=== PATIENT | male | born 1970 | race Caucasian/White ===

== ENCOUNTER 2023-01-28 07:36 | Outpatient (OUT) | payer OTHER, SELFPAY ==
[2023-01-28 09:05] LABS: Calcium 9.2 mg/dL (8.5-10.1); Carbon Dioxide 28.3 mmol/L (21.0-32.0); Chloride 101 mmol/L (98-107); Estimated GFR (African America >60 (>=60); Estimated GFR (Non-African Ame >60 (>=60); Phosphorus 2.7 mg/dL (2.6-4.7); Sodium 140 mmol/L (136-145); Uric Acid 5.1 mg/dL (3.5-7.2)
[2023-01-28 14:03] LABS: Calcium Urine Random >30.0 mg/dL (5.1-21.0); Creatinine Urine Random 153.11 mg/dL (20.00-300.00); Sodium Urine Random 110 mmol/L (30-90)
[2023-01-28 14:25] LABS: Sodium 24 Hour Urine 572 mmol/24h (40-220); Total Volume 24 Hour Urine 5200 mL/24hr
[2023-01-29 09:14] LABS: Uric Acid, Urine 25.2 mg/dL (Not Estab.); Uric Acid,Urine 24hr 302.4 mg/24 hr (197.2-1078.7)
[2023-01-29 11:09] LABS: PTH, Intact 18 pg/mL (15-65)
[2023-01-29 12:12] LABS: Magnesium, U 11.1 mg/dL (Not Estab.); Magnesium,Urine 24hr 133.2 mg/24 hr (12.0-293.0); Phosphorus, Urine 85.2 mg/dL (Not Estab.); Phosphorus,Urine 24h 1022 mg/24 hr (390-1425)
[2023-01-31 00:06] LABS: Citric Acid, U, 24hr 547 mg/24 hr (320-1240); Citric Acid, Urine 456 mg/L (Undefined); Oxalates, Urine 11 mg/L (Undefined); Oxalates, Urine 24hr 13 mg/24 hr (7-44)
== END 2023-01-28 07:37 | disposition home or self-care (01) ==
LOC: LAB 07:36
PROVIDERS: PCP Internal Medicine; Visit Provider Urology
DX: N20.0 Calculus of kidney (principal)
CPT/HCPCS: 36415; 82310; 82340; 82374; 82435; 82507; 82565; 82570; 83735; 83945; 83970; 84100; 84105; 84295; 84300; 84520; 84550; 84560

== ENCOUNTER 2023-03-31 07:43 | Outpatient (OUT) | payer OTHER, SELFPAY ==
[2023-03-31 08:27] LABS: Anion Gap 12.7; Carbon Dioxide 31.9 mmol/L (21.0-32.0); Chloride 99 mmol/L (98-107); Potassium 3.6 mmol/L (3.5-5.1); Sodium 140 mmol/L (136-145)
== END 2023-03-31 07:44 | disposition home or self-care (01) ==
LOC: LAB 07:45
PROVIDERS: PCP Internal Medicine; Visit Provider Urology
DX: C61 Malignant neoplasm of prostate (principal); Z87.442 Personal history of urinary calculi
CPT/HCPCS: 36415; 80051; 84153

== ENCOUNTER 2023-08-19 07:26 | Outpatient (OUT) | payer OTHER, SELFPAY ==
--- OUTSIDE RECORDS SUMMARY | 2023-08-19 07:30 | XMS_ITS | CCD ---
Author Organization [facility] Care Team Providers Care Animal Rehabilitator Name Role Phone IVAN SUAZO Primary Care Physician Ivan Suazo Unavailable KWAME, DR PUGH Primary Care Unavailable TIMMIS, DR CARMICHAEL Admitting Unavailable TIMMIS, DR CARMICHAEL Attending Unavailable TIMMIS, DR CARMICHAEL Consulting Unavailable AGUBOSIM, JOSE ALBERTO Consulting Unavailable BALL, DR PUGH Primary Care Unavailable BALL, DR PUGH Admitting Unavailable BALL, DR PUGH Attending Unavailable BALL, DR PUGH Consulting Unavailable BALL, DR PUGH Primary Care Unavailable ZACK, RACHEL Admitting Unavailable ZACK, RACHEL Attending Unavailable ZIEBER, DR PREETHI Rainey Consulting Unavailable ZACK, RACHEL Consulting Unavailable BARNES, Sridhar Rainey Attending Unavailable BARNES, Sridhar Rainey Attending Unavailable BARNES, Sridhar Rainey Attending Unavailable BARNES, Sridhar Rainey Referring Unavailable BARNES, Sridhar Rainey Admitting Unavailable BARNES, Sridhar Rainey Attending Unavailable BARNES, Sridhar Rainey Attending Unavailable Allergies Allergy Classification Reported Allergen(s) Allergy Type Date of Onset Reaction(s) Facility (10 sources) Penicillin; Translations: [penicillin] Drug Allergy Weal (disorder) [facility] (1 source) patient allergy list reviewed by nurse or physicia Propensity to adverse reactions 07-03-19 Comment:Done [facility] Other (1 source) Substance with penicillin structure and antibacterial mechanism of action (substance) Drug allergy Unknown [facility] Other Medications Current Medications Medication Drug Class(es) Dates Sig (Normalized) Sig (Original) amLODIPine 5 mg oral tablet (8 sources) Dihydropyridine Calcium Channel Vipin Start: 03-05-20 21 take 1 tablet by mouth once daily amLODIPine 5 mg Tab 5 mg = 1 tab(s), Oral, Daily Start Date: 03/05/21 Status: Ordered ciprofloxacin 500 mg oral tablet (1 source) Quinolone Antimicrobial Start: 01-13-20 End: 01-20-20 Cipro 500 mg Tab 500 mg = 1 tab(s), Oral, BID, start 3 days prior to procedure, X 7 day(s), # 14 tab(s), Refills(s) 0, Pharmacy: [facility]/pharmacy #[id number], 170, cm, 01/12/23 15:44:00 EDT, Height/Length Dosing, 83.5, kg, 01/12/23 15:44:00 EDT, Weight Dosing Start Date: 01/12/23 Stop Date: 01/19/23 Status: Ordered diazePAM 10 mg oral tablet (2 sources) Benzodiazepine Start: 01-13-20 take 1 tablet by mouth once as needed for anxiety Valium 10 mg Tab 10 mg = 1 tab(s), Oral, Once, PRN for anxiety, # 1 tab(s), Refills(s) 0, [id number] 170, cm, 01/12/23 15:44:00 EDT, Height/Length Dosing, 83.5, kg, 01/12/23 15:44:00 EDT, Weight Dosing Start Date: 01/12/23 Status: Ordered hydroCHLOROthiazide 12.5 mg oral tablet (1 source) Thiazide Diuretic Start: 02-11-20 take 1 tablet by mouth once daily hydrochlorothiazide 12.5 mg Tab 12.5 mg = 1 tab(s), Oral, Daily, # 90 tab(s), Refills(s) 3, [id number], 170, cm, 02/10/23 8:51:00 EDT, Height/Length Dosing, 83.5, kg, 01/12/23 15:44:00 EDT, Weight Dosing Start Date: 02/10/23 Status: Ordered Prosta-genix (2 sources) Start: 01-13-20 Prosta-genix Prosta-genix, Daily Start Date: 01/12/23 Status: Ordered tamsulosin hydrochloride 0.4 mg oral capsule (3 sources) alpha-Adrenergic Vipin Start: 11-13-19 take 1 capsule by mouth once daily Flomax 0.4 mg Cap 0.4 mg = 1 cap(s), Oral, Daily, # 30 cap(s), Refills(s) 11, [id number], 170, cm, 09/10/21 8:47:00 EDT, Height/Length Dosing, 83.3, kg, 09/10/21 8:47:00 EDT, Weight Dosing Start Date: 11/12/21 Status: Ordered Start: 03-25-2021 take 1 capsule by [facility] twice daily Flomax 0.4 mg Cap 0.4 mg = 1 cap(s), Oral, BID, # 60 cap(s), Refills(s) 2, [id number], 170, cm, 03/05/21 9:37:00 EDT, Height/Length Dosing, 81.2, kg, 03/05/21 9:37:00 EDT, Weight Dosing Start Date: 03/25/21 Status: Ordered {20 (nirmatrelvir 150 MG Oral Tablet) / 10 (ritonavir 100 MG Oral Tablet) } Pack [Paxlovid 5-Day] (2 sources) Start: 09-15-2022 take 3 tablets by mouth every twelve hours Paxlovid (300/100) 20 x 150 MG & 10 x 100MG 3 tablets Orally Twice a day for 5 days September, Active Problems Active Problems Problem Classification Problem Date Documented Da te Episodic/Chronic Allergic reactions (2 sources) Inflammatory dermatosis; Translations: [Dermatitis, unspecified] Onset: 02-26-2017 Episodic Calculus of urinary tract (7 sources) History of calculus of kidney; Translations: [Personal history of urinary calculi] Onset: 04-30-2022 Episodic Cancer of prostate (2 sources) Malignant tumor of prostate; Translations: [Malignant neoplasm of prostate] Chronic Chronic obstructive pulmonary disease and bronchiectasis (1 source) Bronchitis, not specified as acute or chronic Episodic Diseases of mouth; excluding dental (7 sources) Abscess of lip; Translations: [Diseases of lips] Onset: 10-15-2021 Episodic Essential hypertension (7 sources) Essential hypertension; Translations: [Essential (primary) hypertension] Onset: 10-17-2021 Chronic Hyperplasia of prostate (20 sources) Benign prostatic hypertrophy without outflow obstruction; Translations: [Benign prostatic hyperplasia without lower urinary tract symptoms] Onset: 09-10-2021 Chronic Other circulatory disease (6 sources) Elevated blood-pressure reading without diagnosis of hypertension; Translations: [Elevated blood-pressure reading, without diagnosis of hypertension] 09-13-2020 Episodic Other connective tissue disease (3 sources) Tendinitis of right rotator cuff; Translations: [Other shoulder lesions, right shoulder] Episodic Other connective tissue disease (1 source) Mass of shoulder region; Translations: [Other shoulder lesions, right shoulder] Episodic Other nutritional; endocrine; and metabolic disorders (6 sources) Simple obesity ; Translations: [Other obesity due to excess calories] 09-13-2020 Chronic Other nutritional; endocrine; and metabolic disorders (1 source) Body mass index 30+ - obesity; Translations: [Body mass index 30.0-30.9, adult] Onset: 07-03-2017 Chronic Other nutritional; endocrine; and metabolic disorders (1 source) Overweight Episodic Other nutritional; endocrine; and metabolic disorders (1 source) Overweight; Translations: [Overweight] Episodic Other screening for suspected conditions (not mental disorders or infectious disease) (13 sources) Raised prostate specific antigen; Translations: [Elevated prostate specific antigen [PSA]] Onset: 09-10-2021 Episodic Spondylosis; intervertebral disc disorders; other back problems (2 sources) Low back pain; Translations: [Low back pain, unspecified] Onset: 07-19-2018 Episodic Unclassified (4 sources) Asymptomatic microscopic hematuria 04-30-2022 Past or Other Problems Problem Classification Problem Date Documented Da te Episodic/Chronic Conditions associated with dizziness or vertigo (1 source) Benign paroxysmal positional vertigo; Translations: [Benign paroxysmal vertigo, unspecified ear] Onset: 01-14-2013 Episodic Genitourinary symptoms and ill-defined conditions (6 sources) Microscopic hematuria; Translations: [Asymptomatic microscopic hematuria] Onset: 04-30-2022 Episodic Other aftercare (1 source) Other terminal clerk (current) drug therapy; Translations: [OTH [facility] CURRENT DRUG THERAPY] Onset: 10-17-2021 Episodic Other inflammatory condition of skin (1 source) Pruritic rash; Translations: [Other prurigo] Onset: 11-07-2016 Episodic Residual codes; unclassified (1 source) Pain, unspecified; Translations: [PAIN UNSPECIFIED] Onset: 10-17-2021 Episodic Unclassified (3 sources) Acute bilateral low back pain without sciatica; Translations: [Acute bilateral low back pain without sciatica] Viral infection (1 source) Viral wart, unspecified; Translations: [VIRAL WART UNSPECIFIED] Onset: 10-17-2021 Episodic Viral infection (1 source) COVID-19 Results Test Name Value Interpretation Reference Range Facility RAD - MRI Reporton RAD - MRI Report [id number] #1.00TIFF [facility] Insurance Correspondenceon 0 06-12-2023 Insurance Correspondence [id number] 3#1.00TIFF [facility] Pre-Certification Formon Pre-Certification Form [id number]# 1.00TIFF [facility] Reminderson 06-10-2023 Reminders - From: Heather Mckeon To: EU - Recalls Barnes; Sent: 01/12/2023 17:16:54 EDT Show up: 05/18/2023 17:16:00 EST Subject: MRI of prostate w/wo Due Date/Time: 06/08/2023 17:16:00 EST Reminder/Recall Pt needs MRI of prostate with and without in Jun 2023 precert sent to [facility] to get auth approval.[facility] Lab Reportson 04-02-2023 Lab Reports [id number] #1.00TIFF [facility] Patient Educationon 02-21-20 23 Patient Education Oncology Prostate Cancer The prostate is a small gland that produces fluid that makes up semen (seminal fluid). It is located below the bladder in men, in front of the rectum. Prostate cancer is the abnormal growth of cells in the prostate gland. What are the causes? The exact cause of this condition is not known. What increases the risk? You are more likely to develop this condition if: ? You are 65 years of age or older. ? You have a family history of prostate cancer. ? You have a family history of breast and ovarian cancer. ? You have genes that are passed from parent to child (inherited), such as BRCA1 and BRCA2. ? You have Madden syndrome. men and men of descent are diagnosed with prostate cancer at higher rates than other men. The reasons for this are not well understood and are likely due to a combination of genetic and environmental factors. What are the signs or symptoms? Symptoms of this condition include: ? Problems with urination. This may include: ? A weak or interrupted flow of urine. ? Trouble starting or stopping urination. ? Trouble emptying the bladder all the way. ? The need to urinate more often, especially at night. ? Blood in urine or semen. ? Persistent pain or discomfort in the lower back, lower abdomen, or hips. ? Trouble getting an erection. ? Weakness or numbness in the legs or feet. How is this diagnosed? This condition can be diagnosed with: ? A digital rectal exam. For this exam, a health care provider inserts a gloved finger into the rectum to feel the prostate gland. ? A blood test called a prostate-specific antigen (PSA) test. ? A procedure in which a sample of tissue is taken from the prostate and checked under a microscope (prostate biopsy). ? An imaging test called transrectal ultrasonography. Once the condition is diagnosed, tests will be done to determine how far the cancer has spread. This is called staging the cancer. Staging may involve imaging tests, such as a bone scan, CT scan, PET scan, or MRI. Stages of prostate cancer The stages of prostate cancer are as follows: ? Stage 1 (I). At this stage, the cancer is found in the prostate only. The cancer is not visible on imaging tests, and it is usually found by accident, such as during prostate surgery. ? Stage 2 (II). At this stage, the cancer is more advanced than it is in stage 1, but the cancer has not spread outside the prostate. ? Stage 3 (III). At this stage, the cancer has spread beyond the outer layer of the prostate to nearby tissues. The cancer may be found in the seminal vesicles, which are near the bladder and the prostate. ? Stage 4 (IV). At this stage, the cancer has spread to other parts of the body, such as the lymph nodes, bones, bladder, rectum, liver, or lungs. Prostate cancer grading Prostate cancer is also graded according to how the cancer cells look under a microscope. This is called the Pam score and the total score can range from 6?10, indicating how likely it is that the cancer will spread (metastasize) to other parts of the body. The higher the score, the greater the likelihood that the cancer will spread. ? Pam 6 or lower: This indicates that the cancer cells look similar to normal prostate cells (well differentiated). ? [place] 7: This indicates that the cancer cells look somewhat similar to normal prostate cells (moderately differentiated). ? [place] 8, 9, or 10: This indicates that the cancer cells look very different than normal prostate cells (poorly differentiated). How is this treated? Treatment for this condition depends on several factors, including the stage of the cancer, your age, personal preferences, and your overall health. Talk with your health care provider about treatment options that are recommended for you. Common treatments include: ? Observation for early stage prostate cancer (active surveillance). This involves having exams, blood tests, and in some cases, more biopsies. For some men, this is the only treatment needed. ? Surgery. Types of surgeries include: ? Open surgery (radical prostatectomy). In this surgery, a larger incision is made to remove the prostate. ? A laparoscopic radical prostatectomy. This is a surgery to remove the prostate and lymph nodes through several small incisions. It is often referred to as a minimally invasive surgery. ? A robotic radical prostatectomy. This is laparoscopic surgery to remove the prostate and lymph nodes with the help of robotic arms that are controlled by the surgeon. ? Cryoablation. This is surgery to freeze and destroy cancer cells. ? Radiation treatment. Types of radiation treatment include: ? External beam radiation. This type aims beams of radiation from outside the body at the prostate to destroy cancerous cells. ? Brachytherapy. This type uses radioactive needles, seeds, wires, or tubes that are implanted into the prostate gland. Like external be (more content not included)... Normal [facility] Urology Office/Clinic Noteon 02-20-2023 Urology Office/Clinic Note Chief Complaint elevated PSA HPI Staff S/P TRUS/Bx done 02/10/23 Pt is here today to review pathology report. DX: BPH w/Elevated PSA & Hx of Kidney Stones 24hr Urine & Metabolic panel 01/28/23 Dysuria: no Incomplete bladder emptying: no Hematuria: no Frequency: no Urgency: no Nocturia: 1-2x Stream: no straining little weaker than before Leaking: no Post void dripping: no Wearing pads/ Depends: no Urge incontinence: no Stress incontinence: no Incontinence without Sensory Awareness: no Abdominal pain: no Flank pain: no Sexual complaints: no History of Present Illness Tests reviewed: reviewed pathology report, metabolic panel I have reviewed the previous health record information and history for this patient from Dr. Barnes. I have reviewed and verified the staff HPI to be accurate for this encounter. Review of Systems PHQ Score Initial Depression Screen Score: 0 ROS - Provider Constitutional: denies weight loss, denies hot flashes. Eyes: denies eye problems. Gastrointestinal: denies nausea, denies vomiting. Cardiovascular: denies chest pain or angina. Integumentary: no dryness Musculoskeletal: denies musculoskeletal symptoms. ENMT: denies otolaryngeal symptoms. Respiratory: no shortness of breath. Heme/Lymph: denies easy bleeding tendency, denies easy bruising tendency. Psychiatric: no confusion, no anxiety. Genitourinary: See HPI. Physical Exam Vitals & Measurements HR: 82(Peripheral) RR: 16 BP: 134/83 HT: 67 in HT: 170 cm WT: 83.5 kg WT: 183.7 lb BMI: 28.89 General Appearance: alert, no distress, well nourished, well developed male. Genitourinary: normal scrotum, normal testes, normal urethra, normal epididymis, normal vas deferens/spermatic cord. Flank Pain: none. Bladder: nonpalpable. Assessment/Plan 1. Prostate cancer (C61: Malignant neoplasm of prostate) ACTIVE SURVEILLANCE. S/p TRUS/bx 10/08/[address] Thomson - [facility] in 1 core. S/p TRUS/bx 02/10/23 - GS 6 (3+3) in 2 cores, 3% core involved in right base and 2% involved in right lateral base. The pathology report was reviewed with the patient in detail today. The report confirms evidence of malignancy. This was discussed with the patient and all questions were answered in terms the patient could understand completely, along with the implications. Discussed results were mild and do not require treatment at this time. Pt understands cancer can progress, requiring further evaluation for treatment. Will monitor PSA every 6 months and regularly check AIDE. The patient understands and agrees with this plan. PSA 08/02/20 - 5.79 08/27/20 - 5.5 and 15.3% 08/12/21 - 5.7 and 14.2% 04/30/22 - 5.0 08/16/22 - 8.54 Denies any known family hx of prostate ca. Discussed most recent PSA level will now be baseline for monitoring levels. Pt understands a significant increase in PSA level would harbor a repeat biopsy or MRI. Follow up with PSA and AIDE in 6 months or sooner if needed. All questions/concerns were discussed. Pt to call the office if he encounters any issues prior. Pt acknowledges understanding. 2. History of kidney stones (Z87.442: Personal history of urinary calculi) Pt states that he does have a personal history of kidney stones and he last passed one in 2020. Has passed 3 in his lifetime. KUB 04/30/22 - negative for stones. 24hr urine 01/28/23 - high Na, Ca, Cr levels. 5200 mL/24hr. Discussed 24hr urine will need rechecked in 1 year for calcium excretion. Taking HCTZ 12.5mg qd. Will check electrolyte levels in March. 3. BPH with elevated PSA (N40.0: Benign prostatic hyperplasia without lower urinary tract symptoms) Pt took Tamsulosin 0.4mg QD in the past but stopped due to SE of stuffy head. UA today shows moderate blood (postop). Follow-up With When Contact Information DERECK JACOBS, CHRISTAL [place] In 6 months [facility] [address] [place] [address] [phone] Additional Instructions: PSA and AIDE Patient Education Prostate Cancer I, Parris Morales, personally scribed for Dr. Barnes on 02/20/2023 12:14:52. . Documentation recorded by the milaibParris vega, accurately reflects the services(s) I performed and decisions made by me. Authenticated by Dr. Barnes on 02/20/2023 12:17:24. Problem List/Past Medical History Ongoing Asymptomatic microscopic hematuria BPH associated with nocturia BPH with elevated PSA BPH with urinary obstruction Elevated BP without diagnosis of hypertension Elevated PSA Exogenous obesity History of kidney stones Hypertension Prostate cancer Historical No qualifying data Procedure/Surgical History Transrectal biopsy of prostate using ultrasound (US) guidance (02/10/2023), Transrectal biopsy of prostate (10/08/2020), Eye, Lip, Vasectomy. Medications amLODIPine 5 mg Tab, 5 mg= 1 tab(s), Oral, Daily hydrochlorothiazide 12.5 mg Tab, 12.5 mg= 1 tab(s), Oral, Daily, 3 refills Pros (more content not included)... Normal [facility] Comment on above: Result Comment: Elec tronically Signed By: Sridhar BARNES MD\.br\Date and Time Signed: 02/20/23 12:17 EDT\.br\Electronically Co-Signed By: Parris Morales\.br\Date and Time Co-Signed: 02/20/23 12:15 EDT IntraOperative Documentson 1 IntraOperative Documents [id number]#1.00CD:127 Normal [facility] Prostate Histology ([facility]) on 02-18-2023 Prostate Histology Diagnosis Info Invalid Interpretation Code [facility] Comment on above: Order Comment: 1 BIT E PER AREA Result Comment: A:Pr ostate,Left Lateral Base:Needle Biopsy Interpretation - - Benign prostatic tissue. MicroScopic Description - B:Prostate,Left Lateral Mid:Needle Biopsy Interpretation - - Benign prostatic tissue. MicroScopic Description - C:Prostate,Left Lateral Hope:Needle Biopsy Interpretation - - Benign prostatic tissue. MicroScopic Description - D:Prostate,Left Base:Needle Biopsy Interpretation - - Benign prostatic tissue. MicroScopic Description - E:Prostate,Left Mid:Needle Biopsy Interpretation - - Benign prostatic tissue. MicroScopic Description - F:Prostate,Left Hope:Needle Biopsy Interpretation - - Benign prostatic tissue (see comment). MicroScopic Description - G:Prostate,Right Base:Needle Biopsy Interpretation - - Acinar adenocarcinoma of prostate; [place] score 6(3+3); Tumor measures 0.04 cm in length; 3% of the core involved by tumor; 1 of 2 cores involved (see comment). MicroScopic Description - H:Prostate,Right Mid:Needle Biopsy Interpretation - - Benign prostatic tissue. MicroScopic Description - I:Prostate,Right Hope:Needle Biopsy Interpretation - - Benign prostatic tissue. MicroScopic Description - J:Prostate,Right Lateral Base:Needle Biopsy Interpretation - - Acinar adenocarcinoma of prostate; [place] score 6(3+3); Tumor measures 0.04 cm in length; 2% of the core involved by tumor; 1 of 1 core involved (see comment). MicroScopic Description - K:Prostate,Right Lateral Mid:Needle Biopsy Interpretation - - Benign prostatic tissue. MicroScopic Description - L:Prostate,Right Lateral Hope:Needle Biopsy Interpretation - - Benign prostatic tissue. MicroScopic Description - Gross Description Site ID:A color sanchez-white fixative Formalin cores 1 units cm Site ID:B color sanchez-white fixative Formalin cores 1 units cm Site ID:C color sanchez-white fixative Formalin cores 1 units cm stringy Site ID:D color sanchez-white fixative Formalin cores 1 units cm Site ID:E color sanchez-white fixative Formalin cores 1 units cm Site ID:F color sanchez-white fixative Formalin cores 1 units cm Site ID:G color sanchez-white fixative Formalin cores 2 units cm Site ID:H color sanchez-white fixative Formalin cores 1 units cm Site ID:I color sanchez-white fixative Formalin cores 1 units cm Site ID:J color sanchez-white fixative Formalin cores 1 units cm Site ID:K color sanchez-white fixative Formalin cores 1 units cm Site ID:L color sanchez-white fixative Formalin cores 1 units cm Highest grade group: Pam score 3+3=6, grade group 1. Highest percentage of core involvement: 3% Cribriform pattern 4: Absent F, G and J: Immunostain HMW cytokeratins /p63/ P504S (PIN4 immunostain) reviewed, supporting the rendered diagnosis. This Grade Group system was recently endorsed by both the International Society of Urological Pathology (ISUP, 2015) and the World Health Organization (WHO). The use of one or more reagents in the above tests is regulated as an analytic specific reagent (ASR). The performance characteristics were determined by the [employer], [employer]. They have not been cleared by the US Food and Drug Administration. The FDA has determined that such clearance or approval is not necessary. Appropriate positive and negative controls are performed and are acceptable. Electronically signed by : on: 02/18/2023 11:20:58 Performed By: #### 1 [id number] ####[facility] [id number] [place] [address] Consent for Procedure/Surger [facility] 02-10-2023 Consent for Procedure/Surgery [id number] #1.00CD:127 [facility] Consent for Treatmenton 09-2 Consent for Treatment [id number] #1.00CD:127 [facility] IntraOperative Documentson 0 02-10-2023 IntraOperative Documents [id number] #1.00CD:127 [facility] Main OR Intraoperative Recor don 02-10-2023 Main OR Intraoperative Record IntraOp Document Type FTURO Summary Primary Physician: Sridhar BARNES MD Finalized Date/Time: 02/10/23 10:02:01 Pt. Name: REY JARA Redd ConwayB./Sex: 1970 Male Med Rec #: [id number] Physician: Sridhar BARNES MD Financial #: [id number] Pt. Type: O Room/Bed: / Admit/Disch: 02/10/23 08:04:02 - Institution: Case Times FTURO Entry 1 Patient Times In Room 02/10/23 09:29:00 Out Room 02/10/23 10:01:00 Procedure Times Start 02/10/23 09:36:00 Stop 02/10/23 09:51:00 Anesthesia Times Last Modified By: Mounika Ramírez RN 02/10/23 10:01:48 Case Attendance FTURO Entry 1 Entry 2 Entry 3 Case Attendee Sridhar BARNES MD, Jessica D Barbee RN, Kimberly Y Role Performed Surgeon - Primary Scrub - Primary Television Cable Installer - Primary Time In 02/10/23 09:29:00 02/10/23 09:29:00 02/10/23 09:29:00 Time Out 02/10/23 10:01:00 02/10/23 10:01:00 02/10/23 10:01:00 Procedure PROSTATE TRANSRECTAL PROSTATE TRANSRECTAL PROSTATE TRANSRECTAL ULTRASOUND WITH BIO(.) ULTRASOUND WITH BIO(.) ULTRASOUND WITH BIO(.) Comments Last Modified By: Darrell CACERES, Mounika Ramírez RN, Mounika Hughes RN 02/10/23 10:01:50 02/10/23 10:01:50 02/10/23 10:01:50 Surgical Procedures FTURO Entry 1 Procedure Description Procedure PROSTATE TRANSRECTAL Modifiers . ULTRASOUND WITH BIOPSY Surgeon Description PROSTATE TRANSRECTAL ULTRASOUND WITH BIOPSY Primary Procedure Yes Primary Surgeon Sridhar BARNES MD Start 02/10/23 09:36:00 Stop 02/10/23 09:51:00 Anesthesia Type Local Surgical Service Urology Wound Class 2 - Clean-Contaminated Last Modified By: Mounika Ramírez RN 02/10/23 09:53:18 General Case Data FTURO Pre-Care Text: Classifies surgical wound, implements aseptic technique, initiates traffic control Entry 1 Case Information OR URO 1 FT Case Level None Wound Class 2 - Clean-Contaminated Specialty Urology Preop Diagnosis ELEVATED PSA Postop Same As Preop Yes Postop Diagnosis ELEVATED PSA Outcomes Met? Yes Last Modified By: Mounika Ramírez RN 02/10/23 09:35:38 Post-Care Text: The patient is free from signs and symptoms of infection EU IntraOp - FTURO Pre-Care Text: Implements protective measures prior to operative or invasive procedure, confirms identity before the operative or invasive procedure, verifies operative procedure, surgical site, and laterality Entry 1 EU Perioperative Protocols Procedure(s) PROSTATE TRANSRECTAL Patient Identity Birthday, ID Band ULTRASOUND WITH BIO(.) Verified (select at Check, Patient least 2): Participation Consents / H and P HandP, Surgery/Procedure Operative Site N/A Verified Consent Marking Verified Surgical Site Yes Laterality Verified Yes Verified Procedure Verified Yes Correct Patient Yes Position Verified Availability Equipment, Medication Time Out Sridhar BARNES MD, Verified (If Participants Doreen Anders Barbee Applicable) Mounika CACERES Time Out Complete 02/10/23 09:34:00 Allergies Reviewed? Yes Allergies Reviewed Self/Patient With Body Position Lateral, right side up Prep Area NONE Prep Agents None Skin. Condition Dry, Warm, Unable to Description UNABLE TO VISUALIZE DUE Visualize TO PATIENT PARTIALLY CLOTHED Additional Tissue Specimens Comment PROSTATE TISSUE X 12 Specimens Collected SPECIMENS Vitals - EU Blood Pressure 130/80 Pulse 84 bpm Respirations 18 br/min SPO2 95 % EBL 0 IandO - EU Total Intake 0 mL Total Output 0 mL Outcomes Met? Yes Last Modified By: Mounika Ramírez RN 02/10/23 09:52:38 Post-Care Text: The patient is free from signs and symptoms of injury caused by extraneous objects Sign Out FTURO Entry 1 Before Patient Leaves OR Nurse verbally Yes Nurse verbally Yes confirms with the confirms with the team the name of team that the procedure(s) instrument, sponge, recorded and needle counts are correct (or N/A) Nurse verbally Yes Nurse verbally Yes confirms with the confirms with the team how the team whether there specimen is labeled are any equipment (including patient problems to be name), if applicable addressed Sign Out Complete 02/10/23 09:51:00 Last Modified By: Mounika Ramírez RN 02/10/23 09:53:14 Case Comments Finalized By: Mounika Ramírez RN Document Signatures Signed By: Mounika Ramírez RN 02/10/23 10:02 Normal [facility] Main OR Preoperative Recordo n 02-10-2023 Main OR Preoperative Record Holding Area Document Type FTURO Summary Primary Physician: Sridhar BARNES MD Finalized Date/Time: 02/10/23 09:31:04 Pt. Name: MAREK REY Palomino./Sex: 1970 Male Med Rec #: [id number] Physician: Sridhar BARNES MD Financial #: [id number] Pt. Type: O Room/Bed: / Admit/Disch: 02/10/23 08:04:02 - Institution: Case Times Holding FTURO Pre-Care Text: Verifies consent for planned procedure, identifies individual values and wishes concerning care, includes family members in perioperative teaching Secures patient's records' belongings, and valuables, maintains patient's dignity and privacy, and maintains patient confidentiality Entry 1 In Holding 02/10/23 08:46:00 Outcomes Met? Yes Last Modified By: Ivonne Elizalde LPN 02/10/23 08:46:16 Post-Care Text: The patient participates in decisions affecting his or her perioperative plan of care The patient's right to privacy is maintained Surgery Checklist FTURO Entry 1 Patient Birthday, ID Band Procedure Surgical Consent, With Identification: Check, Patient Verification: Patient Participation NPO after Midnight: n/a Date/Time: 02/10/23 08:46:00 Personal Items: Cataract Lens Implant, Personal Items lens implant right eye, Glasses Comment: glasses Complaints of Pain: No Skin Integrity Intact, Malcolm, Warm, & Dry Vitals - EU Blood Pressure 130/80 Pulse 84 bpm Respirations 18 br/min SPO2 95 % RN Reviewed Yes Last Modified By: Mounika Ramírez RN 02/10/23 09:31:03 General Comments: Temp 97.9 Finalized By: Mounika Ramírez RN Document Signatures Signed By: Ivonne Elizalde LPN 02/10/23 08:50 Mounika Ramírez RN 02/10/23 09:31 Normal [facility] Operative Reporton Operative Report Patient: REY JARA Age: 52 years Sex: Male : 1970 Associated Diagnoses: None Author: Sridhar BARNES MD Procedure Operative Information Details: Date/ Time: 02/10/2023 09:54:00. Pre-Op Dx: Elevated PSA - R97.20. Post-Op Dx: Same. Anesthesia Type: Local, Periprostatic Nerve Block. Procedure: Transrectal Ultrasound and Transrectal Ultrasound-Guided Biopsy of the Prostate. Complications: None. Risks/Benefits/Infor med Consent: Surgical risks, benefits, details of the procedure have been explained to the patient, Full informed consent has been obtained. Intraoperative Information Prepped: The patient was brought to the office suite, placed in the modified left lateral Brewer position, The patient was draped appropriately, 80 mg Gentamicin IM injection administered. Procedure: Then 2% Xylocaine jelly was used for intrarectal anesthesia, After waiting several minutes, a well lubricated ultrasound probe was introduced per rectum, The prostate was carefully evaluated in the AP and Sagittal views. Volume: 53 CC. Specimens Removed: A total of 12 biopsies were taken, 6 from each side, and sent to pathology. Devices Implanted: None. Postoperative Information Discharge: The patient tolerated the procedure well and was discharged home in satisfactory condition, The patient was instructed to (Finish antibiotics, Avoid strenuous activity, Go to the emergency room for gross bleeding, fever, or chills). Radiology Report Procedure: Transrectal Ultrasound of the Prostate, Transrectal US guided needle biopsy of the prostate. Narrative: Ultrasound probe is introduced and performed in the longitudinal and transverse plains, The gland measures (53 MM Length, 54 MM Width, 35 MM Depth, with a calculated volume of 53 CC), The prostatic capsule and seminal vesicles appear to be within normal limits, The peripheral zone demonstrates No abnormalities, Rest of the prostate demonstrates No abnormalities, Ultrasound guidance was then utilized to obtain 12 biopsies, These were sent to pathology for evaluation. Normal [facility] Comment on above: Result Comment: Elec tronically Signed By: DERECK JACOBS, Sridhar Vera.lupe\Date and Time Signed: 02/10/23 09:55 EDT Outpatient Surgery Discharge Instructionon 02-10-2023 Outpatient Surgery Discharge Instruction [id number] #1.00CD:127 Normal [facility] Patient Educationon 02-11-20 Patient Education Custom Transrectal Ultrasound of the Prostate with US guided biopsy ? Even though there are no visible incisions, multiple prostate biopsies have been taken through the rectum and you need to follow some instructions to minimize the risks of bleeding. ? You may see some blood in your urine and stool for up to 1 week (and blood in the semen for several months) ? Diet -You may resume your normal diet, but you may want to avoid alcohol, carbonated drinks, caffeine, and spicy foods, which may increase the irritation from the surgery. -Drink plenty of water to keep the urine clear. ? Activity -You should limit any physical activity for about 48 hours -No heavy lifting or straining (10 pound limit) -No driving a car and limit long car rides for 2 days -No strenuous exercise -No sexual intercourse until this is discussed with your doctor ? Bowels -Try to keep your bowel movements soft to minimize straining to have a bowel movement. -You may use a stool softener or over the counter laxative if needed -Difficult bowel movement may lead to straining and bleeding from the prostate ? Medications -You may resume your home medications unless instructed otherwise -Hold aspirin, ibuprofen, Coumadin (warfarin) and other blood thinners for about two days or until there is no active bleeding unless otherwise instructed -Finish the antibiotic which you have already started ? Things to watch for which would require an Emergency Room visit or call 911: (this is not a complete list) -Persistent or heavy bleeding or blood clots from the rectum or in the urine -Inability to urinate -Fever over 101.5 degrees Fahrenheit, with or without chills -Severe drug reactions with itching, hives or rash -Tenderness or swelling of the calves, chest pain, or shortness of breath ? Please call the office to arrange for your post-operative appointment in 1-2 weeks [phone] or [phone] Normal [facility] Prostate Histology ([facility]) on 02-10-2023 PH Method of Extraction Needle Biopsy Normal [facility] Comment on above: Order Comment: 1 BIT E PER AREA Performed By: #### 1 [id number] ####[facility] [address] [place] [address] PH Number of Jars 2 Invalid Interpretation Code [facility] Comment on above: Order Comment: 1 BIT E PER AREA Performed By: #### 1 [id number] ####[facility] [address] [place] [address] PH Specimen 1 L Base Prostate Normal [facility] Comment on above: Order Comment: 1 BIT E PER AREA Performed By: #### 1 [id number] ####[facility] [address] [place] [address] PH Specimen 10 R Lat Bse Prost Normal [facility] Comment on above: Order Comment: 1 BIT E PER AREA Performed By: #### 1 [id number] ####[facility] [address] [place] [address] PH Specimen 11 R Lat Mid Prost Normal [facility] Comment on above: Order Comment: 1 BIT E PER AREA Performed By: #### 1 [id number] ####[facility] [address] [place] [address] PH Specimen 12 R Lat Apx Prost Normal [facility] Comment on above: Order Comment: 1 BIT E PER AREA Performed By: #### 1 [id number] ####[facility] [address] [place] [address] PH Specimen 2 L Mid Prostate Normal [facility] Comment on above: Order Comment: 1 BIT E PER AREA Performed By: #### 1 [id number] ####[facility] [address] [place] [address] PH Specimen 3 L Apx Prostate Normal [facility] Comment on above: Order Comment: 1 BIT E PER AREA Performed By: #### 1 [id number] ####[facility] [address] [place] [address] PH Specimen 4 L Lat Mid Prost Normal [facility] Comment on above: Order Comment: 1 BIT E PER AREA Performed By: #### 1 [id number] ####[facility] [address] [place] [address] PH Specimen 5 L Lat Bse Prost Normal [facility] Comment on above: Order Comment: 1 BIT E PER AREA Performed By: #### 1 [id number] ####[facility] [address] [place] [address] PH Specimen 6 L Lat Apx Prost Normal [facility] Comment on above: Order Comment: 1 BIT E PER AREA Performed By: #### 1 [id number] ####[facility] [address] [place] [address] PH Specimen 7 R Base Prostate Normal [facility] Comment on above: Order Comment: 1 BIT E PER AREA Performed By: #### 1 [id number] ####[facility] [address] [place] [address] PH Specimen 8 R Mid Prostate Normal [facility] Comment on above: Order Comment: 1 BIT E PER AREA Performed By: #### 1 [id number] ####[facility] [address] [place] [address] PH Specimen 9 R Apx Prostate Normal [facility] Comment on above: Order Comment: 1 BIT E PER AREA Performed By: #### 1 [id number] ####[facility] [address] [place] [address] PH Type of Service Technical Only Normal [facility] Comment on above: Order Comment: 1 BIT E PER AREA Performed By: #### 1 [id number] ####[facility] [address] [place] [address] Lab Reportson 02-03-2023 Lab Reports [id number]# 1.00CD:127 Normal [facility] Lab Reportson 01-29-2023 Lab Reports [id number] #1.00CD:127 [facility] Lab Reports [id number]# 1.00CD:127 [facility] Lab Reportson 01-28-2023 Lab Reports [id number] #1.00CD:127 [facility] Ambulatory Visit Summaryon 0 01-12-2023 Ambulatory Visit Summary TORITOAZIZAREY :1970 Visit Date:01/12/2023 Ambulatory Visit Instructions Your Diagnosis BPH with elevated PSA History of kidney stones Tests Performed Urnls Dip Stick Auto w/o Microscopy POC 93482 Your Care Team Attending Physician - DERECK JACOBS, Sridhar Rainey Primary Care Physician - IVAN SUAZO DO This Is Your Medications List ciprofloxacin (Cipro 500 mg Tab) Contact prescribing physician if questions or concerns Non-Formulary Medication (Prosta-genix) amlodipine (amLODIPine 5 mg Tab) [Image Removed: STOP]Stop taking these medications tamsulosin (Flomax 0.4 mg Cap) Procedures Performed Transrectal biopsy of prostate (10/08/2020), Eye, Lip, Vasectomy. Discharge Vitals Blood Pressure 132/80 Height 170 cm Height 67 in Weight 83.5 kg Weight 183.7 lb BMI 28.89 What to do next Scheduled Follow-Up Appointments Thursday 9:15 AM EDT With: DERECK JACOBS, Sridhar Rainey Where: [facility] Patient Educationon 01-13-20 Patient Education Oncology Transrectal Ultrasound-Guided Prostate Biopsy, Care After The following information offers guidance on how to care for yourself after your procedure. Your health care provider may also give you more specific instructions. If you have problems or questions, contact your health care provider. What can I expect after the procedure? After the procedure, it is common to have: ? Pain and discomfort near your rectum, especially while sitting. ? Malcolm-colored urine due to small amounts of blood in your urine. ? A burning feeling while urinating. ? Blood in your stool (feces) or bleeding from your rectum. ? Blood in your semen. Follow these instructions at home: Medicines ? Take femt-vqz-nnjstto and prescription medicines only as told by your health care provider. ? If you were given a sedative during your procedure, it can affect you for several hours. Do not drive or operate machinery until your health care provider says that it is safe. ? If you were prescribed an antibiotic medicine, take it as told by your health care provider. Do not stop using the antibiotic even if you start to feel better. Activity ? Return to your normal activities as told by your health care provider. Ask your health care provider what activities are safe for you. ? Ask your health care provider when it is okay for you to resume sexual activity. ? You may have to avoid lifting. Ask your health care provider how much you can safely lift. General instructions ? Drink enough fluid to keep your urine pale yellow. ? Watch your urine, stool, and semen for new or increased bleeding. ? Keep all follow-up visits. This is important. Contact a health care provider if: ? You have any of the following: ? Blood clots in your urine or stool. ? Blood in your urine more than 2 weeks after the procedure. ? Blood in your semen more than 2 months after the procedure. ? New or increased bleeding in your urine, stool, or semen. ? Severe pain in your abdomen. ? Your urine smells bad or unusual. ? You have trouble urinating. ? Your lower abdomen feels firm. ? You have problems getting an erection. ? You have nausea or you vomit. Get help right away if: ? You have a fever or chills. This could be a sign of infection. ? You have bright red urine. ? You have severe pain that does not get better with medicine. ? You cannot urinate. Summary ? After this procedure, it is common to have pain and discomfort around your rectum, especially while sitting. ? You may have blood in your urine and stool after the procedure. ? It is common to have blood in your semen after this procedure. ? Get help right away if you have a fever or chills. This could be a sign of infection. This information is not intended to replace advice given to you by your health care provider. Make sure you discuss any questions you have with your health care provider. Document Revised: 10/28/2021 Document Reviewed: 10/28/2021 [employer] Patient Education ? 2022 [place]. Transrectal Ultrasound-Guided Prostate Biopsy A transrectal ultrasound-guided prostate biopsy is a procedure to remove samples of prostate tissue for testing. The prostate is a walnut-sized gland that is located below the bladder and in front of the rectum. During this procedure, a small device (probe) is lubricated and put inside the rectum. The probe sends out sound waves that make a picture of the prostate and surrounding tissues (transrectal ultrasound). The images are used to help guide the process of removing the samples. The samples are taken to a lab to be checked for prostate cancer. This procedure is usually done to evaluate the prostate gland of men who have raised (elevated) levels of prostate-specific antigen (PSA), which can be a sign of prostate cancer or prostate enlargement related to aging (benign prostatic hyperplasia, or BPH). Tell a health care provider about: ? Any allergies you have. ? All medicines you are taking, including vitamins, herbs, eye drops, creams, and srla-aqo-ppjvmhn medicines. ? Any problems you or family members have had with anesthetic medicines. ? Any bleeding problems you have. ? Any surgeries you have had. ? Any medical conditions you have. ? Any prostate infections you have had. What are the risks? Generally, this is a safe procedure. However, problems may occur, including: ? Prostate infection. ? Bleeding from the rectum. ? Blood in the urine. ? Allergic reactions to medicines. ? Damage to surrounding structures such as blood vessels, organs, or muscles. ? Difficulty passing urine. ? Nerve damage. This is usually temporary. What happens before the procedure? Medicines Ask your health care provider about: ? Changing or stopping your regular medicines. This is especially important if you are taking diabetes medicines or blood thinners. ? Taking medicines such as aspirin (more content not included)... Normal [facility] Urology Office/Clinic Noteon 01-12-2023 Urology Office/Clinic Note Chief Complaint 6m PSA HPI Staff 6m PSA (last seen in our office by LINH-Previously seen by CLEMENTINA) DX: Microscopic Hematuria, BPH & Hx of Kidney Stones. *Tamsulosin 0.4mg increased to BID at time of last encounter. Pt called our office 07/08/22 c/o stuffy head since increasing dosage. Pt advised to take Flonase. (Since he stated the increased dose was improving urinary symptoms). Pt took Flonase for 2wks. No difference. Pt stopped Flonase & Flomax all together. Has been taking OTC Prosta-genix. NEG KUB 04/30/23 PSA drawn IO at time of last encounter 04/30/22- 5.0 Current PSA 08/16/22- 8.54 S/P NITO TRUS/Bx by CLEMENTINA 10/08/20. Denies pain/burning & visible blood. Occasionally 1x/night (only with alcohol consumption). Denies frequency during day. Weaker stream. Unsteady. Attributes to age. No difference with/without Flomax. Supplement has helped some. Denies symptoms of Kidney Stone. History of Present Illness Tests reviewed: reviewed UA, PSA, KUB I have reviewed the previous health record information and history for this patient from Dr. Barnes. I have reviewed and verified the staff HPI to be accurate for this encounter. There have been no associated fever, chills, flank pain, or blood in the urine. Denies any urinary infections since last encounter. Review of Systems PHQ Score Initial Depression Screen Score: 0 ROS - Provider Constitutional: denies weight loss, denies hot flashes. Eyes: denies eye problems. Gastrointestinal: denies nausea, denies vomiting. Cardiovascular: denies chest pain or angina. Integumentary: no dryness Musculoskeletal: denies musculoskeletal symptoms. ENMT: denies otolaryngeal symptoms. Respiratory: no shortness of breath. Heme/Lymph: denies easy bleeding tendency, denies easy bruising tendency. Psychiatric: no confusion, no anxiety. Genitourinary: See HPI. Physical Exam Vitals & Measurements BP: 132/80 HT: 67 in HT: 170 cm WT: 83.5 kg WT: 183.7 lb BMI: 28.89 General Appearance: alert, no distress, well nourished, well developed male. Genitourinary: normal scrotum, normal testes, normal urethra, normal epididymis, normal vas deferens/spermatic cord. Flank Pain: none. Bladder: nonpalpable. Assessment/Plan Former Dr. Thomson pt. 1. BPH with elevated PSA (N40.0: Benign prostatic hyperplasia without lower urinary tract symptoms) Neg TRUS BX 10/08/20 [1] PSA 08/02/20 - 5.79 08/27/20 - 5.5 and 15.3% 08/12/21 - 5.7 and 14.2% 04/30/22 - 5.0 08/16/22 - 8.54 Denies any known family hx of prostate ca. He has an elevated PSA, which could indicate prostate cancer, prostate infection, prostate inflammation without infection, prostate manipulation, or benign prostate enlargement (BPH). The importance of the rate of PSA rise has also been discussed. The options for management have been discussed, including prostate biopsy versus close monitoring of the PSA over time. Pt took Tamsulosin 0.4mg QD in the past but stopped due to SE of stuffy head. UA today negative for blood and infection. Denies prostatitis sxs. discussed getting mri of prostate... decided to wait on this for now. Will schedule TRUS of Prostate with Biopsy. The procedural risks, benefits, details, and treatment alternatives have been discussed with the patient. These include minimal to severe bleeding, infection, blood in the semen, inability to urinate, and severe infection requiring hospitalization and IV antibiotics, among others. Full informed consent has been obtained. Will order Local anesthesia. Pt to get prostate MRI in 6 months. 2. History of kidney stones (Z87.442: Personal history of urinary calculi) Pt states that he does have a personal history of kidney stones and he last passed one in 2020. has passed 3 in his lifetime. [2] Most recent KUB 04/30/22 - negative for stones. Pt to complete 24hr urine and metabolic work-up. Follow-up With When Contact Information DERECK JACOBS, Sridhar Rainey, URL [facility] [address], [place] [address]- [phone] Additional Instructions: stone work-up sched TRUS/bx Patient Education Transrectal Ultrasound-Guided Prostate Biopsy, Care After Transrectal Ultrasound-Guided Prostate Biopsy I, Parris Morales, personally scribed for Dr. Barnes on 01/12/2023 16:46:58. . Documentation recorded by the scribe, Parris Morales, accurately reflects the services(s) I performed and decisions made by me. Authenticated by Dr. Barnes on 01/12/2023 16:49:33. Problem List/Past Medical History Ongoing Asymptomatic microscopic hematuria BPH associated with nocturia BPH with elevated PSA BPH with urinary obstruction Elevated BP without diagnosis of hypertension Elevated PSA Exogenous obesity History of kidney stones Historical No qualifying data Procedure/Surgical History Transrectal biopsy of prostate (10/08/2020), Eye, Lip, Vasectomy. Medications amLODIPine 5 mg Tab, 5 mg= 1 tab(s), Oral, Daily (more content not included)... Normal [facility] Comment on above: Result Comment: Elec tronically Signed By: Sridhar BARNES MD\.br\Date and Time Signed: 01/12/23 16:49 EDT\.br\Electronically Co-Signed By: Parris Morales.br\Date and Time Co-Signed: 01/12/23 16:47 EDT [facility] 09-10-2022 Lab Reports [id number] #1.00CD:127 PSA back up. neg bx 2020. has appt w [facility] 11/17/22. Normal [facility] CBC AUTO DIFFon 08-16-2022 BASO # 0.0 103/ul Normal 0.0-0.1 [facility] Comment on above: Performed By: #### C BC #### [facility] [address] [address] [address] Art Napoles Basophils/100 WBC (Bld) 0.8 % Normal 0.2-2.0 [facility] Comment on above: Performed By: #### C BC #### [facility] [address] [place] [address] Dr. Art Napoles EO # 0.1 103/ul Normal 0.0-0.7 [facility] Comment on above: Performed By: #### C BC #### [facility] [address] [place] [address] Dr. Art Napoles Eosinophils/100 WBC (Bld) 1.6 % Normal 0.9-7.0 [facility] Comment on above: Performed By: #### C BC #### [facility] [address] [place] [address] Dr. Art Napoles Erythrocyte distribution width (RBC) [Ratio] 12.3 % Normal 11.0-15.0 [facility] Comment on above: Performed By: #### C BC #### [facility] [address] [place] [address] Dr. Art Napoles Hematocrit (Bld) [Volume fraction] 48.7 % Normal 42.0-54.0 [facility] Comment on above: Performed By: #### C BC #### [facility] [address] [place] [address] Dr. Art Napoles Hemoglobin (Bld) [Mass/Vol] 16.3 g/dL Normal 14.0-18.0 [facility] Comment on above: Performed By: #### C BC #### [facility] [address] [place] [address] Dr. Art Napoles IG # 0.01 10e3/ul Normal 0.00-0.03 [facility] Comment on above: Performed By: #### C BC #### [facility] [address] [place] [address] Dr. Art Napoles IG % 0.2 % Normal 0.0-0.5 [facility] Comment on above: Performed By: #### C BC #### [facility] [address] [place] [address] Dr. Art Napoles LYMPH # 1.7 103/ul Normal 1.2-3.8 [facility] Comment on above: Performed By: #### C BC #### [facility] [address] [place] [address] Dr. Art Napoles Lymphocytes/100 WBC (Bld) 33.0 % Normal 20.5-60.0 [facility] Comment on above: Performed By: #### C BC #### [facility] [address] [place] [address] Dr. Art Napoles MANUAL DIFF REQ NO Normal [facility] Comment on above: Performed By: #### C BC #### [facility] [address] [place] [address] Dr. Art Napoles MCH (RBC) [Entitic mass] 29.9 pg Normal 25.9-34.0 [facility] Comment on above: Performed By: #### C BC #### [facility] [address] [place] [address] Dr. Art Napoles MCHC (RBC) [Mass/Vol] 33.5 g/dL Normal 29.9-35.2 [facility] Comment on above: Performed By: #### C BC #### [facility] [address] [place] [address] Dr. Art Napoles MCV (RBC) [Entitic vol] 89.4 fL Normal 80.0-94.0 [facility] Comment on above: Performed By: #### C BC #### [facility] [address] [place] [address] Dr. Art Napoles MONO # 0.5 103/ul Normal 0.3-0.8 [facility] Comment on above: Performed By: #### C BC #### [facility] [address] [place] [address] Dr. Art Napoles Monocytes/100 WBC (Bld) 9.0 % Normal 1.7-12.0 [facility] Comment on above: Performed By: #### C BC #### [facility] [address] [place] [address] Dr. Art Napoles NEUT # 2.8 103/ul Normal 1.4-6.5 [facility] Comment on above: Performed By: #### C BC #### [facility] [address] [place] [address] Dr. Art Napoles Neutrophils/100 WBC (Bld) 55.4 % Normal 43.0-75.0 [facility] Comment on above: Performed By: #### C BC #### [facility] [address] [address] [address] Art Napoles Platelet mean volume (Bld) [Entitic vol] 9.4 fL Critically low 9.5-13.5 [facility] Comment on above: Performed By: #### C BC #### [facility] [address] [address] [address] Art Napoles PLT 219 103/ul Normal 150-450 [facility] Comment on above: Performed By: #### C BC #### [facility] [address] [address] [address] Art Napoles RBC 5.45 106/ul Normal 4.70-6.10 [facility] Comment on above: Performed By: #### C BC #### [facility] [address] [place] [address] Dr. Art Napoles WBC 5.1 103/ul Normal 4.0-11.0 [facility] Comment on above: Performed By: #### C BC #### [facility] [address] [place] [address] Dr. Art Napoles GLYCOHEMOGLOBIN A1Con 2022 ADA RECOMMENDATION SEE BELOW Normal [facility] Comment on above: Result Comment: ADA RECOMMENDED LIMIT 4.0 - 6.0 ADA THERAPEUTIC TARGET < 7.0 ACTION SUGGESTED > 7.0 Performed By: #### A 1C #### [facility] [address] [place] [address] Dr. Art Napoles Glucose [Mass/Vol] 91 mg/dL Normal [facility] Comment on above: Performed By: #### A 1C #### [facility] [address] [place] [address] Dr. Art Napoles HbA1c (Bld) [Mass fraction] 4.8 % Normal 4.5-6.2 [facility] Comment on above: Performed By: #### A 1C #### [facility] [address] [place] [address] Dr. Art Napoles LIPID PROFILEon 08-16-2022 CHOL-HDL RATIO NORM SEE BELOW Normal [facility] Comment on above: Result Comment: 3.3 - 4.4 LOW RISK 4.4 - 7.1 AVERAGE RISK 7.1 - 11.0 MODERATE RISK >11.0 HIGH RISK Performed By: #### L IPID, CMP #### [facility] [address] [place] [address] Dr. Art Napoles Cholesterol [Mass/Vol] 129 mg/dL Normal <=200 [facility] Comment on above: Performed By: #### L IPID, CMP #### [facility] [address] [place] [address] Dr. Art Napoles Cholesterol in HDL [Mass/Vol] 49 mg/dL Normal 40-60 [facility] Comment on above: Performed By: #### L IPID, CMP #### [facility] [address] [place] [address] Dr. Art Napoles Cholesterol in LDL [Mass/Vol] 54.0 mg/dL Normal [facility] Comment on above: Performed By: #### L IPID, CMP #### [facility] [address] [place] [address] Dr. Art Napoles Cholesterol.total/Cho lesterol in HDL [Mass ratio] 2.6 {ratio} Normal [facility] Comment on above: Performed By: #### L IPID, CMP #### [facility] [address] [place] [address] Dr. Art Napoles HDL NORMAL > or = 60 mg/dl - LOW CARDIOVASCULAR RISK <40 mg/dl - HIGH CARDIOVASCULAR RISK Normal [facility] Comment on above: Performed By: #### L IPID, CMP #### [facility] [address] [place] [address] Dr. Art Napoles LDL CALC NORMAL SEE BELOW Normal [facility] Comment on above: Result Comment: <100 mg/dl OPTIMAL 100 - 129 mg/dl NEAR OR ABOVE OPTIMAL 130 - 159 mg/dl BORDERLINE HIGH 160 - 189 mg/dl HIGH >190 mg/dl VERY HIGH Performed By: #### L IPID, CMP #### [facility] [address] [place] [address] Dr. Art Napoles Triglyceride [Mass/Vol] 130 mg/dL Normal <=150 [facility] Comment on above: Performed By: #### L IPID, CMP #### [facility] [address] [address] [address] Art Napoles VLDL CALC 26.0 mg/dL Normal [facility] Comment on above: Performed By: #### L IPID, CMP #### [facility] [address] [address] [address] Art Napoles PROF 14(COMP METB)on 023 Albumin [Mass/Vol] 4.4 g/dL Normal 3.4-5.0 [facility] Comment on above: Performed By: #### L IPID, CMP #### [facility] [address] [place] [address] Dr. Art Napoles Albumin/Globulin [Mass ratio] 1.5 {ratio} Normal [facility] Comment on above: Performed By: #### L IPID, CMP #### [facility] [address] [place] [address] Dr. Art Napoles ALP [Catalytic activity/Vol] 69 U/L Normal 46-116 [facility] Comment on above: Performed By: #### L IPID, CMP #### [facility] [address] [place] [address] Dr. Art Napoles ALT [Catalytic activity/Vol] 45 U/L Normal 16-63 [facility] Comment on above: Performed By: #### L IPID, CMP #### [facility] [address] [place] [address] Dr. Art Napoles Anion gap [Moles/Vol] 11.0 mmol/L Normal [facility] Comment on above: Performed By: #### L IPID, CMP #### [facility] [address] [place] [address] Dr. Art Napoles AST [Catalytic activity/Vol] 24 U/L Normal 15-37 [facility] Comment on above: Performed By: #### L IPID, CMP #### [facility] [address] [place] [address] Dr. Art Napoles Bilirubin [Mass/Vol] 0.5 mg/dL Normal 0.2-1.0 [facility] Comment on above: Performed By: #### L IPID, CMP #### [facility] [address] [address] [address] Art Napoles Calcium [Mass/Vol] 9.3 mg/dL Normal 8.5-10.[address] [facility] Comment on above: Performed By: #### L IPID, CMP #### [facility] [address] [address] [address] Art Napoles Chloride [Moles/Vol] 103 mmol/L Normal 98-107 [facility] Comment on above: Performed By: #### L IPID, CMP #### [facility] [address] [place] [address] Dr. Art Napoles CO2 [Moles/Vol] 29.9 mmol/L Normal 21.0-32.0 [facility] Comment on above: Performed By: #### L IPID, CMP #### [facility] [address] [place] [address] Dr. Art Napoles Creatinine [Mass/Vol] 0.81 mg/dL Normal 0.70-1.30 [facility] Comment on above: Performed By: #### L IPID, CMP #### [facility] [address] [place] [address] Dr. Art Napoles EGFR-AF PARAGUAYAN >60 Normal >=60 [facility] Comment on above: Performed By: #### L IPID, CMP #### [facility] [address] [place] [address] Dr. Art Napoles EGFR-NON AF PARAGUAYAN >60 Normal >=60 [facility] Comment on above: Performed By: #### L IPID, CMP #### [facility] [address] [place] [address] Dr. Art Napoles Globulin (S) [Mass/Vol] 2.9 g/dL Normal [facility] Comment on above: Performed By: #### L IPID, CMP #### [facility] [address] [place] [address] Dr. Art Napoles Glucose [Mass/Vol] 97 mg/dL Normal 74-[address] [facility] Comment on above: Performed By: #### L IPID, CMP #### [facility] [address] [address] [address] Art Napoles Potassium [Moles/Vol] 3.9 mmol/L Normal 3.5-5.1 [facility] Comment on above: Performed By: #### L IPID, CMP #### [facility] [address] [place] [address] Dr. Art Napoles Protein [Mass/Vol] 7.3 g/dL Normal 6.4-8.[address] [facility] Comment on above: Performed By: #### L IPID, CMP #### [facility] [address] [address] [address] Art Napoles Sodium [Moles/Vol] 140 mmol/L Normal 136-145 [facility] Comment on above: Performed By: #### L IPID, CMP #### [facility] [address] [place] [address] Dr. Art Napoles Urea nitrogen [Mass/Vol] 11.0 mg/dL Normal 7.0-18.0 [facility] Comment on above: Performed By: #### L IPID, CMP #### [facility] [address] [place] [address] Dr. Art Napoles Urea nitrogen/Creatinine [Mass ratio] 13.6 mg/mg Normal [facility] Comment on above: Performed By: #### L IPID, CMP #### [facility] [address] [place] [address] Dr. Art Napoles XR KUB 1 VIEWon 05-02-2022 XR KUB 1 VIEW EXAMINATION: XR KUB 1 VIEW HISTORY: Microscopic hematuria , kidney stone COMPARISON: No relevant comparison available. FINDINGS: KIDNEY/URETER - RIGHT: No visible renal or ureteral calcifications. KIDNEY/URETER - LEFT: No visible renal or ureteral calcifications. PELVIS: No visible ureteral stones. Left pelvic phleboliths. BOWEL: No abnormal dilation or deviation. BONES: No acute abnormality. OTHER: Negative. No abnormal gaseous collections. IMPRESSION: 1. No visible urinary tract calculi. Electronically authenticated by: PREETHI GALARZA Date: 2022-05-02 07:17 Normal [facility] CHEMISTRYOrdered By: SYSTEM SYSTEM on 04-30-2022 Prostate specific Ag [Mass/Vol] 5.0 ng/mL High 0.1 - 3.5 ng/mL [facility] Remisol Vital Signs Date Time Vital Sign Value Performing Clinician Facility 01-12-2023 15:42-0400 Blood Pressure Location Sridhar BARNES [facility] 01-12-2023 15:42-0400 Diastolic blood pressure 80 mm[Hg] Sridhar BARNES [facility] 01-12-2023 15:42-0400 Systolic blood pressure 132 mm[Hg] Sridhar BARNES [facility] 09-15-2022 10:30-0400 Body height 170.18 cm Ivan Plastio Other [facility] Other 09-15-2022 10:30-0400 Body mass index (BMI) [Ratio] 28.72 kg/m2 Ivan Ball Other [facility] Other 09-15-2022 10:30-0400 Body temperature 97.3 [degF] Ivan Ball Other [facility] Other 09-15-2022 10:30-0400 Body weight 83.19 kg Ivan Ball Other [facility] Other 09-15-2022 10:30-0400 Diastolic blood pressure 81 mm[Hg] Ivan Ball Other [facility] Other 09-15-2022 10:30-0400 SaO2% (BldA) [Mass fraction] 93 % Ivan Ball Other [facility] Other 09-15-2022 10:30-0400 Systolic blood pressure 125 mm[Hg] Ivan Ball Other [facility] Other 08-21-2022 11:00-0400 Body height 170.18 cm Ivan Ball Other [facility] Other 08-21-2022 11:00-0400 Body mass index (BMI) [Ratio] 28.66 kg/m2 Ivan Ball Other [facility] Other 08-21-2022 11:00-0400 Body weight 83.01 kg Ivan Ball Other [facility] Other 08-21-2022 11:00-0400 Diastolic blood pressure 80 mm[Hg] Ivan Ball Other [facility] Other 08-21-2022 11:00-0400 Respiratory rate 12 /min Ivan Ball Other [facility] Other 08-21-2022 11:00-0400 Systolic blood pressure 147 mm[Hg] Ivan Ball Other [facility] Other 04-30-2022 15:02-0500 Blood Pressure Location RACHEL ZACK [facility] 04-30-2022 15:02-0500 Diastolic blood pressure 89 mm[Hg] RACHEL ZACK [facility] 04-30-2022 15:02-0500 Heart rate 81 /min RACHEL ZACK [facility] 04-30-2022 15:02-0500 Systolic blood pressure 140 mm[Hg] RACHEL ZACK [facility] 09-10-2021 08:29-0400 Blood Pressure Location Zev Thomsno Jr. [facility] 09-10-2021 08:29-0400 Diastolic blood pressure 86 mm[Hg] Zev Thomson Jr. [facility] 09-10-2021 08:29-0400 Heart rate 77 /min Zev Thomson Jr. [facility] 09-10-2021 08:29-0400 Respiratory rate 16 /min Zev Thomson Jr. [facility] 09-10-2021 08:29-0400 Systolic blood pressure 137 mm[Hg] Zev Thomson Jr. [facility] Encounters Encounter Date Encounter Type Care Provider Facility Start: 08-28-2023 ambulatory Sridhar BARNES [facility]ili [facility] Start: 08-21-2023 ambulatory Sridhar BARNES Facili [facility] Start: 02-20-2023 End: 02-21-2023 ambulatory Sridhar BARNES Facility:[facility] Start: 02-18-2023 End: 02-18-2023 ambulatory Ivan Suazo Other [facility] Other Start: 02-18-2023 Telephone encounter Ivan Suazo [facility] Start: 02-10-2023 End: 02-11-2023 ambulatory Sridhar BARNES Facility:[facility] Start: 02-10-2023 End: 02-10-2023 Patient encounter procedure Sridhar BARNES [facility] Start: 01-12-2023 End: 01-13-2023 ambulatory Sridhar BARNES Facility:[facility] [place] Start: 01-12-2023 End: 01-12-2023 Patient encounter procedure Sridhar BARNES [facility] Start: 09-15-2022 End: 09-15-2022 ambulatory Ivan Suazo Other [facility] Other Start: 09-15-2022 Office outpatient vi sit 15 minutes Ivan Suazo [facility] Start: 08-22-2022 Encounter for genera l adult medical examination without abnormal findings DR IVAN SUAZO [facility] Start: 08-21-2022 End: 08-21-2022 ambulatory Ivan Suazo Other [facility] Other Start: 08-21-2022 Encounter for genera l adult medical examination without abnormal findings Ivan Suazo [facility] Start: 08-21-2022 Periodic preventive med est patient 40-64yrs Ivan Suazo [facility] Start: 08-16-2022 End: 08-17-[address] IVAN SUAZO Facility:[facility] Start: 08-16-2022 End: 08-17-2022 Encounter for general adult medical examination without abnormal findings DR IVAN SUAZO Facility:[facility] Start: 04-30-2022 End: 05-01-[address] IVAN SUAZO Facility:[facility] Start: 04-30-2022 End: 04-30-2022 Lab Drop off RACHEL DIXON [facility] Start: 04-30-2022 End: 04-30-2022 Patient encounter procedure RACHEL DIXON [facility] Start: 10-15-2021 End: 10-15-[address] IVAN SUAZO Facility:[facility] Start: 09-10-2021 End: 09-10-2021 Patient encounter procedure Zev Thomson Jr. [facility] Start: 08-14-2021 Adult health examination Ivan Suazo Other [facility] Other Procedures Date Procedure Procedure Detail Performing Clinician Start: 08-16-[address] KOBE SUAZO Comment on above: Performed By: #### [facility] #### [facility] [address] [place] [address] Dr. Art Napoles Start: 10-08-2020 Transrectal biopsy o f prostate Zev Thomson Jr. Start: 11-07-2016 General examination of patient Ivan Suazo Other Depression screening Jaylene Suazo Other Lip structure (body structure) Sridhar BARNES Structure of eye pro per (body structure) Sridhar BARNES Vasectomy Zev Ashford Immunizations Immunization Date Immunization Notes Care Provider Fa [facility] 02-13-2022 influenza virus vaccine, unspecified formulation Sridhar BARNES [facility] 04-26-2021 SARS-CoV-2 (COVID-19 ) mRNA-1273 vaccine Sridhar BARNES [facility] 03-22-2021 influenza virus vaccine, unspecified formulation Sridhar BARNES [facility] 10-12-2020 SARS-CoV-2 (COVID-19 ) mRNA-1273 vaccine Sridhar BARNES [facility] 09-02-2020 SARS-CoV-2 (COVID-19 ) mRNA BNT-162b2 vax Zev Thomson Jr. [facility] 2020 SARS-CoV-2 (COVID-19 ) mRNA BNT-162b2 gaudencio Brothers Berto Hernandez [facility] Payers Date Payer Category Payer Unknown [id number] 2.16.84 [id number] 1971 Unknown [id number] 2.16.84 [id number] 1971 Unknown [id number] 2.16.84 [id number] 1971 Unknown [id number] 2.16.8 [id number] 1971 Unknown [id number] 2.16.8 [id number] 1971 Unknown [id number] 2.16.8 [id number] 1971 Unknown [id number] 2.16.8 [id number] 1971 Unknown [id number] 2.16.8 [id number] 1959 Unknown [id number] 2.16.8 [id number] Social History Date Type Detail Facility Start: 09-10-2021 End: 01-12-2023 Tobacco smoking status Never smoked tobacco (finding) [facility] Sex Assigned At Male [facility] Tobacco smoking status Never [facility] Functional Status Date Assessment Result Facility 02-10-2023 Functional Status N/A [facility] 01-12-2023 Functional Status N/A [facility] 04-30-2022 Functional Status N/A [facility] Clinical Notes 09-15-2020 to 02-18-2023 Note Date & Type Note Facility 02-18-2023 Evaluation note Encounter Date Diagnosis Assessment Notes Feb, Prostate cancer (ICD-10 - C61) Pam 3+3 (6) grp 1 [facility] Other 09-26-2023 Note [id number]#1.00CD:127[facility] 02-10-2023 Hospital Discharge instructions Patient Education 02/10/2023 09:52:55 [facility] - Transrectal Ultrasound of the Prostate with US guided biopsy Discharge Instructions (CUSTOM) Transrectal Ultrasound of the Prostate with US guided biopsy Even though there are no visible incisions, multiple prostate biopsies have been taken through the rectum and you need to follow some instructions to minimize the risks of bleeding. You may see some blood in your urine and stool for up to 1 week (and blood in the semen for severalmonths) Diet -You may resume your normal diet, but you may want to avoid alcohol, carbonated drinks, caffeine, and spicy foods, which may increase the irritation from the surgery. -Drink plenty of water to keep the urine clear. Activity -You should limit any physical activity for about 48 hours -No heavy lifting or straining (10 pound limit) -No driving a car and limit long car rides for 2 days -No strenuous exercise -No sexual intercourse until this is discussed with your doctor Bowels -Try to keep your bowel movements soft to minimize straining to have a bowel movement. -You may use a stool softener or over the counter laxative if needed -Difficult bowel movement may lead to straining and bleeding from the prostate Medications -You may resume your home medications unless instructed otherwise -Hold aspirin, ibuprofen, Coumadin (warfarin) and other blood thinners for about two days or until there is no active bleeding unless otherwise instructed -Finish the antibiotic which you have already started Things to watch for which would require an Emergency Room visit or call 911: (this is not a complete list) -Persistent or heavy bleeding or blood clots from the rectum or in the urine -Inability to urinate -Fever over 101.5 degrees Fahrenheit, with or without chills -Severe drug reactions with itching, hives or rash -Tenderness or swelling of the calves, chest pain, or shortness of breath Please call the office to arrange for your post-operative appointment in 1-2 weeks [phone] or [phone] Follow Up Care 01/12/2023 17:22:40 With:Sridhar BARNES Address: [facility] [address] [place] [address]- Business (1) When: Unknown Comments:Keep scheduled appointment. Patient is to get electrolyte blood draw done in 2 months. [facility]08-28-2023 Hospital Discharge instructions Patient Education 01/12/2023 16:46:10 Transrectal Ultrasound-Guided Prostate Biopsy, Care After Transrectal Ultrasound-Guided Prostate Biopsy, Care After The following information offers guidance on how to care for yourself after your procedure. Your health care provider may also give you more specific instructions. If you have problems or questions, contact your health care provider. What can I expect after the procedure? After the procedure, it is common to have: Pain and discomfort near your rectum, especially while sitting. Malcolm-colored urine due to small amounts of blood in your urine. A burning feeling while urinating. Blood in your stool (feces) or bleeding from your rectum. Blood in your semen. Follow these instructions at home: Medicines Take lxfz-cln-elfvmnh and prescription medicines only as told by your health care provider. If you were given a sedative during your procedure, it can affect you for several hours. Do not drive or operate machinery until your health care provider says that it is safe. If you were prescribed an antibiotic medicine, take it as told by your health care provider. Do notstop using the antibiotic even if you start to feel better. Activity Return to your normal activities as told by your health care provider. Ask your health care provider what activities are safe for you. Ask your health care provider when it is okay for you to resume sexual activity. You may have to avoid lifting. Ask your health care provider how much you can safely lift. General instructions Drink enough fluid to keep your urine pale yellow. Watch your urine, stool, and semen for new or increased bleeding. Keep all follow-up visits. This is important. Contact a health care provider if: You have any of the following: ?Blood clots in your urine or stool. ?Blood in your urine more than 2 weeks after the procedure. ?Blood in your semen more than 2 months after the procedure. ?New or increased bleeding in your urine, stool, or semen. ?Severe pain in your abdomen. Your urine smells bad or unusual. You have trouble urinating. Your lower abdomen feels firm. You have problems getting an erection. You have nausea or you vomit. Get help right away if: You have a fever or chills. This could be a sign of infection. You have bright red urine. You have severe pain that does not get better with medicine. You cannot urinate. Summary After this procedure, it is common to have pain and discomfort around your rectum, especially whilesitting. You may have blood in your urine and stool after the procedure. It is common to have blood in your semen after this procedure. Get help right away if you have a fever or chills. This could be a sign of infection. This information is not intended to replace advice given to you by your health care provider. Make sure you discuss any questions you have with your health care provider. Document Revised: 10/28/2021 Document Reviewed: 10/28/2021 [employer] Patient Education 2022 [place]. 01/12/2023 16:39:54 Transrectal Ultrasound-Guided Prostate Biopsy Transrectal Ultrasound-Guided Prostate Biopsy A transrectal ultrasound-guided prostate biopsy is a procedure to remove samples of prostate tissuefor testing. The prostate is a walnut-sized gland that is located below the bladder and in front ofthe rectum. During this procedure, a small device (probe) is lubricated and put inside the rectum. The probe sends out sound waves that make a picture of the prostate and surrounding tissues (transrectal ultrasound). The images are used to help guide the process of removing the samples. The samplesare taken to a lab to be checked for prostate cancer. This procedure is usually done to evaluate the prostate gland of men who have raised (elevated) levels of prostate-specific antigen (PSA), which can be a sign of prostate cancer or prostate enlargement related to aging (benign prostatic hyperplasia, or BPH). Tell a health care provider about: Any allergies you have. All medicines you are taking, including vitamins, herbs, eye drops, creams, and ghmy-kwb-ibewelk medicines. Any problems you or family members have had with anesthetic medicines. Any bleeding problems you have. Any surgeries you have had. Any medical conditions you have. Any prostate infections you have had. What are the risks? Generally, this is a safe procedure. However, problems may occur, including: Prostate infection. Bleeding from the rectum. Blood in the urine. Allergic reactions to medicines. Damage to surrounding structures such as blood vessels, organs, or muscles. Difficulty passing urine. Nerve damage. This is usually temporary. What happens before the procedure? Medicines Ask your health care provider about: Changing or stopping your regular medicines. This is especially important if you are taking diabetes medicines or blood thinners. Taking medicines such as aspirin and ibuprofen. These medicines can thin your blood. Do not take these medicines unless your health care provider tells you to take them. Taking jkab-lpg-vexgzoa medicines, vitamins, herbs, and supplements. General instructions Follow instructions from your health care provider about eating and drinking. In most instances, you will not need to stop eating and drinking completely before the procedure. You will be given an enema. During an enema, a liquid is injected into your rectum to clear out waste. You may have a blood or urine sample taken. Ask your health care provider what steps will be taken to help prevent infection. These steps may include: ?Washing skin with a germ-killing soap. ?Taking antibiotic medicine. If you will be going home right after the procedure, plan to have a responsible adult: ?Take you home from the hospital or clinic. You will not be allowed to drive. ?Care for you for the time you are told. What happens during the procedure? An IV will be inserted into one of your veins. You will be given one or both of the following: ?A medicine to help you relax (sedative). ?A medicine to numb the area (local anesthetic). You will be placed on your left side, and your knees will be bent toward your chest. A probe with lubricated gel will be placed into your rectum, and images will be taken of your prostate and surrounding structures. Numbing medicine will be injected into your prostate. A biopsy needle will be inserted through your rectum or perineum and guided to your prostate using the ultrasound images. Prostate tissue samples will be removed, and the needle and probe will then be removed. The biopsy samples will be sent to a lab to be tested. The procedure may vary among health care providers and hospitals. What happens after the procedure? Your blood pressure, heart rate, breathing rate, and blood oxygen level will be monitored until youleave the hospital or clinic. You may have some discomfort in the rectal area. You will be given pain medicine as needed. If you were given a sedative during the procedure, it can affect you for several hours. Do not drive or operate machinery until your health care provider says that it is safe. It is up to you to get the results of your procedure. Ask your health care provider, or the department that is doing the procedure, when your results will be ready. Keep all follow-up visits. This is important. Summary A transrectal ultrasound-guided biopsy removes samples of tissue from your prostate using ultrasound-guided sound waves to help guide the process. This procedure is usually done to evaluate the prostate gland of men who have raised (elevated) levels of prostate-specific antigen (PSA), which can be a sign of prostate cancer or prostate enlargement related to aging. After your procedure, you may feel some discomfort in the rectal area. Plan to have a responsible adult take you home from the hospital or clinic, and follow up with yourhealth care provider for your results. This information is not intended to replace advice given to you by your health care provider. Make sure you discuss any questions you have with your health care provider. Document Revised: 10/28/2021 Document Reviewed: 10/28/2021 [employer] Patient Education 2022 [place]. Follow Up Care 04/30/2022 15:31:40 With:DERECK JACOBS, Sridhar Rainey, URL Address: [facility] [address] , [place] [address]- [phone] When: Unknown Comments:stone work-upsched TRUS/bx [facility] 05-01-2023 Evaluation note* Encounter Date Diagnosis Assessment Notes Treatment Notes Treatment Clinical Notes September, COVID-19 (ICD-10 - U07.1) Self isolate at home. - Cannot work - avoid contact with others - avoid pets - wipe counters, door knobs if touched - if can't avoid leaving home, must wear mask to protect others - need to stay isolated for 10 days from onset of symptoms or contact with COVID positive individual - to discontinue isolation must be 5 days AND must be without fever for 24 hours AND symptoms must be improving. Always wear a mask in public places for total of 10 days September, Bronchitis, not specified as acute or chronic (ICD-10 - J40) Instructed to use Robitussin or Mucinex for cough, saline or Flonase NS for congestion, Tylenol for pain and fever. [facility] Other 04-06-2023 Evaluation note* Encounter Date Diagnosis Assessment Notes Treatment Notes Treatment Clinical Notes Aug, Wellness examination (ICD-10 - Z00.00) Healthy diet and exercise. Reviewed age-appropriate preventive testing recommended. Aug, Nocturia (ICD-10 - R35.1) Trial of Flomax w/ ADR - stopped and taking supplements w/ satisfactory results Aug, Benign prostatic hyperplasia with lower urinary tract symptoms (ICD-10 - N40.1) Symptoms tolerable, yearly PSA Aug, Elevated PSA (ICD-10 - R97.20) f/u Urology Discussed MRI and repeat targeted bx. Will forward PSA to Urology Aug, Primary hypertension (ICD-10 - I10) This patient is instructed to consume a healthy, low-fat, low-salt diet. They are also encouraged to continue exercise to achieve/maintain a normal BMI. Aug, Overweight (ICD-10 - E66.3) This patient has been instructed on a low-fat, high-fiber diet. They are instructed to reduce calories, portion sizes and snacks. It is recommended that they exercise for 30 minutes, 3-5 times weekly. Aug, Screening PSA (prostate specific antigen) (ICD-10 - Z12.5) [facility] Other 12-14-2022 Hospital Discharge instructions Patient Education 04/30/2022 15:02:52 Transurethral Resection of the Prostate Transurethral Resection of the Prostate Transurethral resection of the prostate (TURP) is the removal (resection) of part of the gland thatproduces semen (prostate gland). This procedure is done to treat benign prostatic hyperplasia (BPH). BPH is an abnormal, noncancerous (benign) increase in the number of cells that make up the prostate tissue. BPH causes the prostate to get bigger. The enlarged prostate can push against or block thetube that drains urine from the bladder out of the body (urethra). BPH can affect normal urine flowby causing bladder infections, difficulty controlling bladder function, and difficulty emptying thebladder. The goal of TURP is to remove enough prostate tissue to allow for a normal flow of urine. The procedure will allow you to empty your bladder more completely when you urinate so that you can urinate less often. In a transurethral resection, a thin telescope with a light, a tiny camera, and an electric cuttingedge (resectoscope) is passed through the urethra and into the prostate. The opening of the urethrais at the end of the penis. Tell a health care provider about: Any allergies you have. All medicines you are taking, including vitamins, herbs, eye drops, creams, and dttz-ign-zzlelnz medicines. Any problems you or family members have had with anesthetic medicines. Any blood disorders you have. Any surgeries you have had. Any medical conditions you have. Any prostate infections you have had. What are the risks? Generally, this is a safe procedure. However, problems may occur, including: Infection. Bleeding. Allergic reactions to medicines. Damage to other structures or organs, such as: ?The urethra. ?The bladder. ?Muscles that surround the prostate. Difficulty getting an erection. Inability to control when you urinate (incontinence). Scarring, which may cause problems with urine flow. What happens before the procedure? Medicines Ask your health care provider about: Changing or stopping your regular medicines. This is especially important if you are taking diabetes medicines or blood thinners. Taking medicines such as aspirin and ibuprofen. These medicines can thin your blood. Do not take these medicines unless your health care provider tells you to take them. Taking kqen-pst-tfaqkey medicines, vitamins, herbs, and supplements. Eating and drinking Follow instructions from your health care provider about eating and drinking, which may include: 8 hours before the procedure stop eating heavy meals or foods, such as meat, fried foods, or fatty foods. 6 hours before the procedure stop eating light meals or foods, such as toast or cereal. 6 hours before the procedure stop drinking milk or drinks that contain milk. 2 hours before the procedure stop drinking clear liquids. Staying hydrated Follow instructions from your health care provider about hydration, which may include: Up to 2 hours before the procedure you may continue to drink clear liquids, such as water, clear fruit juice, black coffee, and plain tea. General instructions You may have a physical exam. You may have a blood or urine sample taken. Ask your health care provider what steps will be taken to help prevent infection. These may include: ?Washing skin with a germ-killing soap. ?Taking antibiotic medicine. Plan to have someone take you home from the hospital or clinic. You may not be able to drive for upto 10 days after your procedure. Plan to have a responsible adult care for you for at least 24 hours after you leave the hospital orclinic. This is important. What happens during the procedure? An IV will be inserted into one of your veins. You will be given one or more of the following: ?A medicine to help you relax (sedative). ?A medicine to make you fall asleep (general anesthetic). ?A medicine that is injected into your spine to numb the area below and slightly above the injection site (spinal anesthetic). Your legs will be placed in foot rests (stirrups) so that your legs are apart and your knees are bent. The resectoscope will be passed through your urethra to your prostate. Parts of your prostate will be resected using the cutting edge of the resectoscope. The resectoscope will be removed. A small, thin tube (catheter) will be passed through your urethra and into your bladder. The catheter will drain urine into a bag outside of your body. ?Fluid may be passed through the catheter to keep the catheter open. The procedure may vary among health care providers and hospitals. What happens after the procedure? Your blood pressure, heart rate, breathing rate, and blood oxygen level will be monitored until youleave the hospital or clinic. You may continue to receive fluids and medicines through an IV. You may have some pain. Pain medicine will be available to help you. You will have a catheter draining your urine. ?You may have blood in your urine. Your catheter may be kept in until your urine is clear. ?Your urinary drainage will be monitored. If necessary, your bladder may be rinsed out (irrigated) through your catheter. You will be encouraged to walk around as soon as possible. You may have to wear compression stockings. These stockings help prevent blood clots and reduce swelling in your legs. Do not drive for 24 hours if you were given a sedative during your procedure. Summary Transurethral resection of the prostate (TURP) is the removal (resection) of part of the gland thatproduces semen (prostate gland). The goal of this procedure is to remove enough prostate tissue to allow for a normal flow of urine. Follow instructions from your health care provider about taking medicines and about eating and drinking before the procedure. This information is not intended to replace advice given to you by your health care provider. Make sure you discuss any questions you have with your health care provider. Document Released: 05/04/2006 Document Revised: 08/24/2019 Document Reviewed: 02/02/2019 [employer] Patient Education 2020 [place]. Follow Up Care 09/10/2021 09:12:34 With:ZACK PONCE, RACHEL Vega, URL Address: [address] [place] [address] [phone] When:10/29/2022 [facility] 05-31-2022 NoteOPERATIVE NOTE OPERATION DATE: 10/15/2021 PRIMARY CARE PHYSICIAN: Dr. Suazo SURGEON: Charley Escobedo M.D. PREOPERATIVE DIAGNOSIS: Right lower lip lesion POSTOPERATIVE DIAGNOSIS: Right lower lip lesion. PROCEDURE: Removal of right lower lip lesion. ANESTHESIA: Lidocaine 1% with 1:100:000 epinephrine. INDICATIONS: This 51-year-old man presented with a granulomatous lesion of the right lower lip. FINDINGS: A 3 mm exophytic granulomatous lesion of the right lower lip. PROCEDURE: Patient identified in the holding area and taken back to the OR where he was placed in the supine position. Lidocaine 1% with 1:100,000 epinephrine was infiltrated around the patient's lip lesion and, after waiting adequate time for hemostasis the lip was prepped with Betadine and an elliptical incision was made around the lesion. It was removed with a scissor. Hemostasis was achieved with direct pressure and the wound was closed with a single interrupted 4-0 horizontal mattress stitch. Patient was then discharged home in good condition. [facility] Signed and Approved by: DR CHARLEY ESCOBEOD 10/22/2021 07:56:00[facility]04-26-2022 Hospital Discharge instructions Patient Education 09/10/2021 09:01:45 Benign Prostatic Hyperplasia Benign Prostatic Hyperplasia Benign prostatic hyperplasia (BPH) is an enlarged prostate gland that is caused by the normal agingprocess and not by cancer. The prostate is a walnut-sized gland that is involved in the production of semen. It is located in front of the rectum and below the bladder. The bladder stores urine and the urethra is the tube that carries the urine out of the body. The prostate may get bigger as a man gets older. An enlarged prostate can press on the urethra. This can make it harder to pass urine. The build-up of urine in the bladder can cause infection. Back pressure and infection may progress to bladder damage and kidney (renal) failure. What are the causes? This condition is part of a normal aging process. However, not all men develop problems from this condition. If the prostate enlarges away from the urethra, urine flow will not be blocked. If it enlarges toward the urethra and compresses it, there will be problems passing urine. What increases the risk? This condition is more likely to develop in men over the age of 50 years. What are the signs or symptoms? Symptoms of this condition include: Getting up often during the night to urinate. Needing to urinate frequently during the day. Difficulty starting urine flow. Decrease in size and strength of your urine stream. Leaking (dribbling) after urinating. Inability to pass urine. This needs immediate treatment. Inability to completely empty your bladder. Pain when you pass urine. This is more common if there is also an infection. Urinary tract infection (UTI). How is this diagnosed? This condition is diagnosed based on your medical history, a physical exam, and your symptoms. Tests will also be done, such as: A post-void bladder scan. This measures any amount of urine that may remain in your bladder after you finish urinating. A digital rectal exam. In a rectal exam, your health care provider checks your prostate by putting a lubricated, gloved finger into your rectum to feel the back of your prostate gland. This exam detects the size of your gland and any abnormal lumps or growths. An exam of your urine (urinalysis). A prostate specific antigen (PSA) screening. This is a blood test used to screen for prostate cancer. An ultrasound. This test uses sound waves to electronically produce a picture of your prostate gland. Your health care provider may refer you to a specialist in kidney and prostate diseases (urologist). How is this treated? Once symptoms begin, your health care provider will monitor your condition (active surveillance or watchful waiting). Treatment for this condition will depend on the severity of your condition. Treatment may include: Observation and yearly exams. This may be the only treatment needed if your condition and symptoms are mild. Medicines to relieve your symptoms, including: ?Medicines to shrink the prostate. ?Medicines to relax the muscle of the prostate. Surgery in severe cases. Surgery may include: ?Prostatectomy. In this procedure, the prostate tissue is removed completely through an open incision or with a laparoscope or robotics. ?Transurethral resection of the prostate (TURP). In this procedure, a tool is inserted through the opening at the tip of the penis (urethra). It is used to cut away tissue of the inner core of the prostate. The pieces are removed through the same opening of the penis. This removes the blockage. ?Transurethral incision (TUIP). In this procedure, small cuts are made in the prostate. This lessens the prostate's pressure on the urethra. ?Transurethral microwave thermotherapy (TUMT). This procedure uses microwaves to create heat. The heat destroys and removes a small amount of prostate tissue. ?Transurethral needle ablation (TUNA). This procedure uses radio frequencies to destroy and remove a small amount of prostate tissue. ?Interstitial laser coagulation (ILC). This procedure uses a laser to destroy and remove a small amount of prostate tissue. ?Transurethral electrovaporization (TUVP). This procedure uses electrodes to destroy and remove a small amount of prostate tissue. ?Prostatic urethral lift. This procedure inserts an implant to push the lobes of the prostate away from the urethra. Follow these instructions at home: Take csrb-dfw-urlmxwa and prescription medicines only as told by your health care provider. Monitor your symptoms for any changes. Contact your health care provider with any changes. Avoid drinking large amounts of liquid before going to bed or out in public. Avoid or reduce how much caffeine or alcohol you drink. Give yourself time when you urinate. Keep all follow-up visits as told by your health care provider. This is important. Contact a health care provider if: You have unexplained back pain. Your symptoms do not get better with treatment. You develop side effects from the medicine you are taking. Your urine becomes very dark or has a bad smell. Your lower abdomen becomes distended and you have trouble passing your urine. Get help right away if: You have a fever or chills. You suddenly cannot urinate. You feel lightheaded, or very dizzy, or you faint. There are large amounts of blood or clots in the urine. Your urinary problems become hard to manage. You develop moderate to severe low back or flank pain. The flank is the side of your body between the ribs and the hip. These symptoms may represent a serious problem that is an emergency. Do not wait to see if the symptoms will go away. Get medical help right away. Call your local emergency services (911 in the [place] Do not drive yourself to the hospital. Summary Benign prostatic hyperplasia (BPH) is an enlarged prostate that is caused by the normal aging process and not by cancer. An enlarged prostate can press on the urethra. This can make it hard to pass urine. This condition is part of a normal aging process and is more likely to develop in men over the age of 50 years. Get help right away if you suddenly cannot urinate. This information is not intended to replace advice given to you by your health care provider. Make sure you discuss any questions you have with your health care provider. Document Released: 05/04/2006 Document Revised: 03/29/2019 Document Reviewed: 06/08/2017 [employer] Patient Education 2020 [place]. Follow Up Care 05/21/2021 09:33:45 With:Berto Hernandez MD, Zev Villasenor URO Address: [facility] [address] , [place] [address]- When:03/12/2022 Comments:Check UA, no PSA [facility] 05-01-2021 History general Narrative - Reported* Type Description Date Medical History Right rotator cuff tendinitis Medical History Acute bilateral low back pain wi thout sciatica Medical History Abscess of lip Medical History Elevated PSA Surgical History TRUS/Bx Prostate 09/2020 Surgical History EXCISION OF BENIGN SKIN TAGS OF LIP 2021 Surgical History COPPER WIRE IN EYE - 5 SURGERIE S Surgical History VASECTOMY Hospitalization History SEE SURGICAL HX [employer] Other Evaluation + Plan note Future Appointments Appointment Date:04/01/2022 08:30:00 AM Scheduled Provider:Zev Thomson Jr., MD Location:[facility] Appointment Type:URO Office Visit [facility] evaluation + Plan note Future Appointments Appointment Date:11/04/2022 08:30:00 AM Scheduled Provider:RACHEL DIXON PA-C Location:[facility] Appointment Type:URO Office Visit [facility] evaluation + Plan note Future Appointments Appointment Date:02/06/2023 07:45:00 AM Scheduled Provider: Location:[facility] Appointment Type:Urology CALL PAT FT Appointment Date:02/10/2023 09:00:00 AM Scheduled Provider: Location:[facility] Appointment Type:Urology FT Appointment Date:02/10/2023 09:00:00 AM Scheduled Provider: Location:.UROLOGY Appointment Type:US Prostate Urology (FT) Appointment Date:02/27/2023 09:15:00 AM Scheduled Provider:Sridhar BARNES MD Location:[facility] Appointment Type:URO Office Visit Future Scheduled Tests Radiology* US Prostate, [facility] 02/10/23 [facility] evaluation + Plan note Future Appointments Appointment Date:02/27/2023 09:15:00 AM Scheduled Provider:Sridhar BARNES MD Location:[facility] Appointment Type:URO Office Visit Diagnostic Tests Pending * Pro[facility] N[facility] No data available for this section [facility] Hospital Discharge instructions No data available for this section [facility] data available for this section [facility] Summary Purpose Family History No Family History Records FoundNo Family History Records Found Advance Directives No Advanced Directives Records FoundNo Advanced Directives Records Found Additional Source Comments Patient Care team informatio n (unrecognized section and content) Personnel Name: IVAN SUAZO DO Address: Address: [address] [facility], [place], [address] Personnel Name: IVAN SUAZO DO Address: Address: [address] [facility], [place], [address] Personnel Name: IVAN SUAZO DO Address: Address: [address] [facility] [place] [address] Personnel Name: IVAN SUAZO DO Address: Address: [address] [facility], [place], [address] REASON FOR VISIT (unrecogniz ed section and content) WELLNESScongestion, temp sin ce Thursday 108No Information (unrecognized sect ion and content) No Status Records FoundNo Status Records Found INFORMATION SOURCE (unrecogn ized section and content) DATE CREATED AUTHOR 08/23/2022 [facility] DATE CREATED AUTHOR AUTHOR'S ORGANIZ ATION 07/23/2023 [facility] FOR RECORDS PERTAINING TO PATIENTS WHO ARE OR HAVE BEEN ENROLLED IN A CHEMICAL DEPENDENCY/SUBSTANCEABUSE PROGRAM, SOME INFORMATION MAY BE OMITTED. This clinical summary was aggregated from multiple sources. Caution should be exercised in using it in the provision of clinical care. This summary normalizes information from multiple sources, and as a consequence, information in this document may materially change the coding, format and clinical context of patient data. In addition, data may be omitted in some cases. CLINICAL DECISIONS SHOULD BE BASED ON THE PRIMARY CLINICAL RECORDS. [facility]. provides no warranty or guarantee of the accuracy or completeness of information in this document.
[2023-08-19 09:03] LABS: Prostate Specific Antigen Dx 7.93 ng/mL (<=4.00)
== END 2023-08-19 07:27 | disposition home or self-care (01) ==
LOC: LAB 07:27
PROVIDERS: PCP Internal Medicine; Visit Provider Urology
DX: C61 Malignant neoplasm of prostate (principal)
CPT/HCPCS: 36415; 84153

== ENCOUNTER 2023-08-19 07:29 | Outpatient (OUT) | payer OTHER, SELFPAY ==
--- OUTSIDE RECORDS SUMMARY | 2023-08-19 07:32 | XMS_ITS | CCD ---
Author Organization [facility] Care Team Providers Care [employer] Drier Name Role Phone IVAN SUAZO Primary Care [...] Drug Allergy Weal (disorder) [facility] (1 source) patient allergy list reviewed by nurse or physicia Propensity to adverse reactions 07-03-19 Comment:Done BetKlub Other (1 source) Substance with penicillin structure and antibacterial mechanism of action (substance) Drug allergy Unknown BetKlub Other Medications Current Medications Medication Drug Class(es) [...] day(s), # 14 tab(s), Refills(s) 0, Pharmacy: [facility]/pharmacy #[id number], 170, cm, 01/12/23 15:44:00 EDT, Height/Length Dosing, 83.5, kg, 01/12/23 15:44:00 EDT, Weight Dosing Start Date: 01/12/23 Stop Date: 01/19/23 Status: Ordered diazePAM 10 mg oral tablet (2 sources) Benzodiazepine Start: 01-13-20 take 1 tablet by mouth once as needed for anxiety Valium 10 mg Tab 10 mg = 1 tab(s), Oral, Once, PRN for anxiety, # 1 tab(s), Refills(s) 0, [id number] 170, cm, 01/12/23 15:44:00 EDT, Height/Length Dosing, 83.5, kg, 01/12/23 15:44:00 EDT, Weight Dosing Start Date: 01/12/23 Status: Ordered hydroCHLOROthiazide 12.5 mg oral tablet (1 source) Thiazide Diuretic Start: 02-11-20 take 1 tablet by mouth once daily hydrochlorothiazide 12.5 mg Tab 12.5 mg = 1 tab(s), Oral, Daily, # 90 tab(s), Refills(s) 3, [id number], 170, cm, 02/10/23 8:51:00 EDT, Height/Length [...] Daily, # 30 cap(s), Refills(s) 11, [id number], 170, cm, 09/10/21 8:47:00 EDT, Height/Length Dosing, 83.3, kg, 09/10/21 8:47:00 EDT, Weight Dosing Start Date: 11/12/21 Status: Ordered Start: 03-25-2021 take 1 capsule by 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; Translations: [OTH LONGTERM CURRENT DRUG THERAPY] Onset: 10-17-2021 Episodic Other [...] - MRI Reporton RAD - MRI Report [id number] #1.00TIFF [facility] Insurance Correspondenceon 0 06-12-2023 Insurance Correspondence [id number]#1.00TIFF [facility] Pre-Certification Formon Pre-Certification Form [id number]# 1.00TIFF [facility] Reminderson 06-10-2023 Reminders - From: Heather Mckeon To: EU - Recalls Barnes; Sent: 01/12/2023 17:16:54 EDT Show up: 05/18/2023 17:16:00 EST Subject: MRI of prostate w/wo Due Date/Time: 06/08/2023 17:16:00 EST Reminder/Recall Pt needs MRI of prostate with and without in Jun 2023 precert sent to [facility] to get auth approval.[facility] Lab Reportson 04-02-2023 Lab Reports [id number] #1.00TIFF [facility] Patient Educationon 02-21-20 23 Patient Education [...] to normal prostate cells (well differentiated). ? [place] 7: This indicates that the cancer cells look somewhat similar to normal prostate cells (moderately differentiated). ? [place] 8, 9, or 10: This indicates that [...] external be (more content not included)... Normal [facility] Urology Office/Clinic Noteon 02-20-2023 Urology Office/Clinic Note [...] S/p TRUS/bx 10/08/[address] [facility] 1 core. S/p TRUS/bx 02/10/23 - [...] 6 months [facility] [address] [place] [address] [phone] Additional Instructions: PSA and AIDE Patient Education [...] refills Pros (more content not included)... Normal [facility] Comment on above: Result Comment: Elec tronically Signed By: Sridhar BARNES MD\.br\Date and Time Signed: 02/20/23 12:17 EDT\.br\Electronically Co-Signed By: Parris Morales\.br\Date and Time Co-Signed: 02/20/23 12:15 EDT IntraOperative Documentson 1 IntraOperative Documents [id number]#1.00CD:[address] [facility] Prostate Histology ([facility]) on 02-18-2023 Prostate Histology Diagnosis Info Invalid Interpretation Code [facility] Comment on above: Order Comment: 1 BIT E PER AREA Result Comment: A:Pr ostate,Left Lateral Base:Needle Biopsy Interpretation - - Benign prostatic tissue. MicroScopic Description - B:Prostate,Left Lateral Mid:Needle Biopsy Interpretation - - Benign prostatic tissue. MicroScopic Description - C:Prostate,Left Lateral [place]:Needle Biopsy Interpretation - - Benign prostatic tissue. MicroScopic Description - D:Prostate,Left Base:Needle Biopsy Interpretation - - Benign prostatic tissue. MicroScopic Description - E:Prostate,Left Mid:Needle Biopsy Interpretation - - Benign prostatic tissue. MicroScopic Description - F:Prostate,Left [place]:Needle Biopsy Interpretation - - Benign prostatic tissue (see comment). MicroScopic Description - G:Prostate,Right Base:Needle Biopsy Interpretation - - Acinar adenocarcinoma of prostate; [place] score 6(3+3); Tumor measures 0.04 cm in length; 3% of the core involved by tumor; 1 of 2 cores involved (see comment). MicroScopic Description - H:Prostate,Right Mid:Needle Biopsy Interpretation - - Benign prostatic tissue. MicroScopic Description - I:Prostate,Right [place]:Needle Biopsy Interpretation - - Benign prostatic tissue. MicroScopic Description - J:Prostate,Right Lateral Base:Needle Biopsy Interpretation - - Acinar adenocarcinoma of prostate; [place] score 6(3+3); Tumor measures 0.04 cm in length; 2% of the core involved by tumor; 1 of 1 core involved (see comment). MicroScopic Description - K:Prostate,Right Lateral Mid:Needle Biopsy Interpretation - - Benign prostatic tissue. MicroScopic Description - L:Prostate,Right Lateral [place]:Needle Biopsy Interpretation - - Benign prostatic tissue. [...] The performance characteristics were determined by the [facility], [employer]. They have not been cleared by the [place] Food and Drug Administration. The FDA has determined that such clearance or approval is not necessary. Appropriate positive and negative controls are performed and are acceptable. Electronically signed by : on: 02/18/2023 11:20:58 Performed By: #### 1 [id number] ####[facility] [address] [place] [address] Consent for Procedure/[facility] 02-10-2023 Consent for Procedure/Surgery [id number] #1.00CD:127 [facility] Consent for Treatmenton 09-2 Consent for Treatment [id number] #1.00CD:127 [facility] IntraOperative Documentson 0 02-10-2023 IntraOperative Documents [id number] #1.00CD:127 [facility] Main OR Intraoperative Recor don 02-10-2023 Main OR Intraoperative Record IntraOp Document Type FTURO Summary Primary Physician: Sridhar BARNES MD Finalized Date/Time: 02/10/23 10:02:01 Pt. Name: REY JARA Redd ConwayB./Sex: 1970 Male Med Rec #: [id number] Physician: Sridhar BARNES MD Financial #: [id number] Pt. Type: O Room/Bed: / Admit/Disch: 02/10/23 [...] Performed Surgeon - Primary Scrub - Primary Damper Worker - Primary Time In 02/10/23 09:29:00 02/10/23 [...] By: Mounika Ramírez RN 02/10/23 10:[address] [facility] Main OR Preoperative Recordo n 02-10-2023 Main OR Preoperative Record Holding Area Document Type FTURO Summary Primary Physician: Sridhar BARNES MD Finalized Date/Time: 02/10/23 09:31:04 Pt. Name: MAREK REY Palomino./Sex: 1970 Male Med Rec #: [id number] Physician: Sridhar BARNES MD Financial #: [id number] Pt. Type: O Room/Bed: / Admit/Disch: 02/10/23 [...] Complaints of Pain: No Skin Integrity Intact, Home, Warm, & Dry Vitals - EU Blood Pressure 130/80 Pulse 84 bpm Respirations 18 br/min SPO2 95 % RN Reviewed Yes Last Modified By: Mounika Ramírez RN 02/10/23 09:31:03 General Comments: Temp 97.9 Finalized By: Mounika Ramírez RN Document Signatures Signed By: Ivonne Elizalde LPN 02/10/23 08:50 Mounika Ramírez RN 02/10/23 09:[address] [facility] Operative Reporton Operative Report Patient: REY JARA [...] were sent to pathology for evaluation. Normal [facility] Comment on above: Result Comment: Elec tronically Signed By: DERECK JACOBS, Sridhar Vera.lupe\Date and Time Signed: 02/10/23 09:55 EDT Outpatient Surgery Discharge Instructionon 02-10-2023 Outpatient Surgery Discharge Instruction [id number] #1.00CD:[address] [facility] Patient Educationon 02-11-20 Patient Education Custom Transrectal [...] for your post-operative appointment in 1-2 weeks [phone] or [phone] [facility] Prostate Histology ([facility]4 [facility]) on 02-10-2023 PH Method of Extraction Needle Biopsy Normal [facility] Comment on above: Order Comment: 1 BIT E PER AREA Performed By: #### 1 [id number] ####[facility] [address] [place] [address] PH Number of Jars [address] [facility] Comment on above: Order Comment: 1 BIT E PER AREA Performed By: #### 1 [id number] ####[facility] [address] [place] [address] PH Specimen 1 L Base Prostate Normal [facility] Comment on above: Order Comment: 1 BIT E PER AREA Performed By: #### 1 [id number] ####[facility] [address] [place] [address] PH Specimen 10 R Lat Bse Prost Normal [facility] Comment on above: Order Comment: 1 BIT E PER AREA Performed By: #### 1 [id number] ####[facility] [address] [place] [address] PH Specimen 11 R Lat Mid Prost Normal [facility] Comment on above: Order Comment: 1 BIT E PER AREA Performed By: #### 1 [id number] ####[facility] [address] [place] [address] PH Specimen 12 R Lat Apx Prost Normal [facility] Comment on above: Order Comment: 1 BIT E PER AREA Performed By: #### 1 [id number] ####[facility] [address] [place] [address] PH Specimen 2 L Mid Prostate Normal [facility] Comment on above: Order Comment: 1 BIT E PER AREA Performed By: #### 1 [id number] ####[facility] [address] [place] [address] PH Specimen 3 L Apx Prostate Normal [facility] Comment on above: Order Comment: 1 BIT E PER AREA Performed By: #### 1 [id number] ####[facility] [address] [place] [address] PH Specimen 4 L Lat Mid Prost Normal [facility] Comment on above: Order Comment: 1 BIT E PER AREA Performed By: #### 1 [id number] ####[facility] [address] [place] [address] PH Specimen 5 L Lat Bse Prost Normal [facility] Comment on above: Order Comment: 1 BIT E PER AREA Performed By: #### 1 [id number] ####[facility] [address] [place] [address] PH Specimen 6 L Lat Apx Prost Normal [facility] Comment on above: Order Comment: 1 BIT E PER AREA Performed By: #### 1 [id number] ####[facility] [address] [place] [address] PH Specimen 7 R Base Prostate Normal [facility] Comment on above: Order Comment: 1 BIT E PER AREA Performed By: #### 1 [id number] ####[facility] [address] [place] [address] PH Specimen 8 R Mid Prostate Normal [facility] Comment on above: Order Comment: 1 BIT E PER AREA Performed By: #### 1 [id number] ####[facility] [address] [place] [address] PH Specimen 9 R Apx Prostate Normal [facility] Comment on above: Order Comment: 1 BIT E PER AREA Performed By: #### 1 [id number] ####[facility] [address] [place] [address] PH Type of Service Technical Only Normal [facility] Comment on above: Order Comment: 1 BIT E PER AREA Performed By: #### 1 [id number] ####[facility] [address] [place] [address] Lab Reportson 02-03-2023 Lab Reports [id number]# 1.00CD:[address] [facility] Lab Reportson 01-29-2023 Lab Reports [id number] #1.00CD:127 [facility] Lab Reports [id number]# 1.00CD:127 [facility] Lab Reportson 01-28-2023 Lab Reports [id number] #1.00CD:127 [facility] Ambulatory Visit Summaryon 0 01-12-2023 Ambulatory Visit Summary TORITOAZIZAREY :1970 Visit Date:01/12/2023 Ambulatory Visit Instructions Your Diagnosis BPH with elevated PSA History of kidney stones Tests Performed Urnls Dip Stick Auto w/o Microscopy POC 82733 Your Care Team Attending Physician - DERECK [...] JACOBS, Sridhar Rainey Where: [facility] Patient Educationon 01-13-20 Patient Education [...] near your rectum, especially while sitting. ? Home-colored urine due to small amounts of blood in your urine. ? A burning feeling while urinating. ? Blood in your stool (feces) or bleeding from your rectum. ? Blood in your semen. Follow these instructions at home: Medicines ? Take rmqf-aik-inymshx and prescription medicines only as told by [...] provider. Document Revised: 10/28/2021 Document Reviewed: 10/28/2021 [employer] Patient Education ? 2022 [employer]. Transrectal Ultrasound-Guided Prostate Biopsy A transrectal ultrasound-guided [...] including vitamins, herbs, eye drops, creams, and jvgb-gwo-yjliefc medicines. ? Any problems you or family [...] as aspirin (more content not included)... Normal [facility] Urology Office/Clinic Noteon 01-12-2023 Urology Office/Clinic Note [...] [facility] [address], [place] [address] [phone] Additional Instructions: stone work-up sched TRUS/bx Patient [...] Oral, Daily (more content not included)... Normal [facility] Comment on above: Result Comment: Elec tronically Signed By: Sridhar BARNES MD\.br\Date and Time Signed: 01/12/23 16:49 EDT\.br\Electronically Co-Signed By: Parris Morales.br\Date and Time Co-Signed: 01/12/23 16:47 EDT Lab Reportson 09-10-2022 Lab Reports [id number] #1.00CD:127 PSA back up. neg bx 2020. has appt w PRW 11/17/22. Normal [facility] CBC AUTO DIFFon 08-16-2022 BASO # 0.0 103/ul Normal 0.0-0.1 [facility] Comment on above: Performed By: #### C BC #### [facility] [address] [address] [address] Art Napoles Basophils/100 WBC (Bld) 0.8 % Normal 0.2-2.0 [facility] Comment on above: Performed By: #### C BC #### [facility] [address] [place] [address] Dr. Art Napoles EO # 0.1 103/ul Normal 0.0-0.7 [facility] Comment on above: Performed By: #### C BC #### [facility] [address] [place] [address] Dr. Art Napoles Eosinophils/100 WBC (Bld) 1.6 % Normal 0.9-7.0 [facility] Comment on above: Performed By: #### C BC #### [facility] [address] [place] [address] Dr. Art Napoles Erythrocyte distribution width (RBC) [Ratio] 12.3 % Normal 11.0-15.0 [facility] Comment on above: Performed By: #### C BC #### [facility] [address] [place] [address] Dr. Art Napoles Hematocrit (Bld) [Volume fraction] 48.7 % Normal 42.0-54.0 [facility] Comment on above: Performed By: #### C BC #### [facility] [address] [place] [address] Dr. Art Napoles Hemoglobin (Bld) [Mass/Vol] 16.3 g/dL Normal 14.0-18.0 [facility] Comment on above: Performed By: #### C BC #### [facility] [address] [place] [address] Dr. Art Napoles IG # 0.01 10e3/ul Normal 0.00-0.03 [facility] Comment on above: Performed By: #### C BC #### [facility] [address] [place] [address] Dr. Art Napoles IG % 0.2 % Normal 0.0-0.5 [facility] Comment on above: Performed By: #### C BC #### [facility] [address] [place] [address] Dr. Art Napoles LYMPH # 1.7 103/ul Normal 1.2-3.8 [facility] Comment on above: Performed By: #### C BC #### [facility] [address] [place] [address] Dr. Art Napoles Lymphocytes/100 WBC (Bld) 33.0 % Normal 20.5-60.0 [facility] Comment on above: Performed By: #### C BC #### [facility] [address] [place] [address] Dr. Art Napoles MANUAL DIFF REQ NO Normal [facility] Comment on above: Performed By: #### C BC #### [facility] [address] [place] [address] Dr. Art Napoles MCH (RBC) [Entitic mass] 29.9 pg Normal 25.9-34.0 [facility] Comment on above: Performed By: #### C BC #### [facility] [address] [place] [address] Dr. Art Napoles MCHC (RBC) [Mass/Vol] 33.5 g/dL Normal 29.9-35.2 [facility] Comment on above: Performed By: #### C BC #### [facility] [address] [place] [address] Dr. Art Napoles MCV (RBC) [Entitic vol] 89.4 fL Normal 80.0-94.0 [facility] Comment on above: Performed By: #### C BC #### [facility] [address] [place] [address] Dr. Art Napoles MONO # 0.5 103/ul Normal 0.3-0.8 [facility] Comment on above: Performed By: #### C BC #### [facility] [address] [place] [address] Dr. Art Napoles Monocytes/100 WBC (Bld) 9.0 % Normal 1.7-12.0 [facility] Comment on above: Performed By: #### C BC #### [facility] [address] [place] [address] Dr. Art Napoles NEUT # 2.8 103/ul Normal 1.4-6.5 [facility] Comment on above: Performed By: #### C BC #### [facility] [address] [place] [address] Dr. Art Napoles Neutrophils/100 WBC (Bld) 55.4 % Normal 43.0-75.0 [facility] Comment on above: Performed By: #### C BC #### [facility] [address] [address] [address] Art Napoles Platelet mean volume (Bld) [Entitic vol] 9.4 fL Critically low 9.5-13.5 [facility] Comment on above: Performed By: #### C BC #### [facility] [address] [address] [address] Art Napoles PLT 219 103/ul Normal 150-450 [facility] Comment on above: Performed By: #### C BC #### [facility] [address] [address] [address] Art Napoles RBC 5.45 106/ul Normal 4.70-6.10 [facility] Comment on above: Performed By: #### C BC #### [facility] [address] [place] [address] Dr. Art Napoles WBC 5.1 103/ul Normal 4.0-11.0 [facility] Comment on above: Performed By: #### C BC #### [facility] [address] [place] [address] Dr. Art Napoles GLYCOHEMOGLOBIN A1Con 2022 ADA RECOMMENDATION SEE BELOW Normal [facility] Comment on above: Result Comment: ADA RECOMMENDED LIMIT 4.0 - 6.0 ADA THERAPEUTIC TARGET < 7.0 ACTION SUGGESTED > 7.0 Performed By: #### A 1C #### [facility] [address] [place] [address] Dr. Art Napoles Glucose [Mass/Vol] 91 mg/dL Normal [facility] Comment on above: Performed By: #### A 1C #### [facility] [address] [place] [address] Dr. Art Napoles HbA1c (Bld) [Mass fraction] 4.8 % Normal 4.5-6.2 [facility] Comment on above: Performed By: #### A 1C #### [facility] [address] [place] [address] Dr. Art Napoles LIPID PROFILEon 08-16-2022 CHOL-HDL RATIO NORM SEE BELOW Normal [facility] Comment on above: Result Comment: 3.3 - 4.4 LOW RISK 4.4 - 7.1 AVERAGE RISK 7.1 - 11.0 MODERATE RISK >11.0 HIGH RISK Performed By: #### L IPID, CMP #### [facility] [address] [place] [address] Dr. Art Napoles Cholesterol [Mass/Vol] 129 mg/dL Normal <=200 [facility] Comment on above: Performed By: #### L IPID, CMP #### [facility] [address] [place] [address] Dr. Art Napoles Cholesterol in HDL [Mass/Vol] 49 mg/dL Normal 40-60 [facility] Comment on above: Performed By: #### L IPID, CMP #### [facility] [address] [place] [address] Dr. Art Napoles Cholesterol in LDL [Mass/Vol] 54.0 mg/dL Normal [facility] Comment on above: Performed By: #### L IPID, CMP #### [facility] [address] [place] [address] Dr. Art Napoles Cholesterol.total/Cho lesterol in HDL [Mass ratio] 2.6 {ratio} Normal [facility] Comment on above: Performed By: #### L IPID, CMP #### [facility] [address] [place] [address] Dr. Art Napoles HDL NORMAL > or = 60 mg/dl - LOW CARDIOVASCULAR RISK <40 mg/dl - HIGH CARDIOVASCULAR RISK Normal [facility] Comment on above: Performed By: #### L IPID, CMP #### [facility] [address] [place] [address] Dr. Art Napoles LDL CALC NORMAL SEE BELOW Normal [facility] Comment on above: Result Comment: <100 mg/dl OPTIMAL 100 - 129 mg/dl NEAR OR ABOVE OPTIMAL 130 - 159 mg/dl BORDERLINE HIGH 160 - 189 mg/dl HIGH >190 mg/dl VERY HIGH Performed By: #### L IPID, CMP #### [facility] [address] [place] [address] Dr. Art Napoles Triglyceride [Mass/Vol] 130 mg/dL Normal <=150 [facility] Comment on above: Performed By: #### L IPID, CMP #### [facility] [address] [address] [address] Art Napoles VLDL CALC 26.0 mg/dL Normal [facility] Comment on above: Performed By: #### L IPID, CMP #### [facility] [address] [address] [address] Art Napoles PROF 14(COMP METB)on 023 Albumin [Mass/Vol] 4.4 g/dL Normal 3.4-5.0 [facility] Comment on above: Performed By: #### L IPID, CMP #### [facility] [address] [place] [address] Dr. Art Napoles Albumin/Globulin [Mass ratio] 1.5 {ratio} Normal [facility] Comment on above: Performed By: #### L IPID, CMP #### [facility] [address] [place] [address] Dr. Art Napoles ALP [Catalytic activity/Vol] 69 U/L Normal 46-116 [facility] Comment on above: Performed By: #### L IPID, CMP #### [facility] [address] [place] [address] Dr. Art Napoles ALT [Catalytic activity/Vol] 45 U/L Normal 16-63 [facility] Comment on above: Performed By: #### L IPID, CMP #### [facility] [address] [place] [address] Dr. Art Napoles Anion gap [Moles/Vol] 11.0 mmol/L Normal [facility] Comment on above: Performed By: #### L IPID, CMP #### [facility] [address] [place] [address] Dr. Art Napoles AST [Catalytic activity/Vol] 24 U/L Normal 15-37 [facility] Comment on above: Performed By: #### L IPID, CMP #### [facility] [address] [place] [address] Dr. Art Napoles Bilirubin [Mass/Vol] 0.5 mg/dL Normal 0.2-1.0 [facility] Comment on above: Performed By: #### L IPID, CMP #### [facility] [address] [address] [address] Art Napoles Calcium [Mass/Vol] 9.3 mg/dL Normal 8.5-10.1 [facility] Comment on above: Performed By: #### L IPID, CMP #### [facility] [address] [address] [address] Art Napoles Chloride [Moles/Vol] 103 mmol/L Normal 98-107 [facility] Comment on above: Performed By: #### L IPID, CMP #### [facility] [address] [place] [address] Dr. Art Napoles CO2 [Moles/Vol] 29.9 mmol/L Normal 21.0-32.0 [facility] Comment on above: Performed By: #### L IPID, CMP #### [facility] [address] [place] [address] Dr. Art Napoles Creatinine [Mass/Vol] 0.81 mg/dL Normal 0.70-1.30 [facility] Comment on above: Performed By: #### L IPID, CMP #### [facility] [address] [place] [address] Dr. rAt Napoles EGFR-AF GIBRALTARIAN >60 Normal >=60 [facility] Comment on above: Performed By: #### L IPID, CMP #### [facility] [address] [place] [address] Dr. Art Napoles EGFR-NON AF GIBRALTARIAN >60 Normal >=60 [facility] Comment on above: Performed By: #### L IPID, CMP #### [facility] [address] [place] [address] Dr. Art Napoles Globulin (S) [Mass/Vol] 2.9 g/dL Normal [facility] Comment on above: Performed By: #### L IPID, CMP #### [facility] [address] [place] [address] Dr. Art Napoles Glucose [Mass/Vol] 97 mg/dL Normal 74-106 [facility] Comment on above: Performed By: #### L IPID, CMP #### [facility] [address] [address] [address] Art Napoles Potassium [Moles/Vol] 3.9 mmol/L Normal 3.5-5.1 [facility] Comment on above: Performed By: #### L IPID, CMP #### [facility] [address] [place] [address] Dr. Art Napoles Protein [Mass/Vol] 7.3 g/dL Normal 6.4-8.2 [facility] Comment on above: Performed By: #### L IPID, CMP #### [facility] [address] [address] [address] Art Napoles Sodium [Moles/Vol] 140 mmol/L Normal 136-145 [facility] Comment on above: Performed By: #### L IPID, CMP #### [facility] [address] [place] [address] Dr. Art Napoles Urea nitrogen [Mass/Vol] 11.0 mg/dL Normal 7.0-18.0 [facility] Comment on above: Performed By: #### L IPID, CMP #### [facility] [address] [place] [address] Dr. Art Napoles Urea nitrogen/Creatinine [Mass ratio] 13.6 mg/mg Normal [facility] Comment on above: Performed By: #### L IPID, CMP #### [facility] [address] [place] [address] Dr. Art Napoles XR KUB 1 VIEWon [...] by: PREETHI GALARZA Date: 2022-05-02 07:17 Normal [facility] CHEMISTRYOrdered By: SYSTEM SYSTEM on 04-30-2022 Prostate specific Ag [Mass/Vol] 5.0 ng/mL High 0.1 - 3.5 ng/mL [facility] Remisol Vital Signs Date Time Vital Sign Value Performing Clinician Facility 01-12-2023 15:42-0400 Blood Pressure Location Sridhar BARNES [facility] 01-12-2023 15:42-0400 Diastolic blood pressure 80 mm[Hg] Sridhar BARNES [facility] 01-12-2023 15:42-0400 Systolic blood pressure 132 mm[Hg] Sridhar BARNES [facility] 09-15-2022 10:30-0400 Body height 170.18 cm Ivan Relevvant Other [facility] Other 09-15-2022 10:30-0400 Body mass index (BMI) [Ratio] 28.72 kg/m2 Ivan Ball Other [facility] Other 09-15-2022 10:30-0400 Body temperature 97.3 [degF] Ivan Ball Other [facility] Other 09-15-2022 10:30-0400 Body weight 83.19 kg Ivan Ball Other [facility] Other 09-15-2022 10:30-0400 Diastolic blood pressure 81 mm[Hg] Ivan Ball Other [facility] Other 09-15-2022 10:30-0400 SaO2% (BldA) [Mass fraction] 93 % Ivan Ball Other [facility] Other 09-15-2022 10:30-0400 Systolic blood pressure 125 mm[Hg] Ivan Ball Other [facility] Other 08-21-2022 11:00-0400 Body height 170.18 cm Ivan Ball Other [facility] Other 08-21-2022 11:00-0400 Body mass index (BMI) [Ratio] 28.66 kg/m2 Ivan Ball Other [facility] Other 08-21-2022 11:00-0400 Body weight 83.01 kg Ivan Ball Other [facility] Other 08-21-2022 11:00-0400 Diastolic blood pressure 80 mm[Hg] Ivan Ball Other [facility] Other 08-21-2022 11:00-0400 Respiratory rate 12 /min Ivan Ball Other [facility] Other 08-21-2022 11:00-0400 Systolic blood pressure 147 mm[Hg] Ivan Ball Other [facility] Other 04-30-2022 15:02-0500 Blood Pressure Location RACHEL ZACK [facility] 04-30-2022 15:02-0500 Diastolic blood pressure 89 mm[Hg] RACHEL ZACK [facility] 04-30-2022 15:02-0500 Heart rate 81 /min RACHEL ZACK [facility] 04-30-2022 15:02-0500 Systolic blood pressure 140 mm[Hg] RACHEL ZACK [facility] 09-10-2021 08:29-0400 Blood Pressure Location Zev Thomson Jr. [facility] 09-10-2021 08:29-0400 Diastolic blood pressure 86 mm[Hg] Zev Thomson Jr. [facility] 09-10-2021 08:29-0400 Heart rate 77 /min Zev Thomson Jr. [facility] 09-10-2021 08:29-0400 Respiratory rate 16 /min Zev Thomson Jr. [facility] 09-10-2021 08:29-0400 Systolic blood pressure 137 mm[Hg] Zev Thomson Jr. [facility] Encounters Encounter Date Encounter Type Care Provider Facility Start: 08-28-2023 ambulatory Sridhar BARNES Facili ty:[facility] Start: 08-21-2023 ambulatory Sridhar BARNES Facili ty:[facility] Start: 02-20-2023 End: 02-21-2023 ambulatory Sridhar BARNES Facility:[facility] Start: 02-18-2023 End: 02-18-2023 ambulatory Ivan Suazo Other [facility] Other Start: 02-18-2023 Telephone encounter Ivan Suazo [facility] Start: 02-10-2023 End: 02-11-2023 ambulatory Sridhar BARNES Facility:[facility] Start: 02-10-2023 End: 02-10-2023 Patient encounter procedure Sridhar BARNES [facility] Start: 01-12-2023 End: 01-13-2023 ambulatory Sridhar BARNES Facility:[facility] Start: 01-12-2023 End: 01-12-2023 Patient encounter procedure Sridhar BARNES [facility] Start: 09-15-2022 End: 09-15-2022 ambulatory Ivan Suazo Other [facility] Other Start: 09-15-2022 Office outpatient vi sit 15 minutes Ivan Suazo [facility] Start: 08-22-2022 Encounter for genera l adult medical examination without abnormal findings DR IVAN SUAZO [facility] Start: 08-21-2022 End: 08-21-2022 ambulatory Ivan Suazo Other [facility] Other Start: 08-21-2022 Encounter for genera l adult medical examination without abnormal findings Ivan Suazo [facility] Start: 08-21-2022 Periodic preventive med est patient 40-64yrs Ivan Suazo [facility] Start: 08-16-2022 End: 08-17-[address] IVAN SUAZO Facility:[facility] Start: 08-16-2022 End: 08-17-2022 Encounter for general adult medical examination without abnormal findings DR IVAN SUAZO Facility:[facility] Start: 04-30-2022 End: 05-01-[address] IVAN SUAZO Facility:[facility] Start: 04-30-2022 End: 04-30-2022 Lab Drop off RACHEL DIXON [facility] Start: 04-30-2022 End: 04-30-2022 Patient encounter procedure RACHEL DIXON [facility] Start: 10-15-2021 End: 10-15-[address] IVAN SUAZO Facility:[facility] Start: 09-10-2021 End: 09-10-2021 Patient encounter procedure Zev Thomson Jr. [facility] Start: 08-14-2021 Adult health examination Ivan Suazo Other [facility] Other Procedures Date Procedure Procedure Detail Performing Clinician Start: 08-16-[address] KOBE SUAZO Comment on above: Performed By: #### [facility] #### [facility] [address] [place] [address] Dr. Art Napoles Start: 10-08-2020 Transrectal biopsy o f prostate Zev Thomson Jr. Start: 11-07-2016 General examination of patient Ivan Suazo Other Depression screening Jaylene Suazo Other Lip structure (body structure) Sridhar BARNES Structure of eye pro per (body structure) Sridhar BARNES Vasectomy Zev Ashford Immunizations Immunization Date Immunization Notes Care Provider Fa avera [facility] 02-13-2022 influenza virus vaccine, unspecified formulation Sridhra BARNES [facility] 04-26-2021 SARS-CoV-2 (COVID-19 ) mRNA-1273 vaccine Sridhar BARNES [facility] 03-22-2021 influenza virus vaccine, unspecified formulation Sridhar BARNES [facility] 10-12-2020 SARS-CoV-2 (COVID-19 ) mRNA-1273 vaccine Sridhar BARNES [facility] 09-02-2020 SARS-CoV-2 (COVID-19 ) mRNA BNT-162b2 vax Zev Thomson Jr. [facility] 2020 SARS-CoV-2 (COVID-19 ) mRNA BNT-162b2 gaudencio Brothers Berto Hernandez [facility] Payers Date Payer Category Payer Unknown [id number] 2.16.84 [id number] 1971 Unknown [id number] 2.16.84 [id number] 1971 Unknown [id number] 2.16.84 [id number] 1971 Unknown [id number] 2.16.8 [id number] 1971 Unknown [id number] 2.16.8 [id number] 1971 Unknown [id number] 2.16.8 [id number] 1971 Unknown [id number] 2.16.8 [id number] 1971 Unknown [id number] 2.16.8 [id number] 1959 Unknown [id number] 2.16.8 [id number] Social History Date Type Detail Facility Start: 09-10-2021 End: 01-12-2023 Tobacco smoking status Never smoked tobacco (finding) [facility] Sex Assigned At Male [facility] Tobacco smoking status Never [facility] Functional Status Date Assessment Result Facility 02-10-2023 Functional Status N/A [facility] 01-12-2023 Functional Status N/A [facility] 04-30-2022 Functional Status N/A [facility] Clinical Notes 09-15-2020 to 02-18-2023 Note Date & Type Note Facility 02-18-2023 Evaluation note Encounter Date Diagnosis Assessment Notes Feb, Prostate cancer (ICD-10 - C61) Pam 3+3 (6) grp 1 [facility] Other 09-26-2023 Note [id number]:127[facility] 02-10-2023 Hospital Discharge instructions Patient Education 02/10/2023 [...] for your post-operative appointment in 1-2 weeks [phone] or [phone] Follow Up Care 01/12/2023 17:22:40 With:Sridhar BARNES Address: [facility] [address] [place] [address]- Business (1) When: Unknown Comments:Keep scheduled appointment. Patient is to get electrolyte blood draw done in 2 months. [facility]08-28-2023 Hospital Discharge instructions Patient Education 01/12/2023 [...] discomfort near your rectum, especially while sitting. Home-colored urine due to small amounts of blood in your urine. A burning feeling while urinating. Blood in your stool (feces) or bleeding from your rectum. Blood in your semen. Follow these instructions at home: Medicines Take eakx-gop-zhynjjk and prescription medicines only as told by [...] provider. Document Revised: 10/28/2021 Document Reviewed: 10/28/2021 [employer] Patient Education 2022 [employer]. 01/12/2023 16:39:54 Transrectal Ultrasound-Guided Prostate Biopsy Transrectal [...] including vitamins, herbs, eye drops, creams, and keni-ayd-hwjbexo medicines. Any problems you or family members [...] provider tells you to take them. Taking xyme-ivq-kuvtfwo medicines, vitamins, herbs, and supplements. General instructions [...] provider. Document Revised: 10/28/2021 Document Reviewed: 10/28/2021 [employer] Patient Education 2022 [employer]. Follow Up Care 04/30/2022 15:31:40 With:DERECK JACOBS, Sridhar Rainey, URL Address: [facility] [address] , [place] [address]- [phone] When: Unknown Comments:stone work-upsched TRUS/bx [facility] 05-01-2023 Evaluation note* Encounter Date Diagnosis Assessment [...] for congestion, Tylenol for pain and fever. [facility] Other 04-06-2023 Evaluation note* Encounter Date Diagnosis [...] PSA (prostate specific antigen) (ICD-10 - Z12.5) [facility] Other 12-14-2022 Hospital Discharge instructions Patient Education [...] including vitamins, herbs, eye drops, creams, and swww-bji-tveefsk medicines. Any problems you or family members [...] provider tells you to take them. Taking ywbv-ynp-asnbqmc medicines, vitamins, herbs, and supplements. Eating and [...] 05/04/2006 Document Revised: 08/24/2019 Document Reviewed: 02/02/2019 [employer] Patient Education 2020 [employer]. Follow Up Care 09/10/2021 09:12:34 With:ZACK PONCE, RACHEL Vega, URL Address: [address] [address] [phone] When:10/29/2022 [facility] 05-31-2022 NoteOPERATIVE NOTE OPERATION DATE: 10/15/2021 PRIMARY [...] was then discharged home in good condition. [facility] Signed and Approved by: DR CHARLEY ESCOBEDO 10/22/2021 07:56:00[facility]04-26-2022 Hospital Discharge instructions Patient Education 09/10/2021 09:01:45 [...] urethra. Follow these instructions at home: Take dagg-viu-hwained and prescription medicines only as told by [...] 05/04/2006 Document Revised: 03/29/2019 Document Reviewed: 06/08/2017 [employer] Patient Education 2020 [employer]. Follow Up Care 05/21/2021 09:33:45 With:Berto Hernandez MD, Zev Villasenor U[facility] Address: [facility] [address] , [place] [address]- When:03/12/2022 Comments:Check UA, no PSA [facility] 05-01-2021 History general Narrative - Reported* Type [...] History VASECTOMY Hospitalization History SEE SURGICAL HX [facility] Other Evaluation + Plan note Future Appointments Appointment Date:04/01/2022 08:30:00 AM Scheduled Provider:Zev Thomson Jr., MD Location:[facility] Appointment Type:URO Office Visit [facility] evaluation + Plan note Future Appointments Appointment Date:11/04/2022 08:30:00 AM Scheduled Provider:RACHEL DIXON PA-C Location:[facility] Appointment Type:URO Office Visit [facility] evaluation + Plan note Future Appointments Appointment Date:02/06/2023 07:45:00 AM Scheduled Provider: Location:[facility] Appointment Type:Urology CALL PAT FT Appointment Date:02/10/2023 09:00:00 AM Scheduled Provider: Location:[facility] Appointment Type:Urology FT Appointment Date:02/10/2023 09:00:00 AM Scheduled Provider: Location:.UROLOGY Appointment Type:US Prostate Urology (FT) Appointment Date:02/27/2023 09:15:00 AM Scheduled Provider:Sridhar BARNES MD Location:[facility] Appointment Type:URO Office Visit Future Scheduled Tests Radiology* US Prostate, [facility] 02/10/23 [facility] evaluation + Plan note Future Appointments Appointment Date:02/27/2023 09:15:00 AM Scheduled Provider:Sridhar BARNES MD Location:[facility] Appointment Type:URO Office Visit Diagnostic Tests Pending * Prostate Histology ([facility]) [facility] Narrative No data available for this section [facility] Hospital Discharge instructions No data available for this section [facility] No data available for this section [facility] Public Solution Summary Purpose Family History No Family History Records FoundNo Family History Records Found Advance Directives No Advanced Directives Records FoundNo Advanced Directives Records Found Additional Source Comments Patient Care team informatio n (unrecognized section and content) Personnel Name: IVAN USAZO DO Address: Address: [address] [facility] [place], [address] Personnel Name: IVAN SUAZO DO Address: Address: [address] [facility] [place], [address] Personnel Name: IVAN SUAZO DO Address: Address: [address] [facility] [place] Personnel Name: IVAN SUAZO DO Address: Address: [address] [facility] [place], [address] REASON FOR VISIT (unrecogniz ed section and content) WELLNESScongestion, temp sin ce Thursday 108No Information (unrecognized sect ion and content) No Status Records FoundNo Status Records Found INFORMATION SOURCE (unrecogn ized section and content) DATE CREATED AUTHOR 08/23/2022 [facility] DATE CREATED AUTHOR AUTHOR'S ORGANIZ ATION 07/23/2023 [facility] FOR RECORDS PERTAINING TO PATIENTS WHO [...] BE BASED ON THE PRIMARY CLINICAL RECORDS. [facility]. provides no warranty or guarantee of the accuracy or completeness of information in this document.
[2023-08-19 08:04] LABS: Basophils Absolute Auto 0.1 10^3/uL (0.0-0.1); Basophils Percent Auto 1.4 % (0.2-2.0); Eosinophils Absolute Auto 0.2 10^3/uL (0.0-0.7); Eosinophils Percent Auto 3.7 % (0.9-7.0); Hematocrit 47.7 % (42.0-54.0); Hemoglobin 16.3 g/dL (14.0-18.0); Lymphocytes Absolute Auto 2.1 10^3/uL (1.2-3.8); Lymphocytes Percent Auto 39.6 % (20.5-60.0); Mean Corpuscular HGB Conc 34.2 g/dL (29.9-35.2); Mean Corpuscular Hemoglobin 30.5 pg (25.9-34.0); Mean Corpuscular Volume 89.3 fL (80.0-94.0); Mean Platelet Volume 9.4 fL (9.5-13.5); Monocytes Absolute Auto 0.4 10^3/uL (0.3-0.8); Monocytes Percent Auto 8.3 % (1.7-12.0); Neutrophils Absolute Auto 2.4 10^3/uL (1.4-6.5); Platelet Count 242 10^3/uL (150-450); Red Blood Count 5.34 10^6/uL (4.70-6.10); White Blood Count 5.2 10^3/uL (4.0-11.0)
[2023-08-19 08:53] LABS: Chol HDL Ratio 2.8; Cholesterol 122 mg/dL (<=200); HDL Cholesterol 43 mg/dL (40-60); Triglycerides 167 mg/dL (<=150); VLDL CHOLESTEROL 33.4 mg/dL
[2023-08-19 08:56] LABS: Alanine Aminotransferase 63 U/L (16-63); Albumin Globulin Ratio 1.1; Albumin Level 3.9 g/dL (3.4-5.0); Alkaline Phosphatase 75 U/L (46-116); Anion Gap 13.2; Aspartate Amino Transferase 27 U/L (15-37); BUN Creatinine Ratio 15.8; Bilirubin Total 0.5 mg/dL (0.2-1.0); Calcium 9.4 mg/dL (8.5-10.1); Carbon Dioxide 29.3 mmol/L (21.0-32.0); Chloride 101 mmol/L (98-107); Estimated GFR (African America >60 (>=60); Estimated GFR (Non-African Ame >60 (>=60); Globulin 3.5 g/dL; Glucose 95 mg/dL (74-106); Potassium 3.5 mmol/L (3.5-5.1); Sodium 140 mmol/L (136-145); Total Protein 7.4 g/dL (6.4-8.2)
== END 2023-08-19 07:30 | disposition home or self-care (01) ==
LOC: LAB 07:30
PROVIDERS: PCP Internal Medicine; Visit Provider Internal Medicine
DX: Z00.00 Encounter for general adult medical examination without abnormal findings (principal); C61 Malignant neoplasm of prostate
CPT/HCPCS: 36415; 80053; 80061; 84153; 85025

== ENCOUNTER 2024-09-06 06:39 | Outpatient (OUT) | payer OTHER, SELFPAY ==
[2024-09-06 07:02] LABS: Basophils Percent Auto 0.6 % (0.2-2.0); Eosinophils Absolute Auto 0.1 10^3/uL (0.0-0.7); Eosinophils Percent Auto 0.9 % (0.9-7.0); Hematocrit 49.2 % (42.0-54.0); Hemoglobin 16.8 g/dL (14.0-18.0); Immature Granulocytes Abs Auto 0.01 10^3/uL (0.00-0.03); Immature Granulocytes Pct Auto 0.2 % (0.0-0.5); Lymphocytes Absolute Auto 2.3 10^3/uL (1.2-3.8); Lymphocytes Percent Auto 35.5 % (20.5-60.0); Mean Corpuscular HGB Conc 34.1 g/dL (29.9-35.2); Mean Corpuscular Hemoglobin 30.5 pg (25.9-34.0); Mean Corpuscular Volume 89.5 fL (80.0-94.0); Monocytes Absolute Auto 0.5 10^3/uL (0.3-0.8); Monocytes Percent Auto 8.2 % (1.7-12.0); Neutrophils Absolute Auto 3.5 10^3/uL (1.4-6.5); Neutrophils Percent Auto 54.6 % (43.0-75.0); Platelet Count 243 10^3/uL (150-450); Red Cell Distribution Width 12.4 % (11.0-15.0); White Blood Count 6.4 10^3/uL (4.0-11.0)
[2024-09-06 07:41] LABS: Alanine Aminotransferase 54 U/L (16-63); Albumin Globulin Ratio 1.4; Alkaline Phosphatase 77 U/L (46-116); Anion Gap 12.7; Aspartate Amino Transferase 25 U/L (15-37); BUN Creatinine Ratio 14.9; Bilirubin Total 0.5 mg/dL (0.2-1.0); Carbon Dioxide 31.9 mmol/L (21.0-32.0); Chloride 103 mmol/L (98-107); Chol HDL Ratio 2.3; Cholesterol 130 mg/dL (<=200); Estimated GFR (African America >60 (>=60 mL/min/1.73m^2); Estimated GFR (Non-African Ame >60 (>=60 mL/min/1.73m^2); Globulin 2.9 g/dL; Glucose 101 mg/dL (74-106); HDL Cholesterol 56 mg/dL (40-60); LDL Cholesterol Calculated 52.2 mg/dL; Potassium 3.6 mmol/L (3.5-5.1); Sodium 144 mmol/L (136-145); Total Protein 6.9 g/dL (6.4-8.2); Triglycerides 109 mg/dL (<=150); VLDL CHOLESTEROL 21.8 mg/dL
== END 2024-09-06 06:40 | disposition home or self-care (01) ==
LOC: LAB 06:42
PROVIDERS: PCP Internal Medicine; Visit Provider Internal Medicine
DX: Z00.00 Encounter for general adult medical examination without abnormal findings (principal)
CPT/HCPCS: 36415; 80053; 80061; 85025

== ENCOUNTER 2024-10-13 06:51 | Outpatient (OUT) | payer OTHER, SELFPAY ==
--- OUTSIDE RECORDS SUMMARY | 2024-10-03 11:30 | XMS_ITS | Encounter Summary ---
Author Organization [facility] Address [address] [place] [address] Care Team Providers Care Front Clerk Name Role Phone Ivan Suazo Primary Care Provider [phone] Source Comments In the event this information is protected by the Federal Confidentiality of Alcohol and Drug AbusePatient Records regulations: The Federal rules restrict any use of the information to criminally investigate or prosecute any alcohol or drug abuse patient.[facility] Reason for Visit * Reason Comments Follow Up Encounter Details Date Type Department Care Team (Latest Contact Info) Description 10/03/2024 11:30 AM EDT [facility] Urology [address] [address] Neelima Bedoya APRN.[facility] [address] [place] [address] [id number] Prostate cancer (HCC) (Primary Dx) Social History Tobacco Use Types Packs/Day Years Used Date Smoking Tobacco: Never Smokeless Tobacco: Never Area Deprivation Index Answer Date Rocky rded National Score (1-100), lower number is lower ri sk 63 03/01/2024 State Score (1-10), lower number is lower risk 4 03/01/2024 Data from: https://www.neighborhoodatlas.medicine.[facility]/. Last address used for calculation [address] 03/01/2024 Sex and Gender Information Value Date Recorded Sex Assigned at Not on file Legal Sex Male 10:04 AM EST Gender Identity Not on file Sexual Orientation Not on file documented as of this encounter Progress Notes * Neelima Bedoya APRN.SECURITIES SETTLEMENT PROCESSOR - 10/03/2024 11:30 AM EDT [facility] ESTABLISHED PATIENT VIRTUAL VISIT This is a virtual visit using [employer] Video Visit. It required patient- provider interaction for the medical decision making as documented below. I have communicated my name and active licensure. The patient's identity and physical location wereverified at the time of this visit. Either the patient or their legal district representative has been informed of the risks and benefits of -- and alternatives to -- treatment through a remote evaluation andconsents to proceed with the evaluation remotely. Clinic note from 04/12/2024 copied and updated. REASON FOR VISIT: Follow up HPI 54 year old male presenting for follow-up of prostate cancer on active surveillance. Prostate Cancer Active Surveillance History in Brief Date (mm/yy) Test Result PSA 08/19/2023 7.93 03/31/2023 16.6 04/01/2024 1st Prostate Biopsy positive, 1st Biopsy Grade Group 1 # of positive cores (1/16) Highest % of core involved 20% Genomics Completed? No Genomics Type: Decipher Oncotype Genomics Score: 07/13/2023 1st MRI of Prostate Prostate Volume (ccs/grams) ? Highest PIRADS 1 Interval history: Patient presenting for follow up. Did not get updated PSA. Denies new or worsening urinary symptoms. PATHOLOGY: Surgical Pathology 04/01/2024 FINAL DIAGNOSIS A. Prostate, left lateral anterior, biopsy: - Benign fibromuscular tissue. - No prostatic glands identified. B. Prostate, left lateral posterior, biopsy: - Benign prostatic tissue. C. Prostate, left medial anterior, biopsy: - Small focus of atypical glands (atypical small acinar proliferation). D. Prostate, left medial posterior, biopsy: - Benign prostatic tissue. E. Prostate, right medial anterior, biopsy: - Small focus of atypical glands (atypical small acinar proliferation). F. Prostate, right medial posterior, biopsy: - Prostatic adenocarcinoma, [place] score 3+3=6 (Grade Group 1), involving 1 of 2 cores (20%, 3 mm). G. Prostate, right lateral anterior, biopsy: - Benign prostatic tissue. H. Prostate, right lateral posterior, biopsy: - Benign prostatic tissue. LABS: Creatinine Date Value Ref Range Status 03/25/2024 0.84 0.73 - 1.22 mg/dL Final No results found for: PSA URINALYSIS: Specific [place], Ur Date Value Ref Range Status 01/26/2024 1.018 1.005 - 1.030 Final Glucose, Urine Date Value Ref Range Status 01/26/2024 Negative Negative Final Bilirubin, Urine Date Value Ref Range Status 01/26/2024 Negative Negative Final Ketones, Urine Date Value Ref Range Status 01/26/2024 Negative Negative Final Hemoglobin/Blood,Ur Date Value Ref Range Status 01/26/2024 Negative Negative Final Protein, Urine Date Value Ref Range Status 01/26/2024 Negative Negative Final Nitrites Date Value Ref Range Status 01/26/2024 Negative Negative Final IMAGING: N/A ALLERGIES: ALLERGIES Allergen Reactions Penicillins Hives, Unknown MEDICATIONS: Current Outpatient Medications Medication Sig hydroCHLOROthiazide 12.5 mg tablet Take 1 tablet by mouth once daily. dutasteride (AVODART) 0.5 mg capsule Take 1 capsule by mouth once daily. amLODIPine (NORVASC) 5 mg tablet Take by mouth once daily. No current facility-administered medications for this visit. HISTORIES PAST MEDICAL HISTORY Diagnosis Date BPH (benign prostatic hyperplasia) Nephrolithiasis Prostate cancer (HCC) No past surgical history on file. Social History Tobacco Use Smoking status: Never Smokeless tobacco: Never PHYSICAL EXAMINATION There were no vitals taken for this visit. General: Well appearing, alert, in no acute distress, and well-hydrated, well nourished ASSESSMENT: Prostate cancer GG1 on active surveillance. Due for updated PSA. Will get locally and send over to us. PLAN: 1. Follow up on PSA, if stable will plan to continue PSA checks. If increasing will get MRI prostate and discuss potential repeat biopsy I spent a total of 30 minutes on the date of the service which included preparing to see the patient, [id number] patient care, completing clinical documentation, counseling and educating the patient/family/caregiver, ordering medications, tests, or procedures, and independently interpreting results (not separately reported). Neelima Bedoya APRN.[facility]ST[facility] documented in this encounter Plan of Treatment Scheduled Orders Name Type Priority Associated Diagnoses Orde r Schedule PROSTATE-SPECIFIC ANTIGEN DIAGNOSTIC Lab Routine Prostate cancer (HCC) Expected: 10/03/2024 (Approximate), Expires: 01/02/2025 documented as of this encounter Visit Diagnoses Diagnosis Prostate cancer (HCC)- Primary Malignant neoplasm of prostate documented in this encounter Care Teams Front Clerk Relationship Specialty Start Date End Date Ivan Suazo DO [address] [place] [address] PCP - General Internal Medicine 02/08/24 documented as of this encounter
--- OUTSIDE RECORDS SUMMARY | 2024-10-13 06:55 | XMS_ITS | Clinical Summary ---
Author Organization [facility] Address [address] [place] [address] Care Team Providers Care Pet Handler Name Role Phone Ivan Suazo DO Primary Care Provider [phone] Allergies Active Allergy Reactions Criticality Noted Date Comments Penicillins Hives,Unknown 08/27/2023 Medications amLODIPine (NORVASC) 5 mg tablet Take by mouth once daily. Active dutasteride (AVODART) 0.5 mg capsule Take 1 capsule by mouth once daily. 90 capsule 1 5 12/25/19 25 Active hydroCHLOROthi azide 12.5 mg tablet Take 1 tablet by mouth once daily. 90 tablet 1 5 Active hydroCHLOROthi azide 12.5 mg tablet Take 12.5 mg by mouth once daily. 09/23/19 25 Discontinued Active Problems Problem Noted Date Diagnosed Date Prostate cancer BPH (benign prostatic hyperplasia) Nephrolithiasis Encounters Date Type Department Care Team Description 10/04/2024 Patient Msg [facility] [address] [place] [address] Macho Howe MD PSA order 10/03/2024 11:30 AM EDT [facility] [address] [address] Neelima Bedoya APRN.AIRLINE HOSTESS Prostate cancer (HCC) (Primary Dx) 09/26/2024 Travel 08/30/2024 Patient Msg [facility] [address] [place] [address] Indu Nickerson MD Ultrasound Order 07/25/2024 4:00 PM EDT Office Visit [facility] [address] [place] [address] Indu Nickerson MD Nephrolithiasis 07/25/2024 Telephone [facility] [address] [place], [place] [id number] Indu Nickerson MD Orders 07/21/2024 MC Patient [facility] HB-[address] [place] [address] Yasmine Yee RPh At your next appointment, choose [facility]. 07/18/2024 Travel from Last 3 Months Social History Tobacco Use Types Packs/Day Years Used Date Smoking Tobacco: Never Smokeless Tobacco: Never Tobacco Cessation:Counseling Given: Not Answered Area Deprivation Index Answer Date Rocky rded National Score (1-100), lower number is lower ri sk 63 03/01/2024 State Score (1-10), lower number is lower risk 4 03/01/2024 Data from: https://www.neighborhoodatlas.medicine.[facility].edu/. Last address used for calculation [address] 03/01/2024 Sex and Gender Information Value Date Recorded Sex Assigned at Not on file Legal Sex Male 10:04 AM EST Gender Identity Not on file Sexual Orientation Not on file Last Filed Vital Signs Vital Sign Reading Time Taken Comments Blood Pressure 137/88 07/25/2024 3:56 PM EDT Pulse 78 07/25/2024 3:56 PM EDT Temperature 36.2 C (97.2 F) 04/01/2024 2:31 PM EST Respiratory Rate 18 04/01/2024 2:45 PM EST Oxygen Saturation 97% 04/01/2024 2:45 PM EST Inhaled Oxygen Concentration - - Weight 85.3 kg (188 lb 0.8 oz) 07/25/2024 3:56 P M EDT Height 170.2 cm (5' 7.01 ) 07/25/2024 3:56 PM ED T Body Mass Index 29.45 07/25/2024 3:56 PM EDT Plan of Treatment Health Maintenance Due Date Last Done Comments Anxiety Screening 08/11/1989 Depression Screening 08/11/1989 HIV Screening 08/11/1989 Hepatitis C Screening 08/11/1989 DTaP,Tdap,Td Vaccine (1 - Tdap) 08/11/1990 Hepatitis B Vaccine (1 of 3 - 19+ 3-dose series) 08/11/1990 Lipid Screening 08/11/2006 CT Colonography 08/11/2016 Colonoscopy 08/11/2016 Fecal Occult Blood 08/11/2016 Sigmoidoscopy 08/11/2016 Pneumococcal Vaccine: 50+ (1 of 1 - PCV) 08/11/2021 Shingrix Vaccine (1 of 2) 08/11/2021 Covid-19 Vaccine (5 - 2023-2 5 season) 2024 04/26/2021, 04/26/2021, 10/12/2020, Additional history exists Influenza Vaccine (Season Ended) 2025 02/14/20 22, 03/22/2021 Diabetes Screening 03/25/2027 03/25/2024 Cologuard (FIT-DNA) 09/12/2027 09/11/2024, Colorectal Cancer Screening 09/12/2027 Procedures Procedure Name Priority Date/Time Associated Diagnosis Comments EXTERNAL IMAGING 08/31/2024 3:02 PM EDT BASIC METABOLIC PANEL Routine 03/25/2024 3:26 PM EST Pre-op exam Elevated prostate specific antigen (PSA) from Last 3 Months or Most Recently Relevant to Health Maintenance Results * EXTERNAL IMAGING (08/31/2024 3:02 PM EDT) Anatomical Region Laterality Modality Other us External Provider PA-C RADIOLOGY Final Res ult * (ABNORMAL) BASIC METABOLIC PANEL (03/25/2024 3:26 PM EST) Glucose 151(H) 74 - 99 mg/dL 03/25/2024 10:12 PM EST [facility] Comment: The [place] Diabetes Association (ADA) provides guidance for cutoff values for fasting glucose and random glucose. The ADA defines fasting as no caloric intake for at least 8 hours. Fasting plasma glucose results between 100 to 125 mg/dL indicate increased risk for diabetes (prediabetes). Fasting plasma glucose results greater than or equal to 126 mg/dL meet the criteria for diagnosis of diabetes. In the absence of unequivocal hyperglycemia, results should be confirmed by repeat testing. In a patient with classic symptoms of hyperglycemia or hyperglycemic crisis, random plasma glucose results greater than or equal to 200 mg/dL meet the criteria for diagnosis of diabetes. Reference: Standards of Medical Care in Diabetes 2016, [place] Diabetes Association. Diabetes Care. 2016.39(Suppl 1). BUN 13 9 - 24 mg/dL 03/25/2024 10:12 PM EST [facility] Creatinine 0.84 0.73 - 1.22 mg/dL 03/25/2024 10:12 PM EST [facility] Sodium 139 136 - 144 mmol/L 03/25/2024 10:12 PM EST [facility] Potassium 3.7 3.7 - 5.1 mmol/L 03/25/2024 10:12 PM EST [facility] Chloride 99 98 - 107 mmol/L 03/25/2024 10:12 PM EST [facility] CO2 28 22 - 30 mmol/L 03/25/2024 10:12 PM EST [facility] Anion Gap 12 8 - 15 mmol/L 03/25/2024 10:12 PM EST [facility] Calcium, Total 9.6 8.5 - 10.2 mg/dL 03/25/2024 10:12 PM EST [facility] Estimated Glomerular Filtration Rate 105 >=60 mL/min/1.7 3m 03/25/2024 10:12 PM EST [facility] Comment:Estimated Glomerular Filtration Rate (eGFR) is calculated using the 2020 CKD-EPI creatinine equation. This equation utilizes serum creatinine, sex, and age as parameters. The creatinine assay has traceable calibration to isotope dilution- mass spectrometry. Refer to KDIGO guidelines for clinical interpretation. In patients with unstable renal function, e.g. those with acute kidney injury, the eGFR may not accurately reflect actual GFR. Blood BLOOD SPECIMEN / Unknown Venipuncture / Unknown 03/25/2024 3:26 PM EST 03/25/2024 3:26 PM EST us Trisha Rose INSPECTOR QUALITY ASSURANCE.[facility] Final Resul t [facility] [address] [address], [place] from Last 3 Months or Most Recently Relevant to Health Maintenance Insurance [employer] Care Teams Pet Handler Relationship Specialty Start Date End Date Ivan Suazo DO [address] [place] [address] PCP - General Internal Medicine 02/08/24
--- OUTSIDE RECORDS SUMMARY | 2024-10-13 06:55 | XMS_ITS | Encounter Summary ---
Author Organization [facility] Address [address] [place] [address] Care Team Providers Care Keg Inspector Name Role Phone Ivan Suazo Primary Care Provider [phone] Source Comments In the event this information is protected by the Federal Confidentiality of Alcohol and Drug AbusePatient Records regulations: The Federal rules restrict any use of the information to criminally investigate or prosecute any alcohol or drug abuse patient.[facility] Encounter Details Date Type Department Care Team (Late st Contact Info) Description 10/04/2024 Patient Msg [facility] [address] [place] [address] Shyam, MD Macho [address] [phone] PSA order Social History Tobacco Use Types Packs/Day Years Used Date Smoking Tobacco: Never Smokeless Tobacco: Never Area Deprivation Index Answer Date Rocky rded National Score (1-100), lower number is lower ri sk 63 03/01/2024 State Score (1-10), lower number is lower risk 4 03/01/2024 Data from: https://www.neighborhoodatlas.medicine.[facility].edu/. Last address used for calculation [address] 03/01/2024 Sex and Gender Information Value Date Recorded Sex Assigned at Not on file Legal Sex Male 10:04 AM EST Gender Identity Not on file Sexual Orientation Not on file documented as of this encounter Plan of Treatment Not on file documented as of this encounter Visit Diagnoses Not on filedocumented in this encounter Care Teams Keg Inspector Relationship Specialty Start Date End Date Ivan Suazo DO [address] [place] [address] PCP - General Internal Medicine 02/08/24 documented as of this encounter
--- OUTSIDE RECORDS SUMMARY | 2024-10-13 06:55 | XMS_ITS | Encounter Summary ---
Author Organization [facility] Address [address] [place] [address] Care Team Providers Care Electronic Engineering Draftsperson Name Role Phone Ivan Suazo Skinny FARRELL Primary Care Provider [phone] Source Comments In the event this information is protected by the Federal Confidentiality of Alcohol and Drug AbusePatient Records regulations: The Federal rules restrict any use of the information to criminally investigate or prosecute any alcohol or drug abuse patient.[facility] Encounter Details Date Type Department Care Team (Late st Contact Info) Description 02/01/2024 Patient [facility] [address] [place] [phone] Provider, Cc urology pre op-surgery dates and instructions Social History Tobacco Use Types Packs/Day Years Used Date Smoking Tobacco: Never Assessed Area Deprivation Index Answer Date Rocky rded National Score (1-100), lower number is lower ri sk 63 01/26/2024 State Score (1-10), lower number is lower risk 4 01/26/2024 Data from: https://www.neighborhoodatlas.medicine.[facility].edu/. Last address used for calculation [address] [facility] [address] 01/26/2024 Sex and Gender Information Value Date Recorded Sex Assigned at Not on file Legal Sex Male 10:04 AM EST Gender Identity Not on file Sexual Orientation Not on file documented as of this encounter Plan of Treatment Not on file documented as of this encounter Visit Diagnoses Not on filedocumented in this encounter Care Teams Electronic Engineering Draftsperson Relationship Specialty Start Date End Date Ivan Suazo DO [address] [place] [address] PCP - General Internal Medicine 02/08/24 documented as of this encounter
--- OUTSIDE RECORDS SUMMARY | 2024-10-13 06:55 | XMS_ITS | Encounter Summary ---
Author Organization [facility] Address [address] [place] [address] Care Team Providers Care Debt Collector Name Role Phone Ivan Suazo Primary Care Provider [phone] Source Comments In the event this information is protected by the Federal Confidentiality of Alcohol and Drug AbusePatient Records regulations: The Federal rules restrict any use of the information to criminally investigate or prosecute any alcohol or drug abuse patient.[facility] Encounter Details Date Type Department Care Team (Late st Contact Info) Description 07/21/2024 Patient [facility] -[address] [place] [address] Yasmine Yee RPh At your next appointment, choose [facility]. Social History Tobacco Use Types Packs/Day Years Used Date Smoking Tobacco: Never Smokeless Tobacco: Never Area Deprivation Index Answer Date Rocky rded National Score (1-100), lower number is lower ri sk 63 03/01/2024 State Score (1-10), lower number is lower risk 4 03/01/2024 Data from: https://www.neighborhoodatlas.medicine.[facility].edu/. Last address used for calculation [address] [...] on filedocumented in this encounter Care Teams Debt Collector Relationship Specialty Start Date End Date Ivan Suazo DO [address] [place] [address] PCP - General Internal Medicine 02/08/24 documented as of this encounter
--- OUTSIDE RECORDS SUMMARY | 2024-10-13 06:55 | XMS_ITS | Encounter Summary ---
Author Organization [facility] Address [address] [place] [address] Care Team Providers Care Interior Design Faculty Member Name Role Phone Ivan Suazo Primary Care Provider [phone] Source Comments In the event this information is protected by the Federal Confidentiality of Alcohol and Drug AbusePatient Records regulations: The Federal rules restrict any use of the information to criminally investigate or prosecute any alcohol or drug abuse patient.[facility] Encounter Details Date Type Department Care Team (Late st Contact Info) Description 01/27/2024 Patient Update [facility] & [address] [place] [address] Sandra Thomson RN Social History Tobacco Use Types Packs/Day Years Used Date Smoking Tobacco: Never Assessed Area Deprivation Index Answer Date Rocky rded National Score (1-100), lower number is lower ri sk 63 01/26/2024 State Score (1-10), lower number is lower risk 4 01/26/2024 Data from: https://www.neighborhoodatlas.medicine.[facility].edu/. Last address used for calculation [address] [facility] [address] 01/26/2024 Sex and Gender Information Value Date Recorded Sex Assigned at Not on file Legal Sex Male 10:04 AM EST Gender Identity Not on file Sexual Orientation Not on file documented as of this encounter Plan of Treatment Not on file documented as of this encounter Visit Diagnoses Diagnosis Elevated PSA- Primary Elevated prostate specific antigen (PSA) documented in this encounter Care Teams Interior Design Faculty Member Relationship Specialty Start Date End Date Ivan Suazo DO [address] [place] [address] PCP - General Internal Medicine 02/08/24 documented as of this encounter
--- OUTSIDE RECORDS SUMMARY | 2024-10-13 06:55 | XMS_ITS | CCD ---
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 Role Phone IVAN SUAZO Primary Care Physician Ivan Suazo KWAME, DR PUGH Primary Care Unavailable TIMMIS, DR CARMICHAEL Admitting Unavailable TIMMIS, DR CARMICHAEL Attending Unavailable TIMMIS, DR CARMICHAEL Consulting Unavailable AGUBOSIM, JOSE ALBERTO Consulting Unavailable KWAME, DR PUGH Primary Care Unavailable KWAME, DR PUGH Admitting Unavailable BALL, DR PUGH Attending Unavailable BALL, DR PUGH Consulting Unavailable BALL, DR PUGH Primary Care Unavailable ZACK, RACHEL Admitting Unavailable ZACK, RACHEL Attending Unavailable ZIEBER, DR PREETHI Rainey Consulting Unavailable ZACK, RACHEL Consulting Unavailable BARNESSridhar Attending Unavailable BARNES, Sridhar Rainey Attending Unavailable BARNES, Sridhar Rainey Referring Unavailable BARNES, Sridhar Rainey Admitting Unavailable BARNES, Sridhar Rainey Attending Unavailable BARNES, Sridhar Rainey Attending Unavailable BARNES, Sridhar Rainey Attending Unavailable BARNES, Sridhar Rainey Attending Unavailable DO Ivan Suazo Primary Care Provider MD Sridhar Barnes Attending Provider Unavailable Primary Care Provider UnavailIvan Cedillo DO Primary Care Provider Ivan Suazo DO Primary Care Provider [phone] Indu Nickerson MD Attending Provider Indu Nickerson Attending UnavailIndu Lai Admitting UnavailIvan Cedillo Primary Care Unavailable ELIZABETH ROSE Attending Unavailable IVAN SUAZO Primary Care Unavailable WEIGHTNICOLASA Attending Unavailable WEIGHT, NICOLASA Referring Unavailable IVAN SUAZO Primary Care Unavailable WEIGHT, NICOLASA Referring Unavailable INDU NICKERSON Attending Unavailberta e IVAN SUAZO E Primary Care Unavailable NEELIMA BEDOYA Attending Unavailable NEELIMA BEDOYA Referring Unavailable IVAN SUAZO Primary Care Unavailable WEIGHT, NICOLASA Admitting Unavailable WEIGHT, TAINAOPHMARBIN Attending Unavailable WEIGHT, TAINAOPHER Attending Unavailable WEIGHT, CHRISTOPHER Referring Unavailable IVAN SUAZO Primary Care Unavailable IVAN SUAZO Primary Care Unavailable Allergies Allergy Classification Reported Allergen(s) Allergy Type Date of Onset Reaction(s) Facility (13 sources) Penicillin; Translations: [penicillin] Drug Allergy Weal (disorder) [facility] (2 sources) patient allergy list reviewed by nurse or physicia Propensity to adverse reactions 07-03-19 18 Comment:Done [facility] Other (2 sources) Substance with penicillin structure and antibacterial mechanism of action (substance) Drug allergy Unknown [facility] Other (8 sources) Penicillins; Translations: [PENICILLINS] Drug Allergy 08-27-19 24 Hives, Unknown [facility] (2 sources) Penicillins Drug Allergy 08-27-19 24 Hives, Unknown [facility] (1 source) Penicillins Drug allergy (disorder) 09-02-19 25 [facility] Repository Medications Current Medications Medication Drug Class(es) Dates Sig (Normalized) Sig (Original) amLODIPine 5 mg oral tablet (20 sources) Dihydropyridine Calcium Channel Vipin Start: 02-05-2024 take 1 tablet by mouth once daily in the evening Amlodipine 5 mg tablet Active 0 .ROUTE .COMPLEX 90 February 05, 2024 7:31am TAKE 1 TABLET BY MOUTH EVERY DAY IN THE EVENING Start: 03-05-2021 End: 02-05-2024 take 1 tablet by mouth once daily in the evening Amlodipine 5 mg tablet Discontinued 5 MG PO Every evening August 22, 2023 12:00am February 05, 2024 7:31am ciprofloxacin 500 mg oral tablet (1 source) Quinolone Antimicrobial Start: 01-12-2023 End: 01-19-2023 Cipro 500 mg Tab 500 mg = 1 tab(s), Oral, BID, start 3 days prior to procedure, X 7 day(s), # 14 tab(s), Refills(s) 0, Pharmacy: [facility]/pharmacy #[id number], 170, cm, 01/12/23 15:44:00 EDT, Height/Length Dosing, 83.5, kg, 01/12/23 15:44:00 EDT, Weight Dosing Start Date: 01/12/23 Stop Date: 01/19/23 Status: Ordered diazePAM 10 mg oral tablet (2 sources) Benzodiazepine Start: 01-12-2023 take 1 tablet by mouth once as needed for anxiety Valium 10 mg Tab 10 mg = 1 tab(s), Oral, Once, PRN for anxiety, # 1 tab(s), Refills(s) 0, Pharmacy: [facility]/pharmacy #[id number], 170, cm, 01/12/23 15:44:00 EDT, Height/Length Dosing, 83.5, kg, 01/12/23 15:44:00 EDT, Weight Dosing Start Date: 01/12/23 Status: Ordered dutasteride 0.5 mg oral capsule (18 sources) 5-alpha Reductase Inhibitor Start: 08-21-2023 End: 12-24-2024 take 1 capsule by mouth once daily dutasteride (AVODART) 0.5 mg capsule Take 1 capsule by mouth once daily. 90 capsule 1 06/27/2024 12/24/2024 Active etodolac 500 mg oral tablet (7 sources) Nonsteroidal Anti-inflammatory Drug Start: 10-23-2023 take 1 tablet by mouth every twelve hours as needed for headache Etodolac 500 mg tablet Active 0 .ROUTE .COMPLEX October 23, 2023 7:18am TAKE 1 TABLET BY MOUTH EVERY 12 HOURS NEEDED FOR HEADACHE FOR 30 DAYS Start: 08-27-2023 End: 10-23-2023 take 1 tablet by mouth every twelve hours as needed for headache Etodolac 500 mg tablet Discontinued 500 MG PO Every 12 hours as needed for headache August 27, 2023 12:00am October 23, 2023 7:18am hydroCHLOROthiazide 12.5 mg oral tablet (14 sources) Thiazide Diuretic Start: 09-22-2024 take 1 tablet by mouth once daily hydroCHLOROthiazide 12.5 mg tablet Take 1 tablet by mouth once daily. 90 tablet 1 09/22/2024 Active Start: 02-10-2023 take 1 tablet by luis felipe th once daily hydrochlorothiazide 12.5 mg Tab 12.5 mg = 1 tab(s), Oral, Daily, # 90 tab(s), Refills(s) 3, Pharmacy: [facility]/pharmacy #[id number], 170, cm, 08/21/23 8:53:00 EDT, Height/Length Dosing, 83, kg, 08/21/23 8:53:00 EDT, Weight Dosing Start Date: 01/01/24 Status: Ordered paxlovid (300/100) 20 x 150 mg & 10 x 100mg tablet therapy pack (1 source) Start: 09-15-2022 take 3 tablets by mouth every twelve hours Paxlovid (300/100) 20 x 150 MG & 10 x 100MG 3 tablets Orally Twice a day for 5 days September, Active Prosta-genix (4 sources) Start: 01-12-2023 Prosta-genix Prosta-genix, Daily Start Date: 01/12/23 Status: Ordered tamsulosin hydrochloride 0.4 mg oral capsule (3 sources) alpha-Adrenergi c Vipin Start: 11-12-2021 take 1 capsule by mouth once daily Flomax 0.4 mg Cap 0.4 mg = 1 cap(s), Oral, Daily, # 30 cap(s), Refills(s) 11, Pharmacy: [facility]/pharmacy #[id number], 170, cm, 09/10/21 8:47:00 EDT, Height/Length Dosing, 83.3, kg, 09/10/21 8:47:00 EDT, Weight Dosing Start Date: 11/12/21 Status: Ordered Start: 03-25-2021 take 1 capsule by [facility] twice daily Flomax 0.4 mg Cap 0.4 mg = 1 cap(s), Oral, BID, # 60 cap(s), Refills(s) 2, Pharmacy: [facility]/pharmacy #[id number], 170, cm, 03/05/21 9:37:00 EDT, Height/Length [...] a day for 5 days September, Active Completed/Discontinued Medications Medication Drug Class(es) Dates Sig (Normalized) Sig (Original) azithromycin 250 mg oral tablet (4 sources) Macrolide Antimicrobial Start: 03-02-2024 End: 03-02-2024 Azithromycin 250 mg tablet Discontinued 250 MG PO .COMPLEX 6 March 02, 2024 12:00am March 02, 2024 11:33am 2 tablets on day one, followed by 1 tab on days 2-5 Start: 03-02-2024 End: 09-01-2024 Azithromycin 250 mg tablet D iscontinued 250 MG PO As Directed 6 March 02, 2024 12:00am September 01, 2024 9:36am Problems Active Problems Problem Classification Problem Date Documented Date Episodic/Chronic Acute bronchitis (3 sources) Acute infective bronchitis; Translations: [Acute bronchitis due to other specified organisms] 03-02-2024 Episodic Allergic reactions (4 sources) Inflammatory dermatosis; Translations: [Dermatitis, unspecified] Onset: 02-26-2017 Episodic Cancer of prostate (20 sources) Malignant tumor of prostate; Translations: [Malignant neoplasm of prostate] Onset: 08-21-2023 Chronic Comment on above: TRUS/bx - 09/2020 (gr oup I)MRI w/o nodules - 01/2024TRUS/bx - 03/2024 (group I) Chronic obstructive pulmonary disease and bronchiectasis (1 source) Bronchitis, not specified as acute or chronic Episodic Diseases of mouth; excluding dental (13 sources) Abscess of lip; Translations: [Diseases of lips] Onset: 10-15-2021 Episodic Esophageal disorders (6 sources) Gastroesophageal reflux disease; Translations: [Gastro-esophageal reflux disease without esophagitis] 08-27-2023 Chronic Essential hypertension (20 sources) Essential hypertension; Translations: [Essential (primary) hypertension] Onset: 10-17-2021 Chronic Genitourinary symptoms and ill-defined conditions (7 sources) Microscopic hematuria; Translations: [Asymptomatic microscopic hematuria] Onset: 04-30-2022 Episodic Headache; including migraine (5 sources) Tension-type headache; Translations: [Tension-type headache, unspecified, not intractable] 08-27-2023 Chronic Hyperplasia of prostate (20 sources) Benign prostatic hypertrophy without outflow obstruction; Translations: [Benign prostatic hyperplasia without lower urinary tract symptoms] Onset: 09-10-2021 Chronic Other circulatory disease (9 sources) Elevated blood-pressure reading without diagnosis of hypertension; Translations: [Elevated blood-pressure reading, without diagnosis of hypertension] 09-13-2020 Episodic Other connective tissue disease (8 sources) Tendinitis of right rotator cuff; Translations: [Other shoulder lesions, right shoulder] 08-22-2023 Episodic Other connective tissue disease (2 sources) Mass of shoulder region; Translations: [Other shoulder lesions, right shoulder] Episodic Other nutritional; endocrine; and metabolic disorders (9 sources) Simple obesity ; Translations: [Other obesity due to excess calories] 09-13-2020 Chronic Other nutritional; endocrine; and metabolic disorders (2 sources) Body mass index 30+ - obesity; Translations: [Body mass index 30.0-30.9, adult] Onset: 07-03-2017 Chronic Other nutritional; endocrine; and metabolic disorders (1 source) Overweight Episodic Other nutritional; endocrine; and metabolic disorders (2 sources) Overweight; Translations: [Overweight] Episodic Spondylosis; intervertebral disc disorders; other back problems (2 sources) Cervical spondylosis; Translations: [Other spondylosis with radiculopathy, cervical region] 09-01-2024 Chronic Spondylosis; intervertebral disc disorders; other back problems (4 sources) Low back pain; Translations: [Low back pain, unspecified] Onset: 07-19-2018 Episodic Unclassified (6 sources) Asymptomatic microscopic hematuria 04-30-2022 Viral infection (6 sources) Viral wart, unspecified; Translations: [Disease caused by 2019-nCoV] Onset: 10-17-2021 01-20-2024 Episodic Past or Other Problems Problem Classification Problem Date Documented Da te Episodic/Chronic Calculus of urinary tract (20 sources) History of calculus of kidney; Translations: [Personal history of urinary calculi] Onset: 04-30-2022 Episodic Conditions associated with dizziness or vertigo (2 sources) Benign paroxysmal positional vertigo; Translations: [Benign paroxysmal vertigo, unspecified ear] Onset: 01-14-2013 Episodic Other aftercare (1 source) 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; Translations: [OTH SHELTER CURRENT DRUG THERAPY] Onset: 10-17-2021 Episodic Other inflammatory condition of skin (2 sources) Pruritic rash; Translations: [Other prurigo] Onset: 11-07-2016 Episodic Other screening for suspected conditions (not mental disorders or infectious disease) (20 sources) Raised prostate specific antigen; Translations: [Elevated prostate specific antigen [PSA]] Onset: 09-10-2021 Episodic Residual codes; unclassified (1 source) Pain, unspecified; Translations: [PAIN UNSPECIFIED] Onset: 10-17-2021 Episodic Unclassified (4 sources) Acute bilateral low back pain without sciatica; Translations: [Acute bilateral low back pain without sciatica] Viral infection (1 source) COVID-19 Results Test Name Value Interpretation Reference Range Facility US renal BIon 09-08-2024 US renal BI [facility] Main [place] [address] [place] [address] Ultrasound Report Signed Patient: Rey Jara MR#: [id number] : 1970 Acct:[id number] Age/Sex: 54 / M ADM Date: 09/08/24 Loc: Room: Type: [facility] Attending Dr: Indu Nickerson MD Ordering Provider: Indu Nickerson MD Date of Service: 09/08/24 US/US renal BI: N20.0 Copies to: Indu Nickerson MD BILATERAL RENAL AND BLADDER ULTRASOUND CLINICAL HISTORY: History of kidney stones. COMPARISON: None FINDINGS: Estimation of renal size is approximately 11.29 cm on the right and 12.13 cm on the left. No contour deforming mass, shadowing stone or hydronephrosis. The urinary bladder is partially distended with a volume of 58.70 ml. No shadowing stone or focal lesion. No significant postvoid residual. US/US renal BI IMPRESSION: No acute findings. Impression dictated by: Merrick Melendez Jr., D.OMakeda09/08/2024 9:14 AM Dictation Location: [place] [address] Tech: Sonia Magallon Transcribed By: RAMESH 09/08/24913 Dictated By: Merrick Melendez Jr, DO 09/08/24910 Signed By: 09/08/24913 Normal [facility] Basophils Auto (Bld) [#/Vol] on 09-06-2024 Basophils (Bld) [#/Vol] Automated basophil count 0.0-0.1 [facility] Basophils/100 WBC Auto (Bld) on 09-06-2024 Basophils/100 WBC (Bld) Automated basophil % 0.2-2.0 [facility] Cholesterol in LDL Calc [Mas s/Vol]on 09-06-2024 Cholesterol in LDL [Mass/Vol] Cholesterol in LDL [Mass/volume] in Serum or Plasma by calculation [facility] Comment on above: <100 mg/dl [id number] 0-129 mg/dl NEAR OR ABOVE [id number] mg/dl BORDERLINE [id number] mg/dl HIGH>190 mg/dl VERY HIGH Cholesterol in VLDL Calc [Ma ss/Vol]on 09-06-2024 Cholesterol in VLDL [Mass/Vol] Cholesterol in VLDL [Mass/volume] in Serum or Plasma by calculation [facility] Eosinophils/100 WBC Auto (Bl d)on 09-06-2024 Eosinophils/100 WBC (Bld) Automated eosinophil % 0.9-7.0 [facility] Erythrocyte distribution wid th Auto (RBC) [Ratio]on 09-06-2024 Erythrocyte distribution width (RBC) [Ratio] Erythrocyte distribution width [Ratio] by Automated count 11.0-15.0 [facility] Estimated glomerular filtrat ion rate (GFR) non- Americanon 09-06-2024 GFR/1.73 sq M.predicted among non-blacks MDRD (S/P/Bld) [Vol rate/Area] Estimated glomerular filtration rate (GFR) non- >=60 mL/min/1.73m 2 [facility] Globulin Calc (S) [Mass/Vol] on 09-06-2024 Globulin (S) [Mass/Vol] Serum globulin measurement by calculation (mass/volume) [facility] Hematocrit Auto (Bld) [Volum e fraction]on 09-06-2024 Hematocrit (Bld) [Volume fraction] Hematocrit [Volume Fraction] of Blood by Automated count 42.0-54.0 [facility] Hemoglobin [Mass/volume] in Bloodon 09-06-2024 Hemoglobin (Bld) [Mass/Vol] Hemoglobin [Mass/volume] in Blood 14.0-18.0 [facility] Laboratory - Chemistry and C hemistry - challengeon 09-06-2024 Albumin [Mass/Vol] 4.0 g/dL 3.4-5.0 [facility] ALP [Catalytic activity/Vol] 77 U/L 46-116 [facility] ALT [Catalytic activity/Vol] 54 U/L 16-63 [facility] AST [Catalytic activity/Vol] 25 U/L 15-37 [facility] Bilirubin [Mass/Vol] 0.5 mg/dL 0.2-1.0 [facility] Calcium [Mass/Vol] 9.0 mg/dL 8.5-10.1 [facility] Chloride [Moles/Vol] 103 mmol/L 98-107 [facility] Cholesterol [Mass/Vol] 130 mg/dL <=200 [facility] Cholesterol in HDL [Mass/Vol] 56 mg/dL 40-60 [facility] Comment on above: > or =60 mg/dl - LOW CARDIOVASCULAR RISK<40 mg/dl - HIGH CARDIOVASCULAR RISK CO2 [Moles/Vol] 31.9 mmol/L 21.0-32.0 [facility] Creatinine [Mass/Vol] 0.87 mg/dL 0.70-1.30 [facility] GFR/1.73 sq M.predicted MDRD (S/P/Bld) [Vol rate/Area] mL/min/{1.73_m2} >=60 mL/min/1.73m 2 [facility] Glucose [Mass/Vol] 101 mg/dL 74-106 [facility] Potassium [Moles/Vol] 3.6 mmol/L 3.5-5.1 [facility] Protein [Mass/Vol] 6.9 g/dL 6.4-8.2 [facility] Sodium [Moles/Vol] 144 mmol/L 136-145 [facility] Triglyceride [Mass/Vol] 109 mg/dL <=150 [facility] Urea nitrogen [Mass/Vol] 13.0 mg/dL 7.0-18.0 [facility] Urea nitrogen/Creatinine [Mass ratio] 14.9 mg/mg [facility] Laboratory - Hematology and Cell countson 09-06-2024 Immature granulocytes/100 WBC (Bld) 0.2 % 0.0-0.5 [facility] Leukocytes [#/volume] correc cristal for nucleated erythrocytes in Blood by Automated counon 09-06-2024 WBC corrected for nucl RBC Auto (Bld) [#/Vol] Leukocytes [#/volume] corrected for nucleated erythrocytes in Blood by Automated coun 4.0-11.0 [facility] Lymphocytes Auto (Bld) [#/Vo l]on 09-06-2024 Lymphocytes (Bld) [#/Vol] Lymphocytes [#/volume] in Blood by Automated count 1.2-3.8 [facility] Lymphocytes/100 WBC Auto (Bl d)on 09-06-2024 Lymphocytes/100 WBC (Bld) Lymphocytes/100 leukocytes in Blood by Automated count 20.5-60.0 [facility] MCH Auto (RBC) [Entitic mass ]on 09-06-2024 MCH (RBC) [Entitic mass] MCH [Entitic mass] by Automated count 25.9-34.0 [facility] MCHC Auto (RBC) [Mass/Vol]on 09-06-2024 MCHC (RBC) [Mass/Vol] MCHC [Mass/volume] by Automated count 29.9-35.2 [facility] MCV Auto (RBC) [Entitic vol] on 09-06-2024 MCV (RBC) [Entitic vol] MCV [Entitic volume] by Automated count 80.0-94.0 [facility] Monocytes Auto (Bld) [#/Vol] on 09-06-2024 Monocytes (Bld) [#/Vol] Automated blood monocyte count 0.3-0.8 [facility] Monocytes/100 WBC Auto (Bld) on 09-06-2024 Monocytes/100 WBC (Bld) Automated monocyte % 1.7-12.0 [facility] Neutrophils Auto (Bld) [#/Vo l]on 09-06-2024 Neutrophils (Bld) [#/Vol] Neutrophils [#/volume] in Blood by Automated count 1.4-6.5 [facility] Neutrophils/100 WBC Auto (Bl d)on 09-06-2024 Neutrophils/100 WBC (Bld) Automated neutrophil % 43.0-75.0 [facility] No Panel Informationon 09-06 Eosinophils # (Auto) 0.1 10 3/uL 0.0-0.7 [facility] Immature Granulocyte # (Auto) 0.01 10 3/uL 0.00-0.03 [facility] Platelet mean volume Auto (B ld) [Entitic vol]on 09-06-2024 Platelet mean volume (Bld) [Entitic vol] Platelet mean volume [Entitic volume] in Blood by Automated count Low 9.5-13.5 [facility] Platelets Auto (Bld) [#/Vol] on 09-06-2024 Platelets (Bld) [#/Vol] Platelets [#/volume] in Blood by Automated count 150-450 [facility] RBC Auto (Bld) [#/Vol]on RBC (Bld) [#/Vol] Erythrocytes [#/volume] in Blood by Automated count 4.70-6.10 [facility] Serum or plasma albumin/glob ulin mass ratioon 09-06-2024 Albumin/Globulin [Mass ratio] Serum or plasma albumin/globulin mass ratio [facility] Serum or plasma anion gap de terminationon 09-06-2024 Anion gap [Moles/Vol] Serum or plasma an ion gap determination [facility] Serum or plasma total choles terol/high density lipoprotein (HDL) cholesterol mass coleen 09-06-2024 Cholesterol.total/Chol esterol in HDL [Mass ratio] Serum or plasma total cholesterol/high density lipoprotein (HDL) cholesterol mass rat [facility] Comment on above: 3.3 - 4.4 LOW RISK4. 4 - 7.1 AVERAGE RISK7.1 - 11.0 MODERATE RISK>11.0 HIGH RISK CNOVon 07-25-2024 CNOV Office Visit (MIDMAV ) REY JARA ([id number]) 1970 M Date Time Provider Department 07/25/24 4:00 PM INDU NICKERSON During your visit today, we recorded the following information about you: Pulse Blood pressure Weight Height 78/minute 137/88 85.3 kg 1.702 m Indu Nickerson MD 07/25/2024 4:51 PM Signed [facility] NEPHROLOGY AND HYPERTENSION [facility] SERVICE DATE AND TIME: July 25, 2024 4:08 PM PRIMARY CARE PHYSICIAN: Ivan Suazo DO REASON FOR CONSULT: I am asked to see this patient in consultation for my opinion regarding kidney stones. My recommendations will be communicated by way of shared medical record, fax, or mail. HPI: Mr. Jara is a 53 yo M PMHx of BPH, HTN presenting for kidney stone management. Diet: BF: Cereal. 2% milk Lunch: Potato chips, breaded chicken tenders Dinner: Hello fresh. No nondairy milk No peanut butter - only during lent Rare to eat nuts Caffeine: Weekend soda Alcohol: Weekend - History of kidney stones for which his urologist had prescribed HCTZ. History of three kidney stones; last episode was severe, requiring emergency care. - Family hx of kidney stones in siblings - HTN: 3 years. - Fluid intake: Not tracking. - Limiting salt due to HTN HCTZ 12.5mg, Norvasc 5mg PAST MEDICAL HISTORY: PAST MEDICAL HISTORY Diagnosis Date BPH (benign prostatic hyperplasia) Nephrolithiasis Prostate cancer (HCC) PAST SURGICAL HISTORY: No past surgical history on file. FAMILY HISTORY: No family history on file. SOCIAL HISTORY: reports that he has never smoked. He has never used smokeless tobacco. MEDICATIONS: dutasteride (AVODART) 0.5 mg capsule Take 1 capsule by mouth once daily. hydroCHLOROthiazide 12.5 mg tablet Take 12.5 mg by mouth once daily. amLODIPine (NORVASC) 5 mg tablet Take by mouth once daily. ALLERGIES: ALLERGIES Allergen Reactions Penicillins Hives, Unknown REVIEW OF SYSTEMS: PHYSICAL EXAM: BP 137/88 (BP Position: Sitting) Pulse 78 Ht 170.2 cm (5' 7.01 ) Wt 85.3 kg (188 lb 0.8 oz) BMI 29.45 kg/m? Constitutional: NAD Eyes: PERRL, Conjunctiva Clear Ear, Nose, and Throat: MMM Neck:Trachea midline Respiratory: Normal respiratory effort. Neurologic: Normal balance. Normal Gait Psychiatric: Alert and oriented x self, place, time, and setting. Normal mood/affect DATA: Diagnostic tests reviewed for today's visit: CBC: Lab Results Component Value Date WBC 5.14 03/25/2024 HB 16.1 03/25/2024 HCT 48.0 03/25/2024 PLT 239 03/25/2024 BMP: Lab Results Component Value Date NA 139 03/25/2024 K 3.7 03/25/2024 CHLOR 99 03/25/2024 GLUC 151 (H) 03/25/2024 CA 9.6 03/25/2024 RENAL FUNCTION Lab Results Component Value Date BUN 13 03/25/2024 CREAT 0.84 03/25/2024 EGFROTH 105 03/25/2024 ACID/BASE Lab Results Component Value Date CO2 28 03/25/2024 ANION 12 03/25/2024 BONE/MINERAL METABOLISM Lab Results Component Value Date CA 9.6 03/25/2024 URINE: Urine POC Lab Results Component Value Date UGLUCPOC Negative 04/12/2024 UBILIPOC Negative 04/12/2024 UKETONPOC Trace 04/12/2024 USGPOC 1.025 04/12/2024 UHBPOC Negative 04/12/2024 UPHPOC 6.5 04/12/2024 UPROPOC Negative 04/12/2024 UUROPOC 0.2 04/12/2024 UNITPOC Negative 04/12/2024 UWBCPOC Negative 04/12/2024 UCOLPOC Dark yellow 04/12/2024 UCLARPOC Clear 04/12/2024 ASSESSMENT: Mr. Jara is a 53 yo M PMHx of BPH, HTN presenting for kidney stone management. Kidney Stones: Unknown composition Discussed at length interventions to prevent stone formation. - Discussed increasing fluid intake to produce 2+ L urine daily. - Discussed increasing citrate in diet with lemon juice etc. - Discussed low salt diet. - Discussed low oxalate diet. HTN: BP controlled. PLAN: Dietary counseling as above Hx of hypercalciuria - continue HCTZ [employer] order form given SIGNATURE: Indu Nickerson MD. PATIENT NAME: Rey Jara DATE AND TIME: July 25, 2024 4:50 PM OFFICE NUMBER: [phone] CC: REFERRING PROVIDER: Nicolasa Becerril MD PRIMARY CARE PHYSICIAN: DO Krishan Asher Christi, MD 07/25/2024 4:15 PM Signed 1) Increase fluid intake to 2+ liters (80-100oz) 2) Decrease salt intake. Follow low salt diet - Avoid processed food. Decrease eating out with fast food and takeout. 3) Decrease oxalate in diet (limit nuts, peanut butter, soy, spinach, sweet potatoes) - Pair any high oxalate foods with dairy products like cheese, milk, yogurt - Decrease High-oxalate fruits: berries, kiwis, figs, purple grapes - Decrease High-oxalate vegetables: spinach, sweet potatoes, rhubarb, okra, leeks, beets, Tajik chard, legumes, beans, lentils - Decrease High oxalate foods: almonds, cashews, peanuts, soy products, cocoa, (more content not included)... Normal [facility] 07-25-2024 ABRAZO [facility] Telephone (MIDCOV) TORITOREY ERVIN ([id number]) 1970 M Date Time Provider Department 07/25/24 INDU NICKERSON [facility] During your visit today, we recorded the following information about you: Indu Nickerson MD 07/27/2024 2:16 PM Addendum [place]e - please get report on last CT Abd or CT Flank Aileen Thomson OCCA 07/27/2024 2:45 PM Addendum Faxed a request to get CT Abd/CT Flank report from [facility] at [phone] . Fax confirmation received. NIYAH Bella Sarah, OCCA 08/01/2024 1:44 PM Addendum Fax received from [facility] stating there are no records of any CT abdomen or CT flank report for pt. NIYAH Bella Carissa, MA 08/29/2024 8:19 AM Signed MRI report of the prostate received. Date of service 07/13/24 Marked with MRN and placed in providers mailbox for review. ROMEL David Christi, MD 08/30/2024 1:34 PM Signed Please fax ultrasound order to [facility] Mychart the patient after order is faxed so he can call and schedule. Indu Nickerson MD 08/30/2024 1:34 PM Signed Addended by: INDU NICKERSON on: 08/30/2024 01:34 PM Modules accepted: Orders Indu Nickerson MD 09/22/2024 8:52 AM Signed Addended by: INDU NICKERSON on: 09/22/2024 08:52 AM Modules accepted: Orders Allergies As of Date: 07/25/2024 Noted Allergy Reaction PENICILLINS 08/27/2023 4 - Hives 16 - Unknown Date Reviewed: 07/25/2024 Reviewed by: Aileen Thomson OCCA - Fully Assessed Reason for Visit: Orders [681] Primary Visit Diagnosis:Kidney stone [N20.0] Order(s): KIDNEY/BLADDER [[id number]] Order #: [id number] FUTURE hydroCHLOROthiazide 12.5 mg tabletTake 1 tablet by mouth once daily.Disp: 90 tabletRfl: 1 Prescriptions as of 09/22/2024 - hydroCHLOROthiazide 12.5 mg tablet Take 1 tablet by mouth once daily. - dutasteride (AVODART) 0.5 mg capsule Take 1 capsule by mouth once daily. - amLODIPine (NORVASC) 5 mg tablet Take by mouth once daily. Problem List As Of Date 07/25/2024 Noted Resolved Prostate cancer (HCC) [C61] BPH (benign prostatic hyperplasia) [N40.0] Nephrolithiasis [N20.0] Prescriptions ordered this encounter Disp Refills Start End HYDROCHLOROTHIAZIDE 12.5 MG TABLET 90 t* 1 09/22/2024 Route: ORAL Sig: Take 1 tablet by mouth once daily. Medications Discontinued During This Encounter Prescriptions - hydroCHLOROthiazide 12.5 mg tablet (Discontinued) Take 12.5 mg by mouth once daily. Encounter Status:Closed by INDU NICKERSON on 07/25/24 [facility] CNOVon 04-12-2024 CNOV Office Visit (UROLMN ) REY JARA ([id number]) 1970 M Date Time Provider Department 04/12/24 4:15 PM NICOLASA BECERRIL During your visit today, we recorded the following information about you: Nicolasa Becerril MD 05/10/2024 7:42 AM Signed PATIENT: Rey Jara [id number] 04/12/2024 Chief Complaint: Discuss pathology History of Present Illness: Rey Jara is a very pleasant 53 year old male who presents with a history of kidney stones, BPH with urinary obstruction, and low risk prostate cancer on (GG1 dx 10/08/20). Went on dutasteride with PSA decrease from 16 to 7.9. Patient recommended repeat biopsy at 01/26/[address] Becerril. MRI prostate without obvious lesion. Patient now s/p TP fusion prostate biopsy 04/01/24 (systematic biopsies x16 with extra anterior sampling bilaterally) with path c/w GG1 prostate cancer in 1/16 cores (20% highest involvement without adverse path features). Interval history: Had GH post-biopsy, since resolved. Notes that he has new-onset ED and wonders if this is related to the biopsy? Also notes history of kidney stones for which his urologist had prescribed HCTZ. Since he has transferred his care, he would like to monitor this and would like to have a consultation with our medical management of stones team. Prostate Cancer Active Surveillance History in Brief Date (mm/yy) Test Result PSA 08/19/2023 7.93 03/31/2023 16.6 04/01/2024 1st Prostate Biopsy positive, 1st Biopsy Grade Group 1 # of positive cores (1/16) Highest % of core involved 20% Genomics Completed? No Genomics Type: Decipher Oncotype Genomics Score: 07/13/2023 1st MRI of Prostate Prostate Volume (ccs/grams) ? Highest PIRADS 1 Physical Exam: Patient is a 53 year old male Constitutional: Vitals: There were no vitals taken for this visit. General Appearance Adult: Alert, no acute distress, oriented Lungs/Repiratory: no respiratory distress, or pursed lip breathing Psych: affect and mood normal Abdomen: Estimated body mass index is 28.35 kg/m? as calculated from the following: Height as of 04/01/24: 170.2 cm (5' 7 ). Weight as of 04/01/24: 82.1 kg (181 lb). Labs and Pathology and Imaging: Surgical Pathology (04/01/2024) FINAL DIAGNOSIS A. Prostate, left lateral anterior, [...] right medial posterior, biopsy: - Prostatic adenocarcinoma, Pam score 3+3=6 (Grade Group 1), involving 1 of 2 cores (20%, 3 mm). G. Prostate, right lateral anterior, biopsy: - Benign prostatic tissue. H. Prostate, right lateral posterior, biopsy: - Benign prostatic tissue. Prostate Cancer Biopsy Summary Number of cores examined: 16 Number of cores positive: 1 Highest Grade Group: 1 Highest % of core involvement: 20% (3 mm) Unfavorable histology: Absent Borderline histology: Absent Large cribriform pattern 4: Absent Intraductal carcinoma: Absent Block for additional biomarkers/molecular studies: F1 Assessment: 53 year old male with history of prostate cancer, GG1 on Plan: 1) Prostate Cancer: recent biopsy -- GG1 on : PSA in 6 mo with virtual visit. MRI every 1-2 years. No more biopsies unless PSA or MRI show signs of concern. 2) Sexual function: Monitor post-biopsy -- he will let us know if not improved and requires medications for ED. Expected to go away with time. Pt denies hematuria. 3) Nephrolithiasis -- referral to Nephrology placed I spent a total of 30 minutes on the date of the service which included preparing to see the patient, [id number] patient care, completing clinical documentation, obtaining and/or reviewing separately obtained history, performing a medically appropriate examination, counseling and educating the patient/family/caregiv er, ordering medications, tests, or procedures, independently interpreting results (not separately reported), communicating results to the patient/family/caregiv er, and care coordination (not separately reported). The patient is seen and examined by Dr. Nicolasa Becerril and the following reflects his/her service. Scribed by Genia Solis I agree with the Chief Complaint, ROS, and Past Histories independently gathered by the clinical administrative support coordinator including scribe and or medical student and or BLAZE and or resident or fellow and the remaining scribed note accurately describes my personal service to the patient. Prostate Cancer: (more content not included)... Normal [facility] UA DIP, URINE (POC)on 2023 BILIRUBIN UA (POCT) Negative Negative [facility] CLARITY UA (POCT) Clear [facility] COLOR UA (POCT) Dark yellow [facility] GLUCOSE UA (POCT) Negative Negative mg/dL [facility] Hemoglobin Ql (U) Negative Negative [facility] KETONE UA (POCT) Trace Negative mg/dL [facility] LEUKOCYTES UA (POCT) Negative Negative [facility] NITRITE UA (POCT) Negative Negative [facility] PH UA (POCT) 6.5 4.5 - 8.0 [facility] Protein Ql (U) Negative Negative mg/dL [facility] SPECIFIC GRAVITY UA (POCT) 1.025 1.005 - 1.030 [facility] UROBILINOGEN UA (POCT) 0.2 Rayne l E.U./dL [facility] Location:[facility], [address] [place] [address], [address] [place] [address] POINT OF CARE [facility] ANES POSTPROC EVALon 024 ANES POSTPROC EVAL HNO ID: [id number] Author: NAHOMY ENG MD Service: ? Author Type: Anesthesiologist Type: Anesthesia Postprocedure Evaluation Filed: 04/02/2024 16:52 Note Text: POST ANESTHESIA EVALUATION NOTE : 1970 Procedure Summary Date: 04/01/24 Room / Location: [place] [address] / [facility] Anesthesia Start: 1323 Anesthesia Stop: 1423 Procedure: BIOPSIES, PROSTATE, NEEDLE, TRANSPERINEAL, STEREOTACTIC TEMPLATE GUIDED SATURATION SAMPLING, INCLUDING IMAGING GUIDANCE (Prostate) Diagnosis: Elevated PSA (Elevated PSA [R97.20]) Surgeons: Nicolasa Becerril MD Responsible Provider: Nahomy Eng MD Anesthesia Type: general ASA Status: 2 Anesthesia Type: general Airway Type: LMA Last Vitals Vitals Value Taken Time BP 120/81 04/01/24 1445 Temp 36.2 ?C (97.2 ?F) 04/01/24 1431 HR SpO2 76 04/01/24 1445 Resp 18 04/01/24 1445 SpO2 97 % 04/01/24 1454 Vitals shown include unfiled device data. Post Anesthesia Patient Status Patient Evaluation: bedside. Anticipated Disposition: phase 2 then home. Neurological Status: aware and responsive. Pulmonary Status: breathing comfortably on room air Airway Control: returned to baseline unsupported. Cardiovascular Status: stable. Postoperative Hydration: acceptable. Intraoperative Events: no significant anesthesia events Post Operative Nausea/Vomiting Status: no significant post operative nausea or vomiting Recommendation: continue current plan of care. Anesthesia Observations No Documentation SIGNATURE: Nahomy Oglesby MD PATIENT NAME: Rey Jara DATE: April 02, 2024 TIME: 4:52 PM CSN: [id number] Normal [facility] ANES PRE-OPon 04-01-2024 ANES PRE-OP HNO ID: [id number] Author: NAHOMY ENG MD Service: ? Author Type: Anesthesiologist Type: Anesthesia Preprocedure Evaluation Filed: 04/01/2024 13:22 Note Text: ANESTHESIOLOGY DAY OF SURGERY NOTE : 1970 Procedure Information Date/Time: 04/01/24 1225 Procedure: BIOPSIES, PROSTATE, NEEDLE, TRANSPERINEAL, STEREOTACTIC TEMPLATE GUIDED SATURATION SAMPLING, INCLUDING IMAGING GUIDANCE (Prostate) Location: [address] [facility] Surgeons: Nicolasa Becerril MD Estimated body mass index is 28.35 kg/m? as calculated from the following: Height as of this encounter: 170.2 cm (5' 7 ). Weight as of this encounter: 82.1 kg (181 lb). Most recent hematocrit and potassium results: Hematocrit 48.0 03/25/2024 Potassium 3.7 03/25/2024 Relevant Problems No relevant active problems I - PHYSICAL EVALUATION AIRWAY Patient intubated: No. Tracheostomy tube not present Mallampati: II. TM distance: >3 FB. Neck ROM: full ROM without neurological symptoms. Mouth opening: adequate. Short neck: no. Thick neck: no DENTAL Dental findings: teeth intact. II - ANESTHESIA PLAN ASA Score: 2 Anesthetic Plan: general Airway type: LMA NPO Status: adequate Beta Vipin Monitoring Plan Monitoring plan: standard ASA. Post Procedure Analgesic Plan Postoperative analgesic plan: multimodal analgesia. Informed Consent Anesthetic risks, benefits, alternatives, personnel and consent discussed: yes. Patient / Responsible Democrat agrees to proceed: yes Patient / Surrogate agrees to blood products: blood products not planned Potential Anesthesia issues that may suggest increased risk of complications or contraindication to planned procedure: none. Vitals Value Taken Time BP 144/78 04/01/24 1049 Pulse 74 04/01/24 1049 Resp 18 04/01/24 1049 Temp 36.5 ?C (97.7 ?F) 04/01/24 1049 SpO2 97 % 04/01/24 1049 Facility-Administered Medications as of 04/01/2024 Medication Dose Route Frequency - vancomycin 1.25 g in NaCl 0.9% 250 mL (VANCOCIN) 0.015 g/kg/dose INTRAVENOUS Pre-Op Once - [START ON 04/02/2024] gentamicin 80 mg in 0.9% NaCl 50 mL 80 mg INTRAVENOUS Dining Car Conductor to OR Outpatient Medications as of 04/01/2024 Medication Sig - dutasteride (AVODART) 0.5 mg capsule Take 0.5 mg by mouth once daily. - hydroCHLOROthiazide 12.5 mg tablet Take 12.5 mg by mouth once daily. - amLODIPine (NORVASC) 5 mg tablet Take by mouth once daily. I have interviewed and examined the patient. I have reviewed the medical record and/or the pre-anesthesia evaluation, pertinent labs, and test results. This contains updated information obtained within 48 hours of Surgery/Procedure. SIGNATURE: Nahomy Oglesby MD PATIENT NAME: Rey Jara DATE: April 01, 2024 TIME: 1:22 PM CSN: [id number] Normal [facility] OPERATIVE NOon 04-01-2024 OPERATIVE NO HNO ID: [id number] Author: NICOLASA BECERRIL MD Service: Urology Author Type: Physician Type: Operative Report Filed: 04/06/2024 07:30 Note Text: OPERATIVE REPORT NAME: Rey Jara LOG ID: [id number] Surgery/Procedure Date: 04/01/2024 Incision/Procedure Start Time: 1:38 PM Incision Close/Procedure End Time: 1:58 PM Surgeon(s)/Procedurali st(s) and Furnace Combustion Analyst(s): Surgeons and Role: * Nicolasa Becerril MD - Primary * Sharon Kamara MD - Resident - Assisting Procedure(s): Transperineal MR-fusion guided prostate biopsy - Anatomic Site: Prostate, Laterality: N/A - Approach: Transperineal - Device: Transrectal ultrasound - Qualifier: None Anesthesia: General Pre-Op/Pre-Procedure Diagnosis: Elevated PSA Post-Op/Post-Procedure Diagnosis: same Findings: -Systematic biopsies x16 taken with specific attention to anterior sampling bilaterally Operative Indications: Rey Jara is a 53 year old year-old male with hx of elevated PSA and GG1 roll tender. MRI without obvious lesion. Previous biopsy only with 6 samples d/t patient discomfort given lack of anesthesia. Risks, benefits, and alternatives to the procedure were discussed in clinic with the patient and the patient consented to the above procedure. Operative Procedure: A time out was performed where the patient and the procedure were identified in the presence of the Nursing and Surgical Staff. General anesthesia was administered. The patient was then placed in the dorsal lithotomy position and prepped and draped in routine fashion. The ultrasound probe was atraumatically inserted per rectum and secured with the Koelis stepper AND multi-purpose stabilizer with the attached grid system. Axial and saggital ultrasonic imaging review of the local anatomy was then undertaken. We used the perineal grid with the ultrasound images to precisely biopsy sixteen systematic cores of the right anterior lateral, right anterior medial, right posterior lateral, right posterior medial, left anterior lateral, left anterior medial, left posterior medial, and left posterior lateral. The patient tolerated the procedure well and was returned to the post-operative area in satisfactory condition. The patient tolerated the procedure well, emerged from anesthesia without incident, and was transferred to PACU in stable condition Dr. Becerril performed all of the critical portions of the procedure with the assistance of Dr. Kamara. Implanted Devices: None Drains: None Complications: None EBL: 0cc Dictated by Dr. Kamara on behalf of Dr. Becerril I was present and performed the critical portions of the operation and was immediately available for all parts of the operation. Nicolasa Becerril MD, MS Urologic Oncology Staff [facility] [place] [facility] Normal [facility] SURGICAL PATHOLOGYon 024 CASE REPORT Normal [facility] Comment on above: Order Comment: Speci men Type: TISSUE SPECIMENOrdering Facility: [facility] Address: [address] [place] [address] Result Comment: Surg [facility] Pathology Report Case: [id number] Authorizing Provider: Nicolasa Becerril MD Collected: 04/01/2024 01:00 PM Ordering Location: Admitting Received: 04/01/2024 03:07 PM Pathologist: Nicolasa Blunt MD Specimens: A) - Prostate, Left, Lateral Anterior, Biopsy B) - Prostate, Left, Lateral Posterior, Biopsy C) - Prostate, Left, Medial Anterior, Biopsy D) - Prostate, Left, Medial Posterior, Biopsy E) - Prostate, Right, Medial Anterior, Biopsy F) - Prostate, Right, Medial Posterior, Biopsy G) - Prostate, Right, Lateral Anterior, Biopsy H) - Prostate, Right, Lateral Posterior, Biopsy Performed By: #### S ####[facility] LABCLIA [id number] [place] [address] [place] CLINICAL HISTORY Normal [facility] Comment on above: Order Comment: Speci men Type: TISSUE SPECIMENOrdering Facility: [facility] Address: [address] [place] [address] Result Comment: Pre- op diagnosis: Elevated PSA [R97.20] Performed By: #### S ####[facility] LABCLIA [id number] [place] [address] [place] FINAL DIAGNOSIS Normal [facility] Comment on above: Order Comment: Speci men Type: TISSUE SPECIMENOrdering Facility: [facility] Address: [address] [place] [address] Result Comment: A. P rostate, left lateral anterior, biopsy: - Benign fibromuscular [...] right medial posterior, biopsy: - Prostatic adenocarcinoma, Augusta score 3+3=6 (Grade Group 1), involving 1 of 2 cores (20%, 3 mm). G. Prostate, right lateral anterior, biopsy: - Benign prostatic tissue. H. Prostate, right lateral posterior, biopsy: - Benign prostatic tissue. Prostate Cancer Biopsy Summary Number of cores examined: 16 Number of cores positive: 1 Highest Grade Group: 1 Highest % of core involvement: 20% (3 mm) Unfavorable histology: Absent Borderline histology: Absent Large cribriform pattern 4: Absent Intraductal carcinoma: Absent Block for additional biomarkers/molecular studies: F1 Performed By: #### S ####[facility] LABCLIA [id number] [place] [address] [place] FINAL PERFORMING LAB Normal [facility] Comment on above: Order Comment: Speci men Type: TISSUE SPECIMENOrdering Facility: [facility] Address: [address] [place] [address] Result Comment: Diag nostic interpretation performed at [facility], [address] [place] [address] CLIA# [id number] Moss Picker: Monroe Brush M.D. Performed By: #### S ####[facility] LABCLIA [id number] [place] [address] [place] GROSS DESCRIPTION Normal [facility] Comment on above: Order Comment: Speci men Type: TISSUE SPECIMENOrdering Facility: [facility] Address: [address], [place] [id number] Result Comment: A. P rostate, Left, Lateral Anterior, Biopsy Received in formalin on Telfa gauze are two segments of cylindrical tissue ranging in length from 1.4-1.5 cm and averaging 0.1 cm in diameter, sanchez and of a soft and friable consistency. A portion of one core may not survive processing. Totally submitted in formalin in one cassette. B. Prostate, Left, Lateral Posterior, Biopsy Received in formalin on Telfa gauze are two segments of cylindrical tissue ranging in length from 0.7-1.2 cm and averaging 0.1 cm in diameter, sanchez and of a soft and friable consistency. A portion of one core may not survive processing. Totally submitted in formalin in one cassette. C. Prostate, Left, Medial Anterior, Biopsy Received in formalin on Telfa gauze are two segments of cylindrical tissue ranging in length from 1.0-1.1 cm and averaging 0.1 cm in diameter, sanchez and of a soft and friable consistency. A portion of one core may not survive processing. Totally submitted in formalin in one cassette. D. Prostate, Left, Medial Posterior, Biopsy Received in formalin on Telfa gauze are two segments of cylindrical tissue ranging in length from 1.7-2.0 cm and averaging 0.1 cm in diameter, sanchez and of a soft and friable consistency. Totally submitted in formalin in one cassette. E. Prostate, Right, Medial Anterior, Biopsy Received in formalin on Telfa gauze are two segments of cylindrical tissue ranging in length from 1.6-1.8 cm and averaging 0.1 cm in diameter, sanchez and of a soft and friable consistency. Totally submitted in formalin in one cassette. F. Prostate, Right, Medial Posterior, Biopsy Received in formalin on Telfa gauze are two segments of cylindrical tissue ranging in length from 1.3-1.8 cm and averaging 0.1 cm in diameter, sanchez and of a soft and friable consistency. A portion of one core may not survive processing. Totally submitted in formalin in one cassette. G. Prostate, Right, Lateral Anterior, Biopsy Received in formalin on Telfa gauze are two segments of cylindrical tissue ranging in length from 1.3-1.4 cm and averaging 0.1 cm in diameter, sanchez and of a soft and friable consistency. A portion of one core may not survive processing. Totally submitted in formalin in one cassette. H. Prostate, Right, Lateral Posterior, Biopsy Received in formalin on Telfa gauze are two segments of cylindrical tissue ranging in length from 1.3-1.5 cm and averaging 0.1 cm in diameter, sanchez and of a soft and friable consistency. A portion of one core may not survive processing. Totally submitted in formalin in one cassette. Gross examination performed at [facility], [address] [place] [address] JT 04/01/2024 10:42 PM Performed By: #### S ####[facility] LABIA [id number] [place] [address] [place] Bacteria Ur Culton Bacteria identified Cx Nom (U) ORGANISM ID: 1 <10,000 CFU/ml Normal urogenital cate Normal [facility] Comment on above: Performed By: #### 6 30-4 ####[facility] LABIA [id number] [place] [address] [place] Basic metabolic 2000 panelon 03-25-2024 Anion gap [Moles/Vol] 12 mmol/L Normal 8-15 [facility] Comment on above: Order Comment: Speci men Type: BLOOD SPECIMENOrdering Facility: [facility] Address: [address] [place] [address] Performed By: #### 2 4321-2 ####[facility] LABCLIA [id number] [place] [address] [place] Calcium [Mass/Vol] 9.6 mg/dL Normal 8.5-10.2 [facility] Comment on above: Order Comment: Speci men Type: BLOOD SPECIMENOrdering Facility: [facility] Address: [address] [place] [address] Performed By: #### 2 4321-2 ####[facility] LABCLIA [id number] [place] [address] [place] Chloride [Moles/Vol] 99 mmol/L Normal 98-107 [facility] Comment on above: Order Comment: Speci men Type: BLOOD SPECIMENOrdering Facility: [facility] Address: [address] [place] [address] Performed By: #### 2 4321-2 ####[facility] LABCLIA [id number] [place] [address] [place] CO2 [Moles/Vol] 28 mmol/L Normal 22-30 [facility] Comment on above: Order Comment: Speci men Type: BLOOD SPECIMENOrdering Facility: [facility] Address: [address] [place] [address] Performed By: #### 2 4321-2 ####[facility] LABCLIA [id number] [place] [address] [place] Creatinine [Mass/Vol] 0.84 mg/dL Normal 0.73-1.22 [facility] Comment on above: Order Comment: Speci men Type: BLOOD SPECIMENOrdering Facility: [facility] Address: [address] [place] [address] Performed By: #### 2 4321-2 ####[facility] LABCLIA [id number] [place] [address] [place] Creatinine and Glomerular filtration rate.predicted panel (S/P/Bld) 105 mL/min/1.73m??? Normal >=60 [facility] Comment on above: Order Comment: Speci men Type: BLOOD SPECIMENOrdering Facility: [facility] Address: [address] [place] [address] Result Comment: Joaquina mated Glomerular Filtration Rate (eGFR) is calculated using the 2020 CKD-EPI creatinine equation. This equation utilizes serum creatinine, sex, and age as parameters. The creatinine assay has traceable calibration to isotope dilution-mass spectrometry. Refer to KDIGO guidelines for clinical interpretation. In patients with unstable renal function, e.g. those with acute kidney injury, the eGFR may not accurately reflect actual GFR. Performed By: #### 2 4321-2 ####[facility] LABCLIA [id number] [place] [address] [place] Glucose [Mass/Vol] 151 mg/dL High 74-99 [facility] Comment on above: Order Comment: Speci men Type: BLOOD SPECIMENOrdering Facility: [facility] Address: [address] [place] [address] Result Comment: The [place] Diabetes Association (ADA) provides guidance for cutoff [...] Standards of Medical Care in Diabetes 2016, [place] [employer]. Diabetes Care. 2016.39(Suppl 1). Performed By: #### 2 4321-2 ####[facility] LABIA [id number] [place] [address] [place] Potassium [Moles/Vol] 3.7 mmol/L Normal 3.7-5.1 [facility] Comment on above: Order Comment: Speci men Type: BLOOD SPECIMENOrdering Facility: [facility] Address: [address] [place] [address] Performed By: #### 2 4321-2 ####[facility] LABIA [id number] [place] [address] [place] Sodium [Moles/Vol] 139 mmol/L Normal 136-144 [facility] Comment on above: Order Comment: Speci men Type: BLOOD SPECIMENOrdering Facility: [facility] Address: [address] [place] [address] Performed By: #### 2 4321-2 ####[facility] LABCLIA [id number] [address] [address] [place] Urea nitrogen [Mass/Vol] 13 mg/dL Normal 9-24 [facility] Comment on above: Order Comment: Speci men Type: BLOOD SPECIMENOrdering Facility: [facility] Address: [address] [place] [address] Performed By: #### 2 4321-2 ####[facility] [id number] [place] [id number] [place] CBC panel Auto (Bld)on 03-25 Erythrocyte distribution width (RBC) [Ratio] 12.4 % 11.5 - 15.0 % [facility] Hematocrit (Bld) [Volume fraction] 48.0 % 39.0 - 51.0 % [facility] Hemoglobin (Bld) [Mass/Vol] 16.1 g/dL 13.0 - 17.0 g/dL [facility] Interpretation and review of laboratory results Normal [facility] MCH (RBC) [Entitic mass] 30.4 pg 26.0 - 34.0 pg [facility] MCHC (RBC) [Mass/Vol] 33.5 g/dL 30.5 - 36.0 g/dL [facility] MCV (RBC) [Entitic vol] 90.6 fL 80.0 - 100.0 fL [facility] Nucleated RBC (Bld) [#/Vol] NINF [facility] Platelet mean volume (Bld) [Entitic vol] 10.2 fL 9.0 - 12.7 fL [facility] Platelets (Bld) [#/Vol] 239 10*3/uL [facility] RBC (Bld) [#/Vol] 5.30 10*6/uL 4.20 - 6.0 0 m/uL [facility] WBC (Bld) [#/Vol] 5.14 10*3/uL [facility] Erythrocyte distribution width (RBC) [Ratio] 12.4 % Normal 11.5-15.0 [facility] Comment on above: Order Comment: Speci men Type: BLOOD SPECIMENOrdering Facility: [facility] Address: [address] [place] [address] Performed By: #### 5 8410-2 ####[facility] LABCLIA [id number] [place] [address] [place] Hematocrit (Bld) [Volume fraction] 48.0 % Normal 39.0-51.0 [facility] Comment on above: Order Comment: Speci men Type: BLOOD SPECIMENOrdering Facility: [facility] Address: [address] [place] [address] Performed By: #### 5 8410-2 ####[facility] LABIA [id number] [place] [address] [place] Hemoglobin (Bld) [Mass/Vol] 16.1 g/dL Normal 13.0-17.0 [facility] Comment on above: Order Comment: Speci men Type: BLOOD SPECIMENOrdering Facility: [facility] Address: [address] [place] [address] Performed By: #### 5 8410-2 ####[facility] LABIA [id number] [place] [address] [place] MCH (RBC) [Entitic mass] 30.4 pg Normal 26.0-34.0 [facility] Comment on above: Order Comment: Speci men Type: BLOOD SPECIMENOrdering Facility: [facility] Address: [address] [place] [address] Performed By: #### 5 8410-2 ####[facility] LABIA [id number] [place] [address] [place] MCHC (RBC) [Mass/Vol] 33.5 g/dL Normal 30.5-36.0 [facility] Comment on above: Order Comment: Speci men Type: BLOOD SPECIMENOrdering Facility: [facility] Address: [address] [place] [address] Performed By: #### 5 8410-2 ####[facility] LABIA [id number] [place] [address] [place] MCV (RBC) [Entitic vol] 90.6 fL Normal 80.0-100.0 [facility] Comment on above: Order Comment: Speci men Type: BLOOD SPECIMENOrdering Facility: [facility] Address: [address] [place] [address] Performed By: #### 5 8410-2 ####[facility] LABCLIA [id number] [place] [address] [place] Nucleated RBC (Bld) [#/Vol] 10*3/uL Normal <0.01 [facility] Comment on above: Order Comment: Speci men Type: BLOOD SPECIMENOrdering Facility: [facility] Address: [address] [place] [address] Performed By: #### 5 8410-2 ####[facility] LABCLIA [id number] [place] [address] [place] Platelet mean volume (Bld) [Entitic vol] 10.2 fL Normal 9.0-12.7 [facility] Comment on above: Order Comment: Speci men Type: BLOOD SPECIMENOrdering Facility: [facility] Address: [address] [place] [address] Performed By: #### 5 8410-2 ####[facility] LABIA [id number] [place] [address] [place] Platelets (Bld) [#/Vol] 239 10*3/uL Normal 150-400 [facility] Comment on above: Order Comment: Speci men Type: BLOOD SPECIMENOrdering Facility: [facility] Address: [address] [place] [address] Performed By: #### 5 8410-2 ####[facility] LABCLIA [id number] [place] [address] [place] RBC (Bld) [#/Vol] 5.30 10*6/uL Normal 4.20-6.00 [facility] Comment on above: Order Comment: Speci men Type: BLOOD SPECIMENOrdering Facility: [facility] Address: [address] [place] [address] Performed By: #### 5 8410-2 ####[facility] LABCLIA [id number] [place] [address] [place] WBC (Bld) [#/Vol] 5.14 10*3/uL Normal 3.70-11.00 [facility] Comment on above: Order Comment: Speci men Type: BLOOD SPECIMENOrdering Facility: [facility] Address: [address] [place] [address] Performed By: #### 5 8410-2 ####[facility] LABCLIA [id number] [place] [address] [place] CNOVon 03-25-2024 CNOV Office Visit (UROLMN ) REY JARA ([id number]) 1970 M Date Time Provider Department 03/25/24 3:30 PM ELIZABETH ROSE During your visit today, we recorded the following information about you: Elizabeth Rose APRN.MILIT[employer] S[employer] OPERATIONS OFFICER 03/25/2024 3:04 PM Signed [facility] PRE-OP NOTE Rey Jara is a 53 year old male. Pre-op Date: March 25, 2024 Date of Procedure: 04/01/2024 Procedure/Surgery: BIOPSIES, PROSTATE, NEEDLE, TRANSPERINEAL, STEREOTACTIC TEMPLATE GUIDED SATURATION SAMPLING, INCLUDING IMAGING GUIDANCE Laterality: NONE Diagnosis: Elevated PSA Primary Surgeon: MD Becerril Christopher There were no vitals taken for this visit. Pain Assessment: Are you currently having pain? No 0 on a scale of 0 to 10 Surgical Guide Book Status: Patient given book today. Allergies Reviewed: Yes Medications Reviewed: Yes Is patient currently on oral steroids?: No Has the patient had a UTI in the past month?: No. Does the patient have any artificial joints (last 2 years), metal parts, pacemakers or cardiac/ureteral stents in place?: No Does the patient have diabetes?: No Is the patient routinely taking anticoagulants?: No. Can the patient have an IV put in either arm?: Yes- prefers left Urine Dip Complete?: Yes URINE CULTURE COMPLETE?: Yes Ostomy/Stoma Nurse appointment made/completed: N/A [facility]/Medical Clearance: Cleared per [facility] - N/A [facility]: Cleared per [facility] - N/A All testing on cureform has been scheduled: Yes Consent Signed: Consent not in Epic. DOS Orders Placed and Signed: Yes. Pre-op HANDP Done by Nurse Practitioner: PATIENT INSTRUCTIONS FOR SURGERY 1.) DO NOT HAVE ANYTHING TO EAT OR DRINK AFTER MIDNIGHT THE DAY BEFORE SURGERY except for certain morning medications as instructed by the doctor. Candy, mints, gum, and smoking are NOT permitted. If the surgery is scheduled for the afternoon, you may have water during the morning of surgery if permitted by your surgeon. 2.) Medications to be taken on the morning of surgery with a few sips of water: Current Outpatient Medications on File Prior to Visit Medication Sig dutasteride (AVODART) 0.5 mg capsule Take 0.5 mg by mouth once daily. OK to take day of surgery with small sip of water hydroCHLOROthiazide 12.5 mg tablet Take 12.5 mg by mouth once daily. OK to take day of surgery with small sip of water amLODIPine (NORVASC) 5 mg tablet Take by mouth once daily. OK to take day of surgery with small sip of water No current facility-administered medications on file prior to visit. 3.) Please bring all your prescribed inhalers (if you have any you normally take) to the hospital. 4.) Arrival time: Call for arrival. 5.) Prep given: No 6.) Lovenox instructions given: N/A 7.) Patient reminded that surgery time provided day before surgery is tentative based on potential changes with transplants. Recommendations: This patient is optimally prepared for surgery pending LABS. Elizabeth Rose APRN.CNP Electronically signed Elizabeth Rose APRN.CNP 03/25/2024 3:05 PM Signed UROLOGY SURGICAL HANDP SERVICE DATE: 03/25/2024 SERVICE TIME: 1500 REFERRING PROVIDER: No referring provider defined for this encounter. PCP: Ivan Suazo DO GENDER: SUBJECTIVE CHIEF COMPLAINT: Pre-op exam HISTORY OF PRESENT ILLNESS: Mr. Jara is a 53 year old male who presents for pre-op HANDP FUNCTIONAL STATUS: Walk indoors, such as around the house (1.75 METs) Do light work around the house, such as dusting or washing dishes (2.70 METs) Take care of self, that is eating, dressing, bathing, using the toilet (2.75 METs) Do moderate work around the house such as vacuuming, sweeping floors, or carrying in groceries (3.50 METs) Do yardwork, such as raking leaves, weeding,or pushing a power mower (4.50 METs) Participate in moderate recreational activities, such as golf, bowling, dancing, doubles tennis, or throwing a baseball or football (6.00 METs) Do heavy work around the house, such as scrubbing floors, lifting or moving heavy furniture (8.00 METs) No past medical history on file. No past surgical history on file. No family history on file. REVIEW OF SYSTEMS: General: General: Well developed, well nourished. No acute distress HEENT: Negative for sore throat, difficulty swallowing. Negative for frequent or significant headaches, changes in vision or hearing. Cardiovascular: No history of angina, CHF, AR, cardiac surgery of stents. Respiratory: Negative for current cough, dyspnea. No hx of pneumonia in the past six weeks Gastrointestinal: No history of GERD, PUD, abd pain, difficulty swallowing, GI bleed. Renal: Negative for renal failure and No history of dialysis Musculoskeletal: Negative for joint pain or swelling, back pain or muscle pain. Skin: Negative for lesions, rash and itching. Psychological: (more content not included)... Normal [facility] UA DIP, URINE (POC)on 2023 BILIRUBIN UA (POCT) Negative Negative [facility] CLARITY UA (POCT) Clear [facility] COLOR UA (POCT) Yellow [facility] GLUCOSE UA (POCT) Negative Negative mg/dL [facility] Hemoglobin Ql (U) Negative Negative [facility] KETONE UA (POCT) Negative Negative mg/dL [facility] LEUKOCYTES UA (POCT) Negative [facility] NITRITE UA (POCT) Negative Negative [facility] PH UA (POCT) 7.0 4.5 - 8.0 [facility] Protein Ql (U) Negative Negative mg/dL [facility] SPECIFIC GRAVITY UA (POCT) 1.020 1.005 - 1.030 [facility] UROBILINOGEN UA (POCT) 1.0 Rayne l E.U./dL [facility] Location:[facility], [address] [place] [address] POINT OF CARE [facility] CNOVon 01-26-2024 CNOV Office Visit (UROLMN ) REY JARA ([id number]) 1970 M Date Time Provider Department 01/26/24 2:30 PM NICOLASA BECERRIL During your visit today, we recorded the following information about you: Pulse Blood pressure Weight Height 86/minute 122/86 81.6 kg 1.702 m Nicolasa Becerril MD 02/20/2024 12:00 PM Signed Chief Complaint: Prostate cancer History of Present Illness: Rey Jara is a very pleasant 53 year old male who presents with a history of kidney stones, BPH with urinary obstruction, and prostate cancer. GS 6 (3+3) in 2 cores. Pt is s/p TRUS/Bx (10/08/2020) Pt prostate cancer currently under active surveillance. Prostate Cancer: - Diagnosed with low-risk prostate cancer over a year ago. - Recent MRI in June showed no significant findings. - Last biopsy involved 12 samples; patient reports significant discomfort during the procedure. - Previous biopsy only obtained 6 samples due to lack of anesthesia. - PSA levels have decreased from 16 to 7.9 since starting dutasteride. - Denies current urinary retention or need for catheterization. - Reports improved urinary stream and decreased frequency since starting dutasteride. - Avoids alcohol and Benadryl due to previous episodes of urinary retention. - Denies any current symptoms related to prostate cancer. Past Medical History: No past medical history on file. Past Surgical History: No past surgical history on file. Problem List: There is no problem list on file for this patient. Medications Current Outpatient Medications on File Prior to Visit Medication Sig dutasteride (AVODART) 0.5 mg capsule Take 0.5 mg by mouth once daily. No current facility-administered medications on file prior to visit. Family History: No family history on file. Social History: Allergies: Penicillins Imaging: MR Prostate WO/W CON (07/13/2023) IMPRESSION: No MRI evidence of clinically significant prostate cancer to target for biopsy. Physical Exam: Patient is a 53 year old male Constitutional: Vitals: Blood pressure 122/86, pulse 86, height 170.2 cm (5' 7 ), weight 81.6 kg (180 lb). General Appearance Adult: Alert, no acute distress, oriented Lungs/Repiratory: no respiratory distress, or pursed lip breathing Psych: affect and mood normal Abdomen: Estimated body mass index is 28.19 kg/m? as calculated from the following: Height as of this encounter: 170.2 cm (5' 7 ). Weight as of this encounter: 81.6 kg (180 lb). Labs and Pathology: PSA 08/02/2020 - 5.79 08/27/2020 - 5.5 and 15.3% 2021 - 5.7 and 14.2% 04/30/2022 - 5.0 08/16/2022 - 8.54 08/19/2023 - 7.94 Outside and Past Medical records: Assessment and Plan: Assessment: Prostate cancer, GS 6 (3+3) - Discussed June MRI results - Discussed surveilling prostate cancer through PSA levels - Discussed differences between TR and TP biopsy with pt, anesthetic options, and minimal risk for infection Plan: - Schedule TP Biopsy The patient is seen and examined by Dr. Nicolasa Becerril and the following reflects his/her service. Scribed by Genia Solis I agree with the Chief Complaint, ROS, and Past Histories independently gathered by the clinical administrative support coordinator including scribe and or medical student and or BLAZE and or resident or fellow and the remaining scribed note accurately describes my personal service to the patient. # Prostate cancer (HCC) (C61) - Diagnosed over a year ago with low-risk prostate cancer; initial biopsy showed minimal involvement (0.02%). Recent MRI in June showed no significant findings. PSA levels have decreased from 16 to 7.9 ng/mL with dutasteride therapy. Discussed the need for a repeat biopsy due to the potential for progression in approximately 40% of cases over 15 years. Educated on the benefits of a transperineal biopsy under anesthesia to reduce discomfort and infection risk. Scheduled for a transperineal biopsy in the operating room. No need for a repeat MRI at this time; will continue with MRIs every 1-2 years and PSAs every six months. Patient understands and agrees with the plan. # Lower urinary tract symptoms (LUTS) (R39.9) - Symptoms have improved with dutasteride therapy, including reduced urinary frequency and improved stream. Advised to avoid antihistamines like Benadryl, which can exacerbate urinary retention. No history of catheterization. Continue current medication regimen. Nicolasa Becerril MD, MS [facility] [place] [facility] Prostate Cancer Educational Materials Prostate Cancer - [employer] http://my.[facility].org/disorders/pros tate_cancer/hic_prosta te_cancer_bas- ics.aspx Prostate Cancer Treatment Guide (download) - [facility] http://www.[facility].org/lp/prostate-c ancer/index.html Na (more content not included)... Normal [facility] URINALYSIS, REFLEX MICROSCOP ICon 01-26-2024 Bilirubin Ql (U) Negative Negative [facility] Clarity (Unsp spec) Clear Clear [facility] Color (U) Yellow Yellow [facility] Glucose Test strip (U) [Mass/Vol] Negative Negative [facility] Hemoglobin Ql (U) Negative Negative [facility] Interpretation and review of laboratory results Normal [facility] Ketones Ql (U) Negative Negative [facility] Leukocyte esterase Test strip Ql (U) Negative Negative [facility] Nitrite Ql (U) Negative Negative [facility] pH (U) 5.0 [pH] NINF - 8.5 [facility] Protein (U) [Mass/Vol] Negative Negative [facility] Specific gravity (U) [Rel density] 1.018 1.005 - 1.030 [facility] Urobilinogen Ql (U) 0.2 EU/dL 0.2-1.0 EU/dL [facility] This test was developed and its performance characteristics determined by [facility]'s [facility] [place] ([facility]). It has not been cleared or approved by the FDA. [facility] is regulated under CLIA as qualified to perform high-complexity testing. This test is used for clinical purposes. It should not be regarded as investigational or for research. [facility] Bilirubin Ql (U) Negative Normal Negative [facility] Comment on above: Order Comment: Speci men Type: URINE SPECIMENOrdering Facility: [facility] Address: [address] [place] [address] Performed By: #### L [id number] ####[facility] LABCLIA [id number] [place] [address] [place] Clarity (Unsp spec) Clear Normal Clear [facility] Comment on above: Order Comment: Speci men Type: URINE SPECIMENOrdering Facility: [facility] Address: [address] [place] [address] Performed By: #### L [id number] ####[facility] LABCLIA [id number] [place] [address] [place] Color (U) Yellow Normal Yellow [facility] Comment on above: Order Comment: Speci men Type: URINE SPECIMENOrdering Facility: [facility] Address: [address] [place] [address] Performed By: #### L [id number] ####[facility] LABCLIA [id number] [place] [id number] [place] Glucose Test strip (U) [Mass/Vol] Negative Normal Negative [facility] Comment on above: Order Comment: Speci men Type: URINE SPECIMENOrdering Facility: [facility] Address: [address] [place] [address] Performed By: #### L [id number] ####[facility] LABCLIA [id number] [place] [address] [place] Hemoglobin Ql (U) Negative Normal Negative [facility] Comment on above: Order Comment: Speci men Type: URINE SPECIMENOrdering Facility: [facility] Address: [address] [place] [address] Performed By: #### L [id number] ####[facility] LABCLIA [id number] [place] [address] [place] Ketones Ql (U) Negative Normal Negative [facility] Comment on above: Order Comment: Speci men Type: URINE SPECIMENOrdering Facility: [facility] Address: [address] [place] [address] Performed By: #### L [id number] ####[facility] LABCLIA [id number] [place] [address] [place] Leukocyte esterase Test strip Ql (U) Negative Normal Negative [facility] Comment on above: Order Comment: Speci men Type: URINE SPECIMENOrdering Facility: [facility] Address: [address] [place] [address] Performed By: #### L [id number] ####[facility] LABCLIA [id number] [place] [address] [place] Nitrite Ql (U) Negative Normal Negative [facility] Comment on above: Order Comment: Speci men Type: URINE SPECIMENOrdering Facility: [facility] Address: [address] [place] [address] Performed By: #### L [id number] ####[facility] LABCLIA [id number] [place] [address] [place] pH (U) 5.0 [pH] Normal <8.5 [facility] Comment on above: Order Comment: Speci men Type: URINE SPECIMENOrdering Facility: [facility] Address: [address] [place] [address] Performed By: #### L [id number] ####[facility] LABCLIA [id number] [place] [address] [place] Protein (U) [Mass/Vol] Negative Normal Negative Cl [facility] Comment on above: Order Comment: Speci men Type: URINE SPECIMENOrdering Facility: [facility] Address: [address] [place] [address] Performed By: #### L [id number] ####[facility] LABIA [id number] [place] [address] [place] Specific gravity (U) [Rel density] 1.018 Normal 1.005-1.030 [facility] Comment on above: Order Comment: Speci men Type: URINE SPECIMENOrdering Facility: [facility] Address: [address] [place] [address] Performed By: #### L [id number] ####[facility] [id number] [place] [address] [place] Urobilinogen Ql (U) 0.2 EU/dL Normal 0.2-1.0 EU/dL [facility] Comment on above: Order Comment: Speci men Type: URINE SPECIMENOrdering Facility: [facility] Address: [address] [place] [address] Performed By: #### L [id number] ####[facility] [id number] [place] [address] [place] Ambulatory Visit Summaryon 0 08-21-2023 Ambulatory Visit Summary REY JARA Redd :1970 Visit Date:08/21/2023 Ambulatory Visit Instructions Your Diagnosis Prostate cancer BPH with urinary obstruction History of kidney stones Your Care Team Attending Physician - DERECK JACOBS, Sridhar Rainey Primary Care Physician - IVAN SUAZO DO This Is Your Medications List dutasteride (dutasteride 0.5 mg Cap) hydrochlorothiazide (hydrochlorothiazide 12.5 mg Tab) Contact prescribing physician if questions or concerns Non-Formulary Medication (Prosta-genix) amlodipine (amLODIPine 5 mg Tab) Procedures Performed Transrectal biopsy of prostate using ultrasound (US) guidance (02/10/2023), Transrectal biopsy of prostate (10/08/2020), Eye, Lip, Vasectomy. Discharge Vitals Temperature (Temporal Artery) 36.9 ?C Heart Rate (Peripheral) 72 Respiratory Rate 16 Blood Pressure 128/80 Height 170 cm Height 67 in Weight 83 kg Weight 182.6 lb BMI 28.72 What to do next You Need to Schedule the Following Appointments Follow Up with DERECK JACOBS, CHRISTAL Newton When: Where: [facility] [place] [place] [address]- Medications What How Much When Instructions New dutasteride (dutasteride 0.5 mg Cap) 1 Capsules By Mouth Every day Refills: 11 Pickup at [facility]/pharmacy #[id number] Unchanged hydrochlorothiazide (hydrochlorothiazide 12.5 mg Tab) 1 Tablets By Mouth Every day Unchanged amlodipine (amLODIPine 5 mg Tab) 1 Tablets By Mouth Every day Contact prescribing physician if questions or concerns Unchanged Non-Formulary Medication (Prosta-genix) Every day Contact prescribing physician if questions or concerns Pharmacy Information [facility]/pharmacy #[id number]: [address], [place] [phone] Allergies penicillin (Hives) Problems Ongoing - Any problem that you are currently receiving treatment for. Asymptomatic microscopic hematuria BPH associated with nocturia BPH with elevated PSA BPH with urinary obstruction Elevated BP without diagnosis of hypertension Elevated PSA Exogenous obesity History of kidney stones Hypertension Prostate cancer Patient Survey You may receive a survey via text or e-mail asking about your office visit. Please share your experience with us by completing your survey. We appreciate your feedback and thank you for choosing us for your care. Education Materials Benign Prostatic Hyperplasia Benign prostatic hyperplasia (BPH) is an enlarged prostate gland that is caused by the normal aging process. The prostate may get bigger as a man gets older. The condition is not caused by cancer. The prostate is a walnut-sized gland that is involved in the production of semen. It is located in front of the rectum and below the bladder. The bladder stores urine. The urethra carries stored urine out of the body. An enlarged prostate can press on the urethra. This can make it harder to pass urine. The buildup of urine in the bladder can cause infection. Back pressure and infection may progress to bladder damage and kidney (renal) failure. What are the causes? This condition is part of the normal aging process. However, not all men develop problems from this condition. If the prostate enlarges away from the urethra, urine flow will not be blocked. If it enlarges toward the urethra and compresses it, there will be problems passing urine. What increases the risk? This condition is more likely to develop in men older than 50 years. What are the signs or symptoms? Symptoms of this condition include: ? Getting up often during the night to urinate. ? Needing to urinate frequently during the day. ? Difficulty starting urine flow. ? Decrease in size and strength of your urine stream. ? Leaking (dribbling) after urinating. ? Inability to pass urine. This needs immediate treatment. ? Inability to completely empty your bladder. ? Pain when you pass urine. This is more common if there is also an infection. ? Urinary tract infection (UTI). How is this diagnosed? This condition is diagnosed based on your medical history, a physical exam, and your symptoms. Tests will also be done, such as: ? A post-void bladder scan. This measures any amount of urine that may remain in your bladder after you finish urinating. ? A digital rectal exam. In a rectal exam, your health care provider checks your prostate by putting a lubricated, gloved finger into your rectum to feel the back of your prostate gland. This exam detects the size of your gland and any abnormal lumps or growths. ? An exam of your urine (urinalysis). ? A prostate specific antigen (PSA) screening. This is a blood test used to screen for prostate cancer. ? An ultrasound. This test uses sound waves to electronically produce a picture of your prostate gland. Your health care provider may refer you to a specialist in kidney and prostate diseases (urologist). How is this treated? Once sympt (more content not included)... Normal [facility] Patient Educationon 08-21-19 Patient Education Urology Benign Prostatic Hyperplasia Benign prostatic hyperplasia (BPH) is an enlarged prostate gland that is caused by the normal aging process. The prostate may get bigger as a man gets older. The condition is not caused by cancer. The prostate is a walnut-sized gland that is involved in the production of semen. It is located in front of the rectum and below the bladder. The bladder stores urine. The urethra carries stored urine out of the body. An enlarged prostate can press on the urethra. This can make it harder to pass urine. The buildup of urine in the bladder can cause infection. Back pressure and infection may progress to bladder damage and kidney (renal) failure. What are the causes? This condition is part of the normal aging process. However, not all men develop problems from this condition. If the prostate enlarges away from the urethra, urine flow will not be blocked. If it enlarges toward the urethra and compresses it, there will be problems passing urine. What increases the risk? This condition is more likely to develop in men older than 50 years. What are the signs or symptoms? Symptoms of this condition include: ? Getting up often during the night to urinate. ? Needing to urinate frequently during the day. ? Difficulty starting urine flow. ? Decrease in size and strength of your urine stream. ? Leaking (dribbling) after urinating. ? Inability to pass urine. This needs immediate treatment. ? Inability to completely empty your bladder. ? Pain when you pass urine. This is more common if there is also an infection. ? Urinary tract infection (UTI). How is this diagnosed? This condition is diagnosed based on your medical history, a physical exam, and your symptoms. Tests will also be done, such as: ? A post-void bladder scan. This measures any amount of urine that may remain in your bladder after you finish urinating. ? A digital rectal exam. In a rectal exam, your health care provider checks your prostate by putting a lubricated, gloved finger into your rectum to feel the back of your prostate gland. This exam detects the size of your gland and any abnormal lumps or growths. ? An exam of your urine (urinalysis). ? A prostate specific antigen (PSA) screening. This is a blood test used to screen for prostate cancer. ? An ultrasound. This test uses sound waves [...] severity of your condition. Treatment may include: ? Observation and yearly exams. This may be the only treatment needed if your condition and symptoms are mild. ? Medicines to relieve your symptoms, including: ? Medicines to shrink the prostate. ? Medicines to relax the muscle of the prostate. ? Surgery in severe cases. Surgery may include: ? Prostatectomy. In this procedure, the prostate tissue is removed completely through an open incision or with a laparoscope or robotics. ? Transurethral resection of the prostate (TURP). In this procedure, a tool is inserted through the opening at the tip of the penis (urethra). It is used to cut away tissue of the inner core of the prostate. The pieces are removed through the same opening of the penis. This removes the blockage. ? Transurethral incision (TUIP). In this procedure, small cuts are made in the prostate. This lessens the prostate's pressure on the urethra. ? Transurethral microwave thermotherapy (TUMT). This procedure uses microwaves to create heat. The heat destroys and removes a small amount of prostate tissue. ? Transurethral needle ablation (TUNA). This procedure uses radio frequencies to destroy and remove a small amount of prostate tissue. ? Interstitial laser coagulation (ILC). This procedure uses a laser to destroy and remove a small amount of prostate tissue. ? Transurethral electrovaporization (TUVP). This procedure uses electrodes to destroy and remove a small amount of prostate tissue. ? Prostatic urethral lift. This procedure inserts an implant to push the lobes of the prostate away from the urethra. Follow these instructions at home: ? Take umxt-qfy-aapfxyi and prescription medicines only as told by your health care provider. ? Monitor your symptoms for any changes. Contact your health care provider with any changes. ? Avoid drinking large amounts of liquid before going to bed or out in public. ? Avoid or reduce how much caffeine or alcohol you drink. ? Give yourself time when you urinate. ? Keep all follow-up visits. This is important. Contact a health care provider if: ? You have unexplained back pain. ? Your symptoms do not get better with treatment. ? You develop side effects from the medicine (more content not included)... Normal [facility] Urology Office/Clinic Noteon 08-21-2023 Urology Office/Clinic Note Chief Complaint prostate cancer (ACTIVE SURVEILLANCE) HPI Staff 6m PSA & AIDE for ACTIVE SURVEILLANCE DX: Prostate Cancer, Hx of Kidney Stones & BPH *HCTZ 12.5mg qd therapy PSA 11/14/23- 16.6 WNL Electrolytes 03/31/23 PSA 03/31/23- 16.6 NEG MRI prostate 07/13/23 CMP 08/19/23 *BUN 15.0 Crea 0.95 & eGFR >60.0 PSA 08/19/23- 7.93 Dysuria: no Incomplete bladder emptying: no Hematuria: no Frequency: no Urgency: no Nocturia: 1x Stream: good stream no straining Leaking: no Post void dripping: no Wearing pads/ Depends: no Urge incontinence: no Stress incontinence: no Incontinence without Sensory Awareness: no Abdominal pain: no Flank pain: no Sexual complaints: no History of Present Illness Tests reviewed: reviewed UA, PSAs, MRI, and other lab work. I have reviewed the previous health record information and history for this patient from Dr. Barnes. I have reviewed and verified the staff HPI to be accurate for this encounter. There have been no associated fever, chills, flank pain, or blood in the urine. Denies any urinary infections since last encounter. Review of Systems PHQ Score Initial Depression Screen Score: 0 SCORE ROS - Provider Constitutional: denies weight loss, denies hot flashes. Eyes: denies eye problems. Gastrointestinal: denies nausea, denies vomiting. Cardiovascular: denies chest pain or angina. Integumentary: no dryness Musculoskeletal: denies musculoskeletal symptoms. ENMT: denies otolaryngeal symptoms. Respiratory: no shortness of breath. Heme/Lymph: denies easy bleeding tendency, denies easy bruising tendency. Psychiatric: no confusion, no anxiety. Genitourinary: See HPI. Physical Exam Vitals & Measurements T: 36.9 ?C(Temporal Artery) HR: 72(Peripheral) RR: 16 BP: 128/80 HT: 67 in HT: 170 cm WT: 83 kg WT: 182.6 lb BMI: 28.72 General Appearance: alert, no distress, well nourished, well developed male. Prostate: normal prostate, estimated weight 35 gms, no hard nodule observed. Assessment/Plan CMP 08/19/23: BUN 15, Cr 0.95, eGFR > 60 1. Prostate cancer (C61: Malignant neoplasm of prostate) *ACTIVE SURVEILLANCE* PSA: 08/02/20 - 5.79 08/27/20 - 5.5 and 15.3% 08/12/21 - 5.7 and 14.2% 04/30/22 - 5.0 08/16/22 - 8.54 03/31/23 - 16.60 [potential lab error] 08/19/23 - 7.93 No known family hx of prostate cancer. S/p TRUS/bx 10/08/[address] Thomson - NITO in 1 core. S/p TRUS/bx 02/10/23 - GS 6 (3+3) in 2 cores, 3% core involved in right base and 2% involved in right lateral base. MRI of prostate 07/13/23 prostate volume 65 cc. NO MRI evidence of clinically significant prostate cancer to target for bx. Plan to repeat TRUS/bx 01/2024. Recall placed today. AIDE: 35g, no nodules. 2. BPH with urinary obstruction (N40.1: Benign prostatic hyperplasia with lower urinary tract symptoms) Has taken Flomax in the past, but stopped due to SE of stuffy head. UA today neg. Pt states he wishes he would urinate faster . Reports he had to take a decongestion due to a cold and it did severely affect his urination. Pt seems to be very sensitive to medications. Had the discussion of starting a new class of medication such as Dutasteride. Informed pt of potential SEs. Advised pt he may need an outlet procedure in the future given sensitivity to medications. Pt elects to start Dutasteride 0.5mg qd. Pt understands med can take at least 6 months to receive full affect. -Start Dutasteride 0.5mg qd, script sent to [facility] in [place]. 3. History of kidney stones (Z87.442: Personal history of urinary calculi) Has passed stones on his won int he past. Passed a total of 3 stones in his lifetime. KUB 04/30/22 neg for obvious stones. No recent imaging. 24 hour urine 01/28/23 shows high Na, Ca, Cr levels. 5200 mL/24hr. Taking HCTZ 12.5mg qd. Lytes wnl 03/2023. Follow-up With When Contact Information DERECK JACOBS, Sridhar Rainey, [address] [place] [address]- Additional Instructions: Recall placed for TRUS/bx 01/2024 Patient Education Benign Prostatic Hyperplasia I, Alisson West, personally scribed for Dr. Barnes on 08/21/2023 09:39:39. . Documentation recorded by the scribe, Alisson West, accurately reflects the services(s) I performed and decisions made by me. Authenticated by Dr. Barnes on 08/21/2023 09:43:40. Problem List/Past Medical History Ongoing Asymptomatic microscopic [...] Tab, 5 mg= 1 tab(s), Oral, Daily hydroc (more content not included)... Normal [facility] Comment on above: Result Comment: Elec tronically Signed By: Sridhar BARNES MD\.br\Date and Time Signed: 08/21/23 09:43 EDT\.br\Electronically Co-Signed By: Alisson West.br\Date and Time Co-Signed: 08/21/23 09:39 EDT Basophils Auto (Bld) [#/Vol] on 08-19-2023 Basophils (Bld) [#/Vol] 0.1 10 3/uL 0.0-0.1 [facility] Basophils/100 WBC Auto (Bld) on 08-19-2023 Basophils/100 WBC (Bld) 1.4 % 0.2-2.0 [facility] Cholesterol in LDL Calc [Mas s/Vol]on 08-19-2023 Cholesterol in LDL [Mass/Vol] 46.0 mg/dL [facility] Comment on above: <100 mg/dl [id number] 0-129 mg/dl NEAR OR ABOVE [id number] mg/dl BORDERLINE [id number] mg/dl HIGH>190 mg/dl VERY HIGH Cholesterol in VLDL Calc [Ma ss/Vol]on 08-19-2023 Cholesterol in VLDL [Mass/Vol] 33.4 mg/dL [facility] Eosinophils/100 WBC Auto (Bl d)on 08-19-2023 Eosinophils/100 WBC (Bld) 3.7 % 0.9-7.0 [facility] Erythrocyte distribution wid th Auto (RBC) [Ratio]on 08-19-2023 Erythrocyte distribution width (RBC) [Ratio] 12.0 % 11.0-15.0 [facility] Estimated glomerular filtrat ion rate (GFR) non- Americanon 08-19-2023 GFR/1.73 sq M.predicted among non-blacks MDRD (S/P/Bld) [Vol rate/Area] mL/min/{1.73_m2} >=60 [facility] Globulin Calc (S) [Mass/Vol] on 08-19-2023 Globulin (S) [Mass/Vol] 3.5 g/dL [facility] Hematocrit Auto (Bld) [Volum e fraction]on 08-19-2023 Hematocrit (Bld) [Volume fraction] 47.7 % 42.0-54.0 [facility] Hemoglobin [Mass/volume] in Bloodon 08-19-2023 Hemoglobin (Bld) [Mass/Vol] 16.3 g/dL 14.0-18.0 [facility] Lab Reportson 08-19-2023 Lab Reports [id number]#1.0 0TIFF Normal [facility] Lab Reports [id number]#1.0 0TIFF Normal [facility] Laboratory - Chemistry and C hemistry - challengeon 08-19-2023 Albumin [Mass/Vol] 3.9 g/dL 3.4-5.0 [facility] ALP [Catalytic activity/Vol] 75 U/L 46-116 [facility] ALT [Catalytic activity/Vol] 63 U/L 16-63 [facility] AST [Catalytic activity/Vol] 27 U/L 15-37 [facility] Bilirubin [Mass/Vol] 0.5 mg/dL 0.2-1.0 [facility] Calcium [Mass/Vol] 9.4 mg/dL 8.5-10.1 [facility] Chloride [Moles/Vol] 101 mmol/L 98-107 [facility] Cholesterol [Mass/Vol] 122 mg/dL <=200 [facility] Cholesterol in HDL [Mass/Vol] 43 mg/dL 40-60 [facility] Comment on above: > or =60 mg/dl - LOW CARDIOVASCULAR RISK<40 mg/dl - HIGH CARDIOVASCULAR RISK CO2 [Moles/Vol] 29.3 mmol/L 21.0-32.0 [facility] Creatinine [Mass/Vol] 0.95 mg/dL 0.70-1.30 [facility] GFR/1.73 sq M.predicted MDRD (S/P/Bld) [Vol rate/Area] mL/min/{1.73_m2} >=60 [facility] Glucose [Mass/Vol] 95 mg/dL 74-106 [facility] Potassium [Moles/Vol] 3.5 mmol/L 3.5-5.1 [facility] Protein [Mass/Vol] 7.4 g/dL 6.4-8.2 [facility] Sodium [Moles/Vol] 140 mmol/L 136-145 [facility] Triglyceride [Mass/Vol] 167 mg/dL <=150 [facility] Urea nitrogen [Mass/Vol] 15.0 mg/dL 7.0-18.0 [facility] Urea nitrogen/Creatinine [Mass ratio] 15.8 mg/mg [facility] Laboratory - Hematology and Cell countson 08-19-2023 Immature granulocytes/100 WBC (Bld) 0.0 % 0.0-0.5 [facility] Leukocytes [#/volume] correc cristal for nucleated erythrocytes in Blood by Automated counon 08-19-2023 WBC corrected for nucl RBC Auto (Bld) [#/Vol] 5.2 10 3/uL 4.0-11.0 [facility] Lymphocytes Auto (Bld) [#/Vo l]on 08-19-2023 Lymphocytes (Bld) [#/Vol] 2.1 10 3/uL 1.2-3.8 [facility] Lymphocytes/100 WBC Auto (Bl d)on 08-19-2023 Lymphocytes/100 WBC (Bld) 39.6 % 20.5-60.0 [facility] MCH Auto (RBC) [Entitic mass ]on 08-19-2023 MCH (RBC) [Entitic mass] 30.5 pg 25.9-34.0 [facility] MCHC Auto (RBC) [Mass/Vol]on 08-19-2023 MCHC (RBC) [Mass/Vol] 34.2 g/dL 29.9-35.2 [facility] MCV Auto (RBC) [Entitic vol] on 08-19-2023 MCV (RBC) [Entitic vol] 89.3 fL 80.0-94.0 [facility] Monocytes Auto (Bld) [#/Vol] on 08-19-2023 Monocytes (Bld) [#/Vol] 0.4 10 3/uL 0.3-0.8 [facility] Monocytes/100 WBC Auto (Bld) on 08-19-2023 Monocytes/100 WBC (Bld) 8.3 % 1.7-12.0 [facility] Neutrophils Auto (Bld) [#/Vo l]on 08-19-2023 Neutrophils (Bld) [#/Vol] 2.4 10 3/uL 1.4-6.5 [facility] Neutrophils/100 WBC Auto (Bl d)on 08-19-2023 Neutrophils/100 WBC (Bld) 47.0 % 43.0-75.0 [facility] No Panel Informationon 08-18 Eosinophils # (Auto) 0.2 10 3/uL 0.0-0.7 [facility] Immature Granulocyte # (Auto) 0.00 10 3/uL 0.00-0.03 [facility] Prostate Specific Antigen Total 7.93 ng/mL <=4.00 [facility] Platelet mean volume Auto (B ld) [Entitic vol]on 08-19-2023 Platelet mean volume (Bld) [Entitic vol] 9.4 fL 9.5-13.5 [facility] Platelets Auto (Bld) [#/Vol] on 08-19-2023 Platelets (Bld) [#/Vol] 242 10 3/uL 150-450 [facility] RBC Auto (Bld) [#/Vol]on RBC (Bld) [#/Vol] 5.34 10 6/uL 4.70-6.10 [facility] Serum or plasma albumin/glob ulin mass ratioon 08-19-2023 Albumin/Globulin [Mass ratio] 1.1 {ratio} [facility] Serum or plasma anion gap de terminationon 08-19-2023 Anion gap [Moles/Vol] 13.2 mmol[facility] Serum or plasma total choles terol/high density lipoprotein (HDL) cholesterol mass coleen 08-19-2023 Cholesterol.total/Chol esterol in HDL [Mass ratio] 2.8 {ratio} [facility] Comment on above: 3.3 - 4.4 LOW RISK4. 4 - 7.1 AVERAGE RISK7.1 - 11.0 MODERATE RISK>11.0 HIGH RISK RAD - MRI Reporton RAD - MRI Report [id number]#1.0 0TIFF Normal [facility] Creatinine (Bld) [Mass/Vol]O rdered By: Sridhar Barnes on 07-13-2023 Creatinine [Mass/Vol] 0.9 mg/dL 0.6-1.3 [facility] Comment on above: ER/ESD physician is notified/shown all ISTAT results.Critical values may be confirmed by laboratory testing ifdeemed necessary by ER attending doctor. No Panel InformationOrdered By: Sridhar Barnes on 07-13-2023 Bedside Estimated GFR (eGFR) > 60.0 [facility] Insurance Correspondenceon 0 06-12-2023 Insurance Correspondence [id number]. 00TIFF [facility] Pre-Certification Formon Pre-Certification Form [id number]#1.00 TIFF Normal [facility] Reminderson 06-10-2023 Reminders - From: Heather Mckeon To: XOCHITL Barnes; Sent: 01/12/2023 17:16:54 EDT Show up: 05/18/2023 17:16:00 EST Subject: MRI of prostate w/wo Due Date/Time: 06/08/2023 17:16:00 EST Reminder/Recall Pt needs MRI of prostate with and without in Jun 2023 precert sent to [employer] to get auth approval.LG Normal [facility] Lab Reportson 04-02-2023 Lab Reports [id number]#1.0 0TIFF Normal [facility] Patient Educationon 02-21-20 Patient Education Oncology Prostate Cancer The prostate [...] likelihood that the cancer will spread. ? [place] 6 or lower: This indicates that the cancer cells look similar to normal prostate cells (well differentiated). ? [place] 7: This indicates that the cancer cells look somewhat similar to normal prostate cells (moderately differentiated). ? [place] 8, 9, or 10: This indicates that [...] external be (more content not included)... Normal [facility] Urology Office/Clinic Noteon 02-20-2023 Urology Office/Clinic [...] S/p TRUS/bx 10/08/[address] Thomson - [facility] in 1 core. S/p TRUS/bx 02/10/23 [...] blood (postop). Follow-up With When Contact Information Sridhar BARNES MD, CHRISTAL In 6 months [facility] [address], [place] [phone] Additional Instructions: PSA and AIDE Patient Education Prostate Cancer I, Parris Morales, personally scribed for Dr. Barnes on 02/20/2023 12:14:52. . Documentation recorded by the scribeParris, accurately reflects the services(s) I performed and [...] refills Pros (more content not included)... Normal [facility] Comment on above: Result Comment: Elec tronically Signed By: Sridhar BARNES MD\.br\Date and Time Signed: 02/20/23 12:17 EDT\.br\Electronically Co-Signed By: Parris Morales\.br\Date and Time Co-Signed: 02/20/23 12:15 EDT IntraOperative Documentson 1 [employer] [id number]. [id number] Normal [facility] Prostate Histology ( Labs) on 02-18-2023 Prostate Histology Diagnosis Info Invalid Interpretation Code [facility] Comment on above: Order Comment: 1 BIT E PER AREA Result Comment: A:Pr ostate,Left Lateral Base:Needle Biopsy Interpretation - - Benign prostatic tissue. MicroScopic Description - B:Prostate,Left Lateral Mid:Needle Biopsy Interpretation - - Benign prostatic tissue. MicroScopic Description - C:Prostate,Left Lateral [place]:Needle Biopsy Interpretation - - Benign prostatic tissue. MicroScopic Description - D:Prostate,Left Base:Needle Biopsy Interpretation - - Benign prostatic tissue. MicroScopic Description - E:Prostate,Left Mid:Needle Biopsy Interpretation - - Benign prostatic tissue. MicroScopic Description - F:Prostate,Left [place]:Needle Biopsy Interpretation - - Benign prostatic tissue (see comment). MicroScopic Description - G:Prostate,Right Base:Needle Biopsy Interpretation - - Acinar adenocarcinoma of prostate; Pam score 6(3+3); Tumor measures 0.04 cm in length; 3% of the core involved by tumor; 1 of 2 cores involved (see comment). MicroScopic Description - H:Prostate,Right Mid:Needle Biopsy Interpretation - - Benign prostatic tissue. MicroScopic Description - I:Prostate,Right [place]:Needle Biopsy Interpretation - - Benign prostatic tissue. MicroScopic Description - J:Prostate,Right Lateral Base:Needle Biopsy Interpretation - - Acinar adenocarcinoma of prostate; Pam score 6(3+3); Tumor measures 0.04 cm in length; 2% of the core involved by tumor; 1 of 1 core involved (see comment). MicroScopic Description - K:Prostate,Right Lateral Mid:Needle Biopsy Interpretation - - Benign prostatic tissue. MicroScopic Description - L:Prostate,Right Lateral [place]:Needle Biopsy Interpretation - - Benign prostatic tissue. [...] The performance characteristics were determined by the [employer]. They have not been cleared by the [place] Food and Drug Administration. The FDA has determined that such clearance or approval is not necessary. Appropriate positive and negative controls are performed and are acceptable. Electronically signed by : on: 02/18/2023 11:20:58 Performed By: #### 1 [id number] ####[facility] [address] [place] [address] Consent for Procedure/Surger yon 02-10-2023 Consent for Procedure/Surgery [id number] 0CD:127 Normal [facility] Consent for Treatmenton 01-17 Consent for Treatment [id number] 0CD:127 Normal [facility] IntraOperative Documentson 0 02-10-2023 IntraOperative Documents [id number] 0CD:127 [facility] Main OR Intraoperative Recor don 02-10-2023 Main OR Intraoperative Record IntraOp Document Type FTURO Summary Primary Physician: Sridhar BARNES MD Finalized Date/Time: 02/10/23 10:02:01 Pt. Name: TORITOAZIZAREY/Sex: 1970 Male Med Rec #: [id number] Physician: Sridhar BARNES MD Financial #: [id number] Pt. Type: O Room/Bed: / Admit/Disch: 02/10/23 08:04:02 - Institution: Case Times FTURO Entry 1 Patient Times In Room 02/10/23 09:29:00 Out Room 02/10/23 10:01:00 Procedure Times Start 02/10/23 09:36:00 Stop 02/10/23 09:51:00 Anesthesia Times Last Modified By: Mounika Ramírez RN 02/10/23 10:01:48 Case Attendance FTURO Entry 1 Entry 2 Entry 3 Case Attendee DERECK JACOBS, Sridhar Anders, Doreen Ramírez RN, Mounika Vora Role Performed Surgeon - Primary Scrub - Primary Granite Fabricator - Primary Time In 02/10/23 09:29:00 02/10/23 09:29:00 02/10/23 09:29:00 Time Out 02/10/23 10:01:00 02/10/23 10:01:00 02/10/23 10:01:00 Procedure PROSTATE TRANSRECTAL PROSTATE TRANSRECTAL PROSTATE TRANSRECTAL ULTRASOUND WITH BIO(.) ULTRASOUND WITH BIO(.) ULTRASOUND WITH BIO(.) Comments Last Modified By: Mounika Ramírez RN, RN, Mounika Hughes RN 02/10/23 10:01:50 02/10/23 [...] Signed By: Mounika Ramírez RN 02/10/23 10:02 [facility] Main OR Preoperative Recordo n 02-10-2023 Main OR Preoperative Record Holding Area Document Type FTURO Summary Primary Physician: Sridhar BARNES MD Finalized Date/Time: 02/10/23 09:31:04 Pt. Name: REY JARA /Sex: 1970 Male Med Rec #: [id number] Physician: Sridhar BARNES MD Financial #: [id number] Pt. Type: O Room/Bed: / Admit/Disch: 02/10/23 [...] Complaints of Pain: No Skin Integrity Intact, D[place]orra, Warm, & Dry Vitals - EU Blood Pressure 130/80 Pulse 84 bpm Respirations 18 br/min SPO2 95 % RN Reviewed Yes Last Modified By: Mounika Ramírez RN 02/10/23 09:31:03 General Comments: Temp 97.9 Finalized By: Mounika Ramírez RN Document Signatures Signed By: Ivonne Elizalde LPN 02/10/23 08:50 Mounika Ramírez RN 02/10/23 09:31 Normal [facility] Operative Reporton Operative Report Patient: REY JARA Age: 52 years Sex: Male : 1970 Associated Diagnoses: None Author: Sridhar BARNES MD Procedure Operative Information Details: Date/ Time: 02/10/2023 09:54:00. Pre-Op Dx: Elevated PSA - R97.20. Post-Op Dx: Same. Anesthesia Type: Local, Periprostatic Nerve Block. Procedure: Transrectal Ultrasound and Transrectal Ultrasound-Guided Biopsy of the Prostate. Complications: None. Risks/Benefits/Informe d Consent: Surgical risks, benefits, details of the [...] were sent to pathology for evaluation. Normal [facility] Comment on above: Result Comment: Elec tronically Signed By: DERECK JACOBS, Sridhar Vera.lupe\Date and Time Signed: 02/10/23 09:55 EDT Outpatient Surgery Discharge Instructionon 02-10-2023 Outpatient Surgery Discharge Instruction [id number] 0CD:127 Normal [facility] Patient Educationon 02-11-20 Patient Education Custom [...] for your post-operative appointment in 1-2 weeks [phone] or [phone] Normal [facility] Prostate Histology ([facility]) on 02-10-2023 PH Method of Extraction Needle Biopsy Normal [facility] Comment on above: Order Comment: 1 BIT E PER AREA Performed By: #### 1 [id number] ####[facility] [address] [place] [address] PH Number of Jars 2 Invalid Interpretation Code [facility] Comment on above: Order Comment: 1 BIT E PER AREA Performed By: #### 1 [id number] ####[facility] [address] [place] [address] PH Specimen 1 L Base Prostate Normal [facility] Comment on above: Order Comment: 1 BIT E PER AREA Performed By: #### 1 [id number] ####[facility] [address] [facility] [address] PH Specimen 10 R Lat Bse Prost Normal [facility] Comment on above: Order Comment: 1 BIT E PER AREA Performed By: #### 1 [id number] ####[facility] [address] [address] PH Specimen 11 R Lat Mid Prost Normal [facility] Comment on above: Order Comment: 1 BIT E PER AREA Performed By: #### 1 [id number] ####[facility] [address] [place] [address] PH Specimen 12 R Lat Apx Prost Normal [facility] Comment on above: Order Comment: 1 BIT E PER AREA Performed By: #### 1 [id number] ####[facility] [address] [place] [address] PH Specimen 2 L Mid Prostate Normal [facility] Comment on above: Order Comment: 1 BIT E PER AREA Performed By: #### 1 [id number] ####[facility] [address] [place] [address] PH Specimen 3 L Apx Prostate Normal [facility] Comment on above: Order Comment: 1 BIT E PER AREA Performed By: #### 1 [id number] ####[facility] [address] [place] [address] PH Specimen 4 L Lat Mid Prost Normal [facility] Comment on above: Order Comment: 1 BIT E PER AREA Performed By: #### 1 [id number] ####[facility] [address] [place] [address] PH Specimen 5 L Lat Bse Prost Normal [facility] Comment on above: Order Comment: 1 BIT E PER AREA Performed By: #### 1 [id number] ####[facility] [address] [place] [address] PH Specimen 6 L Lat Apx Prost Normal [facility] Comment on above: Order Comment: 1 BIT E PER AREA Performed By: #### 1 [id number] ####[facility] [address] [place] [address] PH Specimen 7 R Base Prostate Normal [facility] Comment on above: Order Comment: 1 BIT E PER AREA Performed By: #### 1 [id number] ####[facility] [address] [place] [address] PH Specimen 8 R Mid Prostate Normal [facility] Comment on above: Order Comment: 1 BIT E PER AREA Performed By: #### 1 [id number] ####[facility] [address] [place] [address] PH Specimen 9 R Apx Prostate Normal [facility] Comment on above: Order Comment: 1 BIT E PER AREA Performed By: #### 1 [id number] ####[facility] [address] [place] [address] PH Type of Service Technical Only Normal [facility] Comment on above: Order Comment: 1 BIT E PER AREA Performed By: #### 1 [id number] ####[facility] [address] [place] [address] Lab Reportson 02-03-2023 Lab Reports [id number] CD:127 Normal [facility] Lab Reportson 01-29-2023 Lab Reports [id number] 0CD:127 Normal [facility] Lab Reports [id number] CD:127 Normal [facility] Lab Reportson 01-28-2023 Lab Reports [id number] 0CD:127 Normal [facility] Ambulatory Visit Summaryon 0 01-12-2023 Ambulatory Visit Summary REY JARA :1970 Visit Date:01/12/2023 Ambulatory Visit Instructions Your Diagnosis BPH with elevated PSA History of kidney stones Tests Performed Urnls Dip Stick Auto w/o Microscopy POC 29656 Your Care Team Attending Physician - Sridhar BARNES MD Primary Care Physician - IVAN SUAZO DO [...] JACOBS, Sridhar Rainey Where: [facility] Patient Educationon 01-13-20 23 Patient Education Oncology Transrectal Ultrasound-Guided Prostate Biopsy, [...] near your rectum, especially while sitting. ? Dekorra-colored urine due to small amounts of blood in your urine. ? A burning feeling while urinating. ? Blood in your stool (feces) or bleeding from your rectum. ? Blood in your semen. Follow these instructions at home: Medicines ? Take zepe-dhw-ecekwcm and prescription medicines only as told by [...] provider. Document Revised: 10/28/2021 Document Reviewed: 10/28/2021 [employer] Patient Education ? 2022 [employer]. Transrectal Ultrasound-Guided Prostate Biopsy A transrectal ultrasound-guided [...] including vitamins, herbs, eye drops, creams, and yecd-ldh-nlbicdl medicines. ? Any problems you or family [...] as aspirin (more content not included)... Normal [facility] Urology Office/Clinic Noteon 01-12-2023 Urology Office/Clinic [...] [facility] [address], [place] [phone] Additional Instructions: stone work-up sched TRUS/bx Patient Education Transrectal Ultrasound-Guided Prostate Biopsy, Care After Transrectal Ultrasound-Guided Prostate Biopsy IParris, personally scribed for Dr. Barnes on 01/12/2023 16:46:58. . Documentation recorded by the scribeParris, accurately reflects the services(s) I performed and [...] Oral, Daily (more content not included)... Normal [facility] Comment on above: Result Comment: Elec tronically Signed By: DERECK JACOBS, Sridhar Rainey\.br\Date and Time Signed: 01/12/23 16:49 EDT\.br\Electronically Co-Signed By: Parris Morales\.br\Date and Time Co-Signed: 01/12/23 16:47 EDT CBC AUTO DIFFon 08-16-2022 BASO # 0.0 103/ul Normal 0.0-0.1 [facility] Comment on above: Performed By: #### C BC #### [facility] [address] [address] [address] Art Napoles Basophils/100 WBC (Bld) 0.8 % Normal 0.2-2.0 [facility] Comment on above: Performed By: #### C BC #### [facility] [address] [address] [address] Art Napoles EO # 0.1 103/ul Normal 0.0-0.7 [facility] Comment on above: Performed By: #### C BC #### [facility] [address] [address] [address] Art Napoles Eosinophils/100 WBC (Bld) 1.6 % Normal 0.9-7.0 [facility] Comment on above: Performed By: #### C BC #### [facility] [address] [address] [address] Art Napoles Erythrocyte distribution width (RBC) [Ratio] 12.3 % Normal 11.0-15.0 [facility] Comment on above: Performed By: #### C BC #### [facility] [address] [address] [address] Art Napoles Hematocrit (Bld) [Volume fraction] 48.7 % Normal 42.0-54.0 [facility] Comment on above: Performed By: #### C BC #### [facility] [address] [address] [address] Art Napoles Hemoglobin (Bld) [Mass/Vol] 16.3 g/dL Normal 14.0-18.0 [facility] Comment on above: Performed By: #### C BC #### [facility] [address] [address] [address] Art Napoles IG # 0.01 10e3/ul Normal 0.00-0.03 [facility] Comment on above: Performed By: #### C BC #### [facility] [address] [place] [address] Dr. Art Napoles IG % 0.2 % Normal 0.0-0.5 [facility] Comment on above: Performed By: #### C BC #### [facility] [address] [place] [address] Dr. Art Napoles LYMPH # 1.7 103/ul Normal 1.2-3.8 [facility] Comment on above: Performed By: #### C BC #### [facility] [address] [place] [address] Dr. Art Napoles Lymphocytes/100 WBC (Bld) 33.0 % Normal 20.5-60.0 [facility] Comment on above: Performed By: #### C BC #### [facility] [address] [place] [address] Dr. Art Napoles MANUAL DIFF REQ NO Normal [facility] Comment on above: Performed By: #### C BC #### [facility] [address] [place] [address] Dr. Art Napoles MCH (RBC) [Entitic mass] 29.9 pg Normal 25.9-34.0 [facility] Comment on above: Performed By: #### C BC #### [facility] [address] [place] [address] Dr. Art Napoles MCHC (RBC) [Mass/Vol] 33.5 g/dL Normal 29.9-35.2 [facility] Comment on above: Performed By: #### C BC #### [facility] [address] [place] [address] Dr. Art Napoles MCV (RBC) [Entitic vol] 89.4 fL Normal 80.0-94.0 [facility] Comment on above: Performed By: #### C BC #### [facility] [address] [place] [address] Dr. Art Napoles MONO # 0.5 103/ul Normal 0.3-0.8 [facility] Comment on above: Performed By: #### C BC #### [facility] [address] [address] [address] Art Napoles Monocytes/100 WBC (Bld) 9.0 % Normal 1.7-12.0 [facility] Comment on above: Performed By: #### C BC #### [facility] [address] [address] [address] Art Napoles NEUT # 2.8 103/ul Normal 1.4-6.5 [facility] Comment on above: Performed By: #### C BC #### [facility] [address] [address] [address] Art Napoles Neutrophils/100 WBC (Bld) 55.4 % Normal 43.0-75.0 [facility] Comment on above: Performed By: #### C BC #### [facility] [address] [place] [address] Dr. Art Napoles Platelet mean volume (Bld) [Entitic vol] 9.4 fL Critically low 9.5-13.5 [facility] Comment on above: Performed By: #### C BC #### [facility] [address] [place] [address] Dr. Art Napoles PLT 219 103/ul Normal 150-450 [facility] Comment on above: Performed By: #### C BC #### [facility] [address] [place] [address] Dr. Art Napoles RBC 5.45 106/ul Normal 4.70-6.10 [facility] Comment on above: Performed By: #### C BC #### [facility] [address] [place] [address] Dr. Art Napoles WBC 5.1 103/ul Normal 4.0-11.0 [facility] Comment on above: Performed By: #### C BC #### [facility] [address] [place] [address] Dr. Art Napoles GLYCOHEMOGLOBIN A1Con 2022 ADA RECOMMENDATION SEE BELOW Normal [facility] Comment on above: Result Comment: ADA RECOMMENDED LIMIT 4.0 - 6.0 ADA THERAPEUTIC TARGET < 7.0 ACTION SUGGESTED > 7.0 Performed By: #### A 1C #### [facility] [address] [address] [address] Art Napoles Glucose [Mass/Vol] 91 mg/dL Normal [facility] Comment on above: Performed By: #### A 1C #### [facility] [address] [address] [address] Art Napoles HbA1c (Bld) [Mass fraction] 4.8 % Normal 4.5-6.2 [facility] Comment on above: Performed By: #### A 1C #### [facility] [address] [address] [address] Art Napoles LIPID PROFILEon 08-16-2022 CHOL-HDL RATIO NORM SEE BELOW Normal [facility] Comment on above: Result Comment: 3.3 - 4.4 LOW RISK 4.4 - 7.1 AVERAGE RISK 7.1 - 11.0 MODERATE RISK >11.0 HIGH RISK Performed By: #### L IPID, CMP #### [facility] [address] [place] [address] Dr. Art Napoles Cholesterol [Mass/Vol] 129 mg/dL Normal <=200 [facility] Comment on above: Performed By: #### L IPID, CMP #### [facility] [address] [place] [address] Dr. Art Napoles Cholesterol in HDL [Mass/Vol] 49 mg/dL Normal 40-60 [facility] Comment on above: Performed By: #### L IPID, CMP #### [facility] [address] [address] [address] Art Napoles Cholesterol in LDL [Mass/Vol] 54.0 mg/dL Normal [facility] Comment on above: Performed By: #### L IPID, CMP #### [facility] [address] [address] [address] Art Napoles Cholesterol.total/Chol esterol in HDL [Mass ratio] 2.6 {ratio} Normal [facility] Comment on above: Performed By: #### L IPID, CMP #### [facility] [address] [address] [address] Art Napoles HDL NORMAL > or = 60 mg/dl - LO W CARDIOVASCULAR RISK <40 mg/dl - HIGH CARDIOVASCULAR RISK Normal [facility] Comment on above: Performed By: #### L IPID, CMP #### [facility] [address] [address] [address] Art Napoles LDL CALC NORMAL SEE BELOW Normal [facility] Comment on above: Result Comment: <100 mg/dl OPTIMAL 100 - 129 mg/dl NEAR OR ABOVE OPTIMAL 130 - 159 mg/dl BORDERLINE HIGH 160 - 189 mg/dl HIGH >190 mg/dl VERY HIGH Performed By: #### L IPID, CMP #### [facility] [address] [address] [address] Art Napoles Triglyceride [Mass/Vol] 130 mg/dL Normal <=150 [facility] Comment on above: Performed By: #### L IPID, CMP #### [facility] [address] [place] [address] Dr. Art Napoles VLDL CALC 26.0 mg/dL Normal [facility] Comment on above: Performed By: #### L IPID, CMP #### [facility] [address] [address] [address] Art Napoles PROF 14(COMP METB)on 023 Albumin [Mass/Vol] 4.4 g/dL Normal 3.4-5.0 [facility] Comment on above: Performed By: #### L IPID, CMP #### [facility] [address] [place] [address] Dr. Art Napoles Albumin/Globulin [Mass ratio] 1.5 {ratio} Normal [facility] Comment on above: Performed By: #### L IPID, CMP #### [facility] [address] [address] [address] Art Napoles ALP [Catalytic activity/Vol] 69 U/L Normal 46-116 [facility] Comment on above: Performed By: #### L IPID, CMP #### [facility] [address] [address] [address] Art Napoles ALT [Catalytic activity/Vol] 45 U/L Normal 16-63 [facility] Comment on above: Performed By: #### L IPID, CMP #### [facility] [address] [place] [address] Dr. Art Napoles Anion gap [Moles/Vol] 11.0 mmol/L Normal [facility] Comment on above: Performed By: #### L IPID, CMP #### [facility] [address] [place] [address] Dr. Art Napoles AST [Catalytic activity/Vol] 24 U/L Normal 15-37 [facility] Comment on above: Performed By: #### L IPID, CMP #### [facility] [address] [place] [address] Dr. Art Napoles Bilirubin [Mass/Vol] 0.5 mg/dL Normal 0.2-1.0 [facility] Comment on above: Performed By: #### L IPID, CMP #### [facility] [address] [place] [address] Dr. Art Napoles Calcium [Mass/Vol] 9.3 mg/dL Normal 8.5-10.1 [facility] Comment on above: Performed By: #### L IPID, CMP #### [facility] [address] [place] [address] Dr. Art Napoles Chloride [Moles/Vol] 103 mmol/L Normal 98-107 [facility] Comment on above: Performed By: #### L IPID, CMP #### [facility] [address] [place] [address] Dr. Art Napoles CO2 [Moles/Vol] 29.9 mmol/L Normal 21.0-32.0 [facility] Comment on above: Performed By: #### L IPID, CMP #### [facility] [address] [place] [address] Dr. Art Napoles Creatinine [Mass/Vol] 0.81 mg/dL Normal 0.70-1.30 [facility] Comment on above: Performed By: #### L IPID, CMP #### [facility] [address] [place] [address] Dr. Art Napoles EGFR-AF POLISH >60 Normal >=60 [facility] Comment on above: Performed By: #### L IPID, CMP #### [facility] [address] [place] [address] Dr. Art Napoles EGFR-NON AF POLISH >60 Normal >=60 [facility] Comment on above: Performed By: #### L IPID, CMP #### [facility] [address] [place] [address] Dr. Art Napoles Globulin (S) [Mass/Vol] 2.9 g/dL Normal [facility] Comment on above: Performed By: #### L IPID, CMP #### [facility] [address] [place] [address] Dr. Art Napoles Glucose [Mass/Vol] 97 mg/dL Normal 74-106 [facility] Comment on above: Performed By: #### L IPID, CMP #### [facility] [address] [place] [address] Dr. Art Napoles Potassium [Moles/Vol] 3.9 mmol/L Normal 3.5-5.1 [facility] Comment on above: Performed By: #### L IPID, CMP #### [facility] [address] [place] [address] Dr. Art Napoles Protein [Mass/Vol] 7.3 g/dL Normal 6.4-8.2 [facility] Comment on above: Performed By: #### L IPID, CMP #### [facility] [address] [place] [address] Dr. Art Napoles Sodium [Moles/Vol] 140 mmol/L Normal 136-145 [facility] Comment on above: Performed By: #### L IPID, CMP #### [facility] [address] [place] [address] Dr. Art Napoles Urea nitrogen [Mass/Vol] 11.0 mg/dL Normal 7.0-18.0 [facility] Comment on above: Performed By: #### L IPID, CMP #### [facility] [address] [place] [address] Dr. Art Napoles Urea nitrogen/Creatinine [Mass ratio] 13.6 mg/mg Normal [facility] Comment on above: Performed By: #### L IPID, [facility] #### [facility] [address] [place] [address] Dr. Art Napoles XR KUB 1 VIEWon [...] by: PREETHI GALARZA Date: 2022-05-02 07:17 Normal [facility] CHEMISTRYOrdered By: SYSTEM SYSTEM on 04-30-2022 Prostate specific Ag [Mass/Vol] 5.0 ng/mL High 0.1 - 3.5 ng/mL [facility] [place] [facility] Vital Signs Date Time Vital Sign Value Performing Clinician Faci lity 09-01-2024 09:45-0400 Body height 170.18 cm DEXMA DO Work Phone: [facility] 09-01-2024 09:45-0400 Body mass index (BMI) [Ratio] 29 kg/m2 DEXMA DO Work Phone: [facility] 09-01-2024 09:45-0400 Body weight 84.02 kg Ivan Ball DO Work Phone: [facility] 09-01-2024 09:45-0400 Diastolic blood pressure 88 mm[Hg] Ivan Ball DO Work Phone: [facility] 09-01-2024 09:45-0400 Heart rate 73 /min Ivan Ball DO Work Phone: [facility] 09-01-2024 09:45-0400 Respiratory rate 12 /min Ivan Madrone DO Work Phone: [facility] 09-01-2024 09:45-0400 Systolic blood pressure 137 mm[Hg] Ivan Ball DO Work Phone: [facility] 07-25-2024 15:56-0400 Body height 170.2 cm Indu Nickerson MD Work Phone: [facility] 07-25-2024 15:56-0400 Body mass index (BMI) [Ratio] 29.45 kg/m2 Indu Nickerson MD Work Phone: [facility] 07-25-2024 15:56-0400 Body weight 85.3 kg Indu Nickerson MD Work Phone: [facility] 07-25-2024 15:56-0400 Diastolic blood pressure 88 mm[Hg] Indu Nickerson MD Work Phone: [facility] 07-25-2024 15:56-0400 Heart rate 78 /min Indu Nickerson MD Work Phone: [facility] 07-25-2024 15:56-0400 Systolic blood pressure 137 mm[Hg] Indu Nickerson MD Work Phone: [facility] 01-26-2024 14:51-0400 Body height 170.2 cm Nicolasa Becerril MD Work Phone: [facility] 01-26-2024 14:51-0400 Body mass index (BMI) [Ratio] 28.19 kg/m2 Nicolasa Becerril MD Work Phone: [facility] 01-26-2024 14:51-0400 Body weight 81.65 kg Nicolasa Becerril MD Work Phone: [facility] 01-26-2024 14:51-0400 Diastolic blood pressure 86 mm[Hg] Nicolasa Becerril MD Work Phone: [facility] 01-26-2024 14:51-0400 Heart rate 86 /min Nicolasa Becerril MD Work Phone: [facility] 01-26-2024 14:51-0400 Systolic blood pressure 122 mm[Hg] Nicolasa Becerril MD Work Phone: [facility] 08-27-2023 10:13-0400 Body height 170.18 cm DO Ivan Ball Work Phone: [facility] 08-27-2023 10:13-0400 Body mass index (BMI) [Ratio] 28.7 kg/m2 DO Ivan Ball Work Phone: [facility] 08-27-2023 10:13-0400 Body weight 83.23 kg DO Ivan Ball Work Phone: [facility] 08-27-2023 10:13-0400 Diastolic blood pressure 78 mm[Hg] DO Ivna Ball Work Phone: [facility] 08-27-2023 10:13-0400 Heart rate 64 /min DO Ivan Ball Work Phone: [facility] 08-27-2023 10:13-0400 Respiratory rate 12 /min DO Ivan Ball Work Phone: [facility] 08-27-2023 10:13-0400 Systolic blood pressure 123 mm[Hg] DO Ivan Ball Work Phone: [facility] 08-21-2023 08:46-0400 Blood Pressure Location Sridhar BARNES [facility] 08-21-2023 08:46-0400 Body temperature 98.42 [degF] Sridhar BARNES [facility] 08-21-2023 08:46-0400 Diastolic blood pressure 80 mm[Hg] Sridhar BARNES [facility] 08-21-2023 08:46-0400 Heart rate 72 /min Sridhar BARNES [facility] 08-21-2023 08:46-0400 Respiratory rate 16 /min Sridhar BARNES [facility] 08-21-2023 08:46-0400 Systolic blood pressure 128 mm[Hg] Sridhar BARNES [facility] 07-13-2023 09:27-0500 Body height 170.18 cm DO Ivan Ball Work Phone: [facility] 07-13-2023 09:27-0500 Body weight 81.64 kg DO Ivan Ball Work Phone: [facility] 01-12-2023 15:42-0400 Blood Pressure Location Sridhar BARNES [facility] 01-12-2023 15:42-0400 Diastolic blood pressure 80 mm[Hg] Sridhar BARNSE [facility] 01-12-2023 15:42-0400 Systolic blood pressure 132 mm[Hg] Sridhar BARNES [facility] 09-15-2022 10:30-0400 Body height 170.18 cm Ivan Ball Other [facility] [employer] Other 09-15-2022 10:30-0400 Body mass index (BMI) [Ratio] 28.72 kg/m2 Ivan Ball Other [facility] [employer] Other 09-15-2022 10:30-0400 Body temperature 97.3 [degF] Ivan Ball Other [facility] [employer] Other 09-15-2022 10:30-0400 Body weight 83.19 kg Ivan Ball Other [facility] [employer] Other 09-15-2022 10:30-0400 Diastolic blood pressure 81 mm[Hg] Ivan Ball Other [facility] [facility] Other 09-15-2022 10:30-0400 SaO2% (BldA) [Mass fraction] 93 % Ivan Ball Other [facility] Other 09-15-2022 10:30-0400 Systolic blood pressure 125 mm[Hg] Ivan Ball Other [facility] Other 08-21-2022 11:00-0400 Body height 170.18 cm Ivan Ball Other [facility] Other 08-21-2022 11:00-0400 Body mass index (BMI) [Ratio] 28.66 kg/m2 Ivan Ball Other [facility] Other 08-21-2022 11:00-0400 Body weight 83.01 kg Ivan Ball Other [facility] Other 08-21-2022 11:00-0400 Diastolic blood pressure 80 mm[Hg] Ivan Ball Other [facility] Other 08-21-2022 11:00-0400 Respiratory rate 12 /min Ivan Ball Other [facility] Other 08-21-2022 11:00-0400 Systolic blood pressure 147 mm[Hg] Ivan Ball Other [facility] Other 04-30-2022 15:02-0500 Blood Pressure Location RACHEL MARTINEZRY [facility] 04-30-2022 15:02-0500 Diastolic blood pressure 89 mm[Hg] RACHEL ZACK [facility] 04-30-2022 15:02-0500 Heart rate 81 /min RACHEL ZACK [facility] 04-30-2022 15:02-0500 Systolic blood pressure 140 mm[Hg] RACHEL DIXON [facility] 09-10-2021 08:29-0400 Blood Pressure Location Zev Thomson Jr. [facility] 09-10-2021 08:29-0400 Diastolic blood pressure 86 mm[Hg] Zev Thomson Jr. [facility] 09-10-2021 08:29-0400 Heart rate 77 /min Zev Thomson Jr. [facility] 09-10-2021 08:29-0400 Respiratory rate 16 /min Zev Thomson Jr. [facility] 09-10-2021 08:29-0400 Systolic blood pressure 137 mm[Hg] Zev Thomson Jr. [facility] Encounters Encounter Date Encounter Type Care Provider Facility Start: 10-03-2024 End: 10-03-2024 Telemedicine consultation with patient Neelima Bedoya APRN.CNP Work Phone: Urology Start: 10-03-2024 End: 10-03-2024 ambulatory Neelima Bedoya APRN.CNP Work Phone: Urology Comment on above: Prostate cancer (HCC ) (Primary Dx) Start: 09-08-2024 End: 09-08-2024 Patient encounter procedure Ivan Suazo DO Work Phone: [facility] Work Phone: Start: 09-08-2024 End: 09-08-2024 ambulatory Ivan Suazo DO Work Phone: [facility] Work Phone: Start: 09-06-2024 Non-patient / Non-visit Kobe in Kwame DO Work Phone: [facility] Work Phone: Start: 09-01-2024 End: 09-01-2024 Encounter for general adult medical examination without abnormal findings Ivan Suazo DO Work Phone: [facility] Start: 09-01-2024 End: 09-01-2024 Patient encounter procedure Ivan Suazo DO Work Phone: [facility] Work Phone: Start: 08-30-2024 End: 08-30-2024 MC Patient Msg Indu Nickerson MD Work Phone: [facility] Comment on above: Ultrasound Order Start: 07-25-2024 End: 07-25-2024 [facility] Start: 07-25-2024 End: 07-25-2024 Patient encounter procedure Indu Nikcerson MD Work Phone: [facility] Comment on above: Nephrolithiasis Start: 07-25-2024 End: 07-25-2024 Telephone encounter Indu Nickerson MD Work Phone: [facility] Comment on above: Orders Start: 06-27-2024 End: 06-27-2024 Orders Only Neelima Bedoya APRN.MILITARY SOURCE OPERATIONS OFFICER Work Phone: Urology Start: 04-12-2024 End: 04-12-2024 Patient encounter procedure Nicolasa Becerril MD Work Phone: Urology Comment on above: Nephrolithiasis (Zenia rosa maria Dx); Prostate cancer (HCC) Start: 04-12-2024 End: 04-15-2024 ambulatory Nicolasa Becerril MD Work Phone: Urology Start: 04-01-2024 End: 04-01-2024 ambulatory CHRISTOPHER WEIGHT Facility:[facility] Start: 03-25-2024 End: 03-25-2024 Patient encounter procedure Elizabeth Rose CASTING SUPERVISOR.MILITARY SOURCE OPERATIONS OFFICER Work Phone: Urology Comment on above: Pre-op exam (Primary Dx); Elevated prostate specific antigen (PSA); Screening for genitourinary condition Start: 03-25-2024 End: 03-25-2024 Preprocedural examination done Elizabeth Rose CASTING SUPERVISOR.MILITARY SOURCE OPERATIONS OFFICER Work Phone: [facility] Work Phone: Start: 03-25-2024 Encounter for other preprocedural examination ELIZABETH ROSE [facility] Start: 03-25-2024 End: 03-28-2024 ambulatory Elizabeth Rose CASTING SUPERVISOR.MILITARY SOURCE OPERATIONS OFFICER Work Phone: Urology Start: 03-02-2024 End: 03-02-2024 ambulatory [facility] Work Phone: Start: 03-02-2024 End: 03-02-2024 Patient encounter procedure [facility] Work Phone: Start: 03-01-2024 ambulatory IVAN SUAZO Facilit y:[facility] Start: 02-26-2024 ambulatory Sridhar gAuero ty:[facility] [place] Start: 02-08-2024 End: 02-08-2024 ambulatory ELIZABETH ROSE Facility:[facility] Start: 02-02-2024 End: 02-02-2024 ambulatory [facility] Work Phone: Start: 02-02-2024 End: 02-02-2024 Patient encounter procedure [facility] Work Phone: Start: 01-26-2024 End: 01-26-2024 Patient encounter procedure Nicolasa Becerril MD Work Phone: Urology Comment on above: Prostate cancer (HCC ) (Primary Dx); Lower urinary tract symptoms (LUTS) Start: 01-26-2024 End: 01-29-2024 ambulatory Nicolasa Becerril MD Work Phone: Urology Start: 12-24-2023 End: 02-10-2024 Pre-admission assessment Sridhar BARNES [facility] Start: 08-28-2023 ambulatory Sridhar Redd BARNES Facili ty:[facility] [place] Start: 08-27-2023 Telephone encounter Ivan Kwame [facility] Start: 08-27-2023 End: 08-27-2023 ambulatory DO Ivan Suazo Work Phone: [facility] Work Phone: Start: 08-27-2023 End: 08-27-2023 Encounter for general adult medical examination without abnormal findings DO Ivan Suazo Work Phone: [facility] Start: 08-27-2023 End: 08-27-2023 Patient encounter procedure DO Ivan Suazo Work Phone: [facility] Work Phone: Start: 08-21-2023 End: 08-22-2023 ambulatory Sridhar BARNES Facility:[facility] [place] Start: 08-21-2023 End: 08-21-2023 Patient encounter procedure Sridhar R BARNES [facility] [place] Start: 08-19-2023 Non-patient / Non-visit DO Jm Suazo Work Phone: [facility] Work Phone: Start: 07-13-2023 End: 07-13-2023 Patient encounter procedure DO Ivan Suazo Work Phone: [facility] Work Phone: Start: 02-20-2023 End: 02-21-2023 ambulatory Sridhar BARNES Facility:[facility] [place] Start: 02-18-2023 End: 02-18-2023 ambulatory Ivan Suazo Other [facility] [employer] Other Start: 02-18-2023 Telephone encounter Ivan Suazo [facility] Start: 02-10-2023 End: 02-11-2023 ambulatory Sridhar BARNES Facility[facility] Start: 02-10-2023 End: 02-10-2023 Patient encounter procedure Sridhar R DERECK [facility] Start: 01-12-2023 End: 01-13-2023 ambulatory Sridhar BARNES Facility:[facility] Start: 01-12-2023 End: 01-12-2023 Patient encounter procedure Sridhar R DERECK [facility] Start: 09-15-2022 End: 09-15-2022 ambulatory Ivan Suazo Other [facility] Other Start: 09-15-2022 Office outpatient vi sit 15 minutes Ivan Suazo [facility] Start: 08-22-2022 Encounter for genera l adult medical examination without abnormal findings DR IVAN SUAZO [facility] Start: 08-21-2022 End: 08-21-2022 ambulatory Ivan Suazo Other [facility] Other Start: 08-21-2022 Encounter for genera l adult medical examination without abnormal findings Ivan Suazo [facility] Start: 08-21-2022 Periodic preventive med est patient 40-64yrs Ivan Suazo [facility] Start: 08-16-2022 End: 08-17-[address] IVAN SUAZO Facility:[facility] Start: 08-16-2022 End: 08-17-2022 Encounter for general adult medical examination without abnormal findings DR IVAN SUAZO Facility:[facility] Start: 04-30-2022 End: 05-01-[address] IVAN SUAZO Facility:[facility] Start: 04-30-2022 End: 04-30-2022 Lab Drop off RACHEL DIXON [facility] Start: 04-30-2022 End: 04-30-2022 Patient encounter procedure RACHEL DIXON [facility] Start: 10-15-2021 End: 10-15-[address] IVAN SUAZO Facility:[facility] Start: 09-10-2021 End: 09-10-2021 Patient encounter procedure Zev Thomson Jr. [facility] Start: 08-14-2021 Adult health examination Jose Angel Suazo Other [facility] Other Procedures Date Procedure Procedure Detail Performing Clinician Start: 09-08-2024 Ultrasonography of bilateral kidneys Ivan Suazo DO Work Phone: Start: 04-12-2024 Urnls dip stick/tabl et rgnt auto w/o microscopy Nicolasa Becerril MD Work Phone: Start: 03-25-2024 Urnls dip stick/tabl et rgnt auto w/o microscopy Elizabeth Rose CASTING SUPERVISORJAYE Work Phone: Start: 01-26-2024 Urnls dip stick/tabl et rgnt auto w/o microscopy Bulk Order Provider Start: 07-13-2023 MR prostate wo/w con DO Ivan Suazo Work Phone: Start: 02-10-2023 Transrectal biopsy o f prostate using ultrasound guidance Sridhar BARNES Start: 08-16-[address] KOBE SUAZO Comment on above: Performed By: #### P [facility] #### [facility] [address] [place] [address] Dr. Art Napoles Start: 10-08-2020 Transrectal biopsy o f prostate Zev Thomson Jr. Start: 11-07-2016 General examination of patient Ivan Suazo Other Depression screening [place] Other Lip structure (body structure) Sridhar BARNES Structure of eye pro per (body structure) Sridhar BARNES Vasectomy Zev Thomson Jr [place] Plan of Treatment Date Care Activity Detail Author Start: 09-12-2027 Screening for malign ant neoplasm of colon [facility] Start: 03-25-2027 Diabetes Screening Diabetes Screenin g [facility] Start: 01-16-2025 Influenza vaccination Influenz a Vaccine (Season Ended) [facility] Start: 10-03-2024 End: 01-02-2025 Prostate specific Ag [Mass/volume] in Serum or Plasma PROSTATE-SPECIFIC ANTIGEN DIAGNOSTIC Lab Routine Prostate cancer (HCC) Expected: 10/03/2024 (Approximate), Expires: 01/02/2025 [facility] Work Phone: Comment on above: Expected: 10/03/2024 (Approximate), Expires: 01/02/2025 Start: 10-03-2024 End: 10-03-2024 ambulatory 10/03/2024 11:30 AM EDT [facility] [address] [address] Neelima Bedoya, KEON.MILITARY SOURCE OPERATIONS OFFICER [address] [place] [address] 6m VV per cc chart Urology Comment on above: 6m VV per cc chart Start: 08-27-2024 Screening for malign ant neoplasm of colon [facility] Start: 07-25-2024 End: 07-25-2024 Patient encounter procedure 07/25/2024 4:00 PM EDT Office Visit Kidney Medicine [address] [place] [address] [place] [address] [place] [address] Nephrolithiasis [facility] Comment on above: Nephrolithiasis Start: 04-01-2024 End: 04-01-2024 Admission to same day surgery center 04/01/2024 12:25 PM EST - 04/01/2024 2:19 PM EST Surgery Admitting [address] [place] [address] Nicolasa Becerril MD [address] [place] [address] BIOPSIES, PROSTATE, NEEDLE, TRANSPERINEAL, STEREOTACTIC TEMPLATE GUIDED SATURATION SAMPLING, INCLUDING IMAGING GUIDANCE Admitting Comment on above: BIOPSIES, PROSTATE, NEEDLE, TRANSPERINEAL, STEREOTACTIC TEMPLATE GUIDED SATURATION SAMPLING, INCLUDING IMAGING GUIDANCE Start: 04-01-2024 End: 04-01-2024 Bx prostate strtctc saturation sampling img gid BIOPSIES, PROSTATE, NEEDLE, TRANSPERINEAL, STEREOTACTIC TEMPLATE GUIDED SATURATION SAMPLING, INCLUDING IMAGING GUIDANCE Elevated PSA 04/01/2024 12:25 PM EST [facility] Start: 04-01-2024 Subsequent hospital visit by physician 04/01/2024 12:25 PM EST Hospital Encounter Admitting [address] [place] [address] Nicolasa Becerril MD [address] [place] [address] Elevated PSA [R97.20] Admitting Comment on above: Elevated PSA [R97.20 ] Start: 04-01-2024 End: 04-01-2024 Admission to same day surgery center 04/01/2024 7:30 AM EST - 04/01/2024 9:09 AM EST Surgery Admitting [address] [place] [address] Nicolasa Becerril MD [address] [place] [address] BIOPSIES, PROSTATE, NEEDLE, TRANSPERINEAL, STEREOTACTIC TEMPLATE GUIDED SATURATION SAMPLING, INCLUDING IMAGING GUIDANCE Admitting Comment on above: BIOPSIES, PROSTATE, NEEDLE, TRANSPERINEAL, STEREOTACTIC TEMPLATE GUIDED SATURATION SAMPLING, INCLUDING IMAGING GUIDANCE Start: 04-01-2024 End: 04-01-2024 Bx prostate strtctc saturation sampling img gid BIOPSIES, PROSTATE, NEEDLE, TRANSPERINEAL, STEREOTACTIC TEMPLATE GUIDED SATURATION SAMPLING, INCLUDING IMAGING GUIDANCE Elevated PSA 04/01/2024 7:30 AM EST [facility] Start: 04-01-2024 Subsequent hospital visit by physician 04/01/2024 7:30 AM EST Hospital Encounter Admitting [address] [place] [address] Nicolasa Becerril MD [address] [place] [address] Elevated PSA [R97.20] Admitting Comment on above: Elevated PSA [R97.20 ] Start: 03-25-2024 End: 03-25-2024 Patient encounter procedure 03/25/2024 3:30 PM EST Office Visit Urology [address] [address] Elizabeth Rose, KEON.MILITARY SOURCE OPERATIONS OFFICER [address] [place] [address] H&P, preop teaching Urology Comment on above: H&P, preop teaching Start: 03-25-2024 End: 03-25-2024 ambulatory 03/25/2024 2:30 PM EST Results Only [facility] [place] [facility] [address] [address] pre op-labs [facility] [place] [facility] Comment on above: pre op-labs Start: 03-25-2024 End: 06-24-2024 Bacteria identified in Urine by Culture [facility] Comment on above: Expected: 03/25/2024 , Expires: 06/24/2024 Start: 03-25-2024 End: 06-24-2024 Basic metabolic 2000 panel - Serum or Plasma [facility] Work Phone: Comment on above: Expected: 03/25/2024 , Expires: 06/24/2024 Start: 03-07-2024 Subsequent hospital visit by physician 03/07/2024 Hospital Encounter Admitting [address] [place] [address] Nicolasa Becerril MD [address] [place] [address] Elevated PSA [R97.20] Admitting Comment on above: Elevated PSA [R97.20 ] Start: 03-01-2024 End: 03-01-2024 Patient encounter procedure 03/01/2024 2:00 PM EDT Office [place] [address] Pre-Op [employer] Screening Comment on above: Pre-Op Start: 01-17-2024 Covid-19 Vaccine ( season) Covid-19 Vaccine ( season) [facility] Start: 01-17-2024 Covid-19 Vaccine ( season) Covid-19 Vaccine ( season) [facility] Start: 01-17-2024 Influenza vaccination Influenza Vacc ine (#1) [facility] Start: 08-11-2021 Pneumococcal Vaccine : 50+ (1 of 1 - PCV) Pneumococcal Vaccine: 50+ (1 of 1 - PCV) [facility] Start: 08-11-2021 Shingrix Vaccine (1 of 2) Brady grix Vaccine (1 of 2) [facility] Start: 08-11-2016 Diabetes Screening Diabetes Screenin g [facility] Start: 08-11-2016 Screening for malign ant neoplasm of colon [facility] Start: 08-11-2006 Lipid panel Lipid Screening [facility] Start: 08-11-1990 Hepatitis B Vaccine (1 of 3 - 19+ 3-dose series) Hepatitis B Vaccine (1 of 3 - 19+ 3-dose series) [facility] Start: 08-11-1990 Urine microalbumin profile DTaP,Tdap,Td Vaccine (1 - Tdap) [facility] Start: 08-11-1989 Anxiety Screening Anxiety Screening [facility] Start: 08-11-1989 Depression Screening Depression Scre ening [facility] Start: 08-11-1989 Hepatitis C screening Hepatitis C Sc reening [facility] Start: 08-11-1989 HIV screening HIV Screening [facility] Bx prostate strtctc saturation sampling img gid BIOPSIES, PROSTATE, NEEDLE, TRANSPERINEAL, STEREOTACTIC TEMPLATE GUIDED SATURATION SAMPLING, INCLUDING IMAGING GUIDANCE Elevated PSA [facility] metabo lic 2000 panel - Serum or Plasma [facility] UA DIP, URINE (POC) UA DIP, URIN E (POC) Lab Routine Screening for genitourinary condition Ordered: 03/25/2024 [facility] Work Phone: Comment on above: Ordered: 03/25/2024 UA DIP, URINE (POC) UA DIP, URIN E (POC) Lab Routine Screening for genitourinary condition Ordered: 04/12/2024 [facility] Work Phone: Comment on above: Ordered: 04/12/2024 [facility] Immunizations Immunization Date Immunization Notes Care Provider Tk [email or web address] 02-13-2022 influenza virus vaccine, unspecified formulation Sridhar BARNES [facility] 04-26-2021 SARS-CoV-2 (COVID-19 ) mRNA-1273 vaccine Sridhar BARNES [facility] 03-22-2021 influenza virus vaccine, unspecified formulation Sridhar BARNES [facility] 10-12-2020 SARS-CoV-2 (COVID-19 ) mRNA-1273 vaccine Sridhar BARNES [facility] 09-02-2020 SARS-CoV-2 (COVID-19 ) mRNA BNT-162b2 gaudencio Thomson Jr. [facility] 2020 SARS-CoV-2 (COVID-19 ) mRNA BNT-162b2 gaudencio Thomson Jr. 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 .[id number] 1959 Unknown [id number] Unknown [id number] .[id number] Social History Date Type Detail Facility Start: 09-10-2021 End: 03-25-2024 Tobacco smoking status Never smoked tobacco (finding) [facility] Start: 01-26-2024 End: 03-01-2024 Sex Assigned At Male [facility] Tobacco smoking status Never [facility] Start: 1970 Sex Assigned At Male F [facility] Tobacco smoking status NHIS Tobacco smoking consumption unknown [facility] Start: 01-26-2024 End: 03-01-2024 History of Social function [facility] Start: 1970 Sex assigned at Not on file [facility] Start: 03-25-2024 Tobacco use and exposure Smokeless tobacco non-user [facility] Start: 09-09-2024 Sex Male (finding) [facility] Functional Status Date Assessment Result Facility 08-21-2023 Functional Status N/A [facility] 02-10-2023 Functional Status N/A [facility] 01-12-2023 Functional Status N/A [facility] 04-30-2022 Functional Status N/A [facility] Clinical Notes 09-15-2020 to 10-03-2024 Neelima Bedoya APRN.MILITARY SOURCE OPERATIONS OFFICER - 10/03/2024 11:30 AM EDT Note Date & Type Note Facility 10-03-2024 History of Present illness Narrative [facility] ESTABLISHED PATIENT VIRTUAL VISIT This is a virtual visit using [employer] Visit. It required patient-provider interaction for the medical decision making as documented below. I have communicated my name and active licensure. The patient's identity and physical location were verified at the time of this visit. Either the patient or their legal artists' booking representative has been informed of the risks and benefits of -- and alternatives to -- treatment through a remote evaluation and consents to proceed with the evaluation remotely. Clinic [...] involved 20% Genomics Completed? No Genomics Type: Vicino Oncotype Genomics Score: 07/13/2023 1st MRI of [...] right medial posterior, biopsy: - Prostatic adenocarcinoma, Augusta score 3+3=6 (Grade Group 1), involving 1 of 2 cores (20%, 3 mm). G. Prostate, right lateral anterior, biopsy: - Benign prostatic tissue. H. Prostate, right lateral posterior, biopsy: - Benign prostatic tissue. LABS: Creatinine Date Value Ref Range Status 03/25/2024 0.84 0.73 - 1.22 mg/dL Final No results found for: PSA URINALYSIS: Specific [place], Ur Date Value Ref Range Status 01/26/2024 [...] which included preparing to see the patient, [id number] patient care, completing clinical documentation, counseling and educating the patient/family/caregiver, ordering medications, tests, or procedures, and independently interpreting results (not separately reported). Neelima Bedoya APRN.ANASTASIYA documented in this encounter [facility] 10-03-2024 Note HNO ID: [id number] Author: NEELIMA BEDOYA APRN.ANASTASIYA Service: ? Author Type: Nurse Practitioner Type: Progress Notes Filed: 10/03/2024 11:36 Note Text: [facility] ESTABLISHED PATIENT VIRTUAL VISIT This is a virtual visit using [employer] Zoom Video Visit. It required patient-provider interaction for the medical decision making as documented below. I have communicated my name and active licensure. The patient's identity and physical location were verified at the time of this visit. Either the patient or their legal artists' booking representative has been informed of the risks and benefits of -- and alternatives to -- treatment through a remote evaluation and consents to proceed with the evaluation remotely. Clinic [...] involved 20% Genomics Completed? No Genomics Type: Vicino Oncotype Genomics Score: 07/13/2023 1st MRI of [...] right medial posterior, biopsy: - Prostatic adenocarcinoma, Augusta score 3+3=6 (Grade Group 1), involving 1 of 2 cores (20%, 3 mm). G. Prostate, right lateral anterior, biopsy: - Benign prostatic tissue. H. Prostate, right lateral posterior, biopsy: - Benign prostatic tissue. LABS: Creatinine Date Value Ref Range Status 03/25/2024 0.84 0.73 - 1.22 mg/dL Final No results found for: PSA URINALYSIS: Specific [place], Ur Date Value Ref Range Status 01/26/2024 [...] which included preparing to see the patient, [id number] patient care, completing clinical documentation, counseling and educating the patient/family/caregiver, ordering medications, tests, or procedures, and independently interpreting results (not separately reported). Neelima Bedoya APRN.[facility] 09-08-2024 Radiology Diagnostic study note [facility] Main [place] [address] [place] [address] Ultrasound Report Signed Patient: Rey Jara MR#: [id number] : 1970 Acct:[id number] Age/Sex: 54 / M ADM Date: 5 Loc: Room: Type: [facility] Attending Dr: Indu Nickerson MD Ordering Provider: Indu Nickerson MD Date of Service: 09/08/24 US/US renal BI: N20.0 Copies to: Indu Nickerson MD~ BILATERAL RENAL AND BLADDER ULTRASOUND CLINICAL HISTORY: History of kidney stones. COMPARISON: None FINDINGS: Estimation of renal size is approximately 11.29 cm on the right and 12.13 cm onthe left. No contour deforming mass, shadowing stone or hydronephrosis. The urinary bladder is partially distended with a volume of 58.70 ml. No shadowing stone or focal lesion. No significant postvoid residual. US/US renal BI IMPRESSION: No acute findings. Impression dictated by: Merrick Melendez Jr., D.O.09/08/2024 9:14 AM Dictation Location: [place] [address] Tech: Sonia Magallon Transcribed By: RAMESH 09/08/24913 Dictated By: Merrick Melendez Jr, DO 09/08/24 0911 Signed By: 09/08/24 0914 [facility] 09-01-2024 Evaluation note Diagnosis Onset Date Resolution Cervical spondylosis with radiculopathy acute September 01, 025 9:19am GERD (gastroesophageal reflux disease) acute September 01, 2024 9:19am Primary hypertension acute Apri l 2024 9:19am Prostate cancer acute August 9:19am Encounter for screening for malignant neoplasm of colon noneactive September 01, 2024 9:19am Wellness examination noneactive 2024 9:19am [facility] Work Phone: [phone]) 367-520604-15-2025 Telephone encounter Note* Telephone Encounter - Aileen Thomson OCCA - 08/30/2024 2:17 PM EDT Called pt in regards to what [facility] he prefers ultrasound order faxed to. Unable to leave voicemail. MC message sent to pt. NIYAH Bella [facility]04-15-2025 Miscellaneous Notes* Telephone Encounter - Aileen Thomson OCCA - 08/30/2024 2:17 PM EDT Called pt in regards to what [facility] location he prefers ultrasound order faxed to. Unable to leave voicemail. MC message sent to pt. NIYAH Bella documented in this encounterL[facility]03-[facility]25 Telephone encounter Note * Telephone Encounter - Indu Nickerson MD - 07/25/2024 4:16 PM EDT Juan Carlos Villavicencio - please get report on last CT scan [facility] Work Phone: [phone]) [phone] Miscellaneous Notes* Telephone Encounter - Indu Nickerson MD - 07/25/2024 4:16 PM EDT Juan Carlos Saud - please get report on last CT scan documented in this encounterLake[facility]03-10-2025 Instructions* Patient Instructions* Indu Nickerson MD - 07/25/2024 4:15 PM EDT 1) Increase fluid intake to 2+ liters (80-100oz) 2) Decrease salt intake. Follow low salt diet - Avoid processed food. Decrease eating out with fast food and takeout. 3) Decrease oxalate in diet (limit nuts, peanut butter, soy, spinach, sweet potatoes) - Pair any high oxalate foods with dairy products like cheese, milk, yogurt - Decrease High-oxalate fruits: berries, kiwis, figs, purple grapes - Decrease High-oxalate vegetables: spinach, sweet potatoes, rhubarb, okra, leeks, beets, Tajik chard, legumes, beans, lentils - Decrease High oxalate foods: almonds, cashews, peanuts, soy products, cocoa, chocolate, tea - Decrease High oxalate grain products: bran flakes, wheat germ, quinoa 4) Lemon juice in water, lemonade - 4 oz lemon concentrate in 2L of water - Crystal light lemonade documented in this encounterLake[facility]03-10-2025 History of Present illness Narrative* Indu Nickerson MD - 07/25/2024 4:00 PM EDT [facility] SERVICE DATE & TIME: July 25, 2024 4:08 PM PRIMARY CARE PHYSICIAN: Ivan Suazo, DO REASON FOR CONSULT: I am asked to see this patient in consultation for my opinion regarding kidney stones. My recommendations will be communicated by way of shared medical record, fax, or mail. HPI: Mr. Jara is a 53 yo M PMHx of BPH, HTN presenting for kidney stone management. Diet: BF: Cereal. 2% milk Lunch: Potato chips, breaded chicken tenders Dinner: Hello fresh. No nondairy milk No peanut butter - only during lent Rare to eat nuts Caffeine: Weekend soda Alcohol: Weekend - History of kidney stones for which his urologist had prescribed HCTZ. History of three kidney stones; last episode was severe, requiring emergency care. - Family hx of kidney stones in siblings - HTN: 3 years. - Fluid intake: Not tracking. - Limiting salt due to HTN HCTZ 12.5mg, Norvasc 5mg PAST MEDICAL HISTORY: PAST MEDICAL HISTORY Diagnosis Date BPH (benign prostatic hyperplasia) Nephrolithiasis Prostate cancer (HCC) PAST SURGICAL HISTORY: No past surgical history on file. FAMILY HISTORY: No family history on file. SOCIAL HISTORY: reports that he has never smoked. He has never used smokeless tobacco. MEDICATIONS: dutasteride (AVODART) 0.5 mg capsule Take 1 capsule by mouth once daily. hydroCHLOROthiazide 12.5 mg tablet Take 12.5 mg by mouth once daily. amLODIPine (NORVASC) 5 mg tablet Take by mouth once daily. ALLERGIES: ALLERGIES Allergen Reactions Penicillins Hives, Unknown REVIEW OF SYSTEMS: PHYSICAL EXAM: BP 137/88 (BP Position: Sitting) Pulse 78 Ht 170.2 cm (5' 7.01 ) Wt 85.3 kg (188 lb 0.8 oz) BMI 29.45 kg/m Constitutional: NAD Eyes: PERRL, Conjunctiva Clear Ear, Nose, and Throat: MMM Neck:Trachea midline Respiratory: Normal respiratory effort. Neurologic: Normal balance. Normal Gait Psychiatric: Alert and oriented x self, place, time, and setting. Normal mood/affect DATA: Diagnostic tests reviewed for today's visit: CBC: Lab Results Component Value Date WBC 5.14 03/25/2024 HB 16.1 03/25/2024 HCT 48.0 03/25/2024 PLT 239 03/25/2024 BMP: Lab Results Component Value Date NA 139 03/25/2024 K 3.7 03/25/2024 CHLOR 99 03/25/2024 GLUC 151 (H) 03/25/2024 CA 9.6 03/25/2024 RENAL FUNCTION Lab Results Component Value Date BUN 13 03/25/2024 CREAT 0.84 03/25/2024 EGFROTH 105 03/25/2024 ACID/BASE Lab Results Component Value Date CO2 28 03/25/2024 ANION 12 03/25/2024 BONE/MINERAL METABOLISM Lab Results Component Value Date CA 9.6 03/25/2024 URINE: Urine POC Lab Results Component Value Date UGLUCPOC Negative 04/12/2024 UBILIPOC Negative 04/12/2024 UKETONPOC Trace 04/12/2024 USGPOC 1.025 04/12/2024 UHBPOC Negative 04/12/2024 UPHPOC 6.5 04/12/2024 UPROPOC Negative 04/12/2024 UUROPOC 0.2 04/12/2024 UNITPOC Negative 04/12/2024 UWBCPOC Negative 04/12/2024 UCOLPOC Dark yellow 04/12/2024 UCLARPOC Clear 04/12/2024 ASSESSMENT: Mr. Jara is a 53 yo M PMHx of BPH, HTN presenting for kidney stone management. Kidney Stones: Unknown composition Discussed at length interventions to prevent stone formation. - Discussed increasing fluid intake to produce 2+ L urine daily. - Discussed increasing citrate in diet with lemon juice etc. - Discussed low salt diet. - Discussed low oxalate diet. HTN: BP controlled. PLAN: Dietary counseling as above Hx of hypercalciuria - continue HCTZ Lithol[employer] order form given SIGNATURE: Indu Nickerson MD. PATIENT NAME: Rey Jara DATE & TIME: July 25, 2024 4:50 PM OFFICE NUMBER: [phone] CC: REFERRING PROVIDER: Nicolasa Becerril MD PRIMARY CARE PHYSICIAN: Ivan Suazo DO documented in this encounterLake[facility]03-10-2025 NoteHNO ID: [id number] Author: INDU NICKERSON MD Service: ? Author Type: Physician Type: Progress Notes Filed: 07/25/2024 16:51 Note Text: [facility] SERVICE DATE AND TIME: July 25, 2024 4:08 PM PRIMARY CARE PHYSICIAN: Ivan Suazo DO REASON FOR CONSULT: I am asked to see this patient in consultation for my opinion regarding kidney stones. My recommendations will be communicated by way of shared medical record, fax, or mail. HPI: Mr. Jara is a 53 yo M PMHx of BPH, HTN presenting for kidney stone management. Diet: BF: Cereal. 2% milk Lunch: Potato chips, breaded chicken tenders Dinner: Hello fresh. No nondairy milk No peanut butter - only during lent Rare to eat nuts Caffeine: Weekend soda Alcohol: Weekend - History of kidney stones for which his urologist had prescribed HCTZ. History of three kidney stones; last episode was severe, requiring emergency care. - Family hx of kidney stones in siblings - HTN: 3 years. - Fluid intake: Not tracking. - Limiting salt due to HTN HCTZ 12.5mg, Norvasc 5mg PAST MEDICAL HISTORY: PAST MEDICAL HISTORY Diagnosis Date BPH (benign prostatic hyperplasia) Nephrolithiasis Prostate cancer (HCC) PAST SURGICAL HISTORY: No past surgical history on file. FAMILY HISTORY: No family history on file. SOCIAL HISTORY: reports that he has never smoked. He has never used smokeless tobacco. MEDICATIONS: dutasteride (AVODART) 0.5 mg capsule Take 1 capsule by mouth once daily. hydroCHLOROthiazide 12.5 mg tablet Take 12.5 mg by mouth once daily. amLODIPine (NORVASC) 5 mg tablet Take by mouth once daily. ALLERGIES: ALLERGIES Allergen Reactions Penicillins Hives, Unknown REVIEW OF SYSTEMS: PHYSICAL EXAM: BP 137/88 (BP Position: Sitting) Pulse 78 Ht 170.2 cm (5' 7.01 ) Wt 85.3 kg (188 lb 0.8 oz) BMI 29.45 kg/m? Constitutional: NAD Eyes: PERRL, Conjunctiva Clear Ear, Nose, and Throat: MMM Neck:Trachea midline Respiratory: Normal respiratory effort. Neurologic: Normal balance. Normal Gait Psychiatric: Alert and oriented x self, place, time, and setting. Normal mood/affect DATA: Diagnostic tests reviewed for today's visit: CBC: Lab Results Component Value Date WBC 5.14 03/25/2024 HB 16.1 03/25/2024 HCT 48.0 03/25/2024 PLT 239 03/25/2024 BMP: Lab Results Component Value Date NA 139 03/25/2024 K 3.7 03/25/2024 CHLOR 99 03/25/2024 GLUC 151 (H) 03/25/2024 CA 9.6 03/25/2024 RENAL FUNCTION Lab Results Component Value Date BUN 13 03/25/2024 CREAT 0.84 03/25/2024 EGFROTH 105 03/25/2024 ACID/BASE Lab Results Component Value Date CO2 28 03/25/2024 ANION 12 03/25/2024 BONE/MINERAL METABOLISM Lab Results Component Value Date CA 9.6 03/25/2024 URINE: Urine POC Lab Results Component Value Date UGLUCPOC Negative 04/12/2024 UBILIPOC Negative 04/12/2024 UKETONPOC Trace 04/12/2024 USGPOC 1.025 04/12/2024 UHBPOC Negative 04/12/2024 UPHPOC 6.5 04/12/2024 UPROPOC Negative 04/12/2024 UUROPOC 0.2 04/12/2024 UNITPOC Negative 04/12/2024 UWBCPOC Negative 04/12/2024 UCOLPOC Dark yellow 04/12/2024 UCLARPOC Clear 04/12/2024 ASSESSMENT: Mr. Jara is a 53 yo M PMHx of BPH, HTN presenting for kidney stone management. Kidney Stones: Unknown composition Discussed at length interventions to prevent stone formation. - Discussed increasing fluid intake to produce 2+ L urine daily. - Discussed increasing citrate in diet with lemon juice etc. - Discussed low salt diet. - Discussed low oxalate diet. HTN: BP controlled. PLAN: Dietary counseling as above Hx of hypercalciuria - continue HCTZ Lithol[employer] order form given SIGNATURE: Indu Nickerson MD. PATIENT NAME: Rey Jara DATE AND TIME: July 25, 2024 4:50 PM OFFICE NUMBER: [phone] CC: REFERRING PROVIDER: Nicolasa Becerril MD PRIMARY CARE PHYSICIAN: Ivan Suazo, [facility]11-26-2024 NoteHNO ID: [id number] Author: NICOLASA BECERRIL MD Service: ? Author Type: Physician Type: Progress Notes Filed: 05/10/2024 07:42 Note Text: PATIENT: Rey Jara [id number] 04/12/2024 Chief Complaint: Discuss pathology History of Present Illness: Rey Jara is a very pleasant 53 year old male who presents with a history of kidney stones, BPH with urinary obstruction, and low risk prostate cancer on (GG1 dx 10/08/20). Went on dutasteride with PSA decrease from 16 to 7.9. Patient recommended repeat biopsy at 01/26/[address] Becerril. MRI prostate without obvious lesion. Patient now s/p TP fusion prostate biopsy 04/01/24 (systematic biopsies x16 with extra anterior sampling bilaterally) with path c/w GG1 prostate cancer in 1/16 cores (20% highest involvement without adverse path features). Interval history: Had GH post-biopsy, since resolved. Notes that he has new-onset ED and wonders if this is related to the biopsy? Also notes history of kidney stones for which his urologist had prescribed HCTZ. Since he has transferred his care, he would like to monitor this and would like to have a consultation with our medical management of stones team. Prostate Cancer Active Surveillance History in Brief Date (mm/yy) Test Result PSA 08/19/2023 7.93 03/31/2023 16.6 04/01/2024 1st Prostate Biopsy positive, 1st Biopsy Grade Group 1 # of positive cores (1/16) Highest % of core involved 20% Genomics Completed? No Genomics Type: Vicino Oncotype Genomics Score: 07/13/2023 1st MRI of Prostate Prostate Volume (ccs/grams) ? Highest PIRADS 1 Physical Exam: Patient is a 53 year old male Constitutional: Vitals: There were no vitals taken for this visit. General Appearance Adult: Alert, no acute distress, oriented Lungs/Repiratory: no respiratory distress, or pursed lip breathing Psych: affect and mood normal Abdomen: Estimated body mass index is 28.35 kg/m? as calculated from the following: Height as of 04/01/24: 170.2 cm (5' 7 ). Weight as of 04/01/24: 82.1 kg (181 lb). Labs and Pathology and Imaging: Surgical Pathology (04/01/2024) FINAL DIAGNOSIS A. Prostate, left lateral anterior, [...] right medial posterior, biopsy: - Prostatic adenocarcinoma, Augusta score 3+3=6 (Grade Group 1), involving 1 of 2 cores (20%, 3 mm). G. Prostate, right lateral anterior, biopsy: - Benign prostatic tissue. H. Prostate, right lateral posterior, biopsy: - Benign prostatic tissue. Prostate Cancer Biopsy Summary Number of cores examined: 16 Number of cores positive: 1 Highest Grade Group: 1 Highest % of core involvement: 20% (3 mm) Unfavorable histology: Absent Borderline histology: Absent Large cribriform pattern 4: Absent Intraductal carcinoma: Absent Block for additional biomarkers/molecular studies: F1 Assessment: 53 year old male with history of prostate cancer, GG1 on Plan: 1) Prostate Cancer: recent biopsy -- GG1 on : PSA in 6 mo with virtual visit. MRI every 1-2 years. No more biopsies unless PSA or MRI show signs of concern. 2) Sexual function: Monitor post-biopsy -- he will let us know if not improved and requires medications for ED. Expected to go away with time. Pt denies hematuria. 3) Nephrolithiasis -- referral to Nephrology placed I spent a total of 30 minutes on the date of the service which included preparing to see the patient, [id number] patient care, completing clinical documentation, obtaining and/or reviewing separately obtained history, performing a medically appropriate examination, counseling and educating the patient/family/caregiver, ordering medications, tests, or procedures, independently interpreting results (not separately reported), communicating results to the patient/family/caregiver, and care coordination (not separately reported). The patient is seen and examined by Dr. Nicolasa Becerril and the following reflects his/her service. Scribed by Genia Solis I agree with the Chief Complaint, ROS, and Past Histories independently gathered by the clinical administrative support coordinator including scribe and or medical student and or BLAZE and or resident or fellow and the remaining scribed note accurately describes my personal service to the patient. Prostate Cancer: - Recent biopsy showed one low-grade tumor, a decrease from two areas in a previous biopsy. - Reports hematuria post-procedure, but no hematospermia noted. - Experiencing ED since the procedure. (more content not included)...[facility]11-26-2024 History of Present illness Narrative* Nicolasa Becerril MD - 04/12/2024 3:50 PM EST PATIENT: Rey Jara [id number] 04/12/2024 Chief Complaint: Discuss pathology History of Present Illness: Rey Jara is a very pleasant 53 year old male who presents with a history of kidney stones,BPH with urinary obstruction, and low risk prostate cancer on (GG1 dx 10/08/20). Went on dutasteride with PSA decrease from 16 to 7.9. Patient recommended repeat biopsy at 01/26/[address] Becerril. MRI prostate without obvious lesion. Patient now s/p TP fusion prostate biopsy 04/01/24 (systematic biopsies x16 with extra anterior sampling bilaterally) with path c/w GG1 prostate cancer in 1/16 cores (20% highest involvement without adverse path features). Interval history: Had GH post-biopsy, since resolved. Notes that he has new- onset ED and wonders ifthis is related to the biopsy? Also notes history of kidney stones for which his urologist had prescribed HCTZ. Since he has transferred his care, he would like to monitor this and would like to have a consultation with our medical management of stones team. Prostate Cancer Active Surveillance History in Brief Date (mm/yy) Test Result PSA 08/19/2023 7.93 03/31/2023 16.6 04/01/2024 1st Prostate Biopsy positive, 1st Biopsy Grade Group 1 # of positive cores (1/16) Highest % of core involved 20% Genomics Completed? No Genomics Type: Decipher Oncotype Genomics Score: 07/13/2023 1st MRI of Prostate Prostate Volume (ccs/grams) ? Highest PIRADS 1 Physical Exam: Patient is a 53 year old male Constitutional: Vitals: There were no vitals taken for this visit. General Appearance Adult: Alert, no acute distress, oriented Lungs/Repiratory: no respiratory distress, or pursed lip breathing Psych: affect and mood normal Abdomen: Estimated body mass index is 28.35 kg/m as calculated from the following: Height as of 04/01/24: 170.2 cm (5' 7 ). Weight as of 04/01/24: 82.1 kg (181 lb). Labs and Pathology and Imaging: Surgical Pathology (04/01/2024) FINAL DIAGNOSIS A. Prostate, left lateral anterior, [...] right medial posterior, biopsy: - Prostatic adenocarcinoma, Augusta score 3+3=6 (Grade Group 1), involving 1 of 2 cores (20%, 3 mm). G. Prostate, right lateral anterior, biopsy: - Benign prostatic tissue. H. Prostate, right lateral posterior, biopsy: - Benign prostatic tissue. Prostate Cancer Biopsy Summary Number of cores examined: 16 Number of cores positive: 1 Highest Grade Group: 1 Highest % of core involvement: 20% (3 mm) Unfavorable histology: Absent Borderline histology: Absent Large cribriform pattern 4: Absent Intraductal carcinoma: Absent Block for additional biomarkers/molecular studies: F1 Assessment: 53 year old male with history of prostate cancer, GG1 on Plan: 1) Prostate Cancer: recent biopsy -- GG1 on : PSA in 6 mo with virtual visit. MRI every 1-2 years. No more biopsies unless PSA or MRI show signs of concern. 2) Sexual function: Monitor post-biopsy -- he will let us know if not improved and requires medications for ED. Expected to go away with time. Pt denies hematuria. 3) Nephrolithiasis -- referral to Nephrology placed I spent a total of 30 minutes on the date of the service which included preparing to see the patient, [id number] patient care, completing clinical documentation, obtaining and/or reviewing separately obtained history, performing a medically appropriate examination, counseling and educating the pat ient/family/caregiver, ordering medications, tests, or procedures, independently interpreting results (not separately reported), communicating results to the patient/family/caregiver, and care coordination (not separately reported). The patient is seen and examined by Dr. Nicolasa Becerril and the following reflects his/her service. Scribed by Genia Solis I agree with the Chief Complaint, ROS, and Past Histories independently gathered by the clinical administrative support coordinator including scribe and or medical student and or BLAZE and or resident or fellow and the remaining scribed note accurately describes my personal service to the patient. Prostate Cancer: - Recent biopsy showed one low-grade tumor, a decrease from two areas in a previous biopsy. - Reports hematuria post-procedure, but no hematospermia noted. - Experiencing ED since the procedure. Nephrolithiasis: - History of three kidney stones; last episode was severe, requiring emergency care. - Recent 24-hour urine test showed high calcium levels; no high oxalate levels reported. - Modified diet to eliminate high-oxalate foods and beverages. Hyperlipidemia: - Recent health assessment revealed elevated triglycerides and low HDL levels. - Admits to having a sweet tooth. Nicolasa Becerril MD, [place] [facility] [place] [facility] documented in this encounterLakehealth Tripoint [facility] Center11-26-2024 NotePatient Outreach (UROLMN) REY JARA ([id number]) 1970 M Date Time Provider Department 04/12/24 NICOLASA BECERRIL During your visit today, we recorded the following information about you: Allergies As of Date: 04/12/2024 Noted Allergy Reaction PENICILLINS 08/27/2023 4 - Hives 16 - Unknown Date Reviewed: 04/12/2024 Reviewed by: Davion Mosher OCCA - Fully Assessed Visit Diagnosis:Screening for genitourinary condition [Z13.89] Order(s):UA DIP, URINE (POC) [[id number]] Order #: [id number] Prescriptions as of 04/15/2024 - dutasteride (AVODART) 0.5 mg capsule Take 0.5 mg by mouth once daily. - hydroCHLOROthiazide 12.5 mg tablet Take 12.5 mg by mouth once daily. - amLODIPine (NORVASC) 5 mg tablet Take by mouth once daily. Problem List As Of Date 04/12/2024 Noted Resolved Prostate cancer (HCC) [C61] BPH (benign prostatic hyperplasia) [N40.0] Nephrolithiasis [N20.0] Encounter Status:Closed by EPIC, PRODUSER on 04/15/24[facility] 04-01-2024 NoteHNO ID: [id number] Author: NAHOMY ENG MD Service: ? Author Type: Anesthesiologist Type: Anesthesia Procedure Notes Filed: 04/01/2024 14:05 Note Text: ANESTHESIOLOGY PROCEDURE NOTE Airway General Information Procedure Start Time/Medication Administration: 04/01/2024 1:27 PM Procedure End Time: 04/01/2024 1:30 PM Patient location during procedure: OR Timeout Performed Pre-procedure: timeout performed Consent Obtained: Yes Patient identity confirmed: arm band and patient Staffing Anesthesiologist: Nahomy Eng MD Resident: Francia Solares MD Performed by: anesthesiologist and resident Indications and Patient Condition Indications for airway management: anesthesia Preoxygenated: yes anesthesia circuit Patient position: sniffing Method: asleep Cricoid Pressure: No Difficult Mask: No Final Airway Details Final airway type: supraglottic airway Number of attempts at approach: 1 Final Supraglottic Airway: i-gel Size 4 Seal Adequate: yes Failed airway: no Unrecognized esophageal intubation: no Airway not difficult SIGNATURE: Nahomy Oglesby MD PATIENT NAME: Rey Jara DATE: April 01, 2024 TIME: 2:04 PM [facility]: [id number] Instructions* Patient Instructions* Elizabeth Rose APRN.CNP - 03/25/2024 3:07 PM EST Dietary Restrictions: - No solid food after midnight the day before surgery. - You may have 12 ounces of clear liquids (water, clear juices such as apple juice or gatorade, carbonated beverages, clear tea, black coffee, jello) until 2 hours before scheduled arrival at facility. NO MILK PRODUCTS. - Do not drink any alcohol after midnight the night before your surgery. Parking: Gatekeeper parking is available at the [facility], or [facility] entrance. This is the main entrance with the [address] [place] [address] Garage parking- or J parking garage is the closest to surgery check in desk. [address] [place], [place] [address] Arrival Time: Your arrival time will be provided to you the day before surgery. If you do not hear from surgery scheduling by 3:00 pm the day prior to your surgery, you can contact Urology Surgery at [phone]. We would like to reminded you that surgery time provided is tentative based on potential changes with transplant surgeries. Please check in at desk [address]9 in the [facility] Medications: Unless instructed differently below, stay on all of your medications until your surgery. Current Outpatient Medications on File Prior to Visit Medication Sig dutasteride (AVODART) 0.5 mg capsule Take 0.5 mg by mouth once daily. OK to take day of surgery with small sip of water hydroCHLOROthiazide 12.5 mg tablet Take 12.5 mg by mouth once daily. OK to take day of surgery with small sip of water amLODIPine (NORVASC) 5 mg tablet Take by mouth once daily. OK to take day of surgery with small sip of water No current facility-administered medications on file prior to visit. If you start any new medications after today's visit, please contact the surgeon's office. Blood Thinning Medications: - Stop NSAIDS (Ibuprofen, Advil, Aleve, Motrin, Celebrex, Mobic, etc.) 7 days before surgery, as directed by your surgeon. - Stop Aspirin 7 days before surgery, as directed by your surgeon. - Stop Vitamin E, ALL multi-vitamins, herbals and dietary supplements 7 days before surgery. - You may take Tylenol (Acetaminophen) or any of your pain medications that do not contain aspirin or NSAIDS as needed. Important Reminders: - If you are prescribed inhalers for breathing, continue using them. - If you wear contact prescription lenses, please remove them - Candy, mints, and tobacco products are NOT permitted the morning of surgery. - Hearing aids, dentures and glasses may be worn the morning of surgery. - NO jewelry, body piercings, makeup, hairpins or contacts are to be worn the day of surgery. Online surgical guide [email or web address] documented in this encounterL[facility] NoteHNO ID: [id number] Author: ELIZABETH ROSE APRN.ANASTASIYA Service: ? Author Type: Nurse Practitioner Type: Progress Notes Filed: 03/25/2024 15:05 Note Text: UROLOGY SURGICAL HANDP SERVICE DATE: 03/25/2024 SERVICE TIME: 1500 REFERRING PROVIDER: No referring provider defined for this encounter. PCP: Ivan Suazo DO GENDER: SUBJECTIVE CHIEF COMPLAINT: Pre-op exam HISTORY OF PRESENT ILLNESS: Mr. Jara is a 53 year old male who presents for pre-op HANDP FUNCTIONAL STATUS: Walk indoors, such as around the house (1.75 METs) Do light work around the house, such as dusting or washing dishes (2.70 METs) Take care of self, that is eating, dressing, bathing, using the toilet (2.75 METs) Do moderate work around the house such as vacuuming, sweeping floors, or carrying in groceries (3.50 METs) Do yardwork, such as raking leaves, weeding,or pushing a power mower (4.50 METs) Participate in moderate recreational activities, such as golf, bowling, dancing, doubles tennis, or throwing a baseball or football (6.00 METs) Do heavy work around the house, such as scrubbing floors, lifting or moving heavy furniture (8.00 METs) No past medical history on file. No past surgical history on file. No family history on file. REVIEW OF SYSTEMS: General: General: Well developed, well nourished. No acute distress HEENT: Negative for sore throat, difficulty swallowing. Negative for frequent or significant headaches, changes in vision or hearing. Cardiovascular: No history of angina, CHF, AR, cardiac surgery of stents. Respiratory: Negative for current cough, dyspnea. No hx of pneumonia in the past six weeks Gastrointestinal: No history of GERD, PUD, abd pain, difficulty swallowing, GI bleed. Renal: Negative for renal failure and No history of dialysis Musculoskeletal: Negative for joint pain or swelling, back pain or muscle pain. Skin: Negative for lesions, rash and itching. Psychological: No history of psychiatric symptoms or problems. Neurologic: No history of TIA's, stroke, COFFIN MAKER tumor, impaired sensorium, hemiplegia or paraplegia No neurological symptoms or problems. Hematology/Oncology: No history of bleeding or clotting disorder. Pt is not taking anti-coagulation or platelet medications. No history of hematological symptoms or problems. Endocrine: No history of endocrinological symptoms or problems PHYSICAL EXAM: General Appearance/ Constitutional: Well developed, well nourished, and in no apparent distress Head and Neck normal, no jugular venous extension, no thyromegaly, and no palpable mass Eyes: Pupils are equally round and reactive to light. Extraocular movements are intact. Respiratory: Clear to auscultation AND percussion Cardiovascular: Normal and Regular rate and rhythm GI: Soft and Non-tender Extremities: Radial and pedal pulses +2, no edema, extremities WNL Back: Normal back and mobility Neurological: Normal cognition and motor skills. Skin: Color, texture, turgor normal. VITALS: There were no vitals taken for this visit. Temperature Max: @TMAXREFRESH(24)@ ALLERGIES: ALLERGIES Allergen Reactions Penicillins Hives, Unknown LABS: No results found for: BUN No results found for: CREAT No results found for: PSA Glucose, Urine (no units) Date Value 01/26/2024 Negative Bilirubin, Urine (no units) Date Value 01/26/2024 Negative Ketones, Urine (no units) Date Value 01/26/2024 Negative Specific [place], Ur (no units) Date Value 01/26/2024 1.018 Hemoglobin/Blood,Ur (no units) Date Value 01/26/2024 Negative pH, Urine (no units) Date Value 01/26/2024 5.0 Protein, Urine (no units) Date Value 01/26/2024 Negative Nitrites (no units) Date Value 01/26/2024 Negative Color (no units) Date Value 01/26/2024 Yellow Clarity (no units) Date Value 01/26/2024 Clear MEDICATIONS: (Not in a hospital admission) Current Outpatient Medications Medication Sig dutasteride (AVODART) 0.5 mg capsule Take 0.5 mg by mouth once daily. hydroCHLOROthiazide 12.5 mg tablet Take 12.5 mg by mouth once daily. amLODIPine (NORVASC) 5 mg tablet Take by mouth once daily. No current facility-administered medications for this visit. DIAGNOSIS, ASSESSMENT AND PLAN There are no active hospital problems to display for this patient. Medication and Non-Pharmacologic VTE Prophylaxis/Anticoagulants VTE Prophylaxis: VTE prophylaxis appropriate Assessment AND Plan: Assessment AND Plan Pre-op exam Elevated prostate specific antigen (PSA) @OBESITYCLASS@ SIGNATURE: Elizabeth Rose APRN.CNP PATIENT NAME: Rey Jara DATE: March 25, 2024 TIME: 2:58 PM PAGER/CONTACT #:[facility]11-08-2024 History of Present illness Narrative* Elizabeth Rose APRN.CNP - 03/25/2024 2:58 PM EST UROLOGY SURGICAL H&P SERVICE DATE: 03/25/2024 SERVICE TIME: 1500 REFERRING PROVIDER: No referring provider defined for this encounter. PCP: Ivan Suazo DO GENDER: SUBJECTIVE CHIEF COMPLAINT: Pre-op exam HISTORY OF PRESENT ILLNESS: Mr. Jara is a 53 year old male who presents for pre-op H&P FUNCTIONAL STATUS: Walk indoors, such as around the house (1.75 METs) Do light work around the house, such as dusting or washing dishes (2.70 METs) Take care of self, that is eating, dressing, bathing, using the toilet (2.75 METs) Do moderate work around the house such as vacuuming, sweeping floors, or carrying in groceries (3.50 METs) Do yardwork, such as raking leaves, weeding,or pushing a power mower (4.50 METs) Participate in moderate recreational activities, such as golf, bowling, dancing, doubles tennis, orthrowing a baseball or football (6.00 METs) Do heavy work around the house, such as scrubbing floors, lifting or moving heavy furniture (8.00 METs) No past medical history on file. No past surgical history on file. No family history on file. REVIEW OF SYSTEMS: General: General: Well developed, well nourished. No acute distress HEENT: Negative for sore throat, difficulty swallowing. Negative for frequent or significant headaches, changes in vision or hearing. Cardiovascular: No history of angina, CHF, AR, cardiac surgery of stents. Respiratory: Negative for current cough, dyspnea. No hx of pneumonia in the past six weeks Gastrointestinal: No history of GERD, PUD, abd pain, difficulty swallowing, GI bleed. Renal: Negative for renal failure and No history of dialysis Musculoskeletal: Negative for joint pain or swelling, back pain or muscle pain. Skin: Negative for lesions, rash and itching. Psychological: No history of psychiatric symptoms or problems. Neurologic: No history of TIA's, stroke, COFFIN MAKER tumor, impaired sensorium, hemiplegia or paraplegia Noneurological symptoms or problems. Hematology/Oncology: No history of bleeding or clotting disorder. Pt is not taking anti-coagulationor platelet medications. No history of hematological symptoms or problems. Endocrine: No history of endocrinological symptoms or problems PHYSICAL EXAM: General Appearance/ Constitutional: Well developed, well nourished, and in no apparent distress Head and Neck normal, no jugular venous extension, no thyromegaly, and no palpable mass Eyes: Pupils are equally round and reactive to light. Extraocular movements are intact. Respiratory: Clear to auscultation & percussion Cardiovascular: Normal and Regular rate and rhythm GI: Soft and Non-tender Extremities: Radial and pedal pulses +2, no edema, extremities WNL Back: Normal back and mobility Neurological: Normal cognition and motor skills. Skin: Color, texture, turgor normal. VITALS: There were no vitals taken for this visit. Temperature Max: @TMAXREFRESH(24)@ ALLERGIES: ALLERGIES Allergen Reactions Penicillins Hives, Unknown LABS: No results found for: BUN No results found for: CREAT No results found for: PSA Glucose, Urine (no units) Date Value 01/26/2024 Negative Bilirubin, Urine (no units) Date Value 01/26/2024 Negative Ketones, Urine (no units) Date Value 01/26/2024 Negative Specific [place], Ur (no units) Date Value 01/26/2024 1.018 Hemoglobin/Blood,Ur (no units) Date Value 01/26/2024 Negative pH, Urine (no units) Date Value 01/26/2024 5.0 Protein, Urine (no units) Date Value 01/26/2024 Negative Nitrites (no units) Date Value 01/26/2024 Negative Color (no units) Date Value 01/26/2024 Yellow Clarity (no units) Date Value 01/26/2024 Clear MEDICATIONS: (Not in a hospital admission) Current Outpatient Medications Medication Sig dutasteride (AVODART) 0.5 mg capsule Take 0.5 mg by mouth once daily. hydroCHLOROthiazide 12.5 mg tablet Take 12.5 mg by mouth once daily. amLODIPine (NORVASC) 5 mg tablet Take by mouth once daily. No current facility-administered medications for this visit. DIAGNOSIS, ASSESSMENT AND PLAN There are no active hospital problems to display for this patient. Medication and Non-Pharmacologic VTE Prophylaxis/Anticoagulants VTE Prophylaxis: VTE prophylaxis appropriate Assessment & Plan: Assessment & Plan Pre-op exam Elevated prostate specific antigen (PSA) @OBESITYCLASS@ SIGNATURE: Elizabeth Rose APRN.CNP PATIENT NAME: Rey Jara DATE: March 25, 2024 TIME: 2:58 PM PAGER/CONTACT #: * Elizabeth Rose APRN.CNP - 03/25/2024 2:53 PM EST [facility] PRE-OP NOTE Rey Jara is a 53 year old male. Pre-op Date: March 25, 2024 Date of Procedure: 04/01/2024 Procedure/Surgery: BIOPSIES, PROSTATE, NEEDLE, TRANSPERINEAL, STEREOTACTIC TEMPLATE GUIDED SATURATION SAMPLING, INCLUDING IMAGING GUIDANCE Laterality: NONE Diagnosis: Elevated PSA Primary Surgeon: MD Becerril Christopher There were no vitals taken for this visit. Pain Assessment: Are you currently having pain? No 0 on a scale of 0 to 10 Surgical Guide Book Status: Patient given book today. Allergies Reviewed: Yes Medications Reviewed: Yes Is patient currently on oral steroids?: No Has the patient had a UTI in the past month?: No. Does the patient have any artificial joints (last 2 years), metal parts, pacemakers or cardiac/ureteral stents in place?: No Does the patient have diabetes?: No Is the patient routinely taking anticoagulants?: No. Can the patient have an IV put in either arm?: Yes- prefers left Urine Dip Complete?: Yes URINE CULTURE COMPLETE?: Yes Ostomy/Stoma Nurse appointment made/completed: N/A IMPACT/Medical Clearance: Cleared per IMPACT - N/A [facility] Clinic: Cleared per [facility] - N/A All testing on cureform has been scheduled: Yes Consent Signed: Consent not in Epic. DOS Orders Placed and Signed: Yes. Pre-op H&P Done by Nurse Practitioner: PATIENT INSTRUCTIONS FOR SURGERY 1.) DO NOT HAVE ANYTHING TO EAT OR DRINK AFTER MIDNIGHT THE DAY BEFORE SURGERY except for certain morning medications as instructed by the doctor. Candy, mints, gum, and smoking are NOT permitted. Ifthe surgery is scheduled for the afternoon, you may have water during the morning of surgery if permitted by your surgeon. 2.) Medications to be taken on the morning of surgery with a few sips of water: Current Outpatient Medications on File Prior to Visit Medication Sig dutasteride (AVODART) 0.5 mg capsule Take 0.5 mg by mouth once daily. OK to take day of surgery with small sip of water hydroCHLOROthiazide 12.5 mg tablet Take 12.5 mg by mouth once daily. OK to take day of surgery with small sip of water amLODIPine (NORVASC) 5 mg tablet Take by mouth once daily. OK to take day of surgery with small sip of water No current facility-administered medications on file prior to visit. 3.) Please bring all your prescribed inhalers (if you have any you normally take) to the hospital. 4.) Arrival time: Call for arrival. 5.) Prep given: No 6.) Lovenox instructions given: N/A 7.) Patient reminded that surgery time provided day before surgery is tentative based on potential changes with transplants. Recommendations: This patient is optimally prepared for surgery pending LABS. Elizabeth Rose APRN.CNP documented in this encounterLake[facility]24 NoteHNO ID: [id number] Author: ELIZABETH ROSE APRN.CNP Service: ? Author Type: Nurse Practitioner Type: Progress Notes Filed: 03/25/2024 15:04 Note Text: [facility] PRE-OP NOTE Rey Jara is a 53 year old male. Pre-op Date: March 25, 2024 Date of Procedure: 04/01/2024 Procedure/Surgery: BIOPSIES, PROSTATE, NEEDLE, TRANSPERINEAL, STEREOTACTIC TEMPLATE GUIDED SATURATION SAMPLING, INCLUDING IMAGING GUIDANCE Laterality: NONE Diagnosis: Elevated PSA Primary Surgeon: MD Becerril Christopher There were no vitals taken for this visit. Pain Assessment: Are you currently having pain? No 0 on a scale of 0 to 10 Surgical Guide Book Status: Patient given book today. Allergies Reviewed: Yes Medications Reviewed: Yes Is patient currently on oral steroids?: No Has the patient had a UTI in the past month?: No. Does the patient have any artificial joints (last 2 years), metal parts, pacemakers or cardiac/ureteral stents in place?: No Does the patient have diabetes?: No Is the patient routinely taking anticoagulants?: No. Can the patient have an IV put in either arm?: Yes- prefers left Urine Dip Complete?: Yes URINE CULTURE COMPLETE?: Yes Ostomy/Stoma Nurse appointment made/completed: N/A IMPACT/Medical Clearance: Cleared per IMPACT - N/A [facility] Clinic: Cleared per [facility] - N/A All testing on cureform has been scheduled: Yes Consent Signed: Consent not in Epic. DOS Orders Placed and Signed: Yes. Pre-op HANDP Done by Nurse Practitioner: PATIENT INSTRUCTIONS FOR SURGERY 1.) DO NOT HAVE ANYTHING TO EAT OR DRINK AFTER MIDNIGHT THE DAY BEFORE SURGERY except for certain morning medications as instructed by the doctor. Candy, mints, gum, and smoking are NOT permitted. If the surgery is scheduled for the afternoon, you may have water during the morning of surgery if permitted by your surgeon. 2.) Medications to be taken on the morning of surgery with a few sips of water: Current Outpatient Medications on File Prior to Visit Medication Sig dutasteride (AVODART) 0.5 mg capsule Take 0.5 mg by mouth once daily. OK to take day of surgery with small sip of water hydroCHLOROthiazide 12.5 mg tablet Take 12.5 mg by mouth once daily. OK to take day of surgery with small sip of water amLODIPine (NORVASC) 5 mg tablet Take by mouth once daily. OK to take day of surgery with small sip of water No current facility-administered medications on file prior to visit. 3.) Please bring all your prescribed inhalers (if you have any you normally take) to the hospital. 4.) Arrival time: Call for arrival. 5.) Prep given: No 6.) Lovenox instructions given: N/A 7.) Patient reminded that surgery time provided day before surgery is tentative based on potential changes with transplants. Recommendations: This patient is optimally prepared for surgery pending LABS. Elizabeth Rose APRN.MILITARY SOURCE OPERATIONS OFFICER Electronically signedC[facility] NotePatient Outreach (UROLMN) REY JARA ([id number]) 1970 M Date Time Provider Department 03/25/24 ELIZABETH ROSE During your visit today, we recorded the following information about you: Allergies As of Date: 03/25/2024 Noted Allergy Reaction PENICILLINS 08/27/2023 4 - Hives 16 - Unknown Date Reviewed: 03/25/2024 Reviewed by: Elizabeth Rose APRN.CNP - Fully Assessed Visit Diagnosis:Screening for genitourinary condition [Z13.89] Order(s):UA DIP, URINE (POC) [[id number]] Order #: [id number] Prescriptions as of 03/28/2024 - dutasteride (AVODART) 0.5 mg capsule Take 0.5 mg by mouth once daily. - hydroCHLOROthiazide 12.5 mg tablet Take 12.5 mg by mouth once daily. - amLODIPine (NORVASC) 5 mg tablet Take by mouth once daily. Problem List As Of Date: 03/25/2024 (None) Encounter Status:Closed by ZACHARY BOSTON on 03/28/24[facility] 01-26[facility]24 NoteHNO ID: [id number] Author: NICOLASA BECERRIL MD Service: ? Author Type: Physician Type: Progress Notes Filed: 02/20/2024 12:00 Note Text: Chief Complaint: Prostate cancer History of Present Illness: Rey Jara is a very pleasant 53 year old male who presents with a history of kidney stones, BPH with urinary obstruction, and prostate cancer. GS 6 (3+3) in 2 cores. Pt is s/p TRUS/Bx (10/08/2020) Pt prostate cancer currently under active surveillance. Prostate Cancer: - Diagnosed with low-risk prostate cancer over a year ago. - Recent MRI in June showed no significant findings. - Last biopsy involved 12 samples; patient reports significant discomfort during the procedure. - Previous biopsy only obtained 6 samples due to lack of anesthesia. - PSA levels have decreased from 16 to 7.9 since starting dutasteride. - Denies current urinary retention or need for catheterization. - Reports improved urinary stream and decreased frequency since starting dutasteride. - Avoids alcohol and Benadryl due to previous episodes of urinary retention. - Denies any current symptoms related to prostate cancer. Past Medical History: No past medical history on file. Past Surgical History: No past surgical history on file. Problem List: There is no problem list on file for this patient. Medications Current Outpatient Medications on File Prior to Visit Medication Sig dutasteride (AVODART) 0.5 mg capsule Take 0.5 mg by mouth once daily. No current facility-administered medications on file prior to visit. Family History: No family history on file. Social History: Allergies: Penicillins Imaging: MR Prostate WO/W CON (07/13/2023) IMPRESSION: No MRI evidence of clinically significant prostate cancer to target for biopsy. Physical Exam: Patient is a 53 year old male Constitutional: Vitals: Blood pressure 122/86, pulse 86, height 170.2 cm (5' 7 ), weight 81.6 kg (180 lb). General Appearance Adult: Alert, no acute distress, oriented Lungs/Repiratory: no respiratory distress, or pursed lip breathing Psych: affect and mood normal Abdomen: Estimated body mass index is 28.19 kg/m? as calculated from the following: Height as of this encounter: 170.2 cm (5' 7 ). Weight as of this encounter: 81.6 kg (180 lb). Labs and Pathology: PSA 08/02/2020 - 5.79 08/27/2020 - 5.5 and 15.3% 2021 - 5.7 and 14.2% 04/30/2022 - 5.0 08/16/2022 - 8.54 08/19/2023 - 7.94 Outside and Past Medical records: Assessment and Plan: Assessment: Prostate cancer, GS 6 (3+3) - Discussed June MRI results - Discussed surveilling prostate cancer through PSA levels - Discussed differences between TR and TP biopsy with pt, anesthetic options, and minimal risk for infection Plan: - Schedule TP Biopsy The patient is seen and examined by Dr. Nicolasa Becerril and the following reflects his/her service. Scribed by Genia Solis I agree with the Chief Complaint, ROS, and Past Histories independently gathered by the clinical administrative support coordinator including scribe and or medical student and or BLAZE and or resident or fellow and the remaining scribed note accurately describes my personal service to the patient. # Prostate cancer (HCC) (C61) - Diagnosed over a year ago with low-risk prostate cancer; initial biopsy showed minimal involvement (0.02%). Recent MRI in June showed no significant findings. PSA levels have decreased from 16 to 7.9 ng/mL with dutasteride therapy. Discussed the need for a repeat biopsy due to the potential for progression in approximately 40% of cases over 15 years. Educated on the benefits of a transperineal biopsy under anesthesia to reduce discomfort and infection risk. Scheduled for a transperineal biopsy in the operating room. No need for a repeat MRI at this time; will continue with MRIs every 1-2 years and PSAs every six months. Patient understands and agrees with the plan. # Lower urinary tract symptoms (LUTS) (R39.9) - Symptoms have improved with dutasteride therapy, including reduced urinary frequency and improved stream. Advised to avoid antihistamines like Benadryl, which can exacerbate urinary retention. No history of catheterization. Continue current medication regimen. Nicolasa Becerril MD, MS [facility] [place] [facility] Prostate Cancer Educational Materials Prostate Cancer - [facility] http://my.[facility].org/disorders/prostate_cancer/hic_prostate_cancer_basi cs.aspx Prostate Cancer Treatment Guide (download) - [facility] Joyce http://www.[facility].org/lp/prostate-cancer/index.html National Cancer [place] - Treatment Choices for Early-Stage Prostate Cancer https://www.cancer.gov/types/prostate/patient/hwqvsuhs-aixsidsku-puw National Cancer [place] - Coping with Cancer https://www.cancer.gov/about-cancer/copingC[facility] of Present illness Narrative* Nicolasa Becerril MD - 01/26/2024 2:46 PM EDT Images from the original note were not included. Chief Complaint: Prostate cancer History of Present Illness: Rey Jara is a very pleasant 53 year old male who presents with a history of kidney stones,BPH with urinary obstruction, and prostate cancer. GS 6 (3+3) in 2 cores. Pt is s/p TRUS/Bx (10/08/2020) Pt prostate cancer currently under active surveillance. Prostate Cancer: - Diagnosed with low-risk prostate cancer over a year ago. - Recent MRI in June showed no significant findings. - Last biopsy involved 12 samples; patient reports significant discomfort during the procedure. - Previous biopsy only obtained 6 samples due to lack of anesthesia. - PSA levels have decreased from 16 to 7.9 since starting dutasteride. - Denies current urinary retention or need for catheterization. - Reports improved urinary stream and decreased frequency since starting dutasteride. - Avoids alcohol and Benadryl due to previous episodes of urinary retention. - Denies any current symptoms related to prostate cancer. Past Medical History: No past medical history on file. Past Surgical History: No past surgical history on file. Problem List: There is no problem list on file for this patient. Medications Current Outpatient Medications on File Prior to Visit Medication Sig dutasteride (AVODART) 0.5 mg capsule Take 0.5 mg by mouth once daily. No current facility-administered medications on file prior to visit. Family History: No family history on file. Social History: Allergies: Penicillins Imaging: MR Prostate WO/W CON (07/13/2023) IMPRESSION: No MRI evidence of clinically significant prostate cancer to target for biopsy. Physical Exam: Patient is a 53 year old male Constitutional: Vitals: Blood pressure 122/86, pulse 86, height 170.2 cm (5' 7 ), weight 81.6 kg (180 lb). General Appearance Adult: Alert, no acute distress, oriented Lungs/Repiratory: no respiratory distress, or pursed lip breathing Psych: affect and mood normal Abdomen: Estimated body mass index is 28.19 kg/m as calculated from the following: Height as of this encounter: 170.2 cm (5' 7 ). Weight as of this encounter: 81.6 kg (180 lb). Labs and Pathology: PSA 08/02/2020 - 5.79 08/27/2020 - 5.5 and 15.3% 2021 - 5.7 and 14.2% 04/30/2022 - 5.0 08/16/2022 - 8.54 08/19/2023 - 7.94 Outside and Past Medical records: Assessment and Plan: Assessment: Prostate cancer, GS 6 (3+3) - Discussed June MRI results - Discussed surveilling prostate cancer through PSA levels - Discussed differences between TR and TP biopsy with pt, anesthetic options, and minimal risk for infection Plan: - Schedule TP Biopsy The patient is seen and examined by Dr. Nicolasa Becerril and the following reflects his/her service. Scribed by Genia Solis I agree with the Chief Complaint, ROS, and Past Histories independently gathered by the clinical administrative support coordinator including scribe and or medical student and or BLAZE and or resident or fellow and the remaining scribed note accurately describes my personal service to the patient. # Prostate cancer (HCC) (C61) - Diagnosed over a year ago with low-risk prostate cancer; initial biopsy showed minimal involvement (0.02%). Recent MRI in June showed no significant findings. PSA levels have decreased from 16 to 7.9 ng/mL with dutasteride therapy. Discussed the need for a repeat biopsy due to the potential for progression in approximately 40% of cases over 15 years. Educated on the benefits of a transperineal biopsy under anesthesia to reduce discomfort and infection risk. Scheduled for a transperineal biopsy in the operating room. No need for a repeat MRI at this time; will continue with MRIs every 1-2 years and PSAs every six months. Patient understands and agrees with the plan. # Lower urinary tract symptoms (LUTS) (R39.9) - Symptoms have improved with dutasteride therapy, including reduced urinary frequency and improvedstream. Advised to avoid antihistamines like Benadryl, which can exacerbate urinary retention. No history of catheterization. Continue current medication regimen. Nicolasa Becerril MD, MS [facility] [place] [facility] Prostate Cancer Educational Materials Prostate Cancer - [facility] Consumer Health http://my.[facility].org/disorders/prostate_cancer/hic_prostate_cancer_basi cs.aspx Prostate Cancer Treatment Guide (download) - [facility] Joyce http://www.[facility].org/lp/prostate-cancer/index.html National Cancer [place] - Treatment Choices for Early-Stage Prostate Cancer https://www.cancer.gov/types/prostate/patient/aegokeah-mcerivgxc-wbc [place] [facility] [place] - Coping with Cancer https://www.cancer.gov/about-cancer/coping documented in this encounterLake[facility]09-10-20[facility] NotePatient Outreach (UROLMN) REY JARA ([id number]) 1970 M Date Time Provider Department 01/26/24 NICOLASA BECERRIL During your visit today, we recorded the following information about you: Allergies As of Date: 01/26/2024 Noted Allergy Reaction PENICILLINS 08/27/2023 4 - Hives 16 - Unknown Date Reviewed: 01/26/2024 Reviewed by: Hannah Chaparro OCCA - Fully Assessed Visit Diagnosis:Screening for genitourinary condition [Z13.89] Order(s):URINALYSIS, REFLEX MICROSCOPIC [SJS9112] Order #: [id number]. #:[id number] Prescriptions as of 01/29/2024 - dutasteride (AVODART) 0.5 mg capsule Take 0.5 mg by mouth once daily. - hydroCHLOROthiazide 12.5 mg tablet Take 12.5 mg by mouth once daily. - amLODIPine (NORVASC) 5 mg tablet Take by mouth once daily. Problem List As Of Date: 01/26/2024 (None) Encounter Status:Closed by DARVIN, PRODUSER on 01/29/24[facility] Hospital Discharge instructions Patient Education 08/21/2023 09:35:17 Benign Prostatic Hyperplasia Benign Prostatic Hyperplasia Benign prostatic hyperplasia (BPH) is an enlarged prostate gland that is caused by the normal agingprocess. The prostate may get bigger as a man gets older. The condition is not caused by cancer. The prostate is a walnut-sized gland that is involved in the production of semen. It is located in front of the rectum and below the bladder. The bladder stores urine. The urethra carries stored urine ou t of the body. An enlarged prostate can press on the urethra. This can make it harder to pass urine. The buildup of urine in the bladder can cause infection. Back pressure and infection may progress to bladder damage and kidney (renal) failure. What are the causes? This condition is part of the normal aging process. However, not all men develop problems from thiscondition. If the prostate enlarges away from the urethra, urine flow will not be blocked. If it enlarges toward the urethra and compresses it, there will be problems passing urine. What increases the risk? This condition is more likely to develop in men older than 50 years. What are the signs or [...] urethra. Follow these instructions at home: Take tzex-ibd-bzjtpoy and prescription medicines only as told by your health care provider. Monitor your symptoms for any changes. Contact your health care provider with any changes. Avoid drinking large amounts of liquid before going to bed or out in public. Avoid or reduce how much caffeine or alcohol you drink. Give yourself time when you urinate. Keep all follow-up visits. This is important. Contact a health care provider if: You have unexplained back pain. Your symptoms do not get better with treatment. You develop side effects from the medicine you are taking. Your urine becomes very dark or has a bad smell. Your lower abdomen becomes distended and you have trouble passing urine. Get help right away if: You have a fever or chills. You suddenly cannot urinate. You feel light-headed or very dizzy, or you faint. There are large amounts of blood or clots in your urine. Your urinary problems become hard to manage. You develop moderate to severe low back or flank pain. The flank is the side of your body between the ribs and the hip. These symptoms may be an emergency. Get help right away. Call 911. Do not wait to see if the symptoms will go away. Do not drive yourself to the hospital. Summary Benign prostatic hyperplasia (BPH) is an enlarged prostate that is caused by the normal aging process. It is not caused by cancer. An enlarged prostate can press on the urethra. This can make it hard to pass urine. This condition is more likely to develop in men older than 50 years. Get help right away if you suddenly cannot urinate. This information is not intended to replace advice given to you by your health care provider. Make sure you discuss any questions you have with your health care provider. Document Revised: 11/20/2021 Document Reviewed: 11/20/2021 [employer]ker Patient Education 2022 [employer]. Follow Up Care 07/22/2023 15:33:23 With:DERECK JACOBS, Sridhar Rainey, URL Address: [address] [place], [place] [address]- When: Unknown [facility] 10-04-2023 Evaluation note* Encounter Date Diagnosis Assessment Notes Treatment Notes Treatment Clinical Notes Feb, Prostate cancer (ICD-10 - C61) Pam 3+3 (6) [facility] Other 09-26-2023 Note [id number]:127[facility] 02-10-2023 Hospital Discharge instructions Patient Education [...] for your post-operative appointment in 1-2 weeks [phone] or [phone] Follow Up Care 01/12/2023 17:22:40 With:Sridhar BARNES Address: [facility] [address] , [place] [address]- Business (1) When: Unknown Comments:Keep scheduled appointment. Patient is to get electrolyte blood draw done in 2 months. [facility]08-28-2023 Hospital Discharge instructions Patient Education 01/12/2023 [...] discomfort near your rectum, especially while sitting. Dekorra-colored urine due to small amounts of blood in your urine. A burning feeling while urinating. Blood in your stool (feces) or bleeding from your rectum. Blood in your semen. Follow these instructions at home: Medicines Take cxpo-ntm-uhuqiqe and prescription medicines only as told by [...] provider. Document Revised: 10/28/2021 Document Reviewed: 10/28/2021 [employer]ker Patient Education 2022 [employer]. 01/12/2023 16:39:54 Transrectal Ultrasound-Guided Prostate Biopsy Transrectal [...] including vitamins, herbs, eye drops, creams, and mnxf-mzi-lianpyu medicines. Any problems you or family members [...] provider tells you to take them. Taking scck-jzy-aadbdou medicines, vitamins, herbs, and supplements. General instructions [...] provider. Document Revised: 10/28/2021 Document Reviewed: 10/28/2021 [employer] Patient Education 2022 [employer]. Follow Up Care 04/30/2022 15:31:40 With:DERECK JACOBS, Sridhar Rainey, URL Address: [facility] [address], [place] [address] [phone] When: Unknown Comments:stone work-upsched TRUS/bx [facility] 05-01-2023 Evaluation note* Encounter Date Diagnosis Assessment [...] for congestion, Tylenol for pain and fever. [facility] Other 04-06-2023 Evaluation note* Encounter Date Diagnosis [...] PSA (prostate specific antigen) (ICD-10 - Z12.5) [facility] Other 12-14-2022 Hospital Discharge instructions Patient Education [...] including vitamins, herbs, eye drops, creams, and vtkm-wwa-jbgzhxu medicines. Any problems you or family members [...] provider tells you to take them. Taking hnpz-nnu-aiellft medicines, vitamins, herbs, and supplements. Eating and [...] 05/04/2006 Document Revised: 08/24/2019 Document Reviewed: 02/02/2019 Synker Patient Education 2020 [employer]. Follow Up Care 09/10/2021 09:12:34 With:ZACK PONCE, RACHEL Babb, URL Address: [address] [place] [address] [phone] When:10/29/2022 [facility] 05-31-2022 NoteOPERATIVE NOTE OPERATION DATE: 10/15/2021 PRIMARY CARE PHYSICIAN: Dr. Suazo SURGEON: Jany Escobedo M.D. PREOPERATIVE DIAGNOSIS: Right lower lip [...] was then discharged home in good condition. [facility] Signed and Approved by: DR JANY ESCOBEDO 10/22/2021 07:56:00[facility]04-26-2022 Hospital Discharge instructions Patient Education 09/10/2021 [...] urethra. Follow these instructions at home: Take sxhz-hdo-rdlgtrc and prescription medicines only as told by [...] 05/04/2006 Document Revised: 03/29/2019 Document Reviewed: 06/08/2017 Synker Patient Education 2020 [employer]. Follow Up Care 05/21/2021 09:33:45 With:Berto Hernandez MD, Zev Villasenor, URO Address: [facility] [address], [place] [address]- When:03/12/2022 Comments:Check UA, no PSA [facility] 05-01-2021 History general Narrative - Reported* Type [...] History VASECTOMY Hospitalization History SEE SURGICAL HX [facility] [employer] Other Evaluation + Plan note Future Appointments Appointment Date:04/01/2022 08:30:00 AM Scheduled Provider:Zev Thomson Jr., MD Location:[facility] Appointment Type:URO Office Visit [facility] evaluation + Plan note Future Appointments Appointment Date:11/04/2022 08:30:00 AM Scheduled Provider:RACHEL DIXON PA-C Location:[facility] Appointment Type:URO Office Visit [facility] evaluation + Plan note Future Appointments Appointment Date:02/06/2023 07:45:00 AM Scheduled Provider: Location:[facility] Appointment Type:Urology CALL PAT FT Appointment Date:02/10/2023 09:00:00 AM Scheduled Provider: Location:[facility] Appointment Type:Urology FT Appointment Date:02/10/2023 09:00:00 AM Scheduled Provider: Location:FT.UROLOGY Appointment Type:US Prostate Urology (FT) Appointment Date:02/27/2023 09:15:00 AM Scheduled Provider:Sridhar BARNES MD Location:[facility] Appointment Type:URO Office Visit Future Scheduled Tests Radiology* US Prostate, [facility] 02/10/23 [facility] evaluation + Plan note Future Appointments Appointment Date:02/27/2023 09:15:00 AM Scheduled Provider:Sridhar BARNES MD Location:[facility] Appointment Type:URO Office Visit Diagnostic Tests Pending * Prostate Histology [facility]) [facility] Future App[facility]ments Appointment Date:02/26/2024 08:00:00 AM Scheduled Provider:Sridhar BARNES MD Location:[facility] Appointment Type:URO Office Visit [facility] evaluation note* Diagnosis Onset Date Resolution Status Benign prostatic hyperplasia with lower urinary tract symptoms acute Elevated PSA acute GERD (gastroesophageal reflux disease) acute Primary hypertension acute Prostate cancer acute Tension headache acute Wellness examination noneact kalen [facility] Work Phone: evaluation [facility]No [facility] Other evaluation note* Diagnosis Screening for genitourinary condition Screening for other and unspecified genitourinary condition [facility] Diagnosis Onset Date Resolution Status COVID acute Primary hypertension acute [facility] Work Phone: evaluation note* Diagnosis Prostate cancer (HCC)- Primary Malignant neoplasm of prostate Lower urinary tract symptoms (LUTS) Other symptoms involving urinary system Elevated PSA Elevated prostate specific antigen (PSA) [facility]* Diagnosis Onset Date Resolution Status COVID acute Primary hypertension acute Acute bronchitis due to other specified organisms acute Primary hypertension acute [facility] Work Phone: Evaluation note* Diagnosis Pre-op exam- Primary Preoperative examination, unspecified Elevated prostate specific antigen (PSA) Screening for genitourinary condition Screening for other and unspecified genitourinary condition Elevated PSA Elevated prostate specific antigen (PSA) documented [facility] encounter [facility]* Diagnosis Screening for genitourinary condition Screening for other and unspecified genitourinary condition Elevated PSA Elevated prostate specific antigen (PSA) [facility]* Diagnosis Screening for genitourinary condition Screening for other and unspecified genitourinary condition documented [facility] encounter [facility]* Diagnosis Nephrolithiasis- Primary Calculus of kidney Prostate cancer (HCC) Malignant neoplasm of prostate [facility]* Diagnosis Nephrolithiasis Calculus of kidney [facility]* Diagnosis Prostate cancer (HCC)- Primary Malignant neoplasm of prostate [facility] Narrative No data available for this section [facility] Hospital Discharge instructions No data available for this section [facility] No data available for this section [facility] Summary Purpose Family History No Family History Records Found No data available for this section No Family History Records Found No data available for this section No Family History Records FoundNo Family History Records Found Advance Directives No Advanced Directives Records Found Advance Directive Response Recorded Date/ Time Advance Directives No June 16, 2023 12:24pm Chief Complaint and Reason for Visit Chief Complaint c61 Wellness Reason for Visit Benign prostatic hyp erplasia with lower urinary tract symptoms Elevated PSA GERD (gastroesophageal reflux disease) Primary hypertension Prostate cancer Tension headache Wellness examination Chief Complaint [phone] COVID+/ discuss meds Reason for Visit COVID Primary hypertension Chief Complaint [phone] COVID+/ discuss meds sore throat, covid neg Reason for Visit COVID Primary hypertension Acute bronchitis due to other specified organisms Primary hypertension Chief Complaint Admit Date annual wellness September 01, 2024 9:1 9am N20.0 September 08, 2024 7:3 1am Reason for Visit Admit Date Cervical spondylosis with radiculopathy September 01, 2024 9:19am GERD (gastroesophageal reflux disease) A pril 2024 9:19am Primary hypertension September 01, 2024 9: 19am Prostate cancer September 01, 2024 9:1 9am Encounter for screening for malignant ne oplasm of colon September 01, 2024 9:19am Wellness examination September 01, 2024 9: 19am Reason for Referral Specialty Diagnoses / Procedures Referred By Gwyn t Referred To Contact Nephrology Diagnoses Nephrolithiasis Procedures CONSULT TO KIDNEY MEDICINE OFFICE/OUTPATIENT [facility] 60 MINUTES Nicolasa Becerril MD [address] [place] [address] Referral ID Status Reason Start Date Expiration Date Visits Requested Visits Authorized [id number] Authorized PCP Requested Referral 04/12/2025 1 1 Additional Source Comments Patient Care team informatio n (unrecognized section and content) Team Status: Active Member Role Status Dates Ivan Suazo DO Primary Care Provider Active Team Status: Inactive Member Role Status Dates Ivan Suazo DO Primary Care Provider Active Start: July 13, 2023 End: July 13, 2023 Sridhar Barnes MD Attending Provider Active St art: July 13, 2023 End: July 13, 2023 Team Status: Active Member Role Status Dates Ivan Suazo DO Primary Care Provide r, Attending Provider Active Start: August 19, 2023 Team Status: Inactive Member Role Status Nader Suazo DO Primary Care Provide r, Attending Provider Active Start: August 27, 2023 End: August 27, 2023 Team Status: Inactive Member Role Status Dates Ivan Suazo DO Primary Care Provide r, Attending Provider Active Start: February 02, 2024 End: February 02, 2024 Team Status: Inactive Member Role Status Nader Suazo DO Primary Care Provide r, Attending Provider Active Start: March 02, 2024 End: March 02, 2024 Stopboard Assembler Relationship Specialty Start Date End Date Ivan Suazo DO [address] [place] [address] PCP - General Internal Medicine 02/08/24 Stopboard Assembler Relationship Specialty Start Date End Date Ivan Suazo DO [address] [place] [address] PCP - General Internal Medicine 02/08/24 Stopboard Assembler Relationship Specialty Start Date End Date Ivan Suazo DO [address] [place] [address] PCP - General Internal Medicine 02/08/24 Stopboard Assembler Relationship Specialty Start Date End Date Ivan Suazo DO [address] [place] [address] PCP - General Internal Medicine 02/08/24 Stopboard Assembler Relationship Specialty Start Date End Date Ivan Suazo DO [address] [place] [address] PCP - General Internal Medicine 02/08/24 Stopboard Assembler Relationship Specialty Start Date End Date Ivan Suazo DO [address] [place] [address] PCP - General Internal Medicine 02/08/24 Stopboard Assembler Relationship Specialty Start Date End Date Ivan Suazo DO [address] [place] [address] PCP - General Internal Medicine 02/08/24 Stopboard Assembler Relationship Specialty Start Date End Date Ivan Suazo DO [address] [place] [address] PCP - General Internal Medicine 02/08/24 Team Status: Inactive Member Role Status Dates Ivan Suazo DO Primary Care Provide r, Attending Provider Active Start: September 01, 2024 End: September 01, 2024 Team Status: Active Member Role Status Dates Ivan Suazo DO Primary Care Provide r, Attending Provider Active Start: September 06, 2024 Team Status: Inactive Member Role Status Dates Ivan Suazo DO Primary Care Provider Active Start: September 08, 2024 End: September 08, 2024 Indu Nickerson MD Attending Provider Active Start: September 08, 2024 End: September 08, 2024 Stopboard Assembler Relationship Specialty Start Date End Date Ivan Suazo DO [address] [place] [address] PCP - General Internal Medicine 02/08/24 REASON FOR VISIT (unrecogniz ed section and content) Reason Comments Prostate Cancer New Patient Reason Comments Post-Op Visit Prostate Cancer Reason Comments Consult Specialty Diagnoses / Procedures Referred By Contac t Referred To Contact Nephrology Diagnoses Nephrolithiasis Procedures CONSULT TO KIDNEY MEDICINE OFFICE/OUTPATIENT NEW HIGH MDM 60 MINUTES Weight, MD Nicolasa [address] [place] [address] Phone: tel: fax: Referral ID Status Reason Start Date Expiration Date V isits Requested Visits Authorized [id number] Closed PCP Requested Referral 05/10/2024 04/12/2025 1 1 Reason Comments Orders Reason Comments Follow Up (unrecognized sect ion and content) No Status Records FoundNo Status Records FoundNo Status Records FoundNo Status Records Found INFORMATION SOURCE (unrecogn ized section and content) DATE CREATED AUTHOR 08/23/2022 [facility] DATE CREATED AUTHOR AUTHOR'S ORGANIZ ATION 08/21/2023 [facility] DATE CREATED AUTHOR AUTHOR'S ORGANIZ ATION 09/11/2024 [facility] DATE CREATED AUTHOR AUTHOR'S ORGANIZ ATION 10/04/2024 [facility] Goals (unrecognized section and content) Goals may be documented in a n alternate section Source Comments (unrecognize d section and content) In the event this informatio n is protected by the Federal Confidentiality of Alcohol and Drug Abuse Patient Records regulations: The Federal rules restrict any use of the information to criminally investigate or prosecute any alcohol or drug abuse patient.[facility] CenterIn the event this information is protected by the Federal Confidentiality of Alcohol and Drug Abuse Patient Records regulations: The Federal rules restrict any use of the information to criminally investigate or prosecute any alcohol or drug abuse patient.[facility] CenterIn the event this information is protected by the Federal Confidentiality of Alcohol and Drug Abuse Patient Records regulations: The Federal rules restrict any use of the information to criminally investigate or prosecute any alcohol or drug abuse patient.[facility] CenterIn the event this information is protected by the Federal Confidentiality of Alcohol and Drug Abuse Patient Records regulations: The Federal rules restrict any use of the information to criminally investigate or prosecute any alcohol or drug abuse patient.[facility] CenterIn the event this information is protected by the Federal Confidentiality of Alcohol and Drug Abuse Patient Records regulations: The Federal rules restrict any use of the information to criminally investigate or prosecute any alcohol or drug abuse patient.[facility] CenterIn the event this information is protected by the Federal Confidentiality of Alcohol and Drug Abuse Patient Records regulations: The Federal rules restrict any use of the information to criminally investigate or prosecute any alcohol or drug abuse patient.[facility] CenterIn the event this information is protected by the Federal Confidentiality of Alcohol and Drug Abuse Patient Records regulations: The Federal rules restrict any use of the information to criminally investigate or prosecute any alcohol or drug abuse patient.[facility] CenterIn the event this information is protected by the Federal Confidentiality of Alcohol and Drug Abuse Patient Records regulations: The Federal rules restrict any use of the information to criminally investigate or prosecute any alcohol or drug abuse patient.[facility] CenterIn the event this information is protected by the Federal Confidentiality of Alcohol and Drug Abuse Patient Records regulations: The Federal rules restrict any use of the information to criminally investigate or prosecute any alcohol or drug abuse patient.[facility] CenterIn the event this information is protected by the Federal Confidentiality of Alcohol and Drug Abuse Patient Records regulations: The Federal rules restrict any use of the information to criminally investigate or prosecute any alcohol or drug abuse patient.[facility] CenterIn the event this information is protected by the Federal Confidentiality of Alcohol and Drug Abuse Patient Records regulations: The Federal rules restrict any use of the information to criminally investigate or prosecute any alcohol or drug abuse patient.[facility] FOR RECORDS PERTAINING TO PATIENTS WHO ARE [...] BE BASED ON THE PRIMARY CLINICAL RECORDS. [facility]. provides no warranty or guarantee of the accuracy or completeness of information in this document.
[2024-10-13 08:22] LABS: Prostate Specific Antigen Dx 5.42 ng/mL (<=4.00)
== END 2024-10-13 06:52 | disposition home or self-care (01) ==
LOC: LAB 06:53
PROVIDERS: PCP Internal Medicine
DX: C61 Malignant neoplasm of prostate (principal)
CPT/HCPCS: 36415; 84153

== ENCOUNTER 2025-05-02 07:00 | Outpatient (OUT) | payer OTHER, SELFPAY ==
--- OUTSIDE RECORDS SUMMARY | 2025-04-21 15:20 | XMS_ITS | Encounter Summary ---
Author Organization [facility] Address [facility] [place] [address] Care Team Providers Care Cushion Maker Hand Name Role Phone Ivan Suazo Primary Care Provider [phone] Source Comments In the event this information is protected by the Federal Confidentiality of Alcohol and Drug AbusePatient Records regulations: The Federal rules restrict any use of the information to criminally investigate or prosecute any alcohol or drug abuse patient.[facility] Reason for Visit * ReasonCommentsFollow Up Encounter Details DateTypeDepartmentCare Team (Latest Contact Info)Hwxrmeqmwju85/05/2025 3:20 PM ESTOffice Visit Kidney Medicine [address] [place] [id number] [place] [address] [place] [address] Nephrolithiasis (Primary Dx); Primary hypertension Social History Tobacco UseTypesPacks/DayYears UsedDateSmoking Tobacco: NeverSmokeless Tobacco: Never Tobacco Cessation:Counseling Given: Not Answered Area Deprivation IndexAnswerDate RecordedNational Score (1-100), lower number is lower qbkb653403/01/2024State Score (1-10), lower number is lower wlzn286/ Data from: https://www.neighborhoodatlas.[facility]/. Last address used for [address] Sex and Gender InformationValueDate RecordedSex Assigned at BirthNot on fileLegal ReoWhrh50/02/2012 10:04 AM EST Gender IdentityNot on fileSexual OrientationNot on filedocumented as of this encounter Last Filed Vital Signs Vital SignReadingTime TakenCommentsBlood Enyjgoqr126/8104/21/2025 3:15 PM EST Ffkcb720104/21/2025 3:15 PM ESTTemperature--Respiratory Rate--Oxygen Rzqsguobuv43% 04/21/2025 3:15 PM ESTInhaled Oxygen Concentration--Hlglhc08.2 kg (183 lb 6.8 oz)04/21/2025 3:15 PM ESTHeight--Body Mass Index28.7203 3:56 PM EDT documented in this encounter Progress Notes * Indu Nickerson MD - 04/21/2025 3:20 PM EST [facility] SERVICE DATE & Time: April 21, 2025 3:23 PM Reason for visit: kidney stone HPI: Mr. Ventura is a 54yo M PMHx of BPH, HTN presenting for kidney stone followup Diet: BF: Cereal. 2% milk Lunch: Potato [...] tracking. - Limiting salt due to HTN - November 2024: Cut back on processed foods. Cut back on cereal. - Apr 2025: No symptoms. Tolerating HCTZ. Reviewed low salt diet. HCTZ 25mg PAST MEDICAL HISTORY: PAST MEDICAL HISTORY Diagnosis Date BPH (benign prostatic hyperplasia) Nephrolithiasis Prostate cancer (HCC) PAST SURGICAL HISTORY: No past surgical history on file. FAMILY HISTORY: No family history on file. SOCIAL HISTORY: reports that he has never smoked. He has never used smokeless tobacco. MEDICATIONS: hydroCHLOROthiazide 25 mg tablet TAKE 1 TABLET BY MOUTH EVERY DAY dutasteride (AVODART) 0.5 mg capsule Take 1 capsule by mouth once daily. amLODIPine (NORVASC) 5 mg tablet Take by mouth once daily. ALLERGIES: Allergies Allergen Reactions Penicillins Hives and Unknown REVIEW OF SYSTEMS: General no fever no weight loss no fatigue no night sweats Cardiac no chest pain or pressure no palpitations no dizziness no lightheadedness no PND no orthopnea no syncope no urinary frequency no nocturia no urinary hesitancy no straining no decreased urine no frothy urine no pink or red urine no flank pain no groin pain PHYSICAL EXAM: BP 128/81 Pulse 80 Wt 83.2 kg (183 lb 6.8 oz) SpO2 98% BMI 28.72 kg/m?? Constitutional: NAD Eyes: PERRL, Conjunctiva Clear Ear, Nose, and Throat: MMM Neck:Trachea midline CV: RRR. Normal S1, S2. Respiratory: Normal respiratory effort. Lungs clear bilaterally. Musculoskeletal: No clubbing or cyanosis of digits. Normocephalic. Neurologic: Normal balance. Normal Gait Psychiatric: Alert [...] Results Component Value Date CA 9.6 03/25/2024 Urine POC Lab Results Component Value Date UGLUCPOC Negative 04/12/2024 UBILIPOC Negative 04/12/2024 UKETONPOC Trace 04/12/2024 USGPOC 1.025 04/12/2024 UHBPOC Negative 04/12/2024 UPHPOC 6.5 04/12/2024 UPROPOC Negative 04/12/2024 UUROPOC 0.2 04/12/2024 UNITPOC Negative 04/12/2024 UWBCPOC Negative 04/12/2024 UCOLPOC Dark yellow 04/12/2024 UCLARPOC Clear 04/12/2024 ASSESSMENT: Mr. Ventura is a 54yo M PMHx of BPH, HTN presenting for kidney stone followup Kidney Stones: Unknown composition Litholink 2024: High sodium, high urine calcium, urine volume 2.2L [facility] 2024: High sodium, high urine calcium, urine volume 2L HTN: BP controlled. PLAN: Discussed increasing fluid intake Continue HCTZ 25mg Labs today to evaluate hypercalciuria Repeat US at [place] to monitor stone burden SIGNATURE: Indu Nickerson MD. PATIENT NAME: Avinash Ventura OFFICE NUMBER: [phone] PRIMARY CARE PHYSICIAN: Ivan Suazo DO documented in this encounter Plan of Treatment Not on file documented as of this encounter Visit Diagnoses Diagnosis Nephrolithiasis- Primary Calculus of kidney Primary hypertension Unspecified essential hypertension documented in this encounter Care Teams Team MemberRelationshipSpecialtyStart DateEnd Date Ivan Suazo DO [address] [place] [address] PCP - GeneralInternal Medicine02/08/24documented as of this encounter
--- OUTSIDE RECORDS SUMMARY | 2025-05-02 07:02 | XMS_ITS | Clinical Summary ---
Author Organization [facility] Address [address] [place] [address] Care Team Providers Care Captain Airline Pilot Name Role Phone Ivan Suazo DO Primary Care Provider [phone] Allergies Active AllergyReactionsCriticalityNoted DateCommentsPenicillinsHives,Unknown 08/27/2023 Medications MedicationSigDispense QuantityRefillsLast FilledStart DateEnd DateStatus amLODIPine (NORVASC) 5 mg tablet Take by mouth once daily.Active dutasteride (AVODART) 0.5 mg capsule Take 1 capsule by mouth once daily. 90 capsule 502/6Active hydroCHLOROthiazide 25 mg tablet TAKE 1 TABLET BY MOUTH EVERY DAY 90 tablet 5Active Active Problems ProblemNoted DateDiagnosed DateProstate cancerBPH (benign prostatic hyperplasia) Nephrolithiasis Encounters DateTypeDepartmentCare YwhhMqsqrkgiypv55/11/2025Telephone Kidney Medicine [address] [place] [phone] Indu Nickerson MD 04/21/2025 3:20 PM ESTOffice Visit Kidney Medicine [address] [place] [address] Indu Nickerson MD Nephrolithiasis (Primary Dx); Primary ohnevtxhpism57/05/0907Cawpks97/13/2025Telephone Kidney Medicine [address] [place] [address] Indu Nickerson MD Cewzkai0803/10/2025Refill Kidney Medicine [address] [place] [address] Indu Nickerson MD Refill Yshdint8802/28/2025Telephone Kidney Medicine [address] [place] [address] Indu Nickerson MD Patient Updatefrom Last 3 Months Social History Tobacco UseTypesPacks/DayYears UsedDateSmoking Tobacco: NeverSmokeless Tobacco: Never Tobacco Cessation:Counseling Given: Not Answered Area Deprivation IndexAnswerDate RecordedNational Score (1-100), lower number is lower glqn623403/01/2024State Score (1-10), lower number is lower mpcq116 Data from: https://www.neighborhoodatlas.medicine.[facility].edu/. Last address used for [address] Sex and Gender InformationValueDate RecordedSex Assigned at BirthNot on fileLegal OeeZxdm51/02/2012 10:04 AM EST Gender IdentityNot on fileSexual OrientationNot on file Last Filed Vital Signs Vital SignReadingTime TakenCommentsBlood Cjbjmlzt741/8104/21/2025 3:15 PM EST Asrjb773004/21/2025 3:15 PM TVVLnzidfnrfeg78.2 ??C (97.2 ??F)04/01/2024 2:31 PM ESTRespiratory Dmil485406/01/2023 2:45 PM ESTOxygen Bggbsbgpgh57%04/21/2025 3:15 PM ESTInhaled Oxygen Concentration--Gubjlx28.2 kg (183 lb 6.8 oz)04/21/2025 3:15 PM ZPCVvodru625.2 cm (5' 7.01 )07/25/2024 3:56 PM EDTBody Mass Index28.72 07/25/2024 3:56 PM EDT Plan of Treatment Health MaintenanceDue DateLast DoneCommentsAnxiety Ubprukuse54/27/1990Depression Fuofhftwm94/27/1990HIV Ytolroivh97/27/1990Hepatitis C Mzbrcelxt78/27/1990 DTaP,Tdap,Td Vaccine (1 - Tdap)08/11/1990Hepatitis B Vaccine (1 of 3 - 19+ 3- dose series)08/11/1990Lipid Mmgmjikvj29/27/2007CT Vywoqmujedjs60/27/2017 Mnklsutvozz41/27/2017Fecal Occult Blood08/11/20169662Buuwpavlqlqlb04/27/2017 Pneumococcal Vaccine: 50+ (1 of 1 - PCV)08/11/2021hingrix Vaccine (1 of 2) 08/11/2021ovid-19 Vaccine (5 - season)/02/2021, 10/12/2020, 09/02/2020, Additional history existsInfluenza Vaccine (#1)509/, 1Diabetes Ozdaorxfj92/4Cologuard (FIT-DNA)09/12/2027 09/11/2024, 2Colorectal Cancer Rckxwqtep58/27/2028RSV Vaccine (1 - 1- dose 75+ series)08/11/2046 Procedures Procedure NamePriorityDate/TimeAssociated DiagnosisCommentsVITAMIN D 25 HYDROXY Rangrzs7704/21/2025 3:56 PM EST Hypercalciuria Kidney stone VITAMIN D1 25-NOOIKDRjnofyo58/05/2025 3:56 PM EST Hypercalciuria Kidney stone PTH INTACT OJEWygpjgp91/05/2025 3:56 PM EST Hypercalciuria Kidney stone RENAL FUNCTION VRRAOKvjjofx53/05/2025 3:56 PM EST Hypercalciuria Kidney stone SPECIMEN STATUS ABMIEP6303/22/2025 5:36 AM EST LITHOLINK 24HR URINE PANEL03/22/2025 5:36 AM EST BASIC METABOLIC VAGZLQbypuer05/08/2024 3:26 PM EST Pre-op exam Elevated prostate specific antigen (PSA) from Last 3 Months or Most Recently Relevant to Health Maintenance Results * VITAMIN D1 25-DIHYDR (04/21/2025 3:56 PM EST)ComponentValueRef RangeTest MethodAnalysis TimePerformed AtPathologist Signature1,25 Dihydroxy Vitamin Total43.719.9 - 79.3 pg/mL04/24/2025 1:58 PM [facility] Specimen (Source)Anatomical Location / LateralityCollection Method / Volume Collection TimeReceived TimeBloodBLOOD SPECIMEN / UnknownVenipuncture / Sebodwq8104/21/2025 3:56 PM EST04/21/2025 3:56 PM EST Narrative Authorizing ProviderResult TypeResult StatusIndu Nickerson MDLABORATORY Final ResultPerforming OrganizationAddressty/State/ZIP CodePhone Number [facility] [address] [place] [address], * (ABNORMAL) VITAMIN D 25 HYDROXY (04/21/2025 3:56 PM EST)ComponentValueRef RangeTest MethodAnalysis TimePerformed AtPathologist SignatureVitamin D 25 Ggtugyy85.5(L)31.0 - 80.0 ng/mL04/24/2025 1:09 PM [facility] Specimen (Source)Anatomical Location / LateralityCollection Method / Volume Collection TimeReceived TimeBloodBLOOD SPECIMEN / UnknownVenipuncture / Mcuunzp6204/21/2025 3:56 PM EST04/21/2025 3:56 PM EST Narrative Authorizing ProviderResult TypeResult StatusIndu Nickerson MDLABORATORY Final ResultPerforming OrganizationAddressty/State/ZIP CodePhone Number [facility] [address] * (ABNORMAL) RENAL FUNCTION PANEL (04/21/2025 3:56 PM EST)ComponentValueRef RangeTest MethodAnalysis TimePerformed AtPathologist SignatureAlbumin4.73.9 - 4.9 g/dL04/21/2025 5:14 PM [facility] LWCalcium, Total9.48.5 - 10.2 mg/dL 04/21/2025 5:14 PM [facility] LWPhosphorus3.12.7 - 4.8 mg/dL04/21/2025 5:14 PM [facility] RTAnyofhz264(H)74 - 99 mg/dL04/21/2025 5:14 PM [facility] LWComment: The [place] Diabetes Association (ADA) provides guidance for cutoff values for fasting glucose andrandom glucose. The ADA defines fasting as no [...] Standards of Medical Care in Diabetes 2016, [place] Diabetes [employer]. Diabetes Care. 2016.39(Suppl 1). DCU203 - 24 mg/dL04/21/2025 5:14 PM [facility] LWCreatinine0.810.73 - 1.22 mg/dL04/21/2025 5:14 PM [facility] ZJHzcfox167458 - 144 mmol/L106/22/2024 5:14 PM [facility] LWPotassium3.6(L)3.7 - 5.1 mmol/L106/22/2024 5:14 PM [facility] TVBexzpmaa6708 - 107 mmol/L106/22/2024 5:14 PM [facility] LWCO2 3022 - 30 mmol/L106/22/2024 5:14 PM [facility] LWAnion Gng650 - 15 mmol/L 04/21/2025 5:14 PM [facility] LWEstimated Glomerular Filtration Tsgk104>=60 mL/min/1.73m 04/21/2025 5:14 PM [facility] LWComment:Estimated Glomerular Filtration Rate (eGFR) is calculated using the 2020 CKD-EPI creatinine equation. This equation utilizes serum creatinine, sex, and age as parameters. The creatinine assay has traceable calibration to isotope dilution-mass spectrometry. Refer to KDIGO guidelines for clinical interpretation. In patients with unstable renal function, e.g. those with acute kidney injury, the eGFRmay not accurately reflect actual GFR.Specimen (Source)Anatomical Location / LateralityCollection Method / VolumeCollection TimeReceived TimeBloodBLOOD SPECIMEN / Unknown Venipuncture / Laefxpv6004/21/2025 3:56 PM EST04/21/2025 3:56 PM EST Narrative Authorizing ProviderResult TypeResult StatusIndu Nickerson MDLABORATORY Final ResultPerforming OrganizationAddressCity/State/ZIP CodePhone Number [facility] [place] [address] [place] [phone], * PTH INTACT (04/21/2025 3:56 PM EST)ComponentValueRef RangeTest MethodAnalysis TimePerformed AtPathologist SignaturePTH, Yfihop5463 - 59 pg/mL04/22/2025 12:00 AM ESTBRECKSVILLE [facility] / [facility] LABSpecimen (Source)Anatomical Location / LateralityCollection Method / VolumeCollection TimeReceived TimeBloodBLOOD SPECIMEN / UnknownVenipuncture / Zmurlgp6604/21/2025 3:56 PM EST04/21/2025 3:56 PM EST Narrative Authorizing ProviderResult TypeResult StatusIndu Nickerson MDLABORATORY Final ResultPerforming OrganizationAddressCity/State/ZIP CodePhone Number [facility] [address] [place] [address], * (ABNORMAL) LITHOLINK 24HR URINE PANEL (03/22/2025 5:36 AM EST)ComponentValue Ref RangeTest MethodAnalysis TimePerformed AtPathologist SignatureCYSTINE, URINE, QUALITATIVECANCELEDLABCORP 1Comment: Test not performed. Previous test results on file. Result canceled by the ancillary. URINE VOLUME (PRESERVED)2,261085 - 4,000 mL/24 hrLABCORP 1CALCIUM OXALATE SATURATION6.876.00 - 10.00[facility] 1CALCIUM, YCIRI043(H)<250 mg/24 hrLABCORP 1 OXALATE, FWDPS8706 - 40 mg/24 hrLABCORP 1CITRATE, WZIUT090>450 mg/24 hrLABCORP 1 CALCIUM PHOSPHATE SATURATION1.180.50 - 2.00[facility] 1PH, 24 HR, URINE5.683(L) 5.800 - 6.200[facility] 1URIC ACID SATURATION1.33(H)<1.00[facility] 1URIC ACID, URINE 779<800 mg/24 hrLABCORP 1SODIUM, TFUYY758(H)50 - 150 mmol/24 hrLABC[facility]P 1 POTASSIUM, NQBUU2436 - 100 mmol/24 hrL[facility] 1MAGNESIUM, WZXNB685(H)30 - 120 mg/24 hrLABCORP 1PHOSPHORUS, URINE1,189922 - 1,200 mg/24 hrLABC[facility]P 1AMMONIUM, FLVSB8953 - 60 mmol/24 hrL[facility] 1CHLORIDE, NWTNN94854 - 250 mmol/24 hrL[facility] 1 SULFATE, CTGIT3487 - 80 meq/24 hrL[facility]ORP 1UREA NITROGEN, URINE14.006.00 - 14.00 g/24 hrLABCORP 1PROTEIN CATABOLIC RATE1.30.8 - 1.4 g/kg/24 hrL[facility] 1 CREATININE, URINE1,779Not Applic. mg/24 hrL[facility] 1CREATININE/KG BODY LFTBPV66.8 11.9 - 24.4 mg/24 hr/kgLABCORP 1CALCIUM/KG BODY WEIGHT6.0(H)<4.0 mg/24 hr/kg [facility] 1CALCIUM/CREATININE WKECY528(H)34 - 196 mg/g creatLABCORP 1COMMENTNote [facility] 1Specimen (Source)Anatomical Location / LateralityCollection Method / VolumeCollection TimeReceived Time03/22/2025 5:36 AM EST03/23/2025 Narrative OTHER - 03/29/2025 12:06 AM EST Test(s) 842199-Phwwxnp, Urine, Qualitative; 246941-Ncrgtpf, Urine; 104022-eO, 24 hr, Urine; 206258-Wxdhjucg, Urine; 381383- Sulfate, Urine was developed and its performance characteristics determined by [facility]. It has not been cleared or approved by the Food and Drug Administration. Performed at: ??01 - [facility] [address] ??[id number] Party Plan Sales Consultant: Brissa Ye PhD, Phone: ??[phone] Authorizing ProviderResult TypeResult StatusChria Nickerson MDLABORATORY Edited Result - FinalPerforming OrganizationAddressCity/State/ZIP CodePhone Number OTHER [facility] 1 * SPECIMEN STATUS REPORT (03/22/2025 5:36 AM EST)ComponentValueRef RangeTest MethodAnalysis TimePerformed AtPathologist SignatureSpecimen Status Report COMMENTLABCORP 1Comment: Written Authorization Written Authorization Written Authorization Received. Authorization received on 03/30/2025 Logged by Fabiana Ibanez Specimen (Source)Anatomical Location / LateralityCollection Method / Volume Collection TimeReceived Time03/22/2025 5:36 AM EST03/23/2025 Narrative OTHER - 03/30/2025 4:35 PM EST Performed at: 01 - [facility] [place] ??[id number] Party Plan Sales Consultant: Brissa Ye PhD, Phone: ??[phone] Authorizing ProviderResult TypeResult StatusChria Nickerson MDLABORATORY Final ResultPerforming OrganizationAddressCity/State/ZIP CodePhone Number OTHER [facility] 1 * (ABNORMAL) BASIC METABOLIC PANEL (03/25/2024 3:26 PM EST)ComponentValueRef RangeTest MethodAnalysis TimePerformed AtPathologist HyvjrumtiFxuwbys281(H)74 - 99 mg/dL03/25/2024 10:12 PM [facility] LABComment: The [place] Diabetes Association (ADA) provides guidance for cutoff values for fasting glucose andrandom glucose. The ADA defines fasting as no [...] Standards of Medical Care in Diabetes 2016, [place] Diabetes [employer]. Diabetes Care. 2016.39(Suppl 1). ILQ084 - 24 mg/dL03/25/2024 10:12 PM [facility] Creatinine0.840.73 - 1.22 mg/dL03/25/2024 10:12 PM [facility] TXWTezjsa898154 - 144 mmol/L105/25/2023 10:12 PM [facility] LABPotassium3.73.7 - 5.1 mmol/L105/25/2023 10:12 PM [facility] KEDRsthvujx6402 - 107 mmol/L105/25/2023 10:12 PM [facility] SFBZR39382 - 30 mmol/L105/25/2023 10:12 PM [facility] LABAnion Xcb917 - 15 mmol/L105/25/2023 10:12 PM [facility] LABCalcium, Total9.68.5 - 10.2 mg/dL03/25/2024 10:12 PM [facility] LABEstimated Glomerular Filtration Yzqd142>=60 mL/min/1.73m 03/25/2024 10:12 PM [facility] LABComment:Estimated Glomerular Filtration Rate (eGFR) is calculated using the 2020 CKD-EPI creatinine equation. This equation utilizes serum creatinine, sex, and age as parameters. The creatinine assay has traceable calibration to isotope dilution- mass spectrometry. Refer to KDIGO guidelines for clinical interpretation. In patients with unstable renal function, e.g. those with acute kidney injury, the eGFRmay not accurately reflect actual GFR.Specimen (Source)Anatomical Location / LateralityCollection Method / VolumeCollection TimeReceived TimeBloodBLOOD SPECIMEN / UnknownVenipuncture / Jbigmwh7403/25/2024 3:26 PM EST03/25/2024 3:26 PM EST Narrative Authorizing ProviderResult TypeResult StatusTara Milton HERBERT.CNPLABORATORYFinal ResultPerforming OrganizationAddressCity/State/ZIP CodePhone Number [facility] [address] [address], from Last 3 Months or Most Recently Relevant to Health Maintenance Insurance Care Teams Team MemberRelationshipSpecialtyStart DateEnd Date Ivan Suazo DO [address] [place] [address] PCP - GeneralInternal Medicine02/08/24
--- OUTSIDE RECORDS SUMMARY | 2025-05-02 07:03 | XMS_ITS | Clinical Summary ---
Author Organization [facility] Address [address] [place] [address] Care Team Providers Care Medicinal Plant Picker Name Role Phone Unavailable Primary Care Provider Unavailabl e Social History Tobacco UseTypesPacks/DayYears UsedDateSmoking Tobacco: Never AssessedSex and Gender InformationValueDate RecordedSex Assigned at BirthNot on fileLegal Sex Male07/30/2022 11:35 PM EDTGender IdentityNot on fileSexual OrientationNot on file Last Filed Vital Signs Vital SignReadingTime TakenCommentsBlood Eqvnockg835/8106 12:00 PM EDT Pulse--Temperature--Respiratory Rate--Oxygen Saturation--Inhaled Oxygen Concentration--Gwyvaa96.9 kg (185 lb)10/23/2021 12:00 PM JFVXnhpar443.2 cm (5' 7 )10/23/2021 12:00 PM EDTBody Mass Index28.9806 12:00 PM EDT Plan of Treatment Not on file Insurance
--- OUTSIDE RECORDS SUMMARY | 2025-05-02 07:03 | XMS_ITS | Encounter Summary ---
Author Organization [facility] Address [facility] [place] [address] Care Team Providers Care School Psychology Specialist Name Role Phone Ivan Suazo Primary Care Provider [phone] Source Comments In the event this information is protected by the Federal Confidentiality of Alcohol and Drug AbusePatient Records regulations: The Federal rules restrict any use of the information to criminally investigate or prosecute any alcohol or drug abuse patient.[facility] Encounter Details DateTypeDepartmentCare Team (Latest Contact Info)Ncdgcuzjrjl77/05/2025Travel Social History Tobacco UseTypesPacks/DayYears UsedDateSmoking Tobacco: NeverSmokeless Tobacco: NeverArea Deprivation IndexAnswerDate RecordedNational Score (1-100), lower number is lower gdxm057403/01/2024State Score (1-10), lower number is lower risk4 03/01/2024ata from: https://www.neighborhoodatlas.medicine.[facility].edu/. Last address used for [id number] Sex and Gender Information ValueDate RecordedSex Assigned at BirthNot on fileLegal VfuNpge10/02/2012 10:04 AM ESTGender IdentityNot on fileSexual OrientationNot on filedocumented as of this encounter Plan of Treatment Not on file documented as of this encounter Visit Diagnoses Not on filedocumented in this encounter Care Teams Team MemberRelationshipSpecialtyStart DateEnd Date Ivan Suazo DO [address] [place] [address] PCP - GeneralInternal Medicine02/08/24documented as of this encounter
--- OUTSIDE RECORDS SUMMARY | 2025-05-02 07:03 | XMS_ITS | Encounter Summary ---
Author Organization [facility] Address [facility] [place] [address] Care Team Providers Care Tire Buffer Name Role Phone Ivan Suazo Primary Care Provider [phone] Source Comments In the event this information is protected by the Federal Confidentiality of Alcohol and Drug AbusePatient Records regulations: The Federal rules restrict any use of the information to criminally investigate or prosecute any alcohol or drug abuse patient.[facility] Reason for Referral * Diagnostic Procedure Only (Routine) - New RequestSpecialtyDiagnoses / ProceduresReferred By ContactReferred To ContactUS IMAGING Diagnoses Kidney stone Procedures US KIDNEY/BLADDER US RETROPERITONEAL REAL TIME W/[place] [address] [place] [address] Phone: tel: fax: [place] [address] Referral IDStatusReasonStart DateExpiration DateVisits RequestedVisits [id number] Request Auto-Generated Referral / Encounter Details DateTypeDepartmentCare Team (Latest Contact Info)Rruxcntsudl65/11/2025Telephone Kidney Medicine [address] [place] [address] [place] [address] [place], [place] [id number] Social History Tobacco UseTypesPacks/DayYears UsedDateSmoking Tobacco: NeverSmokeless Tobacco: NeverArea Deprivation IndexAnswerDate RecordedNational Score (1-100), lower number is lower ufgk925203/01/2024State Score (1-10), lower number is lower risk4 03/01/2024ata from: https://www.neighborhoodatlas.medicine.[facility].edu/. Last address used for [address] Sex and Gender Information ValueDate RecordedSex Assigned at BirthNot on fileLegal LtxNoed95/02/2012 10:04 AM ESTGender IdentityNot on fileSexual OrientationNot on filedocumented as of this encounter Miscellaneous Notes * Telephone Encounter - Krei Toscano OCCA - 04/27/2025 1:54 PM EST Us order faxed to [facility] imaging dept with conformation Eyaio-[phone] Fax(imaging)-[phone] NIYAH Wolfe April 27, 2025 1:55 PM * Telephone Encounter - Indu Nickerson MD - 04/27/2025 1:21 PM EST Please fax ultrasound order to [facility]. Mychart patient when faxed to schedule ultrasound documented in this encounter Plan of Treatment NameTypePriorityAssociated DiagnosesOrder ScheduleUS KIDNEY/BLADDERRadiology Routine Kidney stone 1 Occurrences starting 04/27/2025 until 05/27/2026documented as of this encounter Visit Diagnoses Diagnosis Kidney stone- Primary Calculus of kidney documented in this encounter Care Teams Team MemberRelationshipSpecialtyStart DateEnd Date Ivan Suazo DO [address] [place] [address] PCP - GeneralInternal Medicine02/08/24documented as of this encounter
--- NOTE | 2025-05-02 07:04 | US_ITS ---
The [address] [address] Patient Name: REY JARA MRN: [id number] date: 1970 Sex: M Assigned Patient Location: US Current Patient Location: US Accession/Order Number: [id number] Exam Date: 05/02/2025 07:05 Report Date: 05/02/2025 08:54 At the request of: PROVIDER PROVIDER Procedure: US renal bladder BILATERAL RENAL AND BLADDER ULTRASOUND CLINICAL HISTORY: Follow-up kidney stones COMPARISON: None Estimation of renal size is approximately 10.4 cm on the right and 11.7 cm on the left. No shadowing calculi or hydronephrosis are identified. No renal mass lesions were imaged. There is no perinephric fluid. The urinary bladder is partially distended with a volume of 258 mL. No contour or intraluminal abnormalities are seen. Bilateral ureteral jets are seen. The post void bladder residual is 17 mL. US/US renal bladder IMPRESSION: NO OBSTRUCTIVE UROPATHY. Impression dictated by: Marleen Penny M.D. 05/02/2025 8:54 AM Dictation Location: [place] [address] Electronically authenticated by: [id number] Y Date: 05/02/2025 08:54
== END 2025-05-02 07:01 | disposition home or self-care (01) ==
PROVIDERS: PCP Internal Medicine
DX: N20.0 Calculus of kidney (principal)
CPT/HCPCS: 76770